=== PATIENT | female | born 1970 | race Caucasian/White ===

== ENCOUNTER 2018-11-29 16:49 | Inpatient (IN) | payer MEDICAID, OTHER ==
--- NOTE | 2018-11-29 17:42 | ED Physician Documentation ---
History of Present Illness - Stated complaint Stated Complaint: ASCITIES - Chief complaint Chief Complaint: Abd Pain - History obtained from History obtained from: Patient, Family - History of Present Illness Timing: Chronic Pain level max: 10 Pain level now: 10 Improved by: nothing Worsened by: movement, palpation - Additonal information Additional information: 48-year-old female with a long history of alcoholic cirrhosis. She recently moved here from [place]. Does not have any care established here yet. She states that she is having increasing abdominal swelling. She is requesting a paracentesis. Her last paracentesis was a few weeks ago. No fevers. She states that she is having abdominal pain as well and has not taken anything for pain at home. She has had 56 emergency department visits in the last year. Her [facility] care plan states not to use narcotics for her. Review of Systems Constitutional: denies: Fever, Chills Throat: denies: Sore throat Cardiac: denies: Chest pain / pressure Respiratory: denies: Cough GI: denies: Nausea, Vomiting, Diarrhea Skin: denies: Rash Musculoskeletal: denies: Neck pain, Back pain Neurologic: denies: Headache PD PAST MEDICAL HISTORY - Past Medical History Past Medical History: No - Past Surgical History Past Surgical History: No - Allergies Allergies/Adverse Reactions: Allergies Allergy/AdvReac Type Severity Reaction Status Date / Time acetaminophen [From Tylenol] Allergy Unknown Verified 11/29/18 17:01 NSAIDS (Non-Steroidal Allergy Unknown Verified 11/29/18 17:01 Anti-Inflamma oxycodone AdvReac Unknown Verified 11/29/18 17:01 - Living Situation Living Situation: reports: With family Living Arrangement: reports: At home PD ED PE NORMAL - Vitals Vital signs reviewed: Yes - General General: Alert and oriented X 3, No acute distress - HEENT HEENT: Moist mucous membranes - Neck Neck: Supple, no meningeal sign - Cardiac Cardiac: RRR, Strong equal pulses - Respiratory Respiratory: No respiratory distress, Clear bilaterally - Abdomen Abdomen: Soft, Non distended, Other (non-tender. significant ascites, but not tense. umbilical hernia is reducible.) - Derm Derm: Warm and dry - Neuro Neuro: Alert and oriented X 3 Results - Vitals Vitals: Vital Signs - 24 hr 11/29/18 11/29/18 11/29/18 16:57 17:22 18:38 Temperature 36.5 C Heart Rate 99 78 98 Respiratory 22 20 Rate Blood Pressure 145/87 H 141/95 H 148/90 H O2 Saturation 99 100 98 11/29/18 11/29/18 11/29/18 19:00 19:30 20:00 Temperature Heart Rate 104 H 97 97 Respiratory 22 26 H Rate Blood Pressure 135/107 H 135/81 H 133/82 H O2 Saturation 95 99 92 Oxygen O2 Source Room air - Labs Labs: Laboratory Tests 11/29/18 11/29/18 11/29/18 17:56 17:56 17:56 WBC 6.2 RBC 3.56 L Hgb 7.1 L Hct 25.3 L MCV 71.1 L MCH 19.9 L MCHC 28.1 L RDW 19.9 H Plt Count 286 MPV 8.8 Neut # (Auto) 4.9 Lymph # (Auto) 0.5 L Mayes # (Auto) 0.6 Eos # (Auto) 0.2 Baso # (Auto) 0.0 Absolute Nucleated RBC 0.00 Nucleated RBC % 0.0 Manual Slide Review Indicated Platelet Estimate NORMAL (130-450,000) Platelet Morphology NORMAL APPEARANCE RBC Morph Micro Appear 1+ POLYCHROMASIA PT 13.2 H INR 1.2 APTT 31.3 Sodium 134 L Potassium 4.1 Chloride 104 Carbon Dioxide 19 L Anion Gap 11.0 BUN 32 H Creatinine 1.3 H Estimated GFR (MDRD) 44 L Glucose 107 H Calcium 9.2 Phosphorus Magnesium Iron TIBC % Saturation Transferrin Total Bilirubin 0.6 AST 21 ALT 14 Alkaline Phosphatase 73 Total Protein 7.4 Albumin 3.3 Globulin 4.1 Albumin/Globulin Ratio 0.8 L Lipase 57 H Urine Color Urine Clarity Urine pH Ur Specific [place] Urine Protein Urine Glucose (UA) Urine Ketones Urine Occult Blood Urine Nitrite Urine Bilirubin Urine Urobilinogen Ur Leukocyte Esterase Urine RBC Urine WBC Urine WBC Clumps Ur Squamous Epith Cells Urine Bacteria Ur Microscopic Review Urine Culture Comments Urine Opiates Screen Ur Oxycodone Screen Urine Methadone Screen Ur Propoxyphene Screen Ur Barbiturates Screen Ur Tricyclics Screen Ur Phencyclidine Scrn Ur Amphetamine Screen U Methamphetamines Scrn U Benzodiazepines Scrn Urine Cocaine Screen U Cannabinoids Screen Blood Type Blood Type Recheck Antibody Screen 11/29/18 11/29/18 11/29/18 17:56 17:56 18:15 WBC RBC Hgb Hct MCV MCH MCHC RDW Plt Count MPV Neut # (Auto) Lymph # (Auto) Mayes # (Auto) Eos # (Auto) Baso # (Auto) Absolute Nucleated RBC Nucleated RBC % Manual Slide Review Platelet Estimate Platelet Morphology RBC Morph Micro Appear PT INR APTT Sodium Potassium Chloride Carbon Dioxide Anion Gap BUN Creatinine Estimated GFR (MDRD) Glucose Calcium Phosphorus 2.8 Magnesium 2.2 Iron 7 L TIBC 407 % Saturation 2 L Transferrin 291 Total Bilirubin AST ALT Alkaline Phosphatase Total Protein Albumin Globulin Albumin/Globulin Ratio Lipase Urine Color Urine Clarity Urine pH Ur Specific [place] Urine Protein Urine Glucose (UA) Urine Ketones Urine Occult Blood Urine Nitrite Urine Bilirubin Urine Urobilinogen Ur Leukocyte Esterase Urine RBC Urine WBC Urine WBC Clumps Ur Squamous Epith Cells Urine Bacteria Ur Microscopic Review Urine Culture Comments Urine Opiates Screen Ur Oxycodone Screen Urine Methadone Screen Ur Propoxyphene Screen Ur Barbiturates Screen Ur Tricyclics Screen Ur Phencyclidine Scrn Ur Amphetamine Screen U Methamphetamines Scrn U Benzodiazepines Scrn Urine Cocaine Screen U Cannabinoids Screen Blood Type Blood Type Recheck B POSITIVE Antibody Screen 11/29/18 11/29/18 19:29 20:31 WBC RBC Hgb Hct MCV MCH MCHC RDW Plt Count MPV Neut # (Auto) Lymph # (Auto) Mayes # (Auto) Eos # (Auto) Baso # (Auto) Absolute Nucleated RBC Nucleated RBC % Manual Slide Review Platelet Estimate Platelet Morphology RBC Morph Micro Appear PT INR APTT Sodium Potassium Chloride Carbon Dioxide Anion Gap BUN Creatinine Estimated GFR (MDRD) Glucose Calcium Phosphorus Magnesium Iron TIBC % Saturation Transferrin Total Bilirubin AST ALT Alkaline Phosphatase Total Protein Albumin Globulin Albumin/Globulin Ratio Lipase Urine Color YELLOW Urine Clarity CLEAR Urine pH 6.5 Ur Specific [place] 1.010 Urine Protein NEGATIVE Urine Glucose (UA) NEGATIVE Urine Ketones NEGATIVE Urine Occult Blood NEGATIVE Urine Nitrite NEGATIVE Urine Bilirubin NEGATIVE Urine Urobilinogen 0.2 (NORMAL) Ur Leukocyte Esterase SMALL H Urine RBC None Seen Urine WBC 11-25 H Urine WBC Clumps PRESENT Ur Squamous Epith Cells RARE Squamous Urine Bacteria Few Ur Microscopic Review INDICATED Urine Culture Comments INDICATED Urine Opiates Screen POSITIVE H Ur Oxycodone Screen NEGATIVE Urine Methadone Screen NEGATIVE Ur Propoxyphene Screen NEGATIVE Ur Barbiturates Screen NEGATIVE Ur Tricyclics Screen NEGATIVE Ur Phencyclidine Scrn NEGATIVE Ur Amphetamine Screen POSITIVE H U Methamphetamines Scrn POSITIVE H U Benzodiazepines Scrn NEGATIVE Urine Cocaine Screen NEGATIVE U Cannabinoids Screen NEGATIVE Blood Type B POSITIVE Blood Type Recheck Antibody Screen POSITIVE PD MEDICAL DECISION MAKING - ED course Complexity details: reviewed results, re-evaluated patient, considered differential, d/w patient, d/w family, d/w [employer] consultant ED course: Old records unavailable except for her [facility] report from [place]. Family states that her normal hemoglobin is around 9 she normally gets transfused if she gets down to around 7. Family states that she is also been unable to get up and walk by herself more than a step or 2 without getting out of breath today.Last paracentesis was approximately a month ago. 10 L of fluid drained at that time. She recently moved here and does not have any outpatient physicians set up. She states that she is on Lasix and spironolactone at home. Will place in observation for blood transfusion and paracentesis with radiology in the morning. 1929, discussed the case with Dr. Heller, hospitalist, who requested that I call hematology oncology for their opinion on if she needs a blood transfusion or not and will follow their recommendations. 1944 D/w Heme onc and recommends transfuse, observation and paracentesis. Iron levels not c/w hemachromotosis. 1999 D/w Dr. Barnett and will perform paracentesis in AM. Departure - Departure Disposition: ED Place in Observation Clinical Impression: Ascites Qualifiers: Ascites type: due to alcoholic cirrhosis Qualified Code(s): K70.31 - Alcoholic cirrhosis of liver with ascites Anemia Qualifiers: Anemia type: unspecified type Qualified Code(s): D64.9 - Anemia, unspecified Iron deficiency anemia Qualifiers: Iron deficiency anemia type: unspecified iron deficiency Qualified Code(s): D50.9 - Iron deficiency anemia, unspecified Condition: Stable Discharge Date/Time: 11/29/18 21:19
[2018-11-29 18:03] LABS: BASOPHILS % (AUTO) 0.5 %; EOSINOPHILS # (AUTO) 0.2 10^3/uL (0.0-0.7); EOSINOPHILS % (AUTO) 3.1 %; HGB - HEMOGLOBIN 7.1 g/dL (12.0-16.0); LYMPHOCYTES # (AUTO) 0.5 10^3/uL (1.5-3.5); LYMPHOCYTES % (AUTO) 7.7 %; MEAN CORPUSCULAR HEMOGLOBIN 19.9 pg (27.0-31.0); MEAN CORPUSCULAR HGB CONC 28.1 g/dL (32.0-36.0); MEAN CORPUSCULAR VOLUME 71.1 fL (81.0-99.0); MEAN PLATELET VOLUME 8.8 fL (7.9-10.8); MONOCYTES # (AUTO) 0.6 10^3/uL (0.0-1.0); MONOCYTES % (AUTO) 9.5 %; NEUTROPHILS # (AUTO) 4.9 10^3/uL (1.5-6.6); NEUTROPHILS % (AUTO) 78.7 %; PLT - PLATELET COUNT 286 10^3/uL (130-450); RED BLOOD COUNT 3.56 10^6/uL (4.20-5.40); RED CELL DISTRIBUTION WIDTH 19.9 % (12.0-15.0); WHITE BLOOD COUNT 6.2 x10^3/uL (4.8-10.8)
[2018-11-29 18:08] LABS: INR 1.2 (0.8-1.2); PT - PROTHROMBIN TIME 13.2 secs (9.9-12.6)
[2018-11-29 18:15] LABS: PARTIAL THROMBOPLASTIN TIME 31.3 secs (24.9-33.3)
[2018-11-29 18:33] LABS: ALBUMIN 3.3 g/dL (3.2-5.5); ALBUMIN/GLOBULIN RATIO 0.8 (1.0-2.2); BILIRUBIN,TOTAL 0.6 mg/dL (0.2-1.0); CALCIUM 9.2 mg/dL (8.5-10.3); CREATININE 1.3 mg/dL (0.4-1.0); TOTAL PROTEIN 7.4 g/dL (6.7-8.2)
[2018-11-29 18:43] LABS: MAGNESIUM 2.2 mg/dL (1.7-2.8); PHOSPHORUS 2.8 mg/dL (2.5-4.6)
[2018-11-29 19:05] LABS: PLATELET ESTIMATE, MANUAL NORMAL (130-450,000) (NORMAL); PLATELET MORPHOLOGY NORMAL APPEARANCE (NORMAL)
[2018-11-29] MEDS ORDERED: MORPHINE 2 MG/ML CARPUJECT IVP STA (19:18)
[2018-11-29] MEDS ORDERED: FUROSEMIDE 40 MG/4 ML VIAL IVP STA (19:19)
[2018-11-29 20:13] LABS: % IRON SATURATION 2 % (20-50); IRON 7 ug/dL (28-170); TOTAL IRON BINDING CAPACITY 407 ug/dL (250-450); TRANSFERRIN 291 mg/dL (192-382)
[2018-11-29 20:41] LABS: MUDS CUTOFF CONCENTRATIONS CUTOFF CONC BELOW:
[2018-11-29 20:46] LABS: BILIRUBIN,URINE NEGATIVE (NEGATIVE); GLUCOSE, URINE (UA) NEGATIVE (NEGATIVE); KETONES,URINE (UA) NEGATIVE (NEGATIVE); LEUKOCYTE ESTERASE, URINE SMALL (NEGATIVE); NITRITE,URINE NEGATIVE (NEGATIVE); OCCULT BLOOD,URINE NEGATIVE (NEGATIVE); PH,URINE 6.5 PH (5.0-7.5); PROTEIN,URINE NEGATIVE (NEGATIVE); UROBILINOGEN,URINE 0.2 (NORMAL) E.U./dL (NORMAL)
[2018-11-29 20:57] LABS: CLARITY,URINE CLEAR (CLEAR)
[2018-11-29 20:58] LABS: BACTERIA,URINE Few /HPF (None Seen); RBC,URINE None Seen /HPF (0-5); SQUAMOUS EPITHELIAL CELL,UR RARE Squamous (<= Few); WBC CLUMPS,URINE PRESENT
--- NOTE | 2018-11-29 21:15 | HISTORY & PHYSICAL EXAMINATION ---
Chief Complaint - Chief Complaint Chief Complaint: abdominal pain, dyspnea History of Present Illness - Admitted From Admitted From:: [facility] ED - History Obtained From Records Reviewed: yes History obtained from: patient - History of Present Illness HPI Comment/Other: Patient seen on 11/29/18 at 20:00pm Patient is a 48 y/o female who appears much older than stated age. She presented to the [facility] ED today with complain of abdominal pain for the past 1 week. She has history of alcoholic liver cirrhosis with ascites. She currently has a very protuberant abdomen with a significant protruding umbilical hernia. She is very cachexic appearing otherwise. She just moved to [facility] about 2 weeks ago from [place], [place], to live with her daughter. She reportedly undergoes frequent paracentesis. The last paracentesis was 3 weeks ago. At that time about 10L of fluid was extracted. She had another 1 month before that. As a result of her ascites and abdominal distention, she is having some dyspnea. However work up also revealed a hemoglobin of 7.1 She denies nausea or vomiting, fever or chills. She reports history of frequent blood transfusions. She has multiple antibodies. She also reports history of hepatic encephalopathy in the past. The rest of her history is unremarkable. As a result of her presentation, she is is being admitted for further treatment. History - Past Medical History Cardiovascular: reports: Hypertension, Other (2nd Degree Heart Block) Endocrine/Autoimmune: reports: HyPOthyroidism GI: reports: Esophageal varices (s/p multiple banding), Cirrhosis [employer]: reports: Miscarriage(s), Other (Uterine rupture) : reports: Other (Chronic Kidney Disease Stage 3) Psych: reports: Anxiety, Other (Mood Disorder) Other Past Medical History: Hx of alcohol abuse, Hepatic Encephalopathy. Portal Hypertension, Severe Protein Calorie Malnutrition, Vit B12 Def, Vit D def, Iron Deficiency Anemia, Hx of Hepatitis B and Hepatitis C, Gastric Antral Vascular Ectasia, Methamphetamine use - Past Surgical History Ortho: reports: Other (Left ankle surgery with titanium rods and plates) - Family & Social History Family History Comment/Other: Father: esophageal cancer. Mother: CVA at 62. Extensive family history of colon cancer on maternal side Living arrangement: At home Living Situation: With family Social History Notes: She moved to [facility] from [place], [place] to live with her daughter and family. She denies alcohol, tobacco or illicit drug use. She has a significant past history of alcoohol abuse. She also tested positived for methamphetamine and opiates. - Substance History Use: Uses substance without health or social issues: Alcohol Abuse: Recurrent use of substance despite neg consequences: Amphetamine, Opioid - POLST Patient has POLST: No POLST Status: Full Code Meds/Allgy - Allergies Allergies/Adverse Reactions: Allergies Allergy/AdvReac Type Severity Reaction Status Date / Time acetaminophen [From Tylenol] Allergy Unknown Verified 11/29/18 17:01 NSAIDS (Non-Steroidal Allergy Unknown Verified 11/29/18 17:01 Anti-Inflamma oxycodone AdvReac Unknown Verified 11/29/18 17:01 Review of Systems - Constitutional Constitutional: reports: Fatigue, Chills, Weakness. denies: Fever - Eyes Eyes: denies: Blurred vision, Vision loss, Dipolpia - Ears, Nose & Throat Ears, Nose & Throat: denies: Vertigo, Nasal pain, Sore throat, Hoarseness - Cardiovascular Cariovascular: denies: Irregular heart rate, Chest pain, Edema, Exertional dyspnea - Respiratory Respiratory: reports: SOB at rest. denies: Wheezing, Snoring, Apnea, Stridor - Gastrointestinal Gastrointestinal: reports: Abdominal pain, Abdominal distention, Reflux/heartburn. denies: Constipation, Diarrhea, Black stools, Nausea, Vomiting, Coffee grounds emesis - Genitourinary Genitourinary: denies: Dysuria, Frequency, Urgency, Hematuria, Flank pain, Nocturia, Urethral discharge - Musculoskeletal Musculoskeletal: denies: Muscle pain, Back pain, Muscle aches, Stiffness, Limited range of motion, Muscle weakness, Joint pain - Integumentary Integumentary: denies: Rash, Pruritis, Lesions, Dryness - Neurological Neurological: denies: General weakness, Focal weakness, Headache, Dizziness - Psychiatric Psychiatric: denies: Depression, Anxiety, Delusions, Hallucinations - Endocrine Endocrine: denies: Polyuria, Polydypsia - Hematologic/Lymphatic Hematologic/Lymphatic: reports: Anemia. denies: Bruising, Petechiae, Blood clots, Lymphadenopathy Prior Level of Functionality: Patient is independent of activities of daily living Exam - Vital Signs Vital Signs: Vital Signs x48h Temp Pulse Resp BP Pulse Ox 11/29/18 20:00 97 26 H 133/82 H 92 07/17/19 19:30 97 135/81 H 99 11/29/18 19:00 104 H 22 135/107 H 95 11/29/18 18:38 98 148/90 H 98 11/29/18 17:22 78 20 141/95 H 100 11/29/18 16:57 36.5 C 99 22 145/87 H 99 - Physical Exam General Appearance: positive: Alert, Moderate distress, Other (cachexic) Eyes Bilateral: positive: Normal inspection, PERRL, EOMI ENT: positive: No signs of dehydration Neck: positive: Nml inspection, No JVD, Trachea midline Respiratory: positive: Chest non-tender, No respiratory distress, Breath sounds nml. negative: Wheezes, Rales, Rhonchi Cardiovascular: positive: Regular rate & rhythm, No murmur Abdomen: positive: Tenderness, Splenomegaly, Other (Protuberant abdomen with significant ascites and umbilical hernia. [place] noted around umbilicus) Back: positive: Nml inspection Skin: positive: Color nml, No rash, Warm. negative: Cyanosis Extremities: positive: Non-tender, Nml appearance, No pedal edema Neurologic/Psychiatric: positive: Oriented x3, Motor nml Conclusion/Plan - Problem List (1) Ascites Conclusion/Plan: NPO after midnight for paracentesis Check PT/INR. Abd US ordered Fluid and salt restrict Will consult IR for paracentesis. Will administer albumin after paracentesis Qualifiers: Ascites type: due to alcoholic cirrhosis Qualified Code(s): K70.31 - A lcoholic cirrhosis of liver with ascites (2) Anemia Conclusion/Plan: Patient stopped oral iron supplement due to constipation Will order IV iron. She will likely need iron infusion out patient Type and screen and cross match ordered Patient has multiple antibodies. Blood work up will need to be a send out Qualifiers: Anemia type: unspecified type Qualified Code(s): D64.9 - Anemia, unspecified (3) Hypothyroidism Conclusion/Plan: Will resume synthroid dose once verified (4) Hepatic encephalopathy Conclusion/Plan: Patient reports taking lactulose. Will resume when medication verified (5) IV drug abuse Conclusion/Plan: Patient denied using any illicit drugs but tested positive for methamphetamines Will keep narcotic administration to a minimum - Lab Results Fish Bones: 11/30/18 05:36 11/30/18 05:36 Core Measures - Anticipated LOS I expect patient to be DC'd or transferred within 96 hours.: Yes - DVT/VTE - Prophylaxis VTE/DVT Device ordered at admit?: Yes
[2018-11-29 21:16] LABS: AMPHETAMINE SCREEN,URINE POSITIVE (NEGATIVE); BENZODIAZEPINES SCREEN, URINE NEGATIVE (NEGATIVE); COCAINE SCREEN URINE NEGATIVE (NEGATIVE); METHADONE SCREEN, URINE NEGATIVE (NEGATIVE); METHAMPHETAMINES SCREEN, URINE POSITIVE (NEGATIVE); OPIATE SCREEN, URINE POSITIVE (NEGATIVE); OXYCODONE SCREEN, URINE NEGATIVE (NEGATIVE); PROPOXYPHENE SCREEN, URINE NEGATIVE (NEGATIVE); TRICYCLIC ANTIDEPRESSANT,URINE NEGATIVE (NEGATIVE)
[2018-11-29] MEDS: SODIUM CHLORIDE FLUSH 0.9% 10 ML SYRINGE IVP PRN (23:07)
[2018-11-29] MEDS: MORPHINE 2 MG/ML CARPUJECT IVP PRN (23:07)
[2018-11-29] MEDS: SODIUM CHLORIDE FLUSH 0.9% 10 ML SYRINGE IVP SCH (23:34)
--- NOTE | 2018-11-30 01:43 | Ultrasound Report ---
Reason: assess ascites for paracentesis Procedure Date: 11/30/2018 Accession Number: [id number] / [id number] Procedure: US - Abdomen Limited CPT Code: FULL RESULT: EXAM: ABDOMEN ULTRASOUND LIMITED EXAM DATE: 11/30/2018 12:23 AM. CLINICAL HISTORY: Assess ascites for paracentesis. COMPARISON: None. TECHNIQUE: Real-time scanning was performed with static images obtained. FINDINGS: There is a significant amount of ascites in all 4 quadrants. IMPRESSION: 1. Ascites in all 4 quadrants. RADIA
[2018-11-30] MEDS: MORPHINE 2 MG/ML CARPUJECT IVP PRN ×3 (05:37→22:13)
[2018-11-30] MEDS: SODIUM CHLORIDE FLUSH 0.9% 10 ML SYRINGE IVP PRN ×5 (05:37→22:21)
[2018-11-30 05:47] LABS: BASOPHILS % (AUTO) 0.5 %; EOSINOPHILS # (AUTO) 0.2 10^3/uL (0.0-0.7); EOSINOPHILS % (AUTO) 3.5 %; LYMPHOCYTES # (AUTO) 0.5 10^3/uL (1.5-3.5); LYMPHOCYTES % (AUTO) 8.1 %; MEAN CORPUSCULAR HEMOGLOBIN 20.6 pg (27.0-31.0); MEAN CORPUSCULAR HGB CONC 29.3 g/dL (32.0-36.0); MEAN CORPUSCULAR VOLUME 70.1 fL (81.0-99.0); MEAN PLATELET VOLUME 8.6 fL (7.9-10.8); MONOCYTES # (AUTO) 0.7 10^3/uL (0.0-1.0); MONOCYTES % (AUTO) 11.3 %; NEUTROPHILS # (AUTO) 4.6 10^3/uL (1.5-6.6); NEUTROPHILS % (AUTO) 75.9 %; PLT - PLATELET COUNT 238 10^3/uL (130-450); RED BLOOD COUNT 3.21 10^6/uL (4.20-5.40); RED CELL DISTRIBUTION WIDTH 19.6 % (12.0-15.0)
[2018-11-30 05:54] LABS: CALCIUM 8.6 mg/dL (8.5-10.3); CREATININE 1.4 mg/dL (0.4-1.0); HGB - HEMOGLOBIN 6.6 g/dL (12.0-16.0)
[2018-11-30 05:55] LABS: INR 1.2 (0.8-1.2)
[2018-11-30] MEDS: LEVOTHYROXINE 25 MCG TABLET PO SCH (06:53)
[2018-11-30] MEDS: LACTULOSE 10 GM /15 ML UDC PO SCH ×3 (06:53→22:07)
[2018-11-30] MEDS ORDERED: PANTOPRAZOLE 40 MG VIAL IVP SCH (07:00)
[2018-11-30] MEDS ORDERED: FERRIC GLUCONATE 125 MG in SODIUM CHLORIDE 0.9% 100ML 100 ML IV ONE (08:00)
[2018-11-30] MEDS: CHOLECALCIFEROL 1,000 UNIT TABLET PO SCH (09:03)
[2018-11-30] MEDS: PANTOPRAZOLE 40 MG VIAL IVP SCH ×2 (09:04→22:07)
[2018-11-30] MEDS: CYANOCOBALAMIN 500 MCG TABLET PO SCH (09:04)
[2018-11-30] MEDS: FUROSEMIDE 40 MG TABLET PO SCH (09:04)
[2018-11-30] MEDS: POLYETHYLENE GLYCOL 3350 17 GM PACKET PO SCH (09:05)
[2018-11-30] MEDS: SODIUM CHLORIDE FLUSH 0.9% 10 ML SYRINGE IVP SCH ×2 (09:05→16:42)
[2018-11-30] MEDS: SPIRONOLACTONE 25 MG TABLET PO SCH (09:07)
[2018-11-30] MEDS: CARBOXYMETHYLCELLULOSE OPHTH DROPS EACHEYE PRN (09:15)
[2018-11-30] MEDS ORDERED: BUFFERED LIDOCAINE 10 ML SYRINGE ONE (12:01)
--- NOTE | 2018-11-30 15:25 | PROVIDER PROGRESS NOTE ---
Assessment/Plan - Problem List (1) Ascites Qualifiers: Assessment/Plan: The plan is for ultrasound-guided paracentesis to be done by interventional radiology today.Dr. Barnett requested that the fluid be sent for cultures. Continue with her daily high-dose spironolactone and loop diuretic doses. Follow daily weight while here (2) Iron deficiency anemia Qualifiers: Iron deficiency anemia type: unspecified iron deficiency Qualified Code(s): D50.9 - Iron deficiency anemia, unspecified Assessment/Plan: Her low hemoglobin is due to chronic iron deficiency anemia from GI blood loss and low iron stores. Her oral iron replacement is continued. Transfusion was ordered overnight but because she has many antibodies, the crossmatch will take a long time and will not be perfect. Lasix will be given between units. Follow CBC (3) H/O blood transfusion reaction Assessment/Plan: She will be premedicated with Benadryl and acetaminophen. Even though acetaminophen is listed as an allergy, it is there in order to have minimum hepatotoxic medications used for her, it is not a true allergy (4) Dyspnea Assessment/Plan: She noticed this worsening when the abdomen became more distended, undoubtedly pushing up her diaphragm into the chest. Follow clinically, improvement is expected after paracentesis today peer (5) Hypothyroidism Assessment/Plan: She is on her home thyroid replacement therapy while here (6) CKD (chronic kidney disease) stage 3, GFR 30-59 ml/min Assessment/Plan: Follow BUN/creatinine while here. Fluid status will be carefully monitored: oral intake, diuresis with spironolactone and loop diuretic, intravascular loss after ascites then third spacing is expected, intravascular repletion with IV blood transfusions, Lasix to be given in between units of blood. (7) Protein calorie malnutrition Qualifiers: Protein-calorie malnutrition severity: unspecified severity Qualified Code(s): E46 - Unspecified protein-calorie malnutrition Assessment/Plan: Dietary evaluation will be ordered. She requests a regular diet and states that she will handle mastication even without teeth. We will offer Ensure supplements. (8) Poor dentition Assessment/Plan: This led to her poor nutrition and was caused by it. Dietary evaluation will be ordered (9) Umbilical hernia Assessment/Plan: Very large, reducible, nonobstructing and non-tender. (10) History of esophageal varices with bleeding Assessment/Plan: Follow platelet, INR and bowel movements for any signs of blood loss (11) GAVE (gastric antral vascular ectasia) Assessment/Plan: Same management as for esophageal varices (12) Hepatitis C Qualifiers: Viral hepatitis chronicity: chronic Assessment/Plan: This was stated to be the reason for her hepatic cirrhosis. (13) Hepatitis B Qualifiers: Viral hepatitis chronicity: chronic Assessment/Plan: This was stated to be the reason for her chronic liver cirrhosis (14) History of alcohol abuse Assessment/Plan: This was stated to have added to her liver cirrhosis (15) History of methamphetamine abuse Assessment/Plan: She denies current IV drug use or any drug use. - Current Meds Current Meds: Current Medications Generic Name Dose Route Start Last Admin Trade Name Freq PRN Reason Stop Dose Admin Carboxymethylcellulose 1 drops 11/30/18 02:00 11/30/18 09:15 Refresh 1% Ophth Drops EACHEYE 1 drops Q4HR PRN Administration Dry Eye Cholecalciferol 2,000 unit 11/30/18 09:00 11/30/18 09:03 Vitamin D3 PO 2,000 unit DAILY SUMEET Administration Cyanocobalamin 1,000 mcg 11/30/18 09:00 11/30/18 09:04 Vitamin B-12 PO 1,000 mcg DAILY SUMEET Administration Furosemide 40 mg 11/30/18 09:00 11/30/18 09:04 Lasix PO 40 mg DAILY SUMEET Administration Lactulose 10 gm 11/30/18 07:00 11/30/18 14:08 Enulose PO 10 gm TID SUMEET Administration Levothyroxine Sodium 50 mcg 11/30/18 07:00 11/30/18 06:53 Synthroid PO 50 mcg QDAC SUMEET Administration Morphine Sulfate 3 mg 11/29/18 20:37 11/30/18 14:08 Morphine (Carpuject) IVP 3 mg Q4HR PRN Administration Pain 8 to 10 Pantoprazole Sodium 40 mg 11/30/18 09:00 11/30/18 09:04 Protonix IVP 40 mg BID SUMEET Administration Polyethylene Glycol 17 gm 11/30/18 09:00 11/30/18 09:05 Miralax PO 17 gm DAILY SUMEET Administration Sodium Chloride 10 ml 11/29/18 20:37 11/30/18 14:08 Normal Saline Flush 0.9% IVP 10 ml PRN PRN Administration NEEDED PER PROVIDER ORDERS Sodium Chloride 10 ml 11/30/18 01:00 11/30/18 09:05 Normal Saline Flush 0.9% IVP 10 ml 0100,0900,1700 SUMEET Administration Spironolactone 100 mg 11/30/18 09:00 11/30/18 09:07 Aldactone PO 100 mg DAILY SUMEET Administration - Lab Result Fish Bone Diagrams: 11/30/18 05:36 11/30/18 05:36 - Additional Planning My Orders: My Active Orders 11/30/18 09:27 NPO [DIET] Abdominal Paracentesis [US] Routine 11/30/18 13:49 Miscellaenous Nursing Order [RC] ONCE 11/30/18 15:22 CUL,BODY FLUID(AEROBIC) [RM] Urgent 11/30/18 15:24 CELL COUNT, BF [BF] Urgent 11/30/18 15:30 diphenhydrAMINE INJ [Benadryl Inj] 25 mg IVP ONCE ONE 11/30/18 16:30 Acetaminophen [Tylenol] 650 mg PO ONCE ONE 11/30/18 17:30 FUROSEMIDE INJ 20mg VIAL [LASIX INJ 20mg VIAL] 20 mg IVP ONCE PRN 11/30/18 Dinner DIET [Low Sodium Diet] [DIET] Subjective - Subjective Patient Reports: Feeling Better, Resting Comfortably Objective Vital Signs: Vital Signs - 24 hr 11/29/18 11/29/18 11/29/18 16:57 17:22 18:38 Temperature 36.5 C Heart Rate 99 78 98 Heart Rate [ Brachial] Respiratory 22 20 Rate Blood Pressure 145/87 H 141/95 H 148/90 H Blood Pressure [Right Brachial artery] O2 Saturation 99 100 98 11/29/18 11/29/18 11/29/18 19:00 19:30 20:00 Temperature Heart Rate 104 H 97 97 Heart Rate [ Brachial] Respiratory 22 26 H Rate Blood Pressure 135/107 H 135/81 H 133/82 H Blood Pressure [Right Brachial artery] O2 Saturation 95 99 92 11/30/18 11/30/18 11/30/18 00:56 05:41 07:20 Temperature 36.9 C 36.6 C 36.5 C Heart Rate Heart Rate [ 95 79 74 Brachial] Respiratory 16 20 20 Rate Blood Pressure Blood Pressure 129/80 123/92 H 134/96 H [Right Brachial artery] O2 Saturation 94 98 100 11/30/18 11:24 Temperature 36.6 C Heart Rate Heart Rate [ 83 Brachial] Respiratory 18 Rate Blood Pressure Blood Pressure 149/81 H [Right Brachial artery] O2 Saturation 100 Oxygen O2 Source Room air I&O (Last 24 Hrs): Intake and Output Totals x24h 11/28/18 11/29/18 11/30/18 23:59 23:59 23:59 Intake Total 110 Balance 110 General: Alert, Oriented x3 HEENT: Mucous membr. moist/pink, Other (Temporal wasting. Upper teeth broken or missing. lower jaw edentulous.) Neuro: Non Focal Cardiovascular: Regular rate, No murmurs Respiratory: No respiratory distress Abdomen: Other (Distended with fluid wave, not tense, very large and "multi- lobed' umbilical hernia which is non-tender) Extremities: No edema, Other (Upper extremity muscles wasted.) - Results Results: Laboratory Results WBC 6.0 x10^3/uL (4.8-10.8) 11/30/18 05:36 RBC 3.21 10^6/uL (4.20-5.40) L 11/30/18 05:36 Hgb 6.6 g/dL (12.0-16.0) L* 11/30/18 05:36 Hct 22.5 % (37.0-47.0) L 11/30/18 05:36 MCV 70.1 fL (81.0-99.0) L 11/30/18 05:36 MCH 20.6 pg (27.0-31.0) L 11/30/18 05:36 MCHC 29.3 g/dL (32.0-36.0) L 11/30/18 05:36 RDW 19.6 % (12.0-15.0) H 11/30/18 05:36 Plt Count 238 10^3/uL (130-450) 11/30/18 05:36 MPV 8.6 fL (7.9-10.8) 11/30/18 05:36 Neut # (Auto) 4.6 10^3/uL (1.5-6.6) 11/30/18 05:36 Lymph # (Auto) 0.5 10^3/uL (1.5-3.5) L 11/30/18 05:36 Walsh # (Auto) 0.7 10^3/uL (0.0-1.0) 11/30/18 05:36 Eos # (Auto) 0.2 10^3/uL (0.0-0.7) 11/30/18 05:36 Baso # (Auto) 0.0 10^3/uL (0.0-0.1) 11/30/18 05:36 Absolute Nucleated RBC 0.00 x10^3/uL 11/30/18 05:36 Nucleated RBC % 0.0 /100WBC 11/30/18 05:36 Manual Slide Review Indicated 11/29/18 17:56 Platelet Estimate NORMAL (130-450,000) (NORMAL) 11/29/18 17:56 Platelet Morphology NORMAL APPEARANCE (NORMAL) 11/29/18 17:56 RBC Morph Micro Appear 3+ HYPOCHROMASIA (NORMAL) 1+ POLYCHROMASIA (NORMAL) 11/29/18 17:56 RBC Morph Micro Appear 3+ HYPOCHROMASIA (NORMAL) 1+ POLYCHROMASIA (NORMAL) 11/29/18 17:56 PT 14.0 secs (9.9-12.6) H 11/30/18 05:36 INR 1.2 (0.8-1.2) 11/30/18 05:36 APTT 31.3 secs (24.9-33.3) 11/29/18 17:56 Sodium 134 mmol/L (135-145) L 11/30/18 05:36 Potassium 3.9 mmol/L (3.5-5.0) 11/30/18 05:36 Chloride 102 mmol/L (101-111) 11/30/18 05:36 Carbon Dioxide 20 mmol/L (21-32) L 11/30/18 05:36 Anion Gap 12.0 (6-13) 11/30/18 05:36 BUN 34 mg/dL (6-20) H 11/30/18 05:36 Creatinine 1.4 mg/dL (0.4-1.0) H 11/30/18 05:36 Estimated GFR (MDRD) 40 (>89) L 11/30/18 05:36 Glucose 99 mg/dL (70-100) 11/30/18 05:36 POC Whole Bld Glucose 98 mg/dL (70 - 100) 11/30/18 11:16 Calcium 8.6 mg/dL (8.5-10.3) 11/30/18 05:36 Phosphorus 2.8 mg/dL (2.5-4.6) 11/29/18 18:15 Magnesium 2.2 mg/dL (1.7-2.8) 11/29/18 18:15 Iron 7 ug/dL (28-170) L 11/29/18 17:56 TIBC 407 ug/dL (250-450) 11/29/18 17:56 % Saturation 2 % (20-50) L 11/29/18 17:56 Transferrin 291 mg/dL (192-382) 11/29/18 17:56 Total Bilirubin 0.6 mg/dL (0.2-1.0) 11/29/18 17:56 AST 21 IU/L (10-42) 11/29/18 17:56 ALT 14 IU/L (10-60) 11/29/18 17:56 Alkaline Phosphatase 73 IU/L (42-121) 11/29/18 17:56 Ammonia 34.4 umol/L (7-35) 11/30/18 05:36 Total Protein 7.4 g/dL (6.7-8.2) 11/29/18 17:56 Albumin 3.3 g/dL (3.2-5.5) 11/29/18 17:56 Globulin 4.1 g/dL (2.1-4.2) 11/29/18 17:56 Albumin/Globulin Ratio 0.8 (1.0-2.2) L 11/29/18 17:56 Lipase 57 U/L (22-51) H 11/29/18 17:56 Urine Color YELLOW 11/29/18 20:31 Urine Clarity CLEAR (CLEAR) 11/29/18 20:31 Urine pH 6.5 PH (5.0-7.5) 11/29/18 20:31 Ur Specific [place] 1.010 (1.002-1.030) 11/29/18 20:31 Urine Protein NEGATIVE mg/dL (NEGATIVE) 11/29/18 20:31 Urine Glucose (UA) NEGATIVE mg/dL (NEGATIVE) 11/29/18 20:31 Urine Ketones NEGATIVE mg/dL (NEGATIVE) 11/29/18 20:31 Urine Occult Blood NEGATIVE (NEGATIVE) 11/29/18 20:31 Urine Nitrite NEGATIVE (NEGATIVE) 11/29/18 20:31 Urine Bilirubin NEGATIVE (NEGATIVE) 11/29/18 20:31 Urine Urobilinogen 0.2 (NORMAL) E.U./dL (NORMAL) 11/29/18 20:31 Ur Leukocyte Esterase SMALL (NEGATIVE) H 11/29/18 20:31 Urine RBC None Seen /HPF (0-5) 11/29/18 20:31 Urine WBC 11-25 /HPF (0-5) H 11/29/18 20:31 Urine WBC Clumps PRESENT 11/29/18 20:31 Ur Squamous Epith Cells RARE Squamous (<= Few) 11/29/18 20:31 Urine Bacteria Few /HPF (None Seen) 11/29/18 20:31 Ur Microscopic Review INDICATED 11/29/18 20:31 Urine Culture Comments INDICATED 11/29/18 20:31 Urine Opiates Screen POSITIVE (NEGATIVE) H 11/29/18 20:31 Ur Oxycodone Screen NEGATIVE (NEGATIVE) 11/29/18 20:31 Urine Methadone Screen NEGATIVE (NEGATIVE) 11/29/18 20:31 Ur Propoxyphene Screen NEGATIVE (NEGATIVE) 11/29/18 20:31 Ur Barbiturates Screen NEGATIVE (NEGATIVE) 11/29/18 20:31 Ur Tricyclics Screen NEGATIVE (NEGATIVE) 11/29/18 20:31 Ur Phencyclidine Scrn NEGATIVE (NEGATIVE) 11/29/18 20:31 Ur Amphetamine Screen POSITIVE (NEGATIVE) H 11/29/18 20:31 U Methamphetamines Scrn POSITIVE (NEGATIVE) H 11/29/18 20:31 U Benzodiazepines Scrn NEGATIVE (NEGATIVE) 11/29/18 20:31 Urine Cocaine Screen NEGATIVE (NEGATIVE) 11/29/18 20:31 U Cannabinoids Screen NEGATIVE (NEGATIVE) 11/29/18 20:31 Blood Type B POSITIVE 11/29/18 19:29 Blood Type Recheck B POSITIVE 11/29/18 17:56 Antibody Screen POSITIVE 11/29/18 19:29 Antibody Identification Anti-E Anti-Jkb ID SENT TO REFERENCE LAB Warm Auto Antibody 11/29/18 19:29 Antibody Identification Anti-E Anti-Jkb ID SENT TO REFERENCE LAB Warm Auto Antibody 11/29/18 19:29 Antibody Identification Anti-E Anti-Jkb ID SENT TO REFERENCE LAB Warm Auto Antibody 11/29/18 19:29 Antibody Identification Anti-E Anti-Jkb ID SENT TO REFERENCE LAB Warm Auto Antibody 11/29/18 19:29 Crossmatch See Detail 11/29/18 19:29 Crossmatch IS Only See Detail 11/29/18 19:29
[2018-11-30] MEDS ORDERED: diphenhydrAMINE INJ 50 MG/ML VIAL IVP ONE (15:30)
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
--- NOTE | 2018-11-30 15:55 | Ultrasound Report ---
Reason: Recurrent ascites Procedure Date: 11/30/2018 Accession Number: [id number] / [id number] Procedure: US - Abdominal Paracentesis CPT Code: FULL RESULT: EXAM: ULTRASOUND-GUIDED PARACENTESIS EXAM DATE: 11/30/2018 03:45 PM. CLINICAL HISTORY: Recurrent ascites, history of cirrhosis. COMPARISON: None. TECHNIQUE: Risks, benefits, and alternatives to the procedure were discussed with the patient. All questions answered. Written and verbal consent obtained. Patient was placed in the supine position and the skin overlying the ascites marked with sonographic guidance. The skin was sterilely prepped and draped, and 1% buffered lidocaine was used for local anesthesia. An 18-gauge catheter-needle combination was advanced into the peritoneal ascites and fluid aspirated. Upon completion, the catheter was removed. FINDINGS: A total of 7500 mL of fluid was removed without immediate complication. Patient tolerated procedure well. IMPRESSION: Ultrasound-guided paracentesis without immediate complications. [facility]
[2018-11-30] MEDS ORDERED: ACETAMINOPHEN 325 MG TABLET PO ONE (16:30)
[2018-11-30] MEDS ORDERED: SODIUM CHLORIDE 0.9% 500 ML ONE (16:40)
[2018-11-30] MEDS ORDERED: BUFFERED LIDOCAINE 10 ML SYRINGE IU ONE (17:04)
[2018-11-30] MEDS ORDERED: FUROSEMIDE 20 MG/2 ML VIAL IVP PRN (17:30)
[2018-11-30] MEDS: MIRTAZAPINE 15 MG TABLET PO SCH (22:08)
[2018-12-01] MEDS: SODIUM CHLORIDE FLUSH 0.9% 10 ML SYRINGE IVP SCH ×3 (00:24→16:11)
[2018-12-01 06:07] LABS: BASOPHILS # (AUTO) 0.1 10^3/uL (0.0-0.1); BASOPHILS % (AUTO) 0.6 %; EOSINOPHILS # (AUTO) 0.2 10^3/uL (0.0-0.7); EOSINOPHILS % (AUTO) 2.1 %; HGB - HEMOGLOBIN 9.8 g/dL (12.0-16.0); LYMPHOCYTES # (AUTO) 0.4 10^3/uL (1.5-3.5); LYMPHOCYTES % (AUTO) 3.1 %; MEAN CORPUSCULAR HEMOGLOBIN 21.6 pg (27.0-31.0); MEAN CORPUSCULAR HGB CONC 30.7 g/dL (32.0-36.0); MEAN CORPUSCULAR VOLUME 70.4 fL (81.0-99.0); MEAN PLATELET VOLUME 8.4 fL (7.9-10.8); MONOCYTES % (AUTO) 8.8 %; NEUTROPHILS # (AUTO) 9.5 10^3/uL (1.5-6.6); NEUTROPHILS % (AUTO) 84.9 %; PLT - PLATELET COUNT 235 10^3/uL (130-450); RED BLOOD COUNT 4.53 10^6/uL (4.20-5.40); RED CELL DISTRIBUTION WIDTH 19.7 % (12.0-15.0); WHITE BLOOD COUNT 11.2 x10^3/uL (4.8-10.8)
[2018-12-01] MEDS: LACTULOSE 10 GM /15 ML UDC PO SCH ×3 (06:07→21:31)
[2018-12-01] MEDS: LEVOTHYROXINE 25 MCG TABLET PO SCH (06:07)
[2018-12-01 06:36] LABS: CALCIUM 8.7 mg/dL (8.5-10.3); CREATININE 1.6 mg/dL (0.4-1.0)
[2018-12-01] MEDS: PANTOPRAZOLE 40 MG VIAL IVP SCH ×2 (08:37→21:04)
[2018-12-01] MEDS: CARBOXYMETHYLCELLULOSE OPHTH DROPS EACHEYE PRN (08:38)
[2018-12-01] MEDS: SPIRONOLACTONE 25 MG TABLET PO SCH (08:38)
[2018-12-01] MEDS: CYANOCOBALAMIN 500 MCG TABLET PO SCH (08:38)
[2018-12-01] MEDS: FUROSEMIDE 40 MG TABLET PO SCH (08:38)
[2018-12-01] MEDS: CHOLECALCIFEROL 1,000 UNIT TABLET PO SCH (08:38)
[2018-12-01] MEDS: POLYETHYLENE GLYCOL 3350 17 GM PACKET PO SCH (08:38)
[2018-12-01] MEDS: MORPHINE 2 MG/ML CARPUJECT IVP PRN ×3 (08:49→21:33)
[2018-12-01] MEDS ORDERED: BISACODYL 10 MG SUPP PR ONE (14:10)
[2018-12-01] MEDS: PRENATAL VITAMIN TABLET PO SCH (16:11)
[2018-12-01] MEDS: SODIUM CHLORIDE FLUSH 0.9% 10 ML SYRINGE IVP PRN ×3 (17:34→21:36)
--- NOTE | 2018-12-01 18:31 | PROVIDER PROGRESS NOTE ---
Assessment/Plan - Problem List (1) Acute worsening of stage 3 chronic kidney disease Assessment/Plan: Creatinine increased since admission, which was already abnormal. I suspect this is from hypotension related to fluid extravasation from intravascular vessels to her ascites by third spacing. Will not replace with IV saline because of her rapid ascites accumulation, but will give iv Albumen today. Will monitor and not discharge today, to assure she does not go into ATN (acute tubular necrosis). Follow BMP daily. (2) Ascites Qualifiers: Ascites type: due to alcoholic cirrhosis Assessment/Plan: 7.5 L of cloudy yellow fluid was removed yesterday. She did not have immediate hypotension but blood pressure is lower today. We will continue to monitor her because of possible hepatorenal syndrome (see below), and not discharge today (3) History of methamphetamine abuse Assessment/Plan: She had (+) tox screen for Meth She is somnolent today and the nurse reprts there is the odor of methamphetamine in the room. This is consistent with methamphetamine withdrawal today. Monitor, possible DCh tomorrow. (4) Iron deficiency anemia Qualifiers: Iron deficiency anemia type: unspecified iron deficiency Qualified Code(s): D50.9 - Iron deficiency anemia, unspecified Assessment/Plan: Her oral iron is restarted. 2 units of PRBCs were transfused and hemoglobin increased from 6.6-9.0. Monitor CBC tomorrow for any fall, suggesting active bleeding. If stable she will likely be discharged. (5) H/O blood transfusion reaction Assessment/Plan: She had no allergic reactions to the 2 units of PRBCs transfused yesterday (6) Hypothyroidism Assessment/Plan: She is on her thyroid replacement dose as at home (7) Protein calorie malnutrition Qualifiers: Protein-calorie malnutrition severity: unspecified severity Qualified Code(s): E46 - Unspecified protein-calorie malnutrition Assessment/Plan: A nutrition consult is pending to assess this. I have also asked the dietitian to meet personally with the daughter who will be the caregiver and cook (8) Poor dentition Assessment/Plan: Chronic (9) Umbilical hernia Assessment/Plan: Stable (10) History of esophageal varices with bleeding Assessment/Plan: No gross hematemesis or melena. Follow CBC while here daily (11) GAVE (gastric antral vascular ectasia) Assessment/Plan: No gross hematemesis or melena. Follow CBC while here daily (12) Hepatitis C Qualifiers: Viral hepatitis chronicity: chronic Assessment/Plan: Stable (13) Hepatitis B Qualifiers: Viral hepatitis chronicity: chronic Assessment/Plan: Stable (14) Dyspnea Assessment/Plan: Resolved, however she has been minimally active today. (15) History of alcohol abuse Assessment/Plan: Apparently this is not an active problem now. - Current Meds Current Meds: Current Medications Generic Name Dose Route Start Last Admin Trade Name Freq PRN Reason Stop Dose Admin Carboxymethylcellulose 1 drops 11/30/18 02:00 12/01/18 08:38 Refresh 1% Ophth Drops EACHEYE 1 drops Q4HR PRN Administration Dry Eye Cholecalciferol 2,000 unit 11/30/18 09:00 12/01/18 08:38 Vitamin D3 PO 2,000 unit DAILY SUMEET Administration Cyanocobalamin 1,000 mcg 11/30/18 09:00 12/01/18 08:38 Vitamin B-12 PO 1,000 mcg DAILY SUMEET Administration Furosemide 40 mg 11/30/18 09:00 12/01/18 08:38 Lasix PO 40 mg DAILY SUMEET Administration Lactulose 10 gm 11/30/18 07:00 12/01/18 14:05 Enulose PO 10 gm TID SUMEET Administration Levothyroxine Sodium 50 mcg 11/30/18 07:00 12/01/18 06:07 Synthroid PO 50 mcg QDAC SUMEET Administration Mirtazapine 7.5 mg 11/30/18 21:00 11/30/18 22:08 Remeron PO Not Given QPM SUMEET Morphine Sulfate 3 mg 11/29/18 20:37 12/01/18 17:33 Morphine (Carpuject) IVP 3 mg Q4HR PRN Administration Pain 8 to 10 Pantoprazole Sodium 40 mg 11/30/18 09:00 12/01/18 08:37 Protonix IVP 40 mg BID SUMEET Administration Polyethylene Glycol 17 gm 11/30/18 09:00 12/01/18 08:38 Miralax PO 17 gm DAILY SUMEET Administration Multivit/Folic Acid/Iron 1 tab 12/01/18 16:00 12/01/18 16:11 Trinatal Rx 1 PO 1 tab DAILYWM SUMEET Administration Sodium Chloride 10 ml 11/29/18 20:37 12/01/18 17:34 Normal Saline Flush 0.9% IVP 10 ml PRN PRN Administration NEEDED PER PROVIDER ORDERS Sodium Chloride 10 ml 11/30/18 01:00 12/01/18 16:11 Normal Saline Flush 0.9% IVP 10 ml 0100,[id number],1700 SUMEET Administration Spironolactone 100 mg 11/30/18 09:00 12/01/18 08:38 Aldactone PO 100 mg DAILY SUMEET Administration - Lab Result Fish Bone Diagrams: 12/02/18 05:59 12/02/18 05:59 - Additional Planning My Orders: My Active Orders 12/01/18 10:41 Nutrition Consult [CONS] Routine 12/01/18 16:00 Vitamin [Trinatal Rx 1] 1 tab PO DAILYWM Subjective - Subjective Patient Reports: Fatigue, Other (No further respiratory distress) Objective Vital Signs: Vital Signs - 24 hr 11/30/18 11/30/18 11/30/18 20:39 20:44 22:42 Temperature 37.1 C 37.1 C 37.1 C Heart Rate 83 82 Heart Rate [ 83 Brachial] Respiratory 16 16 16 Rate Blood Pressure 130/77 126/78 Blood Pressure 130/77 [Left Brachial artery] Blood Pressure [Right Brachial artery] O2 Saturation 98 11/30/18 12/01/18 12/01/18 22:57 00:18 01:13 Temperature 37.2 C 36.7 C 37.3 C Heart Rate 81 79 Heart Rate [ 79 Brachial] Respiratory 16 16 16 Rate Blood Pressure 129/86 H 112/76 Blood Pressure 120/72 [Left Brachial artery] Blood Pressure [Right Brachial artery] O2 Saturation 100 12/01/18 12/01/18 12/01/18 04:58 08:28 12:00 Temperature 37.0 C 37.6 C H 37.2 C Heart Rate Heart Rate [ 88 96 92 Brachial] Respiratory 16 18 18 Rate Blood Pressure Blood Pressure 116/69 [Left Brachial artery] Blood Pressure 143/76 H 116/65 [Right Brachial artery] O2 Saturation 98 98 98 12/01/18 15:31 Temperature 36.8 C Heart Rate Heart Rate [ 84 Brachial] Respiratory 16 Rate Blood Pressure Blood Pressure [Left Brachial artery] Blood Pressure 131/88 H [Right Brachial artery] O2 Saturation 95 Oxygen O2 Source Room air I&O (Last 24 Hrs): Intake and Output Totals x24h 11/29/18 11/30/18 12/01/18 23:59 23:59 23:59 Intake Total 1082 685 Output Total 450 Balance 1082 235 General: Other (Sleeping) HEENT: Other (Poor dentition, moist oral mucosa) Neck: Supple Neuro: Other (Lethargic, awakens with eyes half open then falls asleep) Cardiovascular: Regular rate, No murmurs Respiratory: No respiratory distress, Breath sounds nml Abdomen: Soft, Other (No tenderniss, large irregular shaped umbilical hernia, reducable) Extremities: No edema - Results Results: Laboratory Results WBC 11.2 x10^3/uL (4.8-10.8) H 12/01/18 05:58 RBC 4.53 10^6/uL (4.20-5.40) 12/01/18 05:58 Hgb 9.8 g/dL (12.0-16.0) L 12/01/18 05:58 Hct 31.9 % (37.0-47.0) L 12/01/18 05:58 MCV 70.4 fL (81.0-99.0) L 12/01/18 05:58 MCH 21.6 pg (27.0-31.0) L 12/01/18 05:58 MCHC 30.7 g/dL (32.0-36.0) L 12/01/18 05:58 RDW 19.7 % (12.0-15.0) H 12/01/18 05:58 Plt Count 235 10^3/uL (130-450) 12/01/18 05:58 MPV 8.4 fL (7.9-10.8) 12/01/18 05:58 Neut # (Auto) 9.5 10^3/uL (1.5-6.6) H 12/01/18 05:58 Lymph # (Auto) 0.4 10^3/uL (1.5-3.5) L 12/01/18 05:58 [place] # (Auto) 1.0 10^3/uL (0.0-1.0) 12/01/18 05:58 Eos # (Auto) 0.2 10^3/uL (0.0-0.7) 12/01/18 05:58 Baso # (Auto) 0.1 10^3/uL (0.0-0.1) 12/01/18 05:58 Absolute Nucleated RBC 0.00 x10^3/uL 12/01/18 05:58 Nucleated RBC % 0.0 /100WBC 12/01/18 05:58 Manual Slide Review Indicated 11/29/18 17:56 Platelet Estimate NORMAL (130-450,000) (NORMAL) 11/29/18 17:56 Platelet Morphology NORMAL APPEARANCE (NORMAL) 11/29/18 17:56 RBC Morph Micro Appear 3+ HYPOCHROMASIA (NORMAL) 1+ POLYCHROMASIA (NORMAL) 11/29/18 17:56 RBC Morph Micro Appear 3+ HYPOCHROMASIA (NORMAL) 1+ POLYCHROMASIA (NORMAL) 11/29/18 17:56 PT 14.0 secs (9.9-12.6) H 11/30/18 05:36 INR 1.2 (0.8-1.2) 11/30/18 05:36 APTT 31.3 secs (24.9-33.3) 11/29/18 17:56 Sodium 133 mmol/L (135-145) L 12/01/18 05:58 Potassium 4.4 mmol/L (3.5-5.0) 12/01/18 05:58 Chloride 102 mmol/L (101-111) 12/01/18 05:58 Carbon Dioxide 21 mmol/L (21-32) 12/01/18 05:58 Anion Gap 10.0 (6-13) 12/01/18 05:58 BUN 35 mg/dL (6-20) H 12/01/18 05:58 Creatinine 1.6 mg/dL (0.4-1.0) H 12/01/18 05:58 Estimated GFR (MDRD) 34 (>89) L 12/01/18 05:58 Glucose 101 mg/dL (70-100) H 12/01/18 05:58 POC Whole Bld Glucose 98 mg/dL (70 - 100) 11/30/18 11:16 Calcium 8.7 mg/dL (8.5-10.3) 12/01/18 05:58 Phosphorus 2.8 mg/dL (2.5-4.6) 11/29/18 18:15 Magnesium 2.2 mg/dL (1.7-2.8) 11/29/18 18:15 Iron 7 ug/dL (28-170) L 11/29/18 17:56 TIBC 407 ug/dL (250-450) 11/29/18 17:56 % Saturation 2 % (20-50) L 11/29/18 17:56 Transferrin 291 mg/dL (192-382) 11/29/18 17:56 Total Bilirubin 0.6 mg/dL (0.2-1.0) 11/29/18 17:56 AST 21 IU/L (10-42) 11/29/18 17:56 ALT 14 IU/L (10-60) 11/29/18 17:56 Alkaline Phosphatase 73 IU/L (42-121) 11/29/18 17:56 Ammonia 34.4 umol/L (7-35) 11/30/18 05:36 Total Protein 7.4 g/dL (6.7-8.2) 11/29/18 17:56 Albumin 3.3 g/dL (3.2-5.5) 11/29/18 17:56 Globulin 4.1 g/dL (2.1-4.2) 11/29/18 17:56 Albumin/Globulin Ratio 0.8 (1.0-2.2) L 11/29/18 17:56 Lipase 57 U/L (22-51) H 11/29/18 17:56 Urine Color YELLOW 11/29/18 20:31 Urine Clarity CLEAR (CLEAR) 11/29/18 20:31 Urine pH 6.5 PH (5.0-7.5) 11/29/18 20:31 Ur Specific [place] 1.010 (1.002-1.030) 11/29/18 20:31 Urine Protein NEGATIVE mg/dL (NEGATIVE) 11/29/18 20:31 Urine Glucose (UA) NEGATIVE mg/dL (NEGATIVE) 11/29/18 20:31 Urine Ketones NEGATIVE mg/dL (NEGATIVE) 11/29/18 20:31 Urine Occult Blood NEGATIVE (NEGATIVE) 11/29/18 20:31 Urine Nitrite NEGATIVE (NEGATIVE) 11/29/18 20:31 Urine Bilirubin NEGATIVE (NEGATIVE) 11/29/18 20:31 Urine Urobilinogen 0.2 (NORMAL) E.U./dL (NORMAL) 11/29/18 20:31 Ur Leukocyte Esterase SMALL (NEGATIVE) H 11/29/18 20:31 Urine RBC None Seen /HPF (0-5) 11/29/18 20:31 Urine WBC 11-25 /HPF (0-5) H 11/29/18 20:31 Urine WBC Clumps PRESENT 11/29/18 20:31 Ur Squamous Epith Cells RARE Squamous (<= Few) 11/29/18 20:31 Urine Bacteria Few /HPF (None Seen) 11/29/18 20:31 Ur Microscopic Review INDICATED 11/29/18 20:31 Urine Culture Comments INDICATED 11/29/18 20:31 Urine Opiates Screen POSITIVE (NEGATIVE) H 11/29/18 20:31 Ur Oxycodone Screen NEGATIVE (NEGATIVE) 11/29/18 20:31 Urine Methadone Screen NEGATIVE (NEGATIVE) 11/29/18 20:31 Ur Propoxyphene Screen NEGATIVE (NEGATIVE) 11/29/18 20:31 Ur Barbiturates Screen NEGATIVE (NEGATIVE) 11/29/18 20:31 Ur Tricyclics Screen NEGATIVE (NEGATIVE) 11/29/18 20:31 Ur Phencyclidine Scrn NEGATIVE (NEGATIVE) 11/29/18 20:31 Ur Amphetamine Screen POSITIVE (NEGATIVE) H 11/29/18 20:31 U Methamphetamines Scrn POSITIVE (NEGATIVE) H 11/29/18 20:31 U Benzodiazepines Scrn NEGATIVE (NEGATIVE) 11/29/18 20:31 Urine Cocaine Screen NEGATIVE (NEGATIVE) 11/29/18 20:31 U Cannabinoids Screen NEGATIVE (NEGATIVE) 11/29/18 20:31 Blood Type B POSITIVE 11/29/18 19:29 Blood Type Recheck B POSITIVE 11/29/18 17:56 Antibody Screen POSITIVE 11/29/18 19:29 Antibody Identification Anti-E Anti-Jkb ID SENT TO REFERENCE LAB Warm Auto Antibody 11/29/18 19:29 Antibody Identification Anti-E Anti-Jkb ID SENT TO REFERENCE LAB Warm Auto Antibody 11/29/18 19:29 Antibody Identification Anti-E Anti-Jkb ID SENT TO REFERENCE LAB Warm Auto Antibody 11/29/18 19:29 Antibody Identification Anti-E Anti-Jkb ID SENT TO REFERENCE LAB Warm Auto Antibody 11/29/18 19:29 Crossmatch See Detail 11/29/18 19:29 Crossmatch IS Only See Detail 11/29/18 19:29
[2018-12-01] MEDS ORDERED: ALBUMIN 25% 12.5 GM/50 ML VIAL IV ONE (18:45)
[2018-12-01] MEDS: MIRTAZAPINE 15 MG TABLET PO SCH (21:01)
[2018-12-02] MEDS: SODIUM CHLORIDE FLUSH 0.9% 10 ML SYRINGE IVP SCH ×2 (01:02→08:49)
[2018-12-02 06:23] LABS: BASOPHILS # (AUTO) 0.1 10^3/uL (0.0-0.1); BASOPHILS % (AUTO) 0.6 %; EOSINOPHILS # (AUTO) 0.3 10^3/uL (0.0-0.7); EOSINOPHILS % (AUTO) 3.1 %; LYMPHOCYTES # (AUTO) 0.5 10^3/uL (1.5-3.5); LYMPHOCYTES % (AUTO) 6.4 %; MEAN CORPUSCULAR HEMOGLOBIN 21.4 pg (27.0-31.0); MEAN CORPUSCULAR HGB CONC 30.4 g/dL (32.0-36.0); MEAN CORPUSCULAR VOLUME 70.5 fL (81.0-99.0); MEAN PLATELET VOLUME 8.4 fL (7.9-10.8); MONOCYTES % (AUTO) 12.4 %; NEUTROPHILS # (AUTO) 6.2 10^3/uL (1.5-6.6); PLT - PLATELET COUNT 229 10^3/uL (130-450); RED CELL DISTRIBUTION WIDTH 20.2 % (12.0-15.0)
[2018-12-02 06:35] LABS: CALCIUM 8.5 mg/dL (8.5-10.3); CREATININE 1.5 mg/dL (0.4-1.0)
[2018-12-02] MEDS: LACTULOSE 10 GM /15 ML UDC PO SCH (06:42)
[2018-12-02] MEDS: LEVOTHYROXINE 25 MCG TABLET PO SCH (06:43)
[2018-12-02 06:50] LABS: PLATELET ESTIMATE, MANUAL NORMAL (130-450,000) (NORMAL)
[2018-12-02] MEDS: POLYETHYLENE GLYCOL 3350 17 GM PACKET PO SCH (08:49)
[2018-12-02] MEDS: PANTOPRAZOLE 40 MG VIAL IVP SCH (08:49)
[2018-12-02] MEDS: CARBOXYMETHYLCELLULOSE OPHTH DROPS EACHEYE PRN (08:50)
[2018-12-02] MEDS: PRENATAL VITAMIN TABLET PO SCH (08:50)
[2018-12-02] MEDS: CHOLECALCIFEROL 1,000 UNIT TABLET PO SCH (08:50)
[2018-12-02] MEDS: FUROSEMIDE 40 MG TABLET PO SCH (08:50)
[2018-12-02] MEDS: SPIRONOLACTONE 25 MG TABLET PO SCH (08:51)
[2018-12-02] MEDS: CYANOCOBALAMIN 500 MCG TABLET PO SCH (08:51)
[2018-12-02 08:56] VITALS: BP 123/77
[2018-12-02] MEDS ORDERED: DOCUSATE SODIUM 250 MG CAPSULE PO SCH (09:00)
[2018-12-02] MEDS ORDERED: SENNA 8.6 MG TABLET PO SCH (09:00)
[2018-12-02] MEDS ORDERED: BISACODYL 10 MG SUPP PR SCH (10:27)
--- NOTE | 2018-12-02 11:04 | Discharge Plan ---
Discharge Plan Problem Reviewed?: Yes Disposition: Home, Self Care Condition: Stable Prescriptions: Ascorbic Acid [Vitamin C] 500 mg PO DAILY #30 tablet Cholecalciferol (Vitamin D3) [Vitamin D3] 2,000 units PO DAILY #60 capsule Cyanocobalamin (Vitamin B-12) [Vitamin B-12 (1000 mcg sublingual)] 1,000 mcg PO DAILY #30 tab.subl Ferrous Sulfate 325 mg PO DAILY #30 tablet Furosemide 40 mg PO DAILY #30 tablet Lactulose [Generlac] 20 gm PO TID 30 Days solution Levothyroxine [Synthroid] 50 mcg PO QDAC #60 tablet Multivitamin W/Minerals [Theragran M] 1 tab PO DAILY #30 tablet Pantoprazole Sodium 40 mg PO BID #60 tablet. Spironolactone 100 mg PO DAILY #120 tablet Diet: Low Sodium Activity Restrictions: Activity as Tolerated Shower Restrictions: No Health Concerns: Ascites re-accumulation causing shortness of breath. Severe anemia, from low iron and previous GI bleeding. Liver cirrhosis history, with prior abdominal fluid drainage needed. Plan of Treatment: The abdominal fluid was drained. This added to low blood pressure and kidney stress temporarily. Two units of blood were transfused and the blood level remained stable after that. The medications from pre-hospitalization were continued. Care Goals: Resume your medications. Avoid salt and increase your calorie intake. Get established with a Primary Care Provider as soon as possible. Assessment: The patient and daughter are agreeable with the plan. No Smoking: If you smoke, Please STOP! Call for help.
--- NOTE | 2018-12-07 16:27 | DISCHARGE SUMMARY ---
Discharge Summary Admit Date: 11/29/18 Discharge Date: 12/02/18 Discharging Provider: Dr Ramona Dominguez Primary Care Provider: None Code Status: Attempt Resuscitation Condition at Discharge: Stable Discharge Disposition: 01 Home, Self Care - DIAGNOSES Admission Diagnoses: 1) Dyspnea 2) Tense ascites 3) Cirrhosis of the liver 4) Severe anemia 5) CKD, stage 3 6) Hx of drug and alcohol abuse 7) Hx of Homelessness 8) Hx of HTN Discharge Diagnoses with Status of Each Condition: See below - HPI History of Present Illness: This is a 48 y/o white female, who moved in to live with her daughter on [facility] just 2 weeks ago, previously was homeless and [place] out of state. She has a history of cirrhosis of the liver, drug abuse, alcohol abuse, Hepatitis B and C, bleeding esophageal varices with prior banding, mild portal hypertensive gastropathy (GAVE), iron deficiency anemia required many blood transfusions in the past and now with multiple antibodies, ascites needing paracentesis in the past, CKD stage 3, HTN, hypothyroidism, protein/calorie malnutrition, and a large reducible umbilical hernia. She had paracentesis of 4L and 10L of ascites with the past 2 recent paracenteses, done about a month apart. She now developed ascites reaccumulation and presented due to orthopnea and dyspnea. Admission labs showed a Hgb of 6.6. She was admitted for paracentesis, blood transfusion and management. - CONSULTS | PROCEDURES Procedures: Paracentesis of ascitic fluid Blood transfusion of 2 U PRBCs - HOSPITAL COURSE Hospital Course: (1) Ascites Her ascites is related to liver cirrhosis. During this admission, she underwent paracentesis of 7.5 L of cloudy yellow fluid. It was sent for culture and had negative growth. The ascites fluid removal resolved her dyspnea immediately. She did not have immediate hypotension but blood pressure was hypotensive the following day. IV Albumen was then infused. Her diuretics were all continued as pre-hospitalization. She was discharged with recommendation to establish with a PCP as soon as possible. Since she has no PCP currently, all her medications were refilled as directed by her [place] plan. (2) Acute worsening of stage 3 chronic kidney disease This was likely from hypotension caused by third spacing after ascites removal. Albumen iv was given. BMP was followed daily and her creat returned to baseline on the day of discharge. (3) History of methamphetamine abuse She had a (+) tox screen for Meth. The day after admission she was somnolent, consistent with Meth withdrawal. (4) Iron deficiency anemia Her oral iron was continued. She had crossmatch and underwent transfusion of 2 units of PRBCs with Lasix given in between units. Her hemoglobin increased from 6.6 to 9.0, remained stable the following day and she was discharged. (5) Hx of blood transfusion reaction Because of many previous blood transfusions, she is sensitized against red cell antigen "Ch". Some of her serum antibodies are not clinically significant but interfere with blood cross-matching. She was pre-medicated with Tylenol and benadryl before starting transfusions and had no complications. (6) Hypothyroidism She was kept on her thyroid replacement dose as at home (7) Protein calorie malnutrition A nutrition consult was requested to assess this and to meet personally with the daughter, who will be the patient's caregiver and cook. Unfortunately, the shorts sifter and daughter did not meet, and the patient was somnolent on that day. (8) Poor dentition Chronic and likely related to poor lifestyle and Meth use. (9) Umbilical hernia Stable, but very large and unsightly. (10) History of esophageal varices with bleeding No gross hematemesis or melena were seen while here. (11) GAVE (gastric antral vascular ectasia) No gross hematemesis or melena were seen (12) Hepatitis C Stable (13) Hepatitis B Stable (14) Dyspnea Resolved, however she was minimally active while here. (15) History of alcohol abuse Apparently this is not an active problem now. - ALLERGIES Allergies/Adverse Reactions: Allergies Allergy/AdvReac Type Severity Reaction Status Date / Time acetaminophen [From Tylenol] Allergy Unknown Verified 11/29/18 17:01 NSAIDS (Non-Steroidal Allergy Unknown Verified 11/29/18 17:01 Anti-Inflamma oxycodone AdvReac Unknown Verified 11/29/18 17:01 - MEDICATIONS Home Medications: Ambulatory Orders Medication Instructions Recorded Confirmed RX: Cholecalciferol (Vitamin D3) 2,000 units PO DAILY #60 capsule 12/02/18 12/05/18 [Vitamin D3] RX: Cyanocobalamin (Vitamin B-12) 1,000 mcg PO DAILY #30 tab.subl 12/02/18 12/05/18 [Vitamin B-12 (1000 mcg sublingual)] RX: Ferrous Sulfate 325 mg PO DAILY #30 tablet 12/02/18 12/05/18 RX: Furosemide 40 mg PO DAILY #30 tablet 12/02/18 12/05/18 RX: Lactulose [Generlac] 20 gm PO TID 30 Days solution 12/02/18 12/05/18 RX: Levothyroxine [Synthroid] 50 mcg PO QDAC #60 tablet 12/02/18 12/05/18 RX: Multivitamin W/Minerals 1 tab PO DAILY #30 tablet 12/02/18 12/05/18 [Theragran M] RX: Pantoprazole Sodium 40 mg PO BID #60 tablet. 12/02/18 12/05/18 RX: Spironolactone 100 mg PO DAILY #120 tablet 12/02/18 12/05/18 RX: Ascorbic Acid [Vitamin C] 500 mg PO BID 12/05/18 12/05/18 RX: Carboxymethylcellulose Sodium 3 drops EACHEYE DAILY 12/05/18 12/05/18 [Restore Plus] - PHYSICAL EXAM AT DISCHARGE General Appearance: positive: No acute distress, Lethargic, Other (Temporal wasting) Eyes Bilateral: positive: Other (Possible exophthalmous) ENT: positive: Other (Poor upper dentition, lower jaw is edentulous) Neck: positive: Other ((+) JVD) Respiratory: positive: No respiratory distress Cardiovascular: positive: Regular rate & rhythm, No murmur Abdomen: positive: Other (Hepatomegaly, no fluid wave, large multi-lobulated shaped umbilical hernia, which is reducable and nontender) Extremities: positive: No pedal edema, Other (Marked muscle wasting of arms and legs) Neurologic/Psychiatric: positive: Other (Lethargic, but awakens and is oriented x3) - LABS Result Diagrams: 12/02/18 05:59 12/02/18 05:59 - DIAGNOSTIC IMAGING Diagnostic Imaging Results: Final report reviewed - FOLLOW UP Follow Up: She was advised to establish with a PCP and contacts were given to her by Social Work. - TIME SPENT Time Spent in Discharge (Minutes): 30
== END 2018-12-02 12:56 | disposition home or self-care (01) | DRG 433 ==
LOC: ED 16:49 → MS2 20:37 → OBSVTOIN 12-01 08:02
PROVIDERS: ADMIT Internal Medicine; ATTEND Internal Medicine
PROC: 30233N1 Transfusion of Nonautologous Red Blood Cells into Peripheral Vein, Percutaneous Approach (ICD-10-PCS; principal; 2018-11-30)
PROC: 0W9G3ZZ Drainage of Peritoneal Cavity, Percutaneous Approach (ICD-10-PCS; 2018-11-30)
DX: K70.31 Alcoholic cirrhosis of liver with ascites (principal); E46 Unspecified protein-calorie malnutrition; Z68.1 Body mass index [BMI] 19.9 or less, adult; B18.1 Chronic viral hepatitis B without delta-agent; B18.2 Chronic viral hepatitis C; F10.11 Alcohol abuse, in remission; I12.9 Hypertensive chronic kidney disease with stage 1 through stage 4 chronic kidney disease, or unspecified chronic kidney disease; N18.3 Chronic kidney disease, stage 3 (moderate); F15.10 Other stimulant abuse, uncomplicated; D50.0 Iron deficiency anemia secondary to blood loss (chronic); I95.9 Hypotension, unspecified; E03.9 Hypothyroidism, unspecified; K08.89 Other specified disorders of teeth and supporting structures; K42.9 Umbilical hernia without obstruction or gangrene; K31.819 Angiodysplasia of stomach and duodenum without bleeding; I44.1 Atrioventricular block, second degree; E53.8 Deficiency of other specified B group vitamins; E55.9 Vitamin D deficiency, unspecified; Z87.19 Personal history of other diseases of the digestive system
CPT/HCPCS: 36415; 36430; 49083; 76705; 80048; 80053; 80306; 81001; 82140; 83540; 83690; 83735; 84100; 84466; 85025; 85610; 85730; 86850; 86870; 86900; 86901; 86922; 87086; 96365; 96366; 96375; 96376; 99284; 99285; A9270; G0378; J1200; J2916; P9016; P9047; 81003; 86920; 87070; 87205; 89051

== ENCOUNTER 2018-12-04 18:09 | Observation (INO) | payer OTHER ==
--- NOTE | 2018-12-04 18:52 | ED Physician Documentation ---
History of Present Illness - Stated complaint Stated Complaint: VOMITING/ALOC - Chief complaint Chief Complaint: Abd Pain - History obtained from History obtained from: Patient, Family - Additonal information Additional information: Patient is a 48-year-old female with history of alcohol and IV drug use, hepatitis B/C, liver cirrhosis, portal hypertension, esophageal varices and multiple other medical problems often requiring paracentesis and blood transfusions discharged 2 days ago from this hospital presenting to the ED with generalized chest pain, abdominal pain, nausea, vomiting, decreased bowel movements. Patient reports that her vomitus is bloody. She has known esophageal varices and reportedly had these banded several years ago. Patient denies other productive cough or fever. Patient also denies any urinary complaints or new ascites. Patient reports that she has been compliant with all medications since discharge including lactulose. No other improving or worsening factors noted. Review of Systems Constitutional: denies: Fever Cardiac: reports: Chest pain / pressure. denies: Palpitations Respiratory: reports: Dyspnea. denies: Cough GI: reports: Abdominal Pain, Nausea, Vomiting, Constipation, Hematemesis. 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(s), Other (Uterine rupture) : Other (Chronic Kidney Disease Stage 3) Psych: Anxiety, Other (Mood Disorder) Musculoskeletal: Chronic back pain Derm: None - Past Surgical History Past Surgical History: Yes Ortho: Other (Left ankle surgery with titanium rods and plates) /BIOINFORMATICS PROGRAMMER: Hysterectomy HEENT: Other - Present Medications Home Medications: Ambulatory Orders Medication Instructions Recorded Confirmed RX: Ascorbic Acid [Vitamin C] 500 mg PO DAILY #30 tablet 12/02/18 RX: Cholecalciferol (Vitamin D3) 2,000 units PO DAILY #60 capsule 12/02/18 [Vitamin D3] RX: Cyanocobalamin (Vitamin B-12) 1,000 mcg PO DAILY #30 tab.subl 12/02/18 [Vitamin B-12 (1000 mcg sublingual)] RX: Ferrous Sulfate 325 mg PO DAILY #30 tablet 12/02/18 RX: Furosemide 40 mg PO DAILY #30 tablet 12/02/18 RX: Lactulose [Generlac] 20 gm PO TID 30 Days solution 12/02/18 RX: Levothyroxine [Synthroid] 50 mcg PO QDAC #60 tablet 12/02/18 RX: Multivitamin W/Minerals 1 tab PO DAILY #30 tablet 12/02/18 [Theragran M] RX: Pantoprazole Sodium 40 mg PO BID #60 tablet. 12/02/18 RX: Spironolactone 100 mg PO DAILY #120 tablet 12/02/18 - Allergies Allergies/Adverse Reactions: Allergies Allergy/AdvReac Type Severity Reaction Status Date / Time acetaminophen [From Tylenol] Allergy Unknown Verified 11/29/18 17:01 NSAIDS (Non-Steroidal Allergy Unknown Verified 11/29/18 17:01 Anti-Inflamma oxycodone AdvReac Unknown Verified 11/29/18 17:01 - Social History Smoking Status: Never smoker - POLST Patient has POLST: No POLST Status: Full Code PD ED PE NORMAL - Vitals Vital signs reviewed: Yes - General General: Alert and oriented X 3, No acute distress. No: Well developed/nourished (Chronically ill-appearing, frail, lying in bed) - HEENT HEENT: Atraumatic, Other (No scleral icterus). No: Moist mucous membranes (Dry) - Neck Neck: Supple, no meningeal sign - Cardiac Cardiac: RRR, No murmur - Respiratory Respiratory: No respiratory distress, Clear bilaterally - Abdomen Abdomen: Normal bowel sounds, Soft, Non distended. No: Non tender (Mild generalized tenderness without guarding, rebound, fluid wave) - Derm Derm: Normal color, Warm and dry, No rash, Other (Neither extremely pale or jaundiced) - Extremities Extremities: No deformity, No tenderness to palpate, No edema - Neuro Neuro: Alert and oriented X 3, No motor deficit, No sensory deficit, Normal speech, Other (No asterixis or tremors) - Psych Psych: Normal mood, Normal affect Results - Vitals Vitals: Vital Signs - 24 hr 12/04/18 18:25 Temperature 36.3 C L Heart Rate 81 Respiratory 20 Rate Blood Pressure 176/100 H O2 Saturation 98 Oxygen O2 Source Room air - EKG (time done) 1957 Rate: Rate (enter#) (68) Rhythm: NSR Intervals: Prolonged QT (Borderline) QRS: Low voltage - Labs Labs: Laboratory Tests 12/04/18 12/04/18 12/04/18 19:14 19:14 19:14 WBC RBC Hgb Hct MCV MCH MCHC RDW Plt Count MPV Neut # (Auto) Lymph # (Auto) [place] # (Auto) Eos # (Auto) Baso # (Auto) Absolute Nucleated RBC Nucleated RBC % Manual Slide Review WBC Morphology Platelet Estimate Platelet Morphology RBC Morph Micro Appear PT 13.9 H INR 1.2 APTT 32.5 Sodium 132 L Potassium 4.6 Chloride 96 L Carbon Dioxide 21 Anion Gap 15.0 H BUN 40 H Creatinine 1.7 H Estimated GFR (MDRD) 32 L Glucose 115 H Lactic Acid Calcium 9.4 Total Bilirubin 1.5 H AST 30 ALT 21 Alkaline Phosphatase 76 Ammonia Troponin I Cancelled Troponin I High Sens 15.6 H* Total Protein 7.6 Albumin 3.6 Globulin 4.0 Albumin/Globulin Ratio 0.9 L Lipase 35 12/04/18 12/04/18 12/04/18 19:14 19:14 19:17 WBC 6.4 RBC 5.01 Hgb 11.1 L Hct 36.6 L MCV 73.1 L MCH 22.2 L MCHC 30.3 L RDW 23.4 H Plt Count 245 MPV 8.3 Neut # (Auto) 5.8 Lymph # (Auto) 0.3 L [place] # (Auto) 0.3 Eos # (Auto) 0.0 Baso # (Auto) 0.0 Absolute Nucleated RBC 0.00 Nucleated RBC % 0.0 Manual Slide Review Indicated WBC Morphology NORMAL APPEARANCE Platelet Estimate NORMAL (130-450,000) Platelet Morphology NORMAL APPEARANCE RBC Morph Micro Appear 1+ POLYCHROMASIA PT INR APTT Sodium Potassium Chloride Carbon Dioxide Anion Gap BUN Creatinine Estimated GFR (MDRD) Glucose Lactic Acid 1.9 Calcium Total Bilirubin AST ALT Alkaline Phosphatase Ammonia 15.9 Troponin I Troponin I High Sens Total Protein Albumin Globulin Albumin/Globulin Ratio Lipase PD MEDICAL DECISION MAKING - ED course Complexity details: reviewed results, re-evaluated patient, considered differential, d/w patient, d/w family, 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 Patient complains of chest and abdominal pain with hematemesis and decreased bowel movements despite lactulose.Physical exam is rather benign and do not find evidence of jaundice, asterixis, ascites, or other acute pathology. Abdominal exam is benign. Certainly, no acute or surgical abdomen present. Do not find obvious signs of obstruction or SBP present. Although have low suspicion for true ACS, CA, unstable angina, aneurysm, dissection, obtained cardiac work-up including EKG and troponin. EKG did not reflect ischemic changes, but elevation of troponin was found. Of note, this is the high-sensitivity troponin test. Given her high risk of bleeding and esophageal varices, do not feel lewis to give patient aspirin or other antic oagulant at this time. Patient had complained of hematemesis previous, but had no episodes of vomiting in the ED. Patient does have known esophageal varices, but do not feel she is emergently suffering from hemorrhage or other consultation related to such. Chest x-ray obtained which returned relatively unremarkable. Did not obtain abdominal imaging. Remainder screening lab work was mostly reflective of underlying disease processes and similar to previous measurements. Do not feel patient requires blood or other transfusion at this time. Urinalysis is still pending. Patient received IV fluids, as well as fentanyl. [place] most appropriate to speak with hospitalist, particularly given the elevation in troponin. Hospitalist agreed to admit and patient amenable to this plan. Departure - Departure Disposition: ED Place in Observation Clinical Impression: Elevated troponin Discharge Date/Time: 12/04/18 21:37
[2018-12-04] MEDS ORDERED: SODIUM CHLORIDE 0.9% 1,000 ML IV ONE (19:00)
[2018-12-04 19:25] LABS: BASOPHILS % (AUTO) 0.3 %; HGB - HEMOGLOBIN 11.1 g/dL (12.0-16.0); LYMPHOCYTES # (AUTO) 0.3 10^3/uL (1.5-3.5); LYMPHOCYTES % (AUTO) 4.1 %; MEAN CORPUSCULAR HEMOGLOBIN 22.2 pg (27.0-31.0); MEAN CORPUSCULAR HGB CONC 30.3 g/dL (32.0-36.0); MEAN CORPUSCULAR VOLUME 73.1 fL (81.0-99.0); MEAN PLATELET VOLUME 8.3 fL (7.9-10.8); MONOCYTES # (AUTO) 0.3 10^3/uL (0.0-1.0); MONOCYTES % (AUTO) 4.5 %; NEUTROPHILS # (AUTO) 5.8 10^3/uL (1.5-6.6); NEUTROPHILS % (AUTO) 90.3 %; PLT - PLATELET COUNT 245 10^3/uL (130-450); RED BLOOD COUNT 5.01 10^6/uL (4.20-5.40); RED CELL DISTRIBUTION WIDTH 23.4 % (12.0-15.0); WHITE BLOOD COUNT 6.4 x10^3/uL (4.8-10.8)
[2018-12-04] MEDS ORDERED: fentaNYL 100 MCG/2 ML VIAL IVP STA (19:26)
[2018-12-04 19:31] LABS: INR 1.2 (0.8-1.2); PT - PROTHROMBIN TIME 13.9 secs (9.9-12.6)
--- NOTE | 2018-12-04 19:34 | XRAY Report ---
Reason: chest pain Procedure Date: 12/04/2018 Accession Number: [id number] / [id number] Procedure: XR - Chest 1 View X-Ray CPT Code: 11875 FULL RESULT: EXAM: CHEST RADIOGRAPHY. EXAM DATE: 12/04/2018 07:11 PM. CLINICAL HISTORY: Chest pain. COMPARISON: None. TECHNIQUE: 1 view. FINDINGS: Lungs/Pleura: No focal opacities evident. No pleural effusion. No pneumothorax. Mediastinum: Within exam limitations, the cardiomediastinal contour is normal. Other: None. IMPRESSION: Normal single view chest. RADIA
[2018-12-04 19:39] LABS: PLATELET ESTIMATE, MANUAL NORMAL (130-450,000) (NORMAL); PLATELET MORPHOLOGY NORMAL APPEARANCE (NORMAL)
[2018-12-04 19:39] LABS: PARTIAL THROMBOPLASTIN TIME 32.5 secs (24.9-33.3)
[2018-12-04 19:45] LABS: ALBUMIN 3.6 g/dL (3.2-5.5); ALBUMIN/GLOBULIN RATIO 0.9 (1.0-2.2); BILIRUBIN,TOTAL 1.5 mg/dL (0.2-1.0); CALCIUM 9.4 mg/dL (8.5-10.3); CREATININE 1.7 mg/dL (0.4-1.0); TOTAL PROTEIN 7.6 g/dL (6.7-8.2)
--- NOTE | 2018-12-04 21:32 | HISTORY & PHYSICAL EXAMINATION ---
Chief Complaint - Chief Complaint Chief Complaint: Abdominal pain History of Present Illness - Admitted From Admitted From:: Home - History Obtained From Records Reviewed: Yes History obtained from: Patient, EMR - History of Present Illness HPI Comment/Other: This is a 48 year old female with a past medical history significant for hypertension, liver disease, hepatitis B/C, and substance abuse who presents from home today complaining of abdominal associated with nausea and vomiting. She was just discharged two days ago from the hospital after being admitted for anemia that required transfusion. She also underwent paracentesis at that time with 7.5L drained. She was discharged home on December 02 where she was OK up until yesterday when she developed nausea and vomiting. She has been unable to keep food or liquids down. She did take her medications including lactulose yesterday but not today. She reports blood tinged hematesis. She was constipated but today she had two small bowel movements without obvious bleeding although they were both small in volume. She has not noticed a significant increase in her abdominal girth. She also has chest pain and dyspnea. The chest pain is non- radiating and is not associated with her episodes of emesis. She denies a history of heart disease or diabetes. She reports on and off fevers over the last couple of days. Denies dysuria, urgency, frequency, hematuria. She denies recent drug use including meth and states that her last use was over a year ago despite her urine drug screen from last admission being positive. She states that she is around people who use meth but she has not used recently. In the emergency department, her vital signs were stable overall although she was hypertensive with a systolic blood pressure in the 160's. Her labs were significant for a sodium of 132, creatinine of 1.7, T bili of 1.5, and Troponin HS of 15.6. Her EKG showed normal sinus rhythm without ST segment changes. Due to her inability to tolerate PO intake and her elevated troponin, she will be admitted for further management. History - Past Medical History Cardiovascular: reports: Hypertension, Other (2nd Degree Heart Block) Respiratory: reports: Pneumonia Neuro: reports: None Endocrine/Autoimmune: reports: HyPOthyroidism GI: reports: Esophageal varices (s/p multiple banding), Cirrhosis PER DIEM CLERK: reports: Miscarriage(s), Other (Uterine rupture) : reports: Renal insuffiency HEENT: reports: None Psych: reports: Anxiety, Other (Mood Disorder) Musculoskeletal: reports: Chronic back pain Derm: reports: None - Past Surgical History General: reports: EGD Ortho: reports: Other (Left ankle surgery with titanium rods and plates) /PER DIEM CLERK: reports: Hysterectomy - Family & Social History Family History: Mother: , Father: , Hypertension Family History Comment/Other: Father had esophageal cancer. Mother had CVA at 6 2. Extensive family history of colon cancer on maternal side. Living arrangement: At home Social History Notes: She moved to [facility] from [place] to live with her daughter just a few weeks ago. She denies current alcohol, tobacco or illicit d rug use. She has a significant past history of alcohol abuse. Denie recent drug use but last urine toxicology was positive for amphetamines. 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 - Substance History Use: Uses substance without health or social issues: Alcohol Abuse: Recurrent use of substance despite neg consequences: Amphetamine - POLST Patient has POLST: No POLST Status: Full Code Meds/Allgy - Home Medications Home Medications: Ambulatory Orders Medication Instructions Recorded Confirmed Ascorbic Acid [Vitamin C] 500 mg PO DAILY #30 tablet 12/02/18 Cholecalciferol (Vitamin D3) 2,000 units PO DAILY #60 capsule 12/02/18 [Vitamin D3] Cyanocobalamin (Vitamin B-12) 1,000 mcg PO DAILY #30 tab.subl 12/02/18 [Vitamin B-12 (1000 mcg sublingual)] Ferrous Sulfate 325 mg PO DAILY #30 tablet 12/02/18 Furosemide 40 mg PO DAILY #30 tablet 12/02/18 Lactulose [Generlac] 20 gm PO TID 30 Days solution 12/02/18 Levothyroxine [Synthroid] 50 mcg PO QDAC #60 tablet 12/02/18 Multivitamin W/Minerals [Theragran 1 tab PO DAILY #30 tablet 12/02/18 M] Pantoprazole Sodium 40 mg PO BID #60 tablet. 12/02/18 Spironolactone 100 mg PO DAILY #120 tablet 12/02/18 - Allergies Allergies/Adverse Reactions: Allergies Allergy/AdvReac Type Severity Reaction Status Date / Time acetaminophen [From Tylenol] Allergy Unknown Verified 11/29/18 17:01 NSAIDS (Non-Steroidal Allergy Unknown Verified 11/29/18 17:01 Anti-Inflamma oxycodone AdvReac Unknown Verified 11/29/18 17:01 Prior Level of Functionality: Was previously independent with ADL's but required her daughter's assistance with ADL's after her last discharge. Exam - Vital Signs Reviewed Vital Signs: Yes Vital Signs: Vital Signs x48h Temp Pulse Resp BP Pulse Ox 12/04/18 21:04 74 15 175/92 H 100 12/04/18 18:25 36.3 C L 81 20 176/100 H 98 - Physical Exam General Appearance: positive: Mild distress Eyes Bilateral: positive: Normal inspection ENT: positive: Other (Poor dentition. No signs of bleeding or old blood in the oropharynx.) Respiratory: positive: No respiratory distress, Breath sounds nml. negative: Wheezes, Rales, Rhonchi Cardiovascular: positive: Regular rate & rhythm, No murmur. negative: Tachycardia, Bradycardia, Systolic murmur Abdomen: positive: Tenderness (Diffusely tender to palpation.), Other (Umbilical hernia noted. There is mild abdominal distention. No significant ascites appreciated on exam.). negative: No distention, Guarding, Rebound Back: positive: Nml inspection Skin: positive: Color nml, No rash, Warm Extremities: positive: Non-tender, No pedal edema. negative: Pedal edema Neurologic/Psychiatric: positive: Oriented x3. negative: Disoriented to person, Disoriented to place, Disoriented to time Conclusion/Plan - Problem List (1) Abdominal pain Conclusion/Plan: She has had diffuse abdominal pain with nausea and emesis for two days now with blood tinged sputum. She does have history of varices in the past that required banding. Also has chronic umbilical hernia that does not appear to be obstructed. Low suspicion for SBP given she is afebrile with no leukocytosis Lactic acid is normal and troponin is slightly elevated. - Zofran and Dilaudid PRN - Resume home Protonix but will administer intravenously - Will obtain abdominal film for further evaluation - Will consider CT of Abd/Pelvis w/o contrast if pain persists - Check urine drug screen - NPO for now (2) Elevated troponin Conclusion/Plan: Suspect that this is demand ischemia and not ACS. Her troponin is mildly elevated and her EKG is without ischemic changes. I question if she has continued substance abuse which may be playing a part. - Trend troponin - Recheck EKG - Urine drug screen to rule out active substance abuse (3) CKD (chronic kidney disease) stage 3, GFR 30-59 ml/min Conclusion/Plan: Her creatinine is slightly elevated compared to her baseline of what appears to be 1.4-1.5. This does not appear to be acute kidney injury at this time. She may be slightly dehydrated from her inability to tolerate oral intake and that is also on diuretics. She did received 1L NS in the ED. - Hold home home diuretics - Monitor renal function for now - If renal function declines, will obtain urine lytes (4) Anemia Conclusion/Plan: Her anemia is secondary to iron deficiency based off of her studies from prior admission. Her hemoglobin has continued to improve. Although she reports blood tinged hematemesis, there appears to be no obvious signs of bleeding. - Continue Ferrous sulfate - Heparin SC for DVT prophylaxis given there is low suspicion for bleeding at this time as her anemia is improving and significant bleeding is unlikely at this time - Monitor for signs of bleeding (5) IV drug abuse Conclusion/Plan: She has a history of substance abuse with drug screen last admission being positive for meth. She continues to deny active use. - Urine drug screen - Social work consult (6) Cirrhosis of liver Conclusion/Plan: She has cirrhosis from alcohol with a history of hepatitis B/C. Has had hepatic encephalopathy in the past and requires serial paracentesis with most recent one being a few days ago. Also history of espohageal varices that required banding. On Lactulose, Lasix, Aldactone at home. Ammonia is normal. - Hold home diuretics - Hold Lactulose in setting of nausea/vomiting - Monitor LFT's (7) Hyponatremia Conclusion/Plan: Likely secondary to liver disease. Stable at 132. - Free water restriction - Monitor BMP (8) Hypothyroidism Conclusion/Plan: Stable. On Synthroid. - Continue Synthroid (9) Umbilical hernia Conclusion/Plan: This does not appear to be obstruction and I do not believe is causing her abdominal pain. - Monitor at this time, likely not a candidate for intervention due to her liver disease (10) History of alcohol abuse Conclusion/Plan: This previously contributed to her liver disease but she is no longer consuming alcohol. - Lab Results Lab results reviewed: Yes Fish Bones: 12/04/18 19:17 12/04/18 19:14 - Diagnostic Imaging Results Diagnostic Imaging Results: positive: Final report reviewed - EKG Results EKG Interpreted Independently: Yes EKG Comparison: No prior EKG EKG Findings: EKG revealed normal sinus rhythm without ST segment changes. Core Measures - Anticipated LOS I expect patient to be DC'd or transferred within 96 hours.: Yes - Issues Hospital Issues and Management Plan: Elevated Troponin, rule out ACS. Nausea/Vomiting with poor PO intake. - DVT/VTE - Prophylaxis VTE/DVT Device ordered at admit?: Yes VTE/DVT Prophylaxis med ordered at admit?: Yes
--- NOTE | 2018-12-04 22:17 | XRAY Report ---
Reason: Abdominal pain with N/V. History of cirrhosis. Procedure Date: 12/04/2018 Accession Number: [id number] / [id number] Procedure: XR - Abdomen 1 View X-Ray CPT Code: 20659 FULL RESULT: EXAM: ABDOMEN RADIOGRAPHY EXAM DATE: 12/04/2018 09:41 PM. CLINICAL HISTORY: Abdominal pain with N/V. History of cirrhosis. COMPARISON: None. TECHNIQUE: 1 view. FINDINGS: Bowel Gas Pattern: Central deposition of bowel loops is suspicious for ascites. No dilated bowel is seen. Other: There is a calcification projecting over the right upper quadrant. This could represent a nonobstructing kidney stone. There is a 5 cm opacity projecting over the low abdomen which could represent fluid within an umbilical hernia. IMPRESSION: 1. No evidence of bowel obstruction. 2. There is ascites. 3. Possible nephrolithiasis. RADIA
[2018-12-04] MEDS: LACTULOSE 10 GM /15 ML UDC PO SCH (22:28)
[2018-12-04] MEDS: HEPARIN 5,000 UNIT/ML VIAL SUBQ SCH (22:28)
[2018-12-04] MEDS: PANTOPRAZOLE 40 MG VIAL IVP SCH (22:28)
[2018-12-04] MEDS: SODIUM CHLORIDE FLUSH 0.9% 10 ML SYRINGE IVP PRN (22:29)
[2018-12-04] MEDS ORDERED: LABETALOL 5 MG/1 ML 20 ML MDV IVP ONE (22:50)
[2018-12-04] MEDS: HYDROmorphone 1 MG/ML CARPUJECT IVP PRN (23:21)
[2018-12-04] MEDS: ONDANSETRON 4 MG/2 ML VIAL IVP PRN (23:22)
[2018-12-05] MEDS: SODIUM CHLORIDE FLUSH 0.9% 10 ML SYRINGE IVP SCH ×2 (00:11→05:56)
[2018-12-05 02:04] LABS: MUDS CUTOFF CONCENTRATIONS CUTOFF CONC BELOW:
[2018-12-05 02:05] LABS: BILIRUBIN,URINE NEGATIVE (NEGATIVE); GLUCOSE, URINE (UA) NEGATIVE (NEGATIVE); KETONES,URINE (UA) TRACE mg/dL (NEGATIVE); LEUKOCYTE ESTERASE, URINE SMALL (NEGATIVE); NITRITE,URINE NEGATIVE (NEGATIVE); OCCULT BLOOD,URINE NEGATIVE (NEGATIVE); PH,URINE 5.5 PH (5.0-7.5); PROTEIN,URINE TRACE mg/dL (NEGATIVE); UROBILINOGEN,URINE 0.2 (NORMAL) E.U./dL (NORMAL)
[2018-12-05 02:15] LABS: CLARITY,URINE SL. CLOUDY (CLEAR)
[2018-12-05 02:16] LABS: AMPHETAMINE SCREEN,URINE POSITIVE (NEGATIVE); BENZODIAZEPINES SCREEN, URINE NEGATIVE (NEGATIVE); COCAINE SCREEN URINE NEGATIVE (NEGATIVE); METHADONE SCREEN, URINE NEGATIVE (NEGATIVE); METHAMPHETAMINES SCREEN, URINE POSITIVE (NEGATIVE); OPIATE SCREEN, URINE POSITIVE (NEGATIVE); OXYCODONE SCREEN, URINE NEGATIVE (NEGATIVE); PROPOXYPHENE SCREEN, URINE NEGATIVE (NEGATIVE); TRICYCLIC ANTIDEPRESSANT,URINE NEGATIVE (NEGATIVE)
[2018-12-05 02:17] LABS: BACTERIA,URINE Rare /HPF (None Seen); CASTS, URINE 3-5 Hyaline Casts /LPF; RBC,URINE None Seen /HPF (0-5); SQUAMOUS EPITHELIAL CELL,UR NONE SEEN (<= Few)
[2018-12-05] MEDS: LACTULOSE 10 GM /15 ML UDC PO SCH ×2 (05:54→15:16)
[2018-12-05] MEDS: ONDANSETRON 4 MG/2 ML VIAL IVP PRN (05:55)
[2018-12-05] MEDS: HYDROmorphone 1 MG/ML CARPUJECT IVP PRN ×3 (05:56→14:27)
[2018-12-05] MEDS: SODIUM CHLORIDE FLUSH 0.9% 10 ML SYRINGE IVP PRN ×2 (05:56→14:28)
[2018-12-05 05:59] LABS: BASOPHILS % (AUTO) 0.4 %; EOSINOPHILS # (AUTO) 0.1 10^3/uL (0.0-0.7); EOSINOPHILS % (AUTO) 1.1 %; HGB - HEMOGLOBIN 8.9 g/dL (12.0-16.0); LYMPHOCYTES # (AUTO) 0.6 10^3/uL (1.5-3.5); MEAN CORPUSCULAR HEMOGLOBIN 21.4 pg (27.0-31.0); MEAN CORPUSCULAR HGB CONC 29.5 g/dL (32.0-36.0); MEAN CORPUSCULAR VOLUME 72.8 fL (81.0-99.0); MEAN PLATELET VOLUME 8.4 fL (7.9-10.8); MONOCYTES # (AUTO) 0.8 10^3/uL (0.0-1.0); NEUTROPHILS # (AUTO) 5.8 10^3/uL (1.5-6.6); NEUTROPHILS % (AUTO) 78.7 %; PLT - PLATELET COUNT 218 10^3/uL (130-450); RED BLOOD COUNT 4.15 10^6/uL (4.20-5.40); RED CELL DISTRIBUTION WIDTH 23.9 % (12.0-15.0); WHITE BLOOD COUNT 7.4 x10^3/uL (4.8-10.8)
[2018-12-05] MEDS ORDERED: CARBOXYMETHYLCELLULOSE OPHTH DROPS EACHEYE PRN (06:10)
[2018-12-05 06:18] LABS: CREATININE 1.7 mg/dL (0.4-1.0)
[2018-12-05 06:19] LABS: BILIRUBIN,DIRECT 0.3 mg/dL (0.1-0.5); BILIRUBIN,TOTAL 1.3 mg/dL (0.2-1.0); CALCIUM 8.7 mg/dL (8.5-10.3); MAGNESIUM 2.4 mg/dL (1.7-2.8); PHOSPHORUS 5.4 mg/dL (2.5-4.6); PLATELET ESTIMATE, MANUAL NORMAL (130-450,000) (NORMAL); PLATELET MORPHOLOGY NORMAL APPEARANCE (NORMAL); TOTAL PROTEIN 6.3 g/dL (6.7-8.2)
[2018-12-05 06:20] LABS: ALBUMIN 2.9 g/dL (3.2-5.5)
[2018-12-05] MEDS ORDERED: LEVOTHYROXINE 25 MCG TABLET PO SCH (07:00)
[2018-12-05] MEDS ORDERED: FERROUS SULFATE 325 MG TABLET PO SCH (08:00)
[2018-12-05] MEDS: HEPARIN 5,000 UNIT/ML VIAL SUBQ SCH (09:06)
[2018-12-05] MEDS: PANTOPRAZOLE 40 MG VIAL IVP SCH (09:07)
--- NOTE | 2018-12-05 10:55 | Discharge Plan ---
Discharge Plan Problem Reviewed?: Yes Disposition: Home Health Service Condition: Stable Diet: Low Sodium Activity Restrictions: Activity as Tolerated Shower Restrictions: No Driving Restrictions: No Health Concerns: You were placed in observation because you were having chest pain just above your stomach. You are afraid you are either having a heart attack or recurrence of your pancreatitis. Plan of Treatment: 1. Your blood test for heart attack were negative. We would recommend that you have a stress test. Please establish yourself with a primary care provider so that they can refer you to for a cardiac stress test. 2. Unfortunately your toxicology screen was positive for amphetamines and methamphetamines again. You are very sure that you are not abusing the substance. You are not around anybody who is abusing these substances. We reviewed your medication list and there are no medications that you are taking that would cross-react. We do not know why you are positive for amphetamines and methamphetamines. 3. Make sure you keep on taking your medications for your liver failure on a regular basis. Care Goals: 1. You stated you will be following up with your specialist on December 15 in [facility]. 2. cab worker already gave you a list of primary care providers for you to call the last time you were here. We would strongly encourage you to make an appointment with a multispecialty clinic such as the [facility] or [facility]. 3. Please make sure your primary care provider, your new one, makes a referral for you to follow-up with gastroenterology because of your liver disease. Assessment: Patient expresses understanding of why she was admitted in her work-up. She is upset that her amphetamine screen is positive even though she is adamant she is not currently using. We have no explanation at this time for why they are positive on review of her medication list. No Smoking: If you smoke, Please STOP! Call for help.
[2018-12-05] MEDS ORDERED: LACTULOSE 10 GM /15 ML UDC PO STA (14:36)
[2018-12-05] MEDS ORDERED: BISACODYL 10 MG SUPP PR ONE (16:23)
[2018-12-05 17:07] VITALS: BP 143/96
--- NOTE | 2018-12-06 19:14 | DISCHARGE SUMMARY ---
Physician: Agnes Maynard MD DATE OF ADMISSION: 12/04/2018 DATE OF DISCHARGE: 12/05/2018 DISCHARGE DIAGNOSES 1. Abdominal pain. 2. Constipation. 3. Elevated troponin. 4. Positive urine drug screen for methamphetamines. 5. Chronic kidney disease, stage 3. 6. Chronic anemia. 7. Cirrhosis of liver. 8. History of alcohol abuse. 9. Hyponatremia. 10. Hypothyroidism. 11. Umbilical hernia. DISCHARGE MEDICATIONS 1. Vitamin C 500 mg b.i.d. 2. Restore eye drops each eye once a day. 3. Vitamin D 2000 units daily. 4. Vitamin B12 1000 mcg daily. 5. Ferrous sulfate 325 mg daily. 6. Lasix 40 mg daily. 7. Lactulose 20 mg p.o. t.i.d. 8. Synthroid 50 mcg daily. 9. Multivitamins with minerals. 10. Pantoprazole 40 mg b.i.d. 11. Spironolactone 100 mg daily. PRINCIPAL PROCEDURES 1. Chest x-ray, normal single view chest. 2. Abdominal x-ray, no evidence of bowel obstruction, there is ascites, possible nephrolithiasis lalo t is asymptomatic. 3. Urine culture, no growth at 24 hours. HOSPITAL COURSE: Patient is a 48-year-old, cachectic female who just moved to the area from near [place], [place]. She has a history of cirrhotic liver from old alcohol abuse as well as methamphetamin e abuse and hepatitis B and C. She is followed by the [facility]. She does not h ave any local care since moving to the [place]. She is in the process of trying to establish care wit h a primary care provider, most likely in a multispecialty clinic because of her chronic medical prob lems. She was just in the hospital here 2 days ago after being admitted for anemia that required tra nsfusion. She also underwent paracentesis at that time with 7.5 liters drained. She was discharged home on 12/02. Yesterday, she started developing nausea and vomiting and has been unable to keep rosalba d or liquid down. She was able to keep her medications down including lactulose yesterday, but has b een unable to keep her medicines down today. She reports blood tinged hematemesis. She does have a history of esophageal varices and multiple bandings. She complains of severe constipation, but she h ad 2 small bowel movements today without any bleeding. She has not noticed any increase in her abdom inal girth. She does have chest pain where the mid abdominal pain seems to radiate up into her lower sternum and scares her. It causes her to be short of breath. She thinks she has had fevers off and on for the last couple of days. The lactulose that she uses does not cause her to have a bowel move ment. When she was here last, urine tox screen was positive for methamphetamines. She is adamant th at her last use was over a year ago. On examination, vital signs were stable except for being mildly hypertensive, systolic blood pressure was in the 160s. Sodium was 132, creatinine 1.7, total bilirubin 1.5, troponin 15.6. Due to her in ability to tolerate p.o. intake and elevated troponin, she was placed in observation. She had no further recurrence of her chest pain. Initial troponin I high sensitivity was 15.6, then went to 18.5 and then 14.7. EKG did not have any acute ST-T wave changes. Creatinine remained stabl e at 1.7 during her 24 hours. Lactic acid was 1.9. Ammonia level was 15.9. She continued to compla in of constipation. As such, she received 60 mg of lactulose before she left. We would recommend that she get an outpatient stress test evaluation for her chest pain. We also rec ommended, that if she is taking methamphetamines, that she needs to refrain from that. She is very i rate and "offended" because she feels that, that is behind her, she would not do that now. She does not understand why the urine tox screen was positive last admission and this admission. In speaking to her, none of her medications would trigger a false positive. However, her daughter was giving her [id number] cold medicine last week, which included dextromethorphan and Sudafed. She has not yet called to make an appointment with a new primary care provider. She was thinking lalo t she would wait to keep her appointment 12/15/[address] [facility] and then juliet alston an appointment here. I recommended she make the appointment now. Do her appointment 12/15 in [facility] and upon her return, change her insurance to then be able to keep an appointment. She is discharged in stable condition. PHYSICAL EXAMINATION VITAL SIGNS: Temperature is 36.4, pulse is 75, blood pressure 143/96, respirations 15, 99% on room a ir. She is 5 feet 3 inches, weight 44 kg. GENERAL: She is a cachectic female with severely, diffuse decrease in lean body mass. Gaunt-like an d skeletal in her appearance. NECK: Supple. LUNGS: Clear to auscultation and percussion. HEART: PMI is normally placed with a regular rate and rhythm. ABDOMEN: Hepatosplenomegaly. I do not feel a fluid wave, even though there is one on plain film. A bdomen is nontender. She has an easily reducible umbilical hernia. Sodium is now normal at 135, cre atinine stable at 1.7. I have recommended she get physical therapy in the outpatient setting to help with her endurance. TD: 12/06/2018 15:22
== END 2018-12-05 17:43 | disposition home health service (06) ==
LOC: ED 18:09 → MS3 20:55
PROVIDERS: ADMIT Internal Medicine; ATTEND Specialist
DX: R10.84 Generalized abdominal pain (principal); R11.2 Nausea with vomiting, unspecified; K59.00 Constipation, unspecified; R07.89 Other chest pain; R79.89 Other specified abnormal findings of blood chemistry; R82.5 Elevated urine levels of drugs, medicaments and biological substances; I85.00 Esophageal varices without bleeding; K70.31 Alcoholic cirrhosis of liver with ascites; K72.90 Hepatic failure, unspecified without coma; I44.1 Atrioventricular block, second degree; I12.9 Hypertensive chronic kidney disease with stage 1 through stage 4 chronic kidney disease, or unspecified chronic kidney disease; N18.3 Chronic kidney disease, stage 3 (moderate); D50.9 Iron deficiency anemia, unspecified; E87.1 Hypo-osmolality and hyponatremia; K42.9 Umbilical hernia without obstruction or gangrene; E03.9 Hypothyroidism, unspecified; Z87.01 Personal history of pneumonia (recurrent); Z86.19 Personal history of other infectious and parasitic diseases; Z87.898 Personal history of other specified conditions; Z87.19 Personal history of other diseases of the digestive system
CPT/HCPCS: 36415; 71045; 74018; 80048; 80053; 80076; 81001; 82140; 83605; 83690; 83735; 84100; 85025; 85610; 85730; 87086; 93005; 96361; 96372; 96374; 96375; 96376; 97166; 99284; 99285; A9270; G0378; J1170; 80306; 81003; 84484

== ENCOUNTER 2018-12-17 00:43 | Emergency (ER) | payer OTHER ==
[2018-12-17 01:27] LABS: BASOPHILS # (AUTO) 0.1 10^3/uL (0.0-0.1); BASOPHILS % (AUTO) 0.5 %; EOSINOPHILS # (AUTO) 0.2 10^3/uL (0.0-0.7); EOSINOPHILS % (AUTO) 2.3 %; HGB - HEMOGLOBIN 9.7 g/dL (12.0-16.0); LYMPHOCYTES # (AUTO) 0.4 10^3/uL (1.5-3.5); MEAN CORPUSCULAR HEMOGLOBIN 23.4 pg (27.0-31.0); MEAN CORPUSCULAR HGB CONC 29.8 g/dL (32.0-36.0); MEAN CORPUSCULAR VOLUME 78.3 fL (81.0-99.0); MEAN PLATELET VOLUME 8.2 fL (7.9-10.8); MONOCYTES # (AUTO) 0.9 10^3/uL (0.0-1.0); NEUTROPHILS # (AUTO) 8.1 10^3/uL (1.5-6.6); NEUTROPHILS % (AUTO) 83.9 %; PLT - PLATELET COUNT 322 10^3/uL (130-450); RED BLOOD COUNT 4.15 10^6/uL (4.20-5.40); RED CELL DISTRIBUTION WIDTH 26.7 % (12.0-15.0); WHITE BLOOD COUNT 9.7 x10^3/uL (4.8-10.8)
[2018-12-17 01:28] LABS: BILIRUBIN,URINE NEGATIVE (NEGATIVE); GLUCOSE, URINE (UA) NEGATIVE (NEGATIVE); KETONES,URINE (UA) NEGATIVE (NEGATIVE); LEUKOCYTE ESTERASE, URINE NEGATIVE (NEGATIVE); NITRITE,URINE NEGATIVE (NEGATIVE); OCCULT BLOOD,URINE NEGATIVE (NEGATIVE); PH,URINE 5.5 PH (5.0-7.5); PROTEIN,URINE TRACE mg/dL (NEGATIVE); UROBILINOGEN,URINE 0.2 (NORMAL) E.U./dL (NORMAL)
[2018-12-17 01:29] LABS: CLARITY,URINE CLEAR (CLEAR)
--- NOTE | 2018-12-17 01:29 | ED Physician Documentation ---
PD HPI ABD PAIN - Stated complaint Stated Complaint: STOMACH PX - Chief complaint Chief Complaint: Abd Pain - History obtained from History obtained from: Patient, Family (daughter (in ED at bedside)) - History of Present Illness Timing - onset: How many days ago (2) Timing - details: Gradual onset Pain level now: 9 Quality: Pain Location: All over / everywhere Radiation: Lower back Improved by: Other (nothing) Worsened by: Moving, Position, Palpation Associated symptoms: Nausea, Vomiting, Hematemesis, Loss of appetite. No: Fever, Diarrhea, Constipation Similar symptoms before: Diagnosis (alcoholic cirrhosis, esophageal varices w/ banding, ascites) Recently seen: Emergency Dept, Admitted - Additional information Additional information: Patient moved to [place] from [place] few weeks ago. Despite having significant medical history of cirrhosis, esophageal varices, and ascites, she has yet to establish herself with a local or regional primary care physician. She has two previous [facility] ED visits since moving here last month, both visits resulted in admission to the hospital. Per discharge summary from her most recent visit (admitted 12/04, discharged 12/06), patient was intent on keeping appointment with her doctor back in [place] that was scheduled for 12/15/18; patient and daughter state she missed that appointment due to "transportation issues", and that they have not yet switched insurance or decided on where she plans to establish with a PCP ([place] yet [place] She also says she is out of some of her medications, as they were mailed to the wrong address. Patient c/o abdominal distention and pain, "it's my ascites again" (per osbaldo ibrahim). patient also c/o hematemesis x 2 days, increasing in frequency and amount and this evening had clots in hematemesis. c/o nausea, vomiting. Review of Systems Constitutional: denies: Fever, Chills, Sweats Eyes: reports: Reviewed and negative Ears: reports: Reviewed and negative Nose: reports: Reviewed and negative Throat: reports: Reviewed and negative Cardiac: reports: Pedal edema. denies: Chest pain / pressure, Palpitations Respiratory: reports: Dyspnea. denies: Cough, Hemoptysis GI: reports: Abdominal Pain, Abdominal Swelling, Nausea, Vomiting, Hematemesis. denies: Constipation, Diarrhea, Bloody / black stool : denies: Dysuria, Frequency Skin: reports: Reviewed and negative Musculoskeletal: reports: Reviewed and negative Neurologic: reports: Generalized weakness. 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), Other : Other HEENT: None Psych: Other Musculoskeletal: Chronic back pain Derm: None - Past Surgical History Past Surgical History: Yes General: Hiatal hernia repair Ortho: Other /MARKETING SERVICES VICE PRESIDENT: Tubal ligation HEENT: Other - Present Medications Home Medications: Ambulatory Orders Medication Instructions Recorded Confirmed Cholecalciferol (Vitamin D3) 2,000 units PO DAILY #60 capsule 12/02/18 12/05/18 [Vitamin D3] Cyanocobalamin (Vitamin B-12) 1,000 mcg PO DAILY #30 tab.subl 12/02/18 12/05/18 [Vitamin B-12 (1000 mcg sublingual)] Ferrous Sulfate 325 mg PO DAILY #30 tablet 12/02/18 12/05/18 Furosemide 40 mg PO DAILY #30 tablet 12/02/18 12/05/18 Lactulose [Generlac] 20 gm PO TID 30 Days solution 12/02/18 12/05/18 Levothyroxine [Synthroid] 50 mcg PO QDAC #60 tablet 12/02/18 12/05/18 Multivitamin W/Minerals [Theragran 1 tab PO DAILY #30 tablet 12/02/18 12/05/18 M] Pantoprazole Sodium 40 mg PO BID #60 tablet. 12/02/18 12/05/18 Spironolactone 100 mg PO DAILY #120 tablet 12/02/18 12/05/18 Ascorbic Acid [Vitamin C] 500 mg PO BID 12/05/18 12/05/18 Carboxymethylcellulose Sodium 3 drops EACHEYE DAILY 12/05/18 12/05/18 [Restore Plus] - Allergies Allergies/Adverse Reactions: Allergies Allergy/AdvReac Type Severity Reaction Status Date / Time acetaminophen [From Tylenol] Allergy Unknown Verified 11/29/18 17:01 NSAIDS (Non-Steroidal Allergy Unknown Verified 11/29/18 17:01 Anti-Inflamma oxycodone AdvReac Unknown Verified 11/29/18 17:01 - Social History Does the pt smoke?: No Smoking Status: Never smoker Does the pt drink ETOH?: No Does the pt have substance abuse?: No - Immunizations Immunizations are current?: Yes - POLST Patient has POLST: No POLST Status: Full Code PD ED PE NORMAL - Vitals Vital signs reviewed: Yes - General General: Alert and oriented X 3, No acute distress, Other (muscle wasting of extremities noted with dependent edema BLE) - HEENT HEENT: Other (tacky/pasty mucous membranes) - Neck Neck: Supple, no meningeal sign - Cardiac Cardiac: RRR, No murmur - Respiratory Respiratory: No respiratory distress, Clear bilaterally - Abdomen Abdomen: Non tender - Derm Derm: Normal color, Warm and dry - Neuro Neuro: Alert and oriented X 3 Eye Opening: Spontaneous Motor: Obeys Commands Verbal: Oriented GCS Score: 15 PD ED PE EXPANDED - Abdomen Abdomen: Distended, Mass (large umbilical hernia that is soft, nontender) - Extremities Extremities: Pedal edema bilateral Results - Vitals Vitals: Vital Signs - 24 hr 12/17/18 12/17/18 12/17/18 00:50 01:45 03:00 Temperature 36.9 C Heart Rate 95 89 84 Respiratory 20 16 20 Rate Blood Pressure 180/122 H 131/103 H 134/97 H O2 Saturation 86 L 100 100 12/17/18 04:17 Temperature Heart Rate 86 Respiratory Rate Blood Pressure 133/96 H O2 Saturation 100 Oxygen O2 Source Nasal cannula Oxygen Flow Rate 2 - Labs Labs: Laboratory Tests 12/17/18 12/17/18 12/17/18 00:52 01:09 01:09 WBC 9.7 RBC 4.15 L Hgb 9.7 L Hct 32.5 L MCV 78.3 L MCH 23.4 L MCHC 29.8 L RDW 26.7 H Plt Count 322 MPV 8.2 Neut # (Auto) 8.1 H Lymph # (Auto) 0.4 L [place] # (Auto) 0.9 Eos # (Auto) 0.2 Baso # (Auto) 0.1 Absolute Nucleated RBC 0.00 Nucleated RBC % 0.0 Manual Slide Review Indicated Platelet Estimate NORMAL (130-450,000) RBC Morph Micro Appear 1+ OVALOCYTES PT INR APTT Sodium 132 L Potassium 3.9 Chloride 99 L Carbon Dioxide 21 Anion Gap 12.0 BUN 32 H Creatinine 1.6 H Estimated GFR (MDRD) 34 L Glucose 100 Calcium 8.3 L Total Bilirubin 1.0 AST 25 ALT 22 Alkaline Phosphatase 84 Ammonia Total Protein 6.8 Albumin 3.2 Globulin 3.6 Albumin/Globulin Ratio 0.9 L Lipase 40 Urine Color DARK YELLOW Urine Clarity CLEAR Urine pH 5.5 Ur Specific [place] 1.020 Urine Protein TRACE Urine Glucose (UA) NEGATIVE Urine Ketones NEGATIVE Urine Occult Blood NEGATIVE Urine Nitrite NEGATIVE Urine Bilirubin NEGATIVE Urine Urobilinogen 0.2 (NORMAL) Ur Leukocyte Esterase NEGATIVE Ur Microscopic Review NOT INDICATED Urine Culture Comments NOT INDICATED 12/17/18 12/17/18 01:09 02:10 WBC RBC Hgb Hct MCV MCH MCHC RDW Plt Count MPV Neut # (Auto) Lymph # (Auto) [place] # (Auto) Eos # (Auto) Baso # (Auto) Absolute Nucleated RBC Nucleated RBC % Manual Slide Review Platelet Estimate RBC Morph Micro Appear PT 14.3 H INR 1.3 H APTT 24.4 L Sodium Potassium Chloride Carbon Dioxide Anion Gap BUN Creatinine Estimated GFR (MDRD) Glucose Calcium Total Bilirubin AST ALT Alkaline Phosphatase Ammonia 88.6 H* Total Protein Albumin Globulin Albumin/Globulin Ratio Lipase Urine Color Urine Clarity Urine pH Ur Specific [place] Urine Protein Urine Glucose (UA) Urine Ketones Urine Occult Blood Urine Nitrite Urine Bilirubin Urine Urobilinogen Ur Leukocyte Esterase Ur Microscopic Review Urine Culture Comments PD MEDICAL DECISION MAKING - ED course Complexity details: reviewed old records, reviewed results, re-evaluated patient, considered differential, d/w patient, d/w family ED course: Stable during ED stay but h/o esophageal varices and report from patient that she has been throwing up blood with clots indicates transfer to higher level of care. Contacted [facility]; they cannot find patient in their system (likely due to her insurance being based in another state). Contacted [facility]; they are full and cannot accept this patient. Contacted [facility] and Dr. Mayfield graciously accept patient for transfer. Departure - Departure Disposition: 02 Transfer Acute Care Hosp Clinical Impression: Ascites Qualifiers: Ascites type: due to alcoholic cirrhosis Qualified Code(s): K70.31 - Alcoholic cirrhosis of liver with ascites Umbilical hernia Qualifiers: Obstruction and gangrene presence: without obstruction or gangrene Qualified Code(s): K42.9 - Umbilical hernia without obstruction or gangrene Hematemesis Qualifiers: Nausea presence: with nausea Qualified Code(s): K92.0 - Hematemesis Condition: Stable Discharge Date/Time: 12/17/18 04:40
[2018-12-17 01:33] LABS: ALBUMIN 3.2 g/dL (3.2-5.5); ALBUMIN/GLOBULIN RATIO 0.9 (1.0-2.2); CALCIUM 8.3 mg/dL (8.5-10.3); CREATININE 1.6 mg/dL (0.4-1.0); TOTAL PROTEIN 6.8 g/dL (6.7-8.2)
[2018-12-17] MEDS ORDERED: ONDANSETRON 4 MG/2 ML VIAL IVP STA (01:48)
[2018-12-17 01:51] LABS: PLATELET ESTIMATE, MANUAL NORMAL (130-450,000) (NORMAL)
[2018-12-17 02:15] LABS: INR 1.3 (0.8-1.2); PT - PROTHROMBIN TIME 14.3 secs (9.9-12.6)
[2018-12-17 02:22] LABS: PARTIAL THROMBOPLASTIN TIME 24.4 secs (24.9-33.3)
[2018-12-17] MEDS ORDERED: OCTREOTIDE 500 MCG in SODIUM CHLORIDE 0.9% 100ML 95 ML IV STA (02:40)
[2018-12-17] MEDS ORDERED: PANTOPRAZOLE 40 MG VIAL IVP STA (02:40)
[2018-12-17 04:17] VITALS: BP 133/96
== END 2018-12-17 04:40 | disposition short-term general hospital (02) ==
LOC: ED 00:43
DX: K70.31 Alcoholic cirrhosis of liver with ascites (principal); K42.9 Umbilical hernia without obstruction or gangrene; K92.0 Hematemesis; Z87.19 Personal history of other diseases of the digestive system
CPT/HCPCS: 36415; 80053; 81003; 82140; 83690; 85025; 85610; 85730; 96365; 96366; 96375; 99284; 99285; J2354; 81001; 87086

== ENCOUNTER 2019-01-01 19:22 | Emergency (ER) | payer OTHER ==
--- NOTE | 2019-01-01 19:52 | ED Physician Documentation ---
History of Present Illness - Stated complaint Stated Complaint: GI BLEED - Chief complaint Chief Complaint: Abd Pain - Additonal information Additional information: This is a 48-year-old female with a history of cirrhosis, who presents with GI bleeding. Patient was recently hospitalized 8 days ago at [facility] in [place], she was hospitalized for 8 days due to GI bleeding. This was initially thought to be variceal because she has a known history of esophageal varices which have been banded. Then performed endoscopy and they found ulcerations in her stomach, she was started on sucralfate and eventually discharged. They did not see signs of variceal bleeding at that time. Starting yesterday she began having some blood in her stool which is a mixture of bright red blood as well as some dark black melena with ground-like matter in it. She also had some coffee grounds in her vomit. She states that her hemoglobin was close to 7 when she was discharged from [facility], she denies any weakness over her baseline. She has had increased ascites and abdominal distension which is becoming uncomfortable. 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), Other : Other HEENT: None Psych: Other Musculoskeletal: Chronic back pain Derm: None - Past Surgical History Past Surgical History: Yes General: Hiatal hernia repair Ortho: Other /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: Tubal ligation HEENT: Other - Present Medications Home Medications: Ambulatory Orders Medication Instructions Recorded Confirmed RX: Cholecalciferol (Vitamin D3) 2,000 units PO DAILY #60 capsule 12/02/18 12/05/18 [Vitamin D3] RX: Cyanocobalamin (Vitamin B-12) 1,000 mcg PO DAILY #30 tab.subl 12/02/18 12/05/18 [Vitamin B-12 (1000 mcg sublingual)] RX: Ferrous Sulfate 325 mg PO DAILY #30 tablet 12/02/18 12/05/18 RX: Furosemide 40 mg PO DAILY #30 tablet 12/02/18 12/05/18 RX: Lactulose [Generlac] 20 gm PO TID 30 Days solution 12/02/18 12/05/18 RX: Levothyroxine [Synthroid] 50 mcg PO QDAC #60 tablet 12/02/18 12/05/18 RX: Multivitamin W/Minerals 1 tab PO DAILY #30 tablet 12/02/18 12/05/18 [Theragran M] RX: Pantoprazole Sodium 40 mg PO BID #60 tablet. 12/02/18 12/05/18 RX: Spironolactone 100 mg PO DAILY #120 tablet 12/02/18 12/05/18 RX: Ascorbic Acid [Vitamin C] 500 mg PO BID 12/05/18 12/05/18 RX: Carboxymethylcellulose Sodium 3 drops EACHEYE DAILY 12/05/18 12/05/18 [Restore Plus] - Allergies Allergies/Adverse Reactions: Allergies Allergy/AdvReac Type Severity Reaction Status Date / Time acetaminophen [From Tylenol] Allergy Unknown Verified 11/29/18 17:01 NSAIDS (Non-Steroidal Allergy Unknown Verified 11/29/18 17:01 Anti-Inflamma - Social History Does the pt smoke?: No Smoking Status: Never smoker Does the pt drink ETOH?: No Does the pt have substance abuse?: No - Immunizations Immunizations are current?: Yes - POLST Patient has POLST: No POLST Status: Full Code PD ED PE NORMAL - Vitals Vital signs reviewed: Yes - General General: Alert and oriented X 3 - Neck Neck: Supple, no meningeal sign - Cardiac Cardiac: RRR - Respiratory Respiratory: No respiratory distress, Other (NC in palce) - Abdomen Abdomen: Other (Distended but not tense. No focal tenderness, mild difuse discomfort.) - Derm Derm: Warm and dry - Extremities Extremities: No deformity - Neuro Neuro: Alert and oriented X 3, No motor deficit, No sensory deficit, Normal speech - Psych Psych: Normal mood, Normal affect Results - Vitals Vitals: Oxygen O2 Source Room air - Labs Labs: Laboratory Tests 01/01/19 01/01/19 01/01/19 20:15 20:15 20:15 WBC 5.7 RBC 3.54 L Hgb 8.6 L Hct 28.2 L MCV 79.7 L MCH 24.3 L MCHC 30.5 L RDW 28.9 H Plt Count 225 MPV 8.9 Neut # (Auto) 4.3 Lymph # (Auto) 0.4 L [place] # (Auto) 0.6 Eos # (Auto) 0.2 Baso # (Auto) 0.0 Absolute Nucleated RBC 0.00 Nucleated RBC % 0.0 Manual Slide Review Indicated Platelet Estimate NORMAL (130-450,000) Platelet Morphology NORMAL APPEARANCE RBC Morph Micro Appear 1+ OVALOCYTES PT 15.3 H INR 1.4 H APTT 37.5 H VBG pH VBG pCO2 VBG pO2 VBG HCO3 VBG Total CO2 VBG O2 Saturation VBG Base Excess Sodium Potassium Chloride Carbon Dioxide Anion Gap BUN Creatinine Estimated GFR (MDRD) Glucose Lactic Acid Calcium Total Bilirubin AST ALT Alkaline Phosphatase Total Protein Albumin Globulin Albumin/Globulin Ratio Lipase Urine Color Urine Clarity Urine pH Ur Specific [place] Urine Protein Urine Glucose (UA) Urine Ketones Urine Occult Blood Urine Nitrite Urine Bilirubin Urine Urobilinogen Ur Leukocyte Esterase Ur Microscopic Review Urine Culture Comments Blood Type B POSITIVE Antibody Screen POSITIVE Antibody Identification Cancelled 01/01/19 01/01/19 01/01/19 20:15 20:15 20:15 WBC RBC Hgb Hct MCV MCH MCHC RDW Plt Count MPV Neut # (Auto) Lymph # (Auto) [place] # (Auto) Eos # (Auto) Baso # (Auto) Absolute Nucleated RBC Nucleated RBC % Manual Slide Review Platelet Estimate Platelet Morphology RBC Morph Micro Appear PT INR APTT VBG pH 7.437 H VBG pCO2 32.2 L VBG pO2 36.2 VBG HCO3 21.2 L VBG Total CO2 22.2 L VBG O2 Saturation 67.7 VBG Base Excess -2.4 L Sodium 133 L Potassium 3.4 L Chloride 100 L Carbon Dioxide 21 Anion Gap 12.0 BUN 26 H Creatinine 1.4 H Estimated GFR (MDRD) 40 L Glucose 102 H Lactic Acid 1.1 Calcium 8.6 Total Bilirubin 0.9 AST 28 ALT 21 Alkaline Phosphatase 81 Total Protein 7.1 Albumin 3.7 Globulin 3.4 Albumin/Globulin Ratio 1.1 Lipase 49 Urine Color Urine Clarity Urine pH Ur Specific [place] Urine Protein Urine Glucose (UA) Urine Ketones Urine Occult Blood Urine Nitrite Urine Bilirubin Urine Urobilinogen Ur Leukocyte Esterase Ur Microscopic Review Urine Culture Comments Blood Type Antibody Screen Antibody Identification 01/01/19 22:00 WBC RBC Hgb Hct MCV MCH MCHC RDW Plt Count MPV Neut # (Auto) Lymph # (Auto) [place] # (Auto) Eos # (Auto) Baso # (Auto) Absolute Nucleated RBC Nucleated RBC % Manual Slide Review Platelet Estimate Platelet Morphology RBC Morph Micro Appear PT INR APTT VBG pH VBG pCO2 VBG pO2 VBG HCO3 VBG Total CO2 VBG O2 Saturation VBG Base Excess Sodium Potassium Chloride Carbon Dioxide Anion Gap BUN Creatinine Estimated GFR (MDRD) Glucose Lactic Acid Calcium Total Bilirubin AST ALT Alkaline Phosphatase Total Protein Albumin Globulin Albumin/Globulin Ratio Lipase Urine Color YELLOW Urine Clarity CLEAR Urine pH 5.0 Ur Specific [place] 1.020 Urine Protein NEGATIVE Urine Glucose (UA) NEGATIVE Urine Ketones NEGATIVE Urine Occult Blood NEGATIVE Urine Nitrite NEGATIVE Urine Bilirubin NEGATIVE Urine Urobilinogen 0.2 (NORMAL) Ur Leukocyte Esterase NEGATIVE Ur Microscopic Review NOT INDICATED Urine Culture Comments NOT INDICATED Blood Type Antibody Screen Antibody Identification PD MEDICAL DECISION MAKING - ED course Complexity details: considered differential (Upper GI bleed, lower GI bleed, variceal bleed, anemia, PUD, ascites, volume overload, coagulopathy) ED course: Pt was mildly hypoxic in triage, with 2 L NC O2 level normalized. She has a distended abdomen but it is not tense or requiring emergeny paracentesis. Labs are notable for an anemia that is actually slightly improved from the time of her discharge. She also has stigmata of chronic liver disease. She was given pantoprazole 80mg, as well as ceftriaxone. She has known gastric ulcers and no signs of variceal bleeding on her recent EGD, so octreotide was deferred. Her blood pressure and pulse are stable, and she is not having active vomiting. I spoke to [facility], who agreed that she should be transferred for recurrence of her upper GI bleed and for further treatment of her cirrhosis and ascites. Pt was transferred via ambulance, and was hemodynamically stable at the time of transfer. Departure - Departure Disposition: 02 Transfer Acute Care Hosp Clinical Impression: GI bleed, Cirrhosis Discharge Date/Time: 01/02/19 01:50
[2019-01-01 20:29] LABS: BASOPHILS % (AUTO) 0.7 %; EOSINOPHILS # (AUTO) 0.2 10^3/uL (0.0-0.7); EOSINOPHILS % (AUTO) 4.1 %; HGB - HEMOGLOBIN 8.6 g/dL (12.0-16.0); LYMPHOCYTES # (AUTO) 0.4 10^3/uL (1.5-3.5); LYMPHOCYTES % (AUTO) 7.1 %; MEAN CORPUSCULAR HEMOGLOBIN 24.3 pg (27.0-31.0); MEAN CORPUSCULAR HGB CONC 30.5 g/dL (32.0-36.0); MEAN CORPUSCULAR VOLUME 79.7 fL (81.0-99.0); MEAN PLATELET VOLUME 8.9 fL (7.9-10.8); MONOCYTES # (AUTO) 0.6 10^3/uL (0.0-1.0); MONOCYTES % (AUTO) 11.3 %; NEUTROPHILS # (AUTO) 4.3 10^3/uL (1.5-6.6); NEUTROPHILS % (AUTO) 76.3 %; PLT - PLATELET COUNT 225 10^3/uL (130-450); RED BLOOD COUNT 3.54 10^6/uL (4.20-5.40); RED CELL DISTRIBUTION WIDTH 28.9 % (12.0-15.0); WHITE BLOOD COUNT 5.7 x10^3/uL (4.8-10.8)
[2019-01-01 20:33] LABS: INR 1.4 (0.8-1.2); PT - PROTHROMBIN TIME 15.3 secs (9.9-12.6)
[2019-01-01 20:36] LABS: VBG PCO2 32.2 mmHg (41-51); VBG PH 7.437 (7.31-7.41); VBG PO2 36.2 mmHg (25-47); VBG TOTAL CO2 22.2 mmol/L (24-29)
[2019-01-01 20:37] LABS: VBG BASE EXCESS -2.4 mmol/L (-2 - +2)
[2019-01-01 20:41] LABS: PARTIAL THROMBOPLASTIN TIME 37.5 secs (24.9-33.3)
[2019-01-01 20:45] LABS: ALBUMIN 3.7 g/dL (3.2-5.5); ALBUMIN/GLOBULIN RATIO 1.1 (1.0-2.2); BILIRUBIN,TOTAL 0.9 mg/dL (0.2-1.0); CALCIUM 8.6 mg/dL (8.5-10.3); CREATININE 1.4 mg/dL (0.4-1.0); TOTAL PROTEIN 7.1 g/dL (6.7-8.2)
[2019-01-01] MEDS ORDERED: cefTRIAXone 1 GM in SODIUM CHLORIDE 0.9% MINIBAG 100 ML IV STA (20:59)
[2019-01-01] MEDS ORDERED: PANTOPRAZOLE 40 MG VIAL IVP STA (20:59)
[2019-01-01] MEDS ORDERED: MORPHINE 2 MG/ML CARPUJECT IVP STA (21:12)
[2019-01-01 21:13] LABS: PLATELET ESTIMATE, MANUAL NORMAL (130-450,000) (NORMAL); PLATELET MORPHOLOGY NORMAL APPEARANCE (NORMAL)
[2019-01-01 22:07] LABS: BILIRUBIN,URINE NEGATIVE (NEGATIVE); GLUCOSE, URINE (UA) NEGATIVE (NEGATIVE); KETONES,URINE (UA) NEGATIVE (NEGATIVE); LEUKOCYTE ESTERASE, URINE NEGATIVE (NEGATIVE); NITRITE,URINE NEGATIVE (NEGATIVE); OCCULT BLOOD,URINE NEGATIVE (NEGATIVE); PROTEIN,URINE NEGATIVE (NEGATIVE); UROBILINOGEN,URINE 0.2 (NORMAL) E.U./dL (NORMAL)
[2019-01-01 22:08] LABS: CLARITY,URINE CLEAR (CLEAR)
[2019-01-01] MEDS ORDERED: fentaNYL 100 MCG/2 ML VIAL IVP STA (23:51)
--- NOTE | 2019-01-02 00:37 | XRAY Report ---
Reason: hypoxia Procedure Date: 01/01/2019 Accession Number: [id number] / [id number] Procedure: XR - Chest 1 View X-Ray CPT Code: 56926 FULL RESULT: EXAM: CHEST RADIOGRAPHY EXAM DATE: 01/01/2019 11:29 PM. CLINICAL HISTORY: Hypoxia. COMPARISON: CHEST 1 VIEW 12/04/2018 6:57 PM. TECHNIQUE: 1 view. FINDINGS: Lungs/Pleura: Low volumes. No definite pneumonia or edema. No gross pneumothorax or large effusion. Mediastinum: Stable normal heart size with mitral annular calcifications noted. No mediastinal shift. Other: None. IMPRESSION: Hypoventilatory single view chest without definite acute process. [facility]
[2019-01-02 01:52] VITALS: BP 124/82
== END 2019-01-02 01:50 | disposition short-term general hospital (02) ==
LOC: ED 19:22
DX: K92.1 Melena (principal); K92.0 Hematemesis; K25.9 Gastric ulcer, unspecified as acute or chronic, without hemorrhage or perforation; K74.60 Unspecified cirrhosis of liver; D64.9 Anemia, unspecified; R09.02 Hypoxemia; Z87.19 Personal history of other diseases of the digestive system
CPT/HCPCS: 36415; 71045; 80053; 81001; 81003; 82803; 83605; 83690; 85025; 85610; 85730; 86850; 86870; 86900; 86901; 87086; 96365; 96375; 99284

== ENCOUNTER 2019-01-08 19:42 | Outpatient (CLI) | payer OTHER | END 2019-01-08 19:43 | disposition critical access hospital (66) | LOC: EMS 19:42 | PROVIDERS: ATTEND Surgery | DX: R07.9 Chest pain, unspecified (principal); R10.9 Unspecified abdominal pain; R11.2 Nausea with vomiting, unspecified | CPT/HCPCS: A0425; A0427 ==

== ENCOUNTER 2019-01-08 19:48 | Emergency (ER) | payer OTHER ==
--- NOTE | 2019-01-08 20:39 | ED Physician Documentation ---
PD HPI CHEST PAIN - Stated complaint Stated Complaint: CP/ SOA - Chief complaint Chief Complaint: Cardiac - History obtained from History obtained from: Patient, EMS - History of Present Illness Timing - onset: How many days ago (2) Timing - onset during: Rest Timing - duration: Days (2) Timing - details: Gradual onset, Still present, Waxing and waning Quality: Tightness Location: Substernal Radiation: Neck Improved by: Nothing Worsened by: Inspiration Associated symptoms: Nausea, Vomiting, General Weakness. No: Shortness of air Similar symptoms before: Has not had sx before Recently seen: Emergency Dept, Admitted - Additional information Additional information: 48-year-old female with a history of hepatitis B hepatitis C with cirrhosis banded varices and recent GI bleeding has been discharged from [facility] about 5 days ago and at that time she had been admitted for persistent GI bleeding endoscopy showed oozing of blood in the intestine and the patient had 3 L of ascites removed. She is complaining of pain through her back across her abdomen into her chest and she has been very uncomfortable. She has moved up here from [place] she has not started treatment for hepatitis C she has had cirrhosis and liver failure for about 12 years and since she has been here in the past 6 weeks she has been to the emergency department four times admitted here twice for transfusion and paracentesis and transferred to [facility] twice. She is on a reduced dose of furosemide and spironolactone and she no longer has any ankle edema.She has been able to eat today and she has had vomiting without blood and she has had dark stool as well. She has ascites but this is not tense today. Review of Systems Constitutional: reports: Myalgias, Fatigue. denies: Fever Eyes: denies: Decreased vision Ears: denies: Ear pain Nose: denies: Rhinorrhea / runny nose, Congestion Throat: denies: Sore throat Cardiac: reports: Chest pain / pressure. denies: Palpitations, Pedal edema, Calf pain Respiratory: reports: Dyspnea. denies: Cough GI: reports: Abdominal Pain, Abdominal Swelling, Nausea, Vomiting, Bloody / black stool. denies: Constipation : denies: Dysuria, Frequency Skin: denies: Rash Musculoskeletal: reports: Neck pain, Back pain. denies: Extremity pain Neurologic: reports: Generalized weakness. 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), Other : Other HEENT: None Psych: Other Musculoskeletal: Chronic back pain Derm: None - Past Surgical History Past Surgical History: Yes General: Hiatal hernia repair Ortho: Other /INTERACTIVE MULTIMEDIA DESIGNER: Tubal ligation HEENT: Other - Present Medications Home Medications: Ambulatory Orders Medication Instructions Recorded Confirmed Cholecalciferol (Vitamin D3) 2,000 units PO DAILY #60 capsule 12/02/18 01/08/19 [Vitamin D3] Ferrous Sulfate 325 mg PO DAILY #30 tablet 12/02/18 01/08/19 Furosemide 40 mg PO DAILY #30 tablet 12/02/18 01/08/19 Levothyroxine [Synthroid] 50 mcg PO QDAC #60 tablet 12/02/18 01/08/19 Multivitamin W/Minerals [Theragran 1 tab PO DAILY #30 tablet 12/02/18 01/08/19 M] Pantoprazole Sodium 40 mg PO BID #60 tablet. 12/02/18 01/08/19 Spironolactone 100 mg PO DAILY #120 tablet 12/02/18 01/08/19 Ascorbic Acid [Vitamin C] 500 mg PO BID 12/05/18 01/08/19 Ciprofloxacin HCl [Cipro] 500 mg PO DAILY 01/08/19 01/08/19 Mirtazapine 15 mg PO DAILY 01/08/19 01/08/19 Multivitamin [Daily Multiple 1 each PO 01/08/19 Vitamin] Ondansetron Odt [Zofran] 4 mg TL Q6H PRN 01/08/19 01/08/19 Morphine Sulfate 15 mg PO Q6HR PRN #10 tablet 01/09/19 - Allergies Allergies/Adverse Reactions: Allergies Allergy/AdvReac Type Severity Reaction Status Date / Time acetaminophen [From Tylenol] Allergy Unknown Verified 01/08/19 20:04 NSAIDS (Non-Steroidal Allergy Unknown Verified 01/08/19 20:04 Anti-Inflamma - Social History Does the pt smoke?: No Smoking Status: Never smoker Does the pt drink ETOH?: No Does the pt have substance abuse?: No - Immunizations Immunizations are current?: Yes - POLST Patient has POLST: No POLST Status: Full Code PD ED PE NORMAL - Vitals Vital signs reviewed: Yes (hypertensive ) - General General: Alert and oriented X 3, Well developed/nourished, Other (48 y/o female in the position face down on the bed crying in pain. ) - HEENT HEENT: Atraumatic, PERRL, EOMI - Neck Neck: Supple, no meningeal sign, No bony TTP - Cardiac Cardiac: RRR, No murmur - Respiratory Respiratory: No respiratory distress, Clear bilaterally - Abdomen Abdomen: Other (distended abdomen with ascities that is not tense. There is a ventral hernia that is non-tender and reducible that has an odd appearance. The abdomen is not tender and there is no garding. There is a caput present ) - Derm Derm: Normal color, Warm and dry - Extremities Extremities: No deformity, No edema - Neuro Neuro: Alert and oriented X 3, bird keeper 2-12 intact, No motor deficit, No sensory deficit, Normal speech Eye Opening: Spontaneous Motor: Obeys Commands Verbal: Oriented GCS Score: 15 - Psych Psych: Normal mood, Normal affect - Free text exam Free text exam: Despite patient being in the position face down on the gurney when I arrived to the room to examine the patient once we are engaged in conversation she appears to be able to maintain conversation well and is able to talk freely without difficulty. She will periodically wince in pain which appears to be coming from her back. She is able to sit up and breathe and has clear lungs. Results - Vitals Vitals: Vital Signs - 24 hr 01/08/19 01/08/19 01/08/19 19:56 20:04 21:26 Temperature 36.9 C Heart Rate 80 76 84 Respiratory 15 12 13 Rate Blood Pressure 179/118 H 164/117 H 155/107 H O2 Saturation 100 99 97 01/08/19 01/08/19 01/09/19 21:51 23:00 00:26 Temperature 36.7 C Heart Rate 87 86 75 Respiratory 12 12 14 Rate Blood Pressure 140/99 H 134/95 H 146/96 H O2 Saturation 97 98 97 01/09/19 00:50 Temperature Heart Rate 80 Respiratory 16 Rate Blood Pressure 125/83 H O2 Saturation 97 Oxygen O2 Source Room air - EKG (time done) 1955 Rate: Rate (enter#) (78) Rhythm: NSR Ischemia: Q waves Compare to prior EKG: Unchanged from prior EKG (SPT 12-04-18 no sig changes) Computer interpretation: Agree with computer - Labs Labs: Laboratory Tests 01/08/19 01/08/19 01/08/19 21:00 21:00 21:00 WBC 5.8 RBC 3.74 L Hgb 9.3 L Hct 29.8 L MCV 79.7 L MCH 24.9 L MCHC 31.2 L RDW 29.2 H Plt Count 220 MPV 8.1 Neut # (Auto) 4.3 Lymph # (Auto) 0.4 L [place] # (Auto) 0.8 Eos # (Auto) 0.2 Baso # (Auto) 0.0 Absolute Nucleated RBC 0.00 Nucleated RBC % 0.0 Manual Slide Review Indicated Platelet Estimate NORMAL (130-450,000) Platelet Morphology RARE GIANT PLATELETS RBC Morph Micro Appear 2+ HYPOCHROMASIA PT 15.0 H INR 1.3 H Sodium 134 L Potassium 3.6 Chloride 105 Carbon Dioxide 19 L Anion Gap 10.0 BUN 32 H Creatinine 1.5 H Estimated GFR (MDRD) 37 L Glucose 89 Calcium 8.9 Total Bilirubin 0.8 AST 29 ALT 22 Alkaline Phosphatase 79 Troponin I High Sens Total Protein 6.8 Albumin 3.8 Globulin 3.0 Albumin/Globulin Ratio 1.3 Lipase 58 H Urine Color Urine Clarity Urine pH Ur Specific [place] Urine Protein Urine Glucose (UA) Urine Ketones Urine Occult Blood Urine Nitrite Urine Bilirubin Urine Urobilinogen Ur Leukocyte Esterase Ur Microscopic Review Urine Culture Comments Urine Opiates Screen Ur Oxycodone Screen Urine Methadone Screen Ur Propoxyphene Screen Ur Barbiturates Screen Ur Tricyclics Screen Ur Phencyclidine Scrn Ur Amphetamine Screen U Methamphetamines Scrn U Benzodiazepines Scrn Urine Cocaine Screen U Cannabinoids Screen Ethyl Alcohol < 5.0 01/08/19 01/08/19 21:00 22:57 WBC RBC Hgb Hct MCV MCH MCHC RDW Plt Count MPV Neut # (Auto) Lymph # (Auto) [place] # (Auto) Eos # (Auto) Baso # (Auto) Absolute Nucleated RBC Nucleated RBC % Manual Slide Review Platelet Estimate Platelet Morphology RBC Morph Micro Appear PT INR Sodium Potassium Chloride Carbon Dioxide Anion Gap BUN Creatinine Estimated GFR (MDRD) Glucose Calcium Total Bilirubin AST ALT Alkaline Phosphatase Troponin I High Sens 13.6 Total Protein Albumin Globulin Albumin/Globulin Ratio Lipase Urine Color YELLOW Urine Clarity CLEAR Urine pH 5.5 Ur Specific [place] 1.020 Urine Protein TRACE Urine Glucose (UA) NEGATIVE Urine Ketones NEGATIVE Urine Occult Blood NEGATIVE Urine Nitrite NEGATIVE Urine Bilirubin NEGATIVE Urine Urobilinogen 0.2 (NORMAL) Ur Leukocyte Esterase NEGATIVE Ur Microscopic Review NOT INDICATED Urine Culture Comments NOT INDICATED Urine Opiates Screen POSITIVE H Ur Oxycodone Screen NEGATIVE Urine Methadone Screen NEGATIVE Ur Propoxyphene Screen NEGATIVE Ur Barbiturates Screen NEGATIVE Ur Tricyclics Screen NEGATIVE Ur Phencyclidine Scrn NEGATIVE Ur Amphetamine Screen NEGATIVE U Methamphetamines Scrn NEGATIVE U Benzodiazepines Scrn NEGATIVE Urine Cocaine Screen NEGATIVE U Cannabinoids Screen NEGATIVE Ethyl Alcohol - Rads (name of study) chest Radiology: Prelim report reviewed (Impression: Lower lung volumes. Mild mild left midlung linear opacities, suspect atelectasis. New mild left base airspace disease, could represent atelectasis or), EMP read indepedently, See rad report Procedures - IVC sono (time) 2049 Bedside IVC sono: IVC measures (cm) (0.66), IVC collapsed c insp (cm) (complete), Profound dehydration (est 3 liter deficit) PD MEDICAL DECISION MAKING - ED course Complexity details: reviewed old records, reviewed results, re-evaluated patient, considered differential, d/w patient ED course: 48-year-old female with cirrhosis and failure has recently been admitted for GI bleeding she has had esophageal banding done she is not having variceal bleeding. Today she is complaining of overall pain and pain on inspiration. She is found to be profoundly dehydrated on interrogation the inferior vena cava and IV fluids are begun as well as 4 mg of morphine intravenously. She has been given Zofran in the field. She presents here today appearing in severe pain and she improves with IV fluids. Her hemoglobin is 9.3 and her ascites is present but not tense. Today her troponin was not elevated she did have the appearance of possible infiltrate on her chest x-ray however this was not borne out on examination and I suspect this may be more atelectasis with the pain the patient was experiencing. Her improvement was dramatic and likely related to improving her intravascular volume.The patient is living here in [place] and I have asked her to follow-up with Dr. Conley as she has still not connected with a primary care physician. She will have continued ongoing needs for frequent medical care with complicated end-stage liver disease. She will need repeat paracentesis and monitoring of her hemoglobin and her vascular volume. At some point it seems treatment of the hep C might benefit the patient. Today her drug screen was negative for amphetamine and blood was negative for alcohol. Departure - Departure Disposition: 01 Home, Self Care Clinical Impression: Dehydration Condition: Stable Instructions: ED Dehydration Follow-Up: Ritesh Mayen MD [Provider Admit Priv/Credential] - Prescriptions: Morphine Sulfate 15 mg PO Q6HR PRN #10 tablet PRN Reason: Pain Discharge Date/Time: 01/09/19 01:21
[2019-01-08] MEDS ORDERED: SODIUM CHLORIDE 0.9% 1,000 ML IV ONE ×2 (21:00→23:45)
[2019-01-08] MEDS ORDERED: MORPHINE 2 MG/ML CARPUJECT IVP STA (21:00)
[2019-01-08 21:10] LABS: BASOPHILS % (AUTO) 0.7 %; EOSINOPHILS # (AUTO) 0.2 10^3/uL (0.0-0.7); EOSINOPHILS % (AUTO) 3.5 %; HGB - HEMOGLOBIN 9.3 g/dL (12.0-16.0); LYMPHOCYTES # (AUTO) 0.4 10^3/uL (1.5-3.5); LYMPHOCYTES % (AUTO) 7.3 %; MEAN CORPUSCULAR HEMOGLOBIN 24.9 pg (27.0-31.0); MEAN CORPUSCULAR HGB CONC 31.2 g/dL (32.0-36.0); MEAN CORPUSCULAR VOLUME 79.7 fL (81.0-99.0); MEAN PLATELET VOLUME 8.1 fL (7.9-10.8); MONOCYTES # (AUTO) 0.8 10^3/uL (0.0-1.0); MONOCYTES % (AUTO) 13.5 %; NEUTROPHILS # (AUTO) 4.3 10^3/uL (1.5-6.6); NEUTROPHILS % (AUTO) 74.3 %; PLT - PLATELET COUNT 220 10^3/uL (130-450); RED BLOOD COUNT 3.74 10^6/uL (4.20-5.40); RED CELL DISTRIBUTION WIDTH 29.2 % (12.0-15.0); WHITE BLOOD COUNT 5.8 x10^3/uL (4.8-10.8)
[2019-01-08 21:21] LABS: INR 1.3 (0.8-1.2)
[2019-01-08 21:25] LABS: ALBUMIN 3.8 g/dL (3.2-5.5); ALBUMIN/GLOBULIN RATIO 1.3 (1.0-2.2); ALKALINE PHOSPHATASE 79 IU/L (42-121); ALT ALANINE AMINOTRANSFERASE 22 IU/L (10-60); AST ASPARTATE AMINOTRANSFERASE 29 IU/L (10-42); BILIRUBIN,TOTAL 0.8 mg/dL (0.2-1.0); BUN - BLOOD UREA NITROGEN 32 mg/dL (6-20); CALCIUM 8.9 mg/dL (8.5-10.3); CARBON DIOXIDE - CO2 19 mmol/L (21-32); CHLORIDE 105 mmol/L (101-111); CREATININE 1.5 mg/dL (0.4-1.0); GFR - MDRD 37 (>89); GLUCOSE 89 mg/dL (70-100); LIPASE 58 U/L (22-51); SODIUM 134 mmol/L (135-145); TOTAL PROTEIN 6.8 g/dL (6.7-8.2)
[2019-01-08] MEDS ORDERED: ONDANSETRON 4 MG/2 ML VIAL IVP STA (21:28)
[2019-01-08 21:34] LABS: PLATELET ESTIMATE, MANUAL NORMAL (130-450,000) (NORMAL); PLATELET MORPHOLOGY RARE GIANT PLATELETS (NORMAL)
--- NOTE | 2019-01-08 21:41 | XRAY Report ---
Reason: chest pain Procedure Date: 01/08/2019 Accession Number: [id number] / [id number] Procedure: XR - Chest 1 View X-Ray CPT Code: 27315 FULL RESULT: EXAM: CHEST RADIOGRAPHY EXAM DATE: 01/08/2019 09:13 PM. CLINICAL HISTORY: Chest pain. COMPARISON: CHEST 1 VIEW 01/01/2019 11:15 PM. TECHNIQUE: 1 view. FINDINGS: Lungs/Pleura: Lower lung volumes. Mild left midlung linear opacities, suspect atelectasis. New mild left base airspace disease, could represent atelectasis or pneumonia. No pleural effusion or pneumothorax. Mediastinum: Within exam limitations, the cardiomediastinal contour is normal. IMPRESSION: Lower lung volumes. Mild left midlung linear opacities, suspect atelectasis. New mild left base airspace disease, could represent atelectasis or pneumonia. RADIA
[2019-01-08] MEDS ORDERED: cefTRIAXone 1 GM in SODIUM CHLORIDE 0.9% MINIBAG 100 ML IV STA (22:06)
[2019-01-08 23:02] LABS: MUDS CUTOFF CONCENTRATIONS CUTOFF CONC BELOW:
[2019-01-08 23:10] LABS: BILIRUBIN,URINE NEGATIVE (NEGATIVE); GLUCOSE, URINE (UA) NEGATIVE (NEGATIVE); KETONES,URINE (UA) NEGATIVE (NEGATIVE); LEUKOCYTE ESTERASE, URINE NEGATIVE (NEGATIVE); NITRITE,URINE NEGATIVE (NEGATIVE); OCCULT BLOOD,URINE NEGATIVE (NEGATIVE); PH,URINE 5.5 PH (5.0-7.5); PROTEIN,URINE TRACE mg/dL (NEGATIVE); UROBILINOGEN,URINE 0.2 (NORMAL) E.U./dL (NORMAL)
[2019-01-08 23:11] LABS: CLARITY,URINE CLEAR (CLEAR)
[2019-01-08 23:22] LABS: COCAINE SCREEN URINE NEGATIVE (NEGATIVE); METHAMPHETAMINES SCREEN, URINE NEGATIVE (NEGATIVE); OPIATE SCREEN, URINE POSITIVE (NEGATIVE)
[2019-01-08 23:23] LABS: AMPHETAMINE SCREEN,URINE NEGATIVE (NEGATIVE); BENZODIAZEPINES SCREEN, URINE NEGATIVE (NEGATIVE); METHADONE SCREEN, URINE NEGATIVE (NEGATIVE); OXYCODONE SCREEN, URINE NEGATIVE (NEGATIVE); PROPOXYPHENE SCREEN, URINE NEGATIVE (NEGATIVE); TRICYCLIC ANTIDEPRESSANT,URINE NEGATIVE (NEGATIVE)
[2019-01-09 00:51] VITALS: BP 125/83
== END 2019-01-09 01:21 | disposition home or self-care (01) ==
LOC: EDUNIT# → ED 19:48
DX: E86.0 Dehydration (principal); B19.10 Unspecified viral hepatitis B without hepatic coma; B19.20 Unspecified viral hepatitis C without hepatic coma; K74.60 Unspecified cirrhosis of liver; R18.8 Other ascites; K43.9 Ventral hernia without obstruction or gangrene
CPT/HCPCS: 36415; 71045; 80053; 80306; 80320; 81001; 81003; 83690; 84484; 85025; 85610; 87086; 93005; 96361; 96365; 96375; 99284

== ENCOUNTER 2019-01-21 10:48 | Emergency (ER) | payer MEDICAID, OTHER ==
[2019-01-21] MEDS ORDERED: MORPHINE 2 MG/ML CARPUJECT IVP STA (11:08)
[2019-01-21] MEDS ORDERED: LIDOCAINE 2%-EPI 1:100000 20 ML MDV SUBQ STA (11:10)
[2019-01-21] MEDS ORDERED: MORPHINE 2 MG/ML CARPUJECT IM STA (11:23)
[2019-01-21 11:29] LABS: BASOPHILS % (AUTO) 0.9 %; EOSINOPHILS # (AUTO) 0.3 10^3/uL (0.0-0.7); EOSINOPHILS % (AUTO) 6.2 %; HGB - HEMOGLOBIN 9.3 g/dL (12.0-16.0); LYMPHOCYTES # (AUTO) 0.4 10^3/uL (1.5-3.5); LYMPHOCYTES % (AUTO) 7.5 %; MEAN CORPUSCULAR HGB CONC 30.8 g/dL (32.0-36.0); MEAN CORPUSCULAR VOLUME 84.4 fL (81.0-99.0); MONOCYTES # (AUTO) 0.6 10^3/uL (0.0-1.0); MONOCYTES % (AUTO) 13.3 %; NEUTROPHILS # (AUTO) 3.3 10^3/uL (1.5-6.6); NEUTROPHILS % (AUTO) 71.7 %; PLT - PLATELET COUNT 200 10^3/uL (130-450); RED BLOOD COUNT 3.58 10^6/uL (4.20-5.40); RED CELL DISTRIBUTION WIDTH 26.5 % (12.0-15.0); WHITE BLOOD COUNT 4.7 x10^3/uL (4.8-10.8)
[2019-01-21 11:37] LABS: INR 1.3 (0.8-1.2); PT - PROTHROMBIN TIME 14.1 secs (9.9-12.6)
[2019-01-21 11:45] LABS: ALBUMIN 3.4 g/dL (3.2-5.5); ALBUMIN/GLOBULIN RATIO 1.1 (1.0-2.2); BILIRUBIN,TOTAL 0.7 mg/dL (0.2-1.0); CALCIUM 8.8 mg/dL (8.5-10.3); CREATININE 1.4 mg/dL (0.4-1.0); PARTIAL THROMBOPLASTIN TIME 34.6 secs (24.9-33.3); TOTAL PROTEIN 6.6 g/dL (6.7-8.2)
[2019-01-21 12:30] LABS: BF SOURCE PLEURAL; CC,BF RBC 2000 /mm^3
[2019-01-21 12:31] LABS: BF COLOR STRAW
--- NOTE | 2019-01-21 12:44 | ED Physician Documentation ---
History of Present Illness - Stated complaint Stated Complaint: PAIN ALL OVER - Chief complaint Chief Complaint: Abd Pain - History obtained from History obtained from: Patient - History of Present Illness Timing: How many weeks ago (several) Pain level max: 10 Pain level now: 10 Improved by: morphine Worsened by: movement - Additonal information Additional information: 48-year-old female presents to the emergency department with abdominal and back pain. This is been ongoing for the past several weeks. This is a chronic issue for her. She has hepatitis B and C. Has liver cirrhosis. Moved here 2 months ago and does not have a doctor here yet. She is requesting a paracentesis. She has been taking her diuretics at home. She is out of her pain medication as well. No fevers. 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), Other : Other HEENT: None Psych: Other Musculoskeletal: Chronic back pain Derm: None - Past Surgical History Past Surgical History: Yes General: Hiatal hernia repair Ortho: Other /NURSING HOME ASSISTANT: Tubal ligation HEENT: Other - Present Medications Home Medications: Ambulatory Orders Medication Instructions Recorded Confirmed Cholecalciferol (Vitamin D3) 2,000 units PO DAILY #60 capsule 12/02/18 01/08/19 [Vitamin D3] Ferrous Sulfate 325 mg PO DAILY #30 tablet 12/02/18 01/08/19 Furosemide 40 mg PO DAILY #30 tablet 12/02/18 01/08/19 Levothyroxine [Synthroid] 50 mcg PO QDAC #60 tablet 12/02/18 01/08/19 Multivitamin W/Minerals [Theragran 1 tab PO DAILY #30 tablet 12/02/18 01/08/19 M] Pantoprazole Sodium 40 mg PO BID #60 tablet. 12/02/18 01/08/19 Spironolactone 100 mg PO DAILY #120 tablet 12/02/18 01/08/19 Ascorbic Acid [Vitamin C] 500 mg PO BID 12/05/18 01/08/19 Ciprofloxacin HCl [Cipro] 500 mg PO DAILY 01/08/19 01/08/19 Mirtazapine 15 mg PO DAILY 01/08/19 01/08/19 Multivitamin [Daily Multiple 1 each PO 01/08/19 Vitamin] Ondansetron Odt [Zofran] 4 mg TL Q6H PRN 01/08/19 01/08/19 Morphine Sulfate 15 mg PO Q6HR PRN #10 tablet 01/21/19 - Allergies Allergies/Adverse Reactions: Allergies Allergy/AdvReac Type Severity Reaction Status Date / Time acetaminophen [From Tylenol] Allergy Unknown Verified 01/08/19 20:04 NSAIDS (Non-Steroidal Allergy Unknown Verified 01/08/19 20:04 Anti-Inflamma - Social History Does the pt smoke?: No Smoking Status: Never smoker Does the pt drink ETOH?: No Does the pt have substance abuse?: No - Immunizations Immunizations are current?: Yes - POLST Patient has POLST: No POLST Status: Full Code PD ED PE NORMAL - Vitals Vital signs reviewed: Yes - General General: Alert and oriented X 3, No acute distress, Well developed/nourished - HEENT HEENT: PERRL, Moist mucous membranes - Neck Neck: Supple, no meningeal sign - Cardiac Cardiac: RRR - Respiratory Respiratory: No respiratory distress, Clear bilaterally - Abdomen Abdomen: Other (Distended tense abdomen with ascites.) - Derm Derm: Warm and dry - Extremities Extremities: Other (1+ B LE edema) - Neuro Neuro: Alert and oriented X 3 - Psych Psych: Normal mood, Normal affect Results - Vitals Vitals: Vital Signs - 24 hr 01/21/19 01/21/19 10:53 13:00 Temperature 37.3 C Heart Rate 71 72 Respiratory 16 14 Rate Blood Pressure 189/116 H 149/90 H O2 Saturation 100 98 Oxygen O2 Source Room air - Labs Labs: Microbiology 01/21/19 12:00 Body Fluid Culture - Preliminary Other - Abdominal Laboratory Tests 01/21/19 01/21/19 01/21/19 11:20 11:20 11:20 WBC 4.7 L RBC 3.58 L Hgb 9.3 L Hct 30.2 L MCV 84.4 MCH 26.0 L MCHC 30.8 L RDW 26.5 H Plt Count 200 MPV 8.0 Neut # (Auto) 3.3 Lymph # (Auto) 0.4 L [place] # (Auto) 0.6 Eos # (Auto) 0.3 Baso # (Auto) 0.0 Absolute Nucleated RBC 0.00 Nucleated RBC % 0.0 Manual Slide Review Indicated WBC Morphology NORMAL APPEARANCE Platelet Estimate NORMAL (130-450,000) Platelet Morphology NORMAL APPEARANCE RBC Morph Micro Appear 1+ POLYCHROMASIA PT 14.1 H INR 1.3 H APTT 34.6 H Sodium 138 Potassium 3.5 Chloride 105 Carbon Dioxide 23 Anion Gap 10.0 BUN 36 H Creatinine 1.4 H Estimated GFR (MDRD) 40 L Glucose 118 H Calcium 8.8 Total Bilirubin 0.7 AST 30 ALT 19 Alkaline Phosphatase 96 Total Protein 6.6 L Albumin 3.4 Globulin 3.2 Albumin/Globulin Ratio 1.1 Lipase 34 Fluid Source Fluid Color Fluid Clarity Fluid WBC Fluid RBC Fluid Neutrophils % Fluid Lymphocytes % Fluid Monocytes % Fluid Eosinophils % Fld Mesothelial Cell % 01/21/19 12:00 WBC RBC Hgb Hct MCV MCH MCHC RDW Plt Count MPV Neut # (Auto) Lymph # (Auto) [place] # (Auto) Eos # (Auto) Baso # (Auto) Absolute Nucleated RBC Nucleated RBC % Manual Slide Review WBC Morphology Platelet Estimate Platelet Morphology RBC Morph Micro Appear PT INR APTT Sodium Potassium Chloride Carbon Dioxide Anion Gap BUN Creatinine Estimated GFR (MDRD) Glucose Calcium Total Bilirubin AST ALT Alkaline Phosphatase Total Protein Albumin Globulin Albumin/Globulin Ratio Lipase Fluid Source PLEURAL Fluid Color STRAW Fluid Clarity HAZY Fluid WBC 79 Fluid RBC 2000 Fluid Neutrophils % 9.0 Fluid Lymphocytes % 53.0 Fluid Monocytes % 2.0 Fluid Eosinophils % 1.0 Fld Mesothelial Cell % 35.0 Procedures - Paracentesis Preparation: Consent obtained, Ultrasound guidance, Sterile prep and drape, Local anesthesia Location: LLQ Technique: Z-tract, Catheter over needle Fluid: Cloudy, Sent for cell count, Sent for gram stain, Sent for culture Aftercare: No complications, Patient tolerated well, Dressing applied PD MEDICAL DECISION MAKING - ED course Complexity details: reviewed results, re-evaluated patient, considered differential, d/w patient ED course: 48-year-old cirrhotic female presents with chronic back pain as well as increasing ascites. Approximately 5 L of fluid were taken off via paracentesis. She feels much better. There is no persistent fluid leak. Cell count is not consistent with SBP. Will refill a small amount of pain medication for her and follow-up with her doctor for further care. Patient counseled regarding signs and symptoms for which I believe and urgent re-evaluation would be necessary. Patient with good understanding of and agreement to plan and is comfortable going home at this time This document was made in part using voice recognition software. While efforts are made to proofread this document, sound alike and grammatical errors may occur. Departure - Departure Disposition: Home, Self Care Clinical Impression: Ascites Qualifiers: Ascites type: other type Qualified Code(s): R18.8 - Other ascites Condition: Good Instructions: ED Ascites Follow-Up: your,doctor in 1 week [Other] Prescriptions: Morphine Sulfate 15 mg PO Q6HR PRN #10 tablet PRN Reason: Pain Comments: Continue your current medications at home. Return if you worsen. Follow-up with your doctor for further care. Do not drink alcohol or drive while on narcotic pain medicine. Note that many narcotic pain relievers also contain tylenol/acetaminophen. Please ensure that your total dose of acetaminophen from all sources does not exceed 3 grams (3000mg) per day. You may constipated on this medication, take a stool softener such as "Colace" twice a day while you are on it. Also recommend a [id number] laxative such as senna or MiraLAX any day that you do not have a bowel movement. If you received narcotic pain medication in the emergency department, do not drive or operate machinery for the next 24 hours.
[2019-01-21 12:53] LABS: PLATELET ESTIMATE, MANUAL NORMAL (130-450,000) (NORMAL); PLATELET MORPHOLOGY NORMAL APPEARANCE (NORMAL)
[2019-01-21 13:01] VITALS: BP 149/90
== END 2019-01-21 14:34 | disposition home or self-care (01) ==
LOC: ED 10:48
DX: R18.8 Other ascites (principal); K74.60 Unspecified cirrhosis of liver; B19.10 Unspecified viral hepatitis B without hepatic coma; B19.20 Unspecified viral hepatitis C without hepatic coma
CPT/HCPCS: 36415; 49082; 80053; 83690; 85025; 85610; 85730; 87070; 87205; 89051; 96372

== ENCOUNTER 2019-01-23 17:42 | Emergency (ER) | payer MEDICAID ==
--- NOTE | 2019-01-23 20:08 | ED Physician Documentation ---
PD HPI ABD PAIN - Stated complaint Stated Complaint: ABNORMAL SWELLING - Chief complaint Chief Complaint: Abd Pain - History obtained from History obtained from: Patient - History of Present Illness Timing - onset: How many days ago (2) Timing - duration: Days (2) Timing - details: Gradual onset, Still present Quality: Aching, Pain Location: Suprapubic (She was seen in the emergency room 2 days ago for abdominal pain related to ascites and tense abdomen. She had a paracentesis done which took off about 5 L of fluid and she states she is feeling better. Later on the day and then yesterday she noticed increasing swelling in the lower anterior abdomen in the pubic area and then today into the labia on both sides. There is not been any redness or skin sores.) Associated symptoms: Loss of appetite. No: Fever, Nausea, Vomiting, Diarrhea, Constipation, Dysuria Similar symptoms before: Has not had sx before Recently seen: Emergency Dept (2 days ago - see above) Review of Systems Constitutional: reports: Fatigue. denies: Fever, Chills, Myalgias Nose: denies: Rhinorrhea / runny nose, Congestion Throat: denies: Sore throat Respiratory: denies: Cough GI: reports: Abdominal Pain, Abdominal Swelling, Nausea. denies: Constipation, Diarrhea, Bloody / black stool : denies: Dysuria Skin: reports: Lesions (both lower legs and ankles with redness and burning type pain symmetrically.). denies: Rash Musculoskeletal: denies: Neck pain, Back pain Neurologic: reports: Generalized weakness. 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 12/02/18 01/08/19 Spironolactone 100 mg PO DAILY #120 tablet 12/02/18 01/08/19 Ascorbic Acid [Vitamin C] 500 mg PO BID 12/05/18 01/08/19 Ciprofloxacin HCl [Cipro] 500 mg PO DAILY 01/08/19 01/08/19 Mirtazapine 15 mg PO DAILY 01/08/19 01/08/19 Multivitamin [Daily Multiple 1 each PO 01/08/19 Vitamin] Ondansetron Odt [Zofran] 4 mg TL Q6H PRN 01/08/19 01/08/19 Morphine Sulfate 15 mg PO Q6HR PRN #10 tablet 01/21/19 Cephalexin [Keflex] 500 mg PO Q6H #28 capsule 01/23/19 - Allergies Allergies/Adverse Reactions: Allergies Allergy/AdvReac Type Severity Reaction Status Date / Time acetaminophen [From Tylenol] Allergy Unknown Verified 01/08/19 20:04 NSAIDS (Non-Steroidal Allergy Unknown Verified 01/08/19 20:04 Anti-Inflamma - Social History Does the pt smoke?: No Smoking Status: Never smoker Does the pt drink ETOH?: No Does the pt have substance abuse?: No - Immunizations Immunizations are current?: Yes - POLST Patient has POLST: No POLST Status: Full Code PD ED PE NORMAL - Vitals Vital signs reviewed: Yes - General General: Alert and oriented X 3, Well developed/nourished, Other (Anxious and uncomfortable and in pain because of the lower abdomen and also her legs are hurting) - HEENT HEENT: Pharynx benign - Neck Neck: Supple, no meningeal sign, No adenopathy - Cardiac Cardiac: No murmur - Respiratory Respiratory: Clear bilaterally - Abdomen Abdomen: Soft, No organomegaly, Other (Her abdomen is moderately distended but not tight. She is mildly tender diffusely with much less in the upper abdomen. Bowel sounds are present but hypoactive. There is dullness to percussion. There is edema in the soft tissue of the anterior lower abdominal wall and the pubic area as well. The edema extends to the outer labia on both sides.) - Female Female : Seam Closer present (her daughter), Other (Edema of both outer labia causing some crowding of the urethral space.) Results - Vitals Vitals: Vital Signs - 24 hr 01/23/19 01/23/19 01/23/19 18:00 18:03 20:54 Temperature 36.6 C 36.6 C 37.1 C Heart Rate 104 H 104 H 85 Respiratory 18 18 20 Rate Blood Pressure 115/99 H 115/99 H 128/81 H O2 Saturation 94 94 92 01/23/19 22:49 Temperature Heart Rate 88 Respiratory 18 Rate Blood Pressure 126/80 O2 Saturation 93 Oxygen O2 Source Room air - Labs Labs: Laboratory Tests 01/23/19 01/23/19 01/23/19 21:00 21:00 21:00 WBC 5.2 RBC 3.86 L Hgb 10.2 L Hct 32.7 L MCV 84.7 MCH 26.4 L MCHC 31.2 L RDW 25.6 H Plt Count 199 MPV 8.3 Neut # (Auto) 3.8 Lymph # (Auto) 0.5 L [place] # (Auto) 0.5 Eos # (Auto) 0.4 Baso # (Auto) 0.1 Absolute Nucleated RBC 0.00 Nucleated RBC % 0.0 Manual Slide Review Indicated Platelet Estimate NORMAL (130-450,000) Platelet Morphology NORMAL APPEARANCE RBC Morph Micro Appear OVALOCYTES Sodium 139 Potassium 3.6 Chloride 104 Carbon Dioxide 23 Anion Gap 12.0 BUN 38 H Creatinine 1.5 H Estimated GFR (MDRD) 37 L Glucose 97 Lactic Acid 2.4 H Calcium 8.7 Magnesium 2.0 Total Bilirubin 0.8 AST 31 ALT 21 Alkaline Phosphatase 106 Total Protein 6.7 Albumin 3.5 Globulin 3.2 Albumin/Globulin Ratio 1.1 Lipase 37 PD MEDICAL DECISION MAKING - ED course Complexity details: reviewed results, re-evaluated patient, considered differential (She has some symmetric redness of both lower extremities around the ankles and the lower part of the lower legs. There is no skin sores. There is a small abrasion on the right anterior legs which she states was just from today. The symmetry of it looks more inflammatory and less infectious. However consider the possibility of some cellulitis. She also has the edema in the lower abdominal wall into the anterior pelvis and the upper labia. At first I was assuming potential hernia to the area or tracking through inguinal canal from the ascites. However post CT scan it does look like the fluid and edema was tracking through the abdominal wall tissue and so I presume it was leaking subcutaneously from the site of the recent paracentesis and gravity feeding down into the above-noted areas. This is better and that I would anticipate it having stopped or stopping leaking in the subcutaneous area and not be an ongoing issue and at this point mainly need to work on reabsorption and pressure of the swelling to reduce it.), d/w patient Departure - Departure Disposition: 01 Home, Self Care Clinical Impression: Pelvic swelling, Redness and swelling of lower leg Ascites Qualifiers: Ascites type: due to alcoholic cirrhosis Qualified Code(s): K70.31 - Alcoholic cirrhosis of liver with ascites Condition: Stable Record reviewed to determine appropriate education?: Yes Prescriptions: Cephalexin [Keflex] 500 mg PO Q6H #28 capsule Comments: The CT scan showed just edema (fluid in the tissue) in the tissue of the labia and lower abdominal wall. I did actually look like it was may be tracking from the puncture site from the recent paracentesis so may have leaked under the skin and tract down rather than being through a hernia or such. This is better and that it should absorb and not be an ongoing issue but improve over the next several days to week. The skin redness I do not think is an infection given the symmetry of it. However we can cover with an antibiotic in case cephalexin as directed for a week. Continue your other usual medicines. Recheck if not improved well over the next several days. Discharge Date/Time: 01/23/19 22:49
[2019-01-23] MEDS ORDERED: HYDROmorphone 1 MG/ML CARPUJECT IM STA (20:35)
[2019-01-23 21:05] LABS: BASOPHILS # (AUTO) 0.1 10^3/uL (0.0-0.1); BASOPHILS % (AUTO) 1.1 %; EOSINOPHILS # (AUTO) 0.4 10^3/uL (0.0-0.7); EOSINOPHILS % (AUTO) 6.9 %; HGB - HEMOGLOBIN 10.2 g/dL (12.0-16.0); LYMPHOCYTES # (AUTO) 0.5 10^3/uL (1.5-3.5); LYMPHOCYTES % (AUTO) 8.8 %; MEAN CORPUSCULAR HEMOGLOBIN 26.4 pg (27.0-31.0); MEAN CORPUSCULAR HGB CONC 31.2 g/dL (32.0-36.0); MEAN CORPUSCULAR VOLUME 84.7 fL (81.0-99.0); MEAN PLATELET VOLUME 8.3 fL (7.9-10.8); MONOCYTES # (AUTO) 0.5 10^3/uL (0.0-1.0); MONOCYTES % (AUTO) 10.2 %; NEUTROPHILS # (AUTO) 3.8 10^3/uL (1.5-6.6); NEUTROPHILS % (AUTO) 72.4 %; PLT - PLATELET COUNT 199 10^3/uL (130-450); RED BLOOD COUNT 3.86 10^6/uL (4.20-5.40); RED CELL DISTRIBUTION WIDTH 25.6 % (12.0-15.0); WHITE BLOOD COUNT 5.2 x10^3/uL (4.8-10.8)
[2019-01-23 21:19] LABS: ALBUMIN 3.5 g/dL (3.2-5.5); ALBUMIN/GLOBULIN RATIO 1.1 (1.0-2.2); BILIRUBIN,TOTAL 0.8 mg/dL (0.2-1.0); CALCIUM 8.7 mg/dL (8.5-10.3); CREATININE 1.5 mg/dL (0.4-1.0); TOTAL PROTEIN 6.7 g/dL (6.7-8.2)
[2019-01-23 21:39] LABS: PLATELET ESTIMATE, MANUAL NORMAL (130-450,000) (NORMAL); PLATELET MORPHOLOGY NORMAL APPEARANCE (NORMAL)
--- NOTE | 2019-01-23 22:09 | CT Report ---
Reason: edema/swelling in inguinal and labial area, new Procedure Date: 01/23/2019 Accession Number: [id number] / [id number] Procedure: CT - Abdomen/Pelvis WO CPT Code: FULL RESULT: EXAM: CT ABDOMEN AND PELVIS (CT KUB) EXAM DATE: 01/23/2019 09:24 PM. CLINICAL HISTORY: Edema/swelling in inguinal and labial area, new. COMPARISONS: None. TECHNIQUE: Routine helical CT imaging was performed through the abdomen and pelvis without intravenous contrast. Lack of intravenous contrast can at times limit scan sensitivity, particularly for the detection of intraparenchymal and vascular pathology. Reconstructions: Coronal and sagittal. In accordance with CT protocol optimization, one or more of the following dose reduction techniques were utilized for this exam: automated exposure control, adjustment of mA and/or KV based on patient size, or use of iterative reconstructive technique. FINDINGS: ABDOMEN: Lung Bases: Incompletely included lower lungs are grossly clear. Heart size is within normal limits. Mitral annular calcifications. No basilar effusions. Liver: Liver has a cirrhotic morphology. Gallbladder/Bile Ducts: Gallbladder is poorly visualized, grossly unremarkable. Visualized biliary tree is normal caliber. Spleen: Splenomegaly to 15.1 cm craniocaudad. Pancreas: Unremarkable. Adrenal Glands: Unremarkable. Kidneys: No calculi or hydronephrosis. Peritoneum/Mesentery/Bowel: Large amount of ascites. No intestinal obstruction or inflammation. Lymph nodes: No mesenteric, periportal, or retroperitoneal lymphadenopathy. PELVIS: The bladder is unremarkable for the degree of distention. Uterus is present. No pelvic lymphadenopathy. Retroperitoneum: Abdominal aorta is nonaneurysmal. Bones: No suspicious osseous lesions. 10.7 x 3.9 cm umbilical hernia containing fluid. Severe body wall edema. IMPRESSION: Cirrhosis and portal hypertension including splenomegaly and a large amount of ascites. RADIA
[2019-01-23] MEDS ORDERED: cephALEXin 250 MG CAPSULE PO STA (22:40)
[2019-01-23 22:50] VITALS: BP 126/80
== END 2019-01-23 22:49 | disposition home or self-care (01) ==
LOC: ED 17:42
DX: K70.31 Alcoholic cirrhosis of liver with ascites (principal); R19.09 Other intra-abdominal and pelvic swelling, mass and lump; N90.89 Other specified noninflammatory disorders of vulva and perineum; R60.0 Localized edema; S80.811A Abrasion, right lower leg, initial encounter; X58.XXXA Exposure to other specified factors, initial encounter
CPT/HCPCS: 36415; 74176; 80053; 83605; 83690; 83735; 85025; 96372; 99284; A9270; J1170

== ENCOUNTER 2019-01-31 13:06 | Outpatient (CLI) | payer MEDICAID | END 2019-01-31 13:07 | disposition critical access hospital (66) | LOC: EMS 13:06 | PROVIDERS: ATTEND Surgery | DX: R06.00 Dyspnea, unspecified (principal); R14.0 Abdominal distension (gaseous) | CPT/HCPCS: A0425; A0429; A0999 ==

== ENCOUNTER 2019-01-31 13:13 | Emergency (ER) | payer MEDICAID ==
[2019-01-31] MEDS ORDERED: HYDROmorphone 1 MG/ML CARPUJECT IVP STA (13:24)
--- NOTE | 2019-01-31 13:27 | ED Physician Documentation ---
PD HPI ABD PAIN - Stated complaint Stated Complaint: DIFFICULTY BREATHING - Chief complaint Chief Complaint: Abd Pain - History obtained from History obtained from: Patient, EMS - History of Present Illness Timing - onset: Today (48-year-old woman with alcoholic cirrhosis and frequent paracenteses. Recently moved to the area and does not have primary care follow- up. Because of that she is been unable to schedule outpatient paracentesis or get appropriate referrals. Her abdominal distention was not too bad yesterday but became severe overnight pressing up on her ribs with abdominal tension. She also notes urine that feels hot. Last drink was many years ago. She blames Tylenol on her liver failure. She is taking her diuretics.) Review of Systems Ten Systems: 10 systems reviewed and negative Constitutional: reports: Fatigue. denies: Fever, Chills, Myalgias Cardiac: denies: Chest pain / pressure, Palpitations Respiratory: reports: Dyspnea. denies: Cough GI: reports: Abdominal Pain, Abdominal Swelling. 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 12/02/18 01/08/19 RX: Spironolactone 100 mg PO DAILY #120 tablet 12/02/18 01/08/19 RX: Ascorbic Acid [Vitamin C] 500 mg PO BID 12/05/18 01/08/19 Ciprofloxacin HCl [Cipro] 500 mg PO DAILY 01/08/19 01/08/19 Multivitamin [Daily Multiple 1 each PO 01/08/19 Vitamin] Ondansetron Odt [Zofran] 4 mg TL Q6H PRN 01/08/19 01/08/19 RX: Mirtazapine 15 mg PO DAILY 01/08/19 01/08/19 RX: Morphine Sulfate 15 mg PO Q6HR PRN #10 tablet 01/21/19 Cephalexin [Keflex] 500 mg PO Q6H #28 capsule 01/23/19 RX: oxyCODONE [Roxicodone] 5 mg PO Q4-6H PRN #10 tablet 01/31/19 - Allergies Allergies/Adverse Reactions: Allergies Allergy/AdvReac Type Severity Reaction Status Date / Time acetaminophen [From Tylenol] Allergy Unknown Verified 01/31/19 13:19 NSAIDS (Non-Steroidal Allergy Unknown Verified 01/31/19 13:19 Anti-Inflamma - Social History Does the pt smoke?: No Smoking Status: Never smoker Does the pt drink ETOH?: No Does the pt have substance abuse?: No - Immunizations Immunizations are current?: Yes - POLST Patient has POLST: No POLST Status: Full Code PD ED PE NORMAL - Vitals Vital signs reviewed: Yes - General General: Alert and oriented X 3, Other (She appears uncomfortable and slightly jaundiced) - Neck Neck: Supple, no meningeal sign, No bony TTP - Cardiac Cardiac: RRR, No murmur - Respiratory Respiratory: No respiratory distress, Clear bilaterally - Abdomen Abdomen: Other (Massive tense ascites) - Back Back: No CVA TTP, No spinal TTP - Derm Derm: Normal color, Warm and dry - Extremities Extremities: Other (Moderate to severe bilateral lower extremity edema) - Neuro Neuro: Alert and oriented X 3, Normal speech Results - Vitals Vitals: Vital Signs - 24 hr 01/31/19 01/31/19 01/31/19 13:16 13:19 15:19 Temperature 36.4 C L Heart Rate 87 87 88 Respiratory 25 H 24 16 Rate Blood Pressure 149/114 H 149/114 H 137/99 H O2 Saturation 95 95 94 01/31/19 01/31/19 15:43 16:21 Temperature 37 C Heart Rate 84 86 Respiratory 16 18 Rate Blood Pressure 150/102 H 123/82 H O2 Saturation 100 98 Oxygen O2 Source Room air - Labs Labs: Microbiology 01/31/19 14:37 Body Fluid Culture - Preliminary Ascities Fluid Laboratory Tests 01/31/19 01/31/19 01/31/19 13:51 13:51 13:51 WBC 5.4 RBC 3.56 L Hgb 9.6 L Hct 29.9 L MCV 84.0 MCH 27.0 MCHC 32.1 RDW 22.3 H Plt Count 210 MPV 8.6 Neut # (Auto) 3.9 Lymph # (Auto) 0.4 L [place] # (Auto) 0.7 Eos # (Auto) 0.3 Baso # (Auto) 0.0 Absolute Nucleated RBC 0.00 Nucleated RBC % 0.0 Manual Slide Review Indicated WBC Morphology NORMAL APPEARANCE Platelet Estimate NORMAL (130-450,000) Platelet Morphology NORMAL APPEARANCE RBC Morph Micro Appear 2+ ANISOCYTOSIS PT 14.7 H INR 1.3 H Sodium 132 L Potassium 4.0 Chloride 95 L Carbon Dioxide 24 Anion Gap 13.0 BUN 33 H Creatinine 1.9 H Estimated GFR (MDRD) 28 L Glucose 123 H Calcium 8.7 Total Bilirubin 1.2 H AST 33 ALT 18 Alkaline Phosphatase 101 Total Protein 7.0 Albumin 3.4 Globulin 3.6 Albumin/Globulin Ratio 0.9 L Lipase 31 Urine Color Urine Clarity Urine pH Ur Specific [place] Urine Protein Urine Glucose (UA) Urine Ketones Urine Occult Blood Urine Nitrite Urine Bilirubin Urine Urobilinogen Ur Leukocyte Esterase Ur Microscopic Review Urine Culture Comments Fluid Source Fluid Color Fluid Clarity Fluid WBC Fluid RBC Fluid Neutrophils % Fluid Lymphocytes % Fluid Macrophages % Fld Mesothelial Cell % Urine Opiates Screen Ur Oxycodone Screen Urine Methadone Screen Ur Propoxyphene Screen Ur Barbiturates Screen Ur Tricyclics Screen Ur Phencyclidine Scrn Ur Amphetamine Screen U Methamphetamines Scrn U Benzodiazepines Scrn Urine Cocaine Screen U Cannabinoids Screen Ethyl Alcohol < 5.0 01/31/19 01/31/19 14:37 15:45 WBC RBC Hgb Hct MCV MCH MCHC RDW Plt Count MPV Neut # (Auto) Lymph # (Auto) [place] # (Auto) Eos # (Auto) Baso # (Auto) Absolute Nucleated RBC Nucleated RBC % Manual Slide Review WBC Morphology Platelet Estimate Platelet Morphology RBC Morph Micro Appear PT INR Sodium Potassium Chloride Carbon Dioxide Anion Gap BUN Creatinine Estimated GFR (MDRD) Glucose Calcium Total Bilirubin AST ALT Alkaline Phosphatase Total Protein Albumin Globulin Albumin/Globulin Ratio Lipase Urine Color DARK YELLOW Urine Clarity CLEAR Urine pH 5.5 Ur Specific [place] 1.020 Urine Protein TRACE Urine Glucose (UA) NEGATIVE Urine Ketones TRACE Urine Occult Blood NEGATIVE Urine Nitrite NEGATIVE Urine Bilirubin NEGATIVE Urine Urobilinogen 1 (NORMAL) Ur Leukocyte Esterase NEGATIVE Ur Microscopic Review NOT INDICATED Urine Culture Comments NOT INDICATED Fluid Source PERITONEAL Fluid Color STRAW Fluid Clarity HAZY Fluid WBC 58 Fluid RBC < 3000 Fluid Neutrophils % 4.0 Fluid Lymphocytes % 3.0 Fluid Macrophages % 72.0 Fld Mesothelial Cell % 21.0 Urine Opiates Screen POSITIVE H Ur Oxycodone Screen NEGATIVE Urine Methadone Screen NEGATIVE Ur Propoxyphene Screen NEGATIVE Ur Barbiturates Screen NEGATIVE Ur Tricyclics Screen NEGATIVE Ur Phencyclidine Scrn NEGATIVE Ur Amphetamine Screen NEGATIVE U Methamphetamines Scrn NEGATIVE U Benzodiazepines Scrn NEGATIVE Urine Cocaine Screen NEGATIVE U Cannabinoids Screen NEGATIVE Ethyl Alcohol Procedures - Paracentesis Preparation: Consent obtained (written), Ultrasound guidance Location: LLQ Technique: Z-tract, Catheter over needle Fluid: Clear, Sent for cell count, Volume - enter cc (7500ml) Aftercare: No complications, Patient tolerated well, Dressing applied PD MEDICAL DECISION MAKING - ED course ED course: 48-year-old woman with alcoholic cirrhosis presents with symptomatic ascites. A paracentesis was done per her request with 7500 mL out. Cell count is inconsistent with spontaneous bacterial peritonitis. She felt better after the procedure. There was no hypotension after the procedure. Departure - Departure Disposition: 01 Home, Self Care Clinical Impression: Ascites, Abdominal pain Condition: Good Record reviewed to determine appropriate education?: Yes Instructions: ED Cirrhosis Liver Prescriptions: RX: oxyCODONE [Roxicodone] 5 mg PO Q4-6H PRN #10 tablet PRN Reason: Pain Comments: Follow-up with your primary care physician and specialty sales consultant, next available appointments. Return for new or worsening symptoms.
[2019-01-31] MEDS ORDERED: LIDOCAINE 1%-EPI 1:100000 20 ML MDV SUBQ STA (13:31)
[2019-01-31 14:01] LABS: BASOPHILS % (AUTO) 0.7 %; EOSINOPHILS # (AUTO) 0.3 10^3/uL (0.0-0.7); EOSINOPHILS % (AUTO) 5.4 %; HGB - HEMOGLOBIN 9.6 g/dL (12.0-16.0); LYMPHOCYTES # (AUTO) 0.4 10^3/uL (1.5-3.5); LYMPHOCYTES % (AUTO) 7.2 %; MEAN CORPUSCULAR HGB CONC 32.1 g/dL (32.0-36.0); MEAN PLATELET VOLUME 8.6 fL (7.9-10.8); MONOCYTES # (AUTO) 0.7 10^3/uL (0.0-1.0); MONOCYTES % (AUTO) 13.3 %; NEUTROPHILS # (AUTO) 3.9 10^3/uL (1.5-6.6); NEUTROPHILS % (AUTO) 72.8 %; PLT - PLATELET COUNT 210 10^3/uL (130-450); RED BLOOD COUNT 3.56 10^6/uL (4.20-5.40); RED CELL DISTRIBUTION WIDTH 22.3 % (12.0-15.0); WHITE BLOOD COUNT 5.4 x10^3/uL (4.8-10.8)
[2019-01-31] MEDS ORDERED: MORPHINE 10 MG/ML VIAL IVP STA (14:04)
[2019-01-31 14:06] LABS: INR 1.3 (0.8-1.2); PT - PROTHROMBIN TIME 14.7 secs (9.9-12.6)
[2019-01-31 14:18] LABS: ALBUMIN 3.4 g/dL (3.2-5.5); ALBUMIN/GLOBULIN RATIO 0.9 (1.0-2.2); ALKALINE PHOSPHATASE 101 IU/L (42-121); ALT ALANINE AMINOTRANSFERASE 18 IU/L (10-60); AST ASPARTATE AMINOTRANSFERASE 33 IU/L (10-42); BILIRUBIN,TOTAL 1.2 mg/dL (0.2-1.0); BUN - BLOOD UREA NITROGEN 33 mg/dL (6-20); CALCIUM 8.7 mg/dL (8.5-10.3); CARBON DIOXIDE - CO2 24 mmol/L (21-32); CHLORIDE 95 mmol/L (101-111); CREATININE 1.9 mg/dL (0.4-1.0); GFR - MDRD 28 (>89); GLUCOSE 123 mg/dL (70-100); LIPASE 31 U/L (22-51); SODIUM 132 mmol/L (135-145)
[2019-01-31 14:30] LABS: PLATELET ESTIMATE, MANUAL NORMAL (130-450,000) (NORMAL); PLATELET MORPHOLOGY NORMAL APPEARANCE (NORMAL)
[2019-01-31 14:57] LABS: BF COLOR STRAW
[2019-01-31 14:58] LABS: BF SOURCE PERITONEAL
[2019-01-31 15:00] LABS: CC,BF RBC < 3000 /mm^3
[2019-01-31 15:55] LABS: MUDS CUTOFF CONCENTRATIONS CUTOFF CONC BELOW:
[2019-01-31 15:56] LABS: BILIRUBIN,URINE NEGATIVE (NEGATIVE); GLUCOSE, URINE (UA) NEGATIVE (NEGATIVE); KETONES,URINE (UA) TRACE mg/dL (NEGATIVE); LEUKOCYTE ESTERASE, URINE NEGATIVE (NEGATIVE); NITRITE,URINE NEGATIVE (NEGATIVE); OCCULT BLOOD,URINE NEGATIVE (NEGATIVE); PH,URINE 5.5 PH (5.0-7.5); PROTEIN,URINE TRACE mg/dL (NEGATIVE); UROBILINOGEN,URINE 1 (NORMAL) E.U./dL (NORMAL)
[2019-01-31 15:58] LABS: CLARITY,URINE CLEAR (CLEAR)
[2019-01-31 16:12] LABS: COCAINE SCREEN URINE NEGATIVE (NEGATIVE); METHAMPHETAMINES SCREEN, URINE NEGATIVE (NEGATIVE); OPIATE SCREEN, URINE POSITIVE (NEGATIVE)
[2019-01-31 16:13] LABS: AMPHETAMINE SCREEN,URINE NEGATIVE (NEGATIVE); BENZODIAZEPINES SCREEN, URINE NEGATIVE (NEGATIVE); METHADONE SCREEN, URINE NEGATIVE (NEGATIVE); OXYCODONE SCREEN, URINE NEGATIVE (NEGATIVE); PROPOXYPHENE SCREEN, URINE NEGATIVE (NEGATIVE); TRICYCLIC ANTIDEPRESSANT,URINE NEGATIVE (NEGATIVE)
[2019-01-31 16:21] VITALS: BP 123/82
== END 2019-01-31 16:40 | disposition home or self-care (01) ==
LOC: EDUNIT# → ED 13:13
DX: K70.31 Alcoholic cirrhosis of liver with ascites (principal)
CPT/HCPCS: 36415; 49083; 80053; 80306; 80320; 81003; 83690; 85025; 85610; 87070; 87205; 89051; 96374; 96375; 99284; J1170; 81001; 87086

== ENCOUNTER 2019-02-02 23:52 | Emergency (ER) | payer MEDICAID ==
[2019-02-03] MEDS ORDERED: SODIUM CHLORIDE 0.9% 1,000 ML IV ONE (00:08)
[2019-02-03] MEDS ORDERED: PANTOPRAZOLE 40 MG VIAL IVP STA (00:08)
[2019-02-03] MEDS ORDERED: cefTRIAXone 1 GM VIAL IVP STA (00:08)
--- NOTE | 2019-02-03 00:10 | ED Physician Documentation ---
PD HPI GI BLEED - Stated complaint Stated Complaint: VOMITING BLOOD - Chief complaint Chief Complaint: Abd Pain - History obtained from History obtained from: Patient, Family - History of Present Illness Timing - onset: How many hours ago (2) Timing - duration: Hours (2) Timing - details: Abrupt onset Pain level max: 5 Pain level now: 5 Associated symptoms: Vomiting, Hematemesis (bright red), Black/tarry stool (black today). No: Fever, Dizzy, Near syncope / syncope, Loss of appetite, Weight loss Contributing factors: Other (alcoholic cirrhosis) Improved by: Other (nothing) Worsened by: Other (nothing) Similar symptoms before: Diagnosis (esophageal varices) Recently seen: Emergency Dept (for paracentesis) - Additional information Additional information: Patient recently moved here from [place]. She was at [facility] in December for banding of esophageal varices. She states that tonight started vomiting again and has had 2 episodes of bright red blood in the emesis. Review of Systems Ten Systems: 10 systems reviewed and negative Constitutional: denies: Fever, Chills Cardiac: denies: Chest pain / pressure Respiratory: denies: Cough GI: reports: Vomiting, Hematemesis, Bloody / black stool. denies: Diarrhea Skin: denies: Rash Musculoskeletal: denies: Neck pain, Back pain Neurologic: denies: Headache PD PAST MEDICAL HISTORY - Past Medical History Cardiovascular: Congestive heart failure Respiratory: Pneumonia, Shortness of breath Neuro: None Endocrine/Autoimmune: HyPOthyroidism GI: Esophageal varices, Hepatitis, Cirrhosis OPERATIONS LABEL CLERK: Miscarriage(s), Other : Other HEENT: None Psych: Other Musculoskeletal: Chronic back pain Derm: None - Past Surgical History Past Surgical History: Yes General: Hiatal hernia repair Ortho: Other /OPERATIONS LABEL CLERK: Tubal ligation HEENT: Other - Present Medications Home Medications: Ambulatory Orders Medication Instructions Recorded Confirmed Cholecalciferol (Vitamin D3) 2,000 units PO DAILY #60 capsule 12/02/18 01/08/19 [Vitamin D3] Ferrous Sulfate 325 mg PO DAILY #30 tablet 12/02/18 01/08/19 Furosemide 40 mg PO DAILY #30 tablet 12/02/18 01/08/19 Levothyroxine [Synthroid] 50 mcg PO QDAC #60 tablet 12/02/18 01/08/19 Multivitamin W/Minerals [Theragran 1 tab PO DAILY #30 tablet 12/02/18 01/08/19 M] Pantoprazole Sodium 40 mg PO BID #60 tablet. 12/02/18 01/08/19 Spironolactone 100 mg PO DAILY #120 tablet 12/02/18 01/08/19 Ascorbic Acid [Vitamin C] 500 mg PO BID 12/05/18 01/08/19 Ciprofloxacin HCl [Cipro] 500 mg PO DAILY 01/08/19 01/08/19 Mirtazapine 15 mg PO DAILY 01/08/19 01/08/19 Multivitamin [Daily Multiple 1 each PO 01/08/19 Vitamin] Ondansetron Odt [Zofran] 4 mg TL Q6H PRN 01/08/19 01/08/19 Morphine Sulfate 15 mg PO Q6HR PRN #10 tablet 01/21/19 Cephalexin [Keflex] 500 mg PO Q6H #28 capsule 01/23/19 oxyCODONE [Roxicodone] 5 mg PO Q4-6H PRN #10 tablet 01/31/19 - Allergies Allergies/Adverse Reactions: Allergies Allergy/AdvReac Type Severity Reaction Status Date / Time acetaminophen [From Tylenol] Allergy Unknown Verified 02/02/19 23:56 NSAIDS (Non-Steroidal Allergy Unknown Verified 02/02/19 23:56 Anti-Inflamma - Social History Does the pt smoke?: No Smoking Status: Never smoker Does the pt drink ETOH?: No Does the pt have substance abuse?: No - Immunizations Immunizations are current?: Yes - POLST Patient has POLST: No POLST Status: Full Code PD ED PE NORMAL - Vitals Vital signs reviewed: Yes - General General: Alert and oriented X 3, No acute distress - HEENT HEENT: Moist mucous membranes - Neck Neck: Supple, no meningeal sign - Cardiac Cardiac: RRR - Respiratory Respiratory: No respiratory distress, Clear bilaterally - Abdomen Abdomen: Soft, Non tender, Other (moderate distention, but soft) - Derm Derm: Warm and dry - Extremities Extremities: No edema, No calf tenderness / cord - Neuro Neuro: Alert and oriented X 3 - Psych Psych: Normal mood, Normal affect Results - Vitals Vitals: Vital Signs - 24 hr 02/02/19 02/03/19 02/03/19 23:56 00:48 01:15 Temperature 36.9 C Heart Rate 90 89 90 Respiratory 16 14 12 Rate Blood Pressure 142/88 H 123/83 H 110/63 O2 Saturation 94 98 100 02/03/19 02/03/19 02/03/19 01:58 02:21 03:20 Temperature Heart Rate 89 91 86 Respiratory 22 16 12 Rate Blood Pressure 111/74 120/102 H 141/95 H O2 Saturation 100 96 96 02/03/19 03:35 Temperature 36.5 C Heart Rate 86 Respiratory 12 Rate Blood Pressure 138/98 H O2 Saturation 99 Oxygen O2 Source Room air - Labs Labs: Laboratory Tests 02/03/19 02/03/19 02/03/19 00:15 00:15 00:15 WBC 8.1 RBC 3.83 L Hgb 10.4 L Hct 32.3 L MCV 84.3 MCH 27.2 MCHC 32.2 RDW 21.5 H Plt Count 250 MPV 8.5 Neut # (Auto) 5.8 Lymph # (Auto) 0.5 L [place] # (Auto) 1.0 Eos # (Auto) 0.6 Baso # (Auto) 0.1 Absolute Nucleated RBC 0.00 Nucleated RBC % 0.0 PT 22.3 H INR 2.0 H APTT 65.3 H Sodium 131 L Potassium 3.6 Chloride 100 L Carbon Dioxide 21 Anion Gap 10.0 BUN 35 H Creatinine 1.9 H Estimated GFR (MDRD) 28 L Glucose 106 H Calcium 8.6 Total Bilirubin 1.1 H AST 27 ALT 17 Alkaline Phosphatase 99 Total Protein 6.9 Albumin 3.4 Globulin 3.5 Albumin/Globulin Ratio 1.0 Lipase 39 Ethyl Alcohol 22.3 Blood Type Antibody Screen Antibody Identification 02/03/19 00:44 WBC RBC Hgb Hct MCV MCH MCHC RDW Plt Count MPV Neut # (Auto) Lymph # (Auto) [place] # (Auto) Eos # (Auto) Baso # (Auto) Absolute Nucleated RBC Nucleated RBC % PT INR APTT Sodium Potassium Chloride Carbon Dioxide Anion Gap BUN Creatinine Estimated GFR (MDRD) Glucose Calcium Total Bilirubin AST ALT Alkaline Phosphatase Total Protein Albumin Globulin Albumin/Globulin Ratio Lipase Ethyl Alcohol Blood Type B POSITIVE Antibody Screen POSITIVE Antibody Identification TNP PD MEDICAL DECISION MAKING - ED course Complexity details: reviewed old records, reviewed results, re-evaluated patient, considered differential, d/w patient, d/w family, d/w mergers and acquisitions consultant ED course: 48-year-old female with a history of IV drug abuse, alcoholic cirrhosis and esophageal varices. She presents with vomiting tonight. She was given 80 mg of Protonix IV in the emergency department along with IV fluid and 1 g of Rocephin. No evidence of SBP. Normal white count. No fever. Vitals are stable. No recurrent vomiting with hematemesis here. No beds at [facility]. No beds at [facility]. Has been to [facility] twice for this. Contacted [facility] and Dr. Cabrera graciously accepts in transfer at . COBRA forms completed. This document was made in part using voice recognition software. While efforts are made to proofread this document, sound alike and grammatical errors may occur. Departure - Departure Disposition: 02 Transfer Acute Care Hosp Clinical Impression: Upper GI bleed Cirrhosis of liver Qualifiers: Hepatic cirrhosis type: alcoholic cirrhosis Ascites presence: with ascites Qualified Code(s): K70.31 - Alcoholic cirrhosis of liver with ascites Esophageal varices Qualifiers: Esophageal varices type: secondary Esophageal varices bleeding: with bleeding Qualified Code(s): I85.11 - Secondary esophageal varices with bleeding Condition: Stable Discharge Date/Time: 02/03/19 03:42
[2019-02-03 00:30] LABS: BASOPHILS # (AUTO) 0.1 10^3/uL (0.0-0.1); BASOPHILS % (AUTO) 1.2 %; EOSINOPHILS # (AUTO) 0.6 10^3/uL (0.0-0.7); EOSINOPHILS % (AUTO) 7.4 %; HGB - HEMOGLOBIN 10.4 g/dL (12.0-16.0); LYMPHOCYTES # (AUTO) 0.5 10^3/uL (1.5-3.5); LYMPHOCYTES % (AUTO) 6.4 %; MEAN CORPUSCULAR HEMOGLOBIN 27.2 pg (27.0-31.0); MEAN CORPUSCULAR HGB CONC 32.2 g/dL (32.0-36.0); MEAN CORPUSCULAR VOLUME 84.3 fL (81.0-99.0); MEAN PLATELET VOLUME 8.5 fL (7.9-10.8); MONOCYTES % (AUTO) 12.9 %; NEUTROPHILS # (AUTO) 5.8 10^3/uL (1.5-6.6); NEUTROPHILS % (AUTO) 71.4 %; PLT - PLATELET COUNT 250 10^3/uL (130-450); RED BLOOD COUNT 3.83 10^6/uL (4.20-5.40); RED CELL DISTRIBUTION WIDTH 21.5 % (12.0-15.0); WHITE BLOOD COUNT 8.1 x10^3/uL (4.8-10.8)
[2019-02-03 00:40] LABS: ALBUMIN 3.4 g/dL (3.2-5.5); BILIRUBIN,TOTAL 1.1 mg/dL (0.2-1.0); CALCIUM 8.6 mg/dL (8.5-10.3); CREATININE 1.9 mg/dL (0.4-1.0); TOTAL PROTEIN 6.9 g/dL (6.7-8.2)
[2019-02-03 00:58] LABS: PT - PROTHROMBIN TIME 22.3 secs (9.9-12.6)
[2019-02-03 01:05] LABS: PARTIAL THROMBOPLASTIN TIME 65.3 secs (24.9-33.3)
[2019-02-03] MEDS ORDERED: MORPHINE 2 MG/ML CARPUJECT IVP STA ×2 (01:12→03:20)
[2019-02-03] MEDS ORDERED: ONDANSETRON 4 MG/2 ML VIAL IVP STA (01:17)
[2019-02-03 03:55] VITALS: BP 138/98
== END 2019-02-03 03:42 | disposition short-term general hospital (02) ==
LOC: ED 23:52
DX: K70.31 Alcoholic cirrhosis of liver with ascites (principal); I85.11 Secondary esophageal varices with bleeding
CPT/HCPCS: 36415; 80053; 80320; 83690; 85025; 85610; 85730; 86850; 86870; 86900; 86901; 96361; 96374; 96375; 96376; 99284

== ENCOUNTER 2019-02-15 13:52 | Outpatient (CLI) | payer MEDICAID ==
[2019-02-15 18:54] LABS: BASOPHILS # (AUTO) 0.1 10^3/uL (0.0-0.1); EOSINOPHILS # (AUTO) 0.3 10^3/uL (0.0-0.7); EOSINOPHILS % (AUTO) 5.7 %; HGB - HEMOGLOBIN 8.3 g/dL (12.0-16.0); LYMPHOCYTES # (AUTO) 0.3 10^3/uL (1.5-3.5); MEAN CORPUSCULAR HGB CONC 31.3 g/dL (32.0-36.0); MEAN CORPUSCULAR VOLUME 86.3 fL (81.0-99.0); MEAN PLATELET VOLUME 9.1 fL (7.9-10.8); MONOCYTES # (AUTO) 0.7 10^3/uL (0.0-1.0); MONOCYTES % (AUTO) 12.1 %; NEUTROPHILS # (AUTO) 4.4 10^3/uL (1.5-6.6); NEUTROPHILS % (AUTO) 75.7 %; PLT - PLATELET COUNT 200 10^3/uL (130-450); RED BLOOD COUNT 3.07 10^6/uL (4.20-5.40); RED CELL DISTRIBUTION WIDTH 18.7 % (12.0-15.0); WHITE BLOOD COUNT 5.8 x10^3/uL (4.8-10.8)
[2019-02-15 19:11] LABS: ALBUMIN 4.2 g/dL (3.2-5.5); ALBUMIN/GLOBULIN RATIO 1.8 (1.0-2.2); BILIRUBIN,TOTAL 0.8 mg/dL (0.2-1.0); CREATININE 1.5 mg/dL (0.4-1.0); TOTAL PROTEIN 6.6 g/dL (6.7-8.2)
== END 2019-02-15 23:59 | disposition home or self-care (01) ==
LOC: LAB.N 13:52
PROVIDERS: ATTEND Family Medicine
DX: K70.31 Alcoholic cirrhosis of liver with ascites (principal)
CPT/HCPCS: 36415; 80053; 85025

== ENCOUNTER 2019-02-19 21:28 | Emergency (ER) | payer MEDICAID ==
[2019-02-19 21:44] VITALS: BP 145/87
== END 2019-02-19 21:48 | disposition left against medical advice (07) ==
LOC: ED 21:28
DX: Z53.21 Procedure and treatment not carried out due to patient leaving prior to being seen by health care provider (principal)
CPT/HCPCS: 80053; 83690; 85025

== ENCOUNTER 2019-02-19 22:28 | Outpatient (CLI) | payer MEDICAID | END 2019-02-19 22:29 | disposition critical access hospital (66) | LOC: EMS 22:28 | PROVIDERS: ATTEND Surgery | DX: R14.0 Abdominal distension (gaseous) (principal); R06.00 Dyspnea, unspecified; R07.9 Chest pain, unspecified | CPT/HCPCS: A0425; A0429; A0999 ==

== ENCOUNTER 2019-02-19 22:34 | Emergency (ER) | payer MEDICAID ==
[2019-02-20] MEDS ORDERED: SODIUM CHLORIDE 0.9% 1,000 ML IV ONE (00:51)
--- NOTE | 2019-02-20 00:55 | ED Physician Documentation ---
PD HPI ABD PAIN - Stated complaint Stated Complaint: ABD DISTENTION - Chief complaint Chief Complaint: Trauma Abd - History obtained from History obtained from: Patient, Family - History of Present Illness Timing - onset: Today Timing - duration: Hours Timing - details: Gradual onset, Still present Quality: Cramping, Pain Location: All over / everywhere Radiation: Chest Improved by: Laying still Worsened by: Breathing Similar symptoms before: Diagnosis (symptomatic ascities) Recently seen: Clinic (Had 6.5 liters drained 4 days ago at with infusion of albumin.) - Additional information Additional information: 48 y/o female with a history of hep C, B and cirrhosis with acites has been down to a regular appointment with her doctors at and she had a large volume paracentesis done on 02-16-2019 about 6.5 liters and she had albumin infused. She has re-accumulated fluid quickly. She felt like this happened overnight and she has severe pain. She does not feel like she will last until next Tuesday when she has her follow up appointment at . Review of Systems Constitutional: reports: Myalgias, Fatigue, Sweats. denies: Fever, Chills Eyes: denies: Decreased vision Ears: denies: Ear pain Nose: denies: Rhinorrhea / runny nose, Congestion Throat: denies: Sore throat Cardiac: reports: Chest pain / pressure. denies: Palpitations, Pedal edema, Calf pain Respiratory: reports: Dyspnea. denies: Cough, Wheezing GI: reports: Abdominal Pain, Abdominal Swelling, Nausea. denies: Vomiting : denies: Dysuria, Frequency Skin: denies: Rash Musculoskeletal: denies: Neck pain, Back pain Neurologic: reports: Generalized weakness. denies: Focal weakness, Numbness PD PAST MEDICAL HISTORY - Past Medical History Cardiovascular: Congestive heart failure Respiratory: Pneumonia, Shortness of breath Neuro: None Endocrine/Autoimmune: HyPOthyroidism GI: Esophageal varices, Hepatitis, Cirrhosis INCIDENT MANAGER: Miscarriage(s), Other : Other HEENT: None Psych: Other Musculoskeletal: Chronic back pain Derm: None - Past Surgical History Past Surgical History: Yes General: Hiatal hernia repair Ortho: Other /INCIDENT MANAGER: Tubal ligation HEENT: Other - Present Medications Home Medications: Ambulatory Orders Medication Instructions Recorded Confirmed Cholecalciferol (Vitamin D3) 2,000 units PO DAILY #60 capsule 12/02/18 01/08/19 [Vitamin D3] Ferrous Sulfate 325 mg PO DAILY #30 tablet 12/02/18 01/08/19 Furosemide 40 mg PO DAILY #30 tablet 12/02/18 01/08/19 Levothyroxine [Synthroid] 50 mcg PO QDAC #60 tablet 12/02/18 01/08/19 Multivitamin W/Minerals [Theragran 1 tab PO DAILY #30 tablet 12/02/18 01/08/19 M] Pantoprazole Sodium 40 mg PO BID #60 tablet. 12/02/18 01/08/19 Spironolactone 100 mg PO DAILY #120 tablet 12/02/18 01/08/19 Ascorbic Acid [Vitamin C] 500 mg PO BID 12/05/18 01/08/19 Ciprofloxacin HCl [Cipro] 500 mg PO DAILY 01/08/19 01/08/19 Mirtazapine 15 mg PO DAILY 01/08/19 01/08/19 Multivitamin [Daily Multiple 1 each PO 01/08/19 Vitamin] Ondansetron Odt [Zofran] 4 mg TL Q6H PRN 01/08/19 01/08/19 Morphine Sulfate 15 mg PO Q6HR PRN #10 tablet 01/21/19 Cephalexin [Keflex] 500 mg PO Q6H #28 capsule 01/23/19 oxyCODONE [Roxicodone] 5 mg PO Q4-6H PRN #10 tablet 01/31/19 Sucralfate [Carafate] 1 gm PO ACHS #60 tablet 02/20/19 oxyCODONE [Roxicodone] 5 mg PO Q4-6H #10 tablet 02/20/19 - Allergies Allergies/Adverse Reactions: Allergies Allergy/AdvReac Type Severity Reaction Status Date / Time acetaminophen [From Tylenol] Allergy Unknown Verified 02/19/19 21:44 NSAIDS (Non-Steroidal Allergy Unknown Verified 02/19/19 21:44 Anti-Inflamma - Social History Does the pt smoke?: No Smoking Status: Never smoker Does the pt drink ETOH?: No Does the pt have substance abuse?: No - Immunizations Immunizations are current?: Yes - POLST Patient has POLST: No POLST Status: Full Code PD ED PE NORMAL - Vitals Vital signs reviewed: Yes (hypertensive mild) - General General: Alert and oriented X 3, Well developed/nourished, Other (appears in pain and is in the knee chest position ) - HEENT HEENT: Atraumatic, PERRL, EOMI - Neck Neck: Supple, no meningeal sign - Cardiac Cardiac: RRR, No murmur - Respiratory Respiratory: No respiratory distress, Clear bilaterally - Abdomen Abdomen: Soft, Other (The abdomen is distended and tender in general without gaurding or rebound tenderness. There is again the odd shapped umbilical hernia non-tender and not inflamed. The prior site of paracentesis is without inflammation. Today the ascites is not tense. The abdomen is distended and the patient is uncomfortable. ) - Back Back: No CVA TTP, No spinal TTP - Derm Derm: Normal color, Warm and dry, No rash - Extremities Extremities: No deformity, No edema - Neuro Neuro: Alert and oriented X 3, projector booth operator 2-12 intact, No motor deficit, No sensory deficit, Normal speech Eye Opening: Spontaneous Motor: Obeys Commands Verbal: Oriented GCS Score: 15 - Psych Psych: Normal mood, Normal affect Results - Vitals Vitals: Vital Signs - 24 hr 02/19/19 02/20/19 02/20/19 22:38 01:25 02:46 Temperature 36.6 C 36.8 C 36.7 C Heart Rate 75 81 82 Respiratory 17 16 15 Rate Blood Pressure 133/80 H 136/86 H 141/96 H O2 Saturation 100 98 94 02/20/19 02/20/19 02/20/19 04:00 06:00 07:15 Temperature 36.7 C Heart Rate 80 71 69 Respiratory 16 14 16 Rate Blood Pressure 134/88 H 130/91 H 113/65 O2 Saturation 94 100 94 02/20/19 07:44 Temperature Heart Rate 76 Respiratory 16 Rate Blood Pressure 104/63 O2 Saturation 97 Oxygen O2 Source Room air - Labs Labs: Microbiology 02/20/19 05:50 Body Fluid Culture - Preliminary Other - Peritoneal Laboratory Tests 02/20/19 02/20/19 02/20/19 01:01 01:01 01:01 WBC 6.8 RBC 2.79 L Hgb 7.5 L Hct 23.6 L MCV 84.6 MCH 26.9 L MCHC 31.8 L RDW 18.1 H Plt Count 166 MPV 8.4 Neut # (Auto) 4.8 Lymph # (Auto) 0.4 L [place] # (Auto) 1.0 Eos # (Auto) 0.6 Baso # (Auto) 0.0 Absolute Nucleated RBC 0.00 Nucleated RBC % 0.0 Sodium 133 L Potassium 4.3 Chloride 103 Carbon Dioxide 19 L Anion Gap 11.0 BUN 45 H Creatinine 1.5 H Estimated GFR (MDRD) 37 L Glucose 111 H Calcium 9.1 Total Bilirubin 1.0 AST 27 ALT 17 Alkaline Phosphatase 83 Troponin I High Sens 11.2 Total Protein 6.3 L Albumin 3.8 Globulin 2.5 Albumin/Globulin Ratio 1.5 Lipase 60 H Urine Color Urine Clarity Urine pH Ur Specific [place] Urine Protein Urine Glucose (UA) Urine Ketones Urine Occult Blood Urine Nitrite Urine Bilirubin Urine Urobilinogen Ur Leukocyte Esterase Ur Microscopic Review Urine Culture Comments Fluid Source Fluid Color Fluid Clarity Fluid WBC Fluid RBC Fluid Neutrophils % Fluid Lymphocytes % Fluid Monocytes % Fld Mesothelial Cell % 02/20/19 02/20/19 02:30 05:50 WBC RBC Hgb Hct MCV MCH MCHC RDW Plt Count MPV Neut # (Auto) Lymph # (Auto) [place] # (Auto) Eos # (Auto) Baso # (Auto) Absolute Nucleated RBC Nucleated RBC % Sodium Potassium Chloride Carbon Dioxide Anion Gap BUN Creatinine Estimated GFR (MDRD) Glucose Calcium Total Bilirubin AST ALT Alkaline Phosphatase Troponin I High Sens Total Protein Albumin Globulin Albumin/Globulin Ratio Lipase Urine Color YELLOW Urine Clarity CLEAR Urine pH 5.5 Ur Specific [place] 1.010 Urine Protein TRACE Urine Glucose (UA) NEGATIVE Urine Ketones TRACE Urine Occult Blood NEGATIVE Urine Nitrite NEGATIVE Urine Bilirubin NEGATIVE Urine Urobilinogen 0.2 (NORMAL) Ur Leukocyte Esterase NEGATIVE Ur Microscopic Review NOT INDICATED Urine Culture Comments NOT INDICATED Fluid Source PERITONEAL Fluid Color YELLOW Fluid Clarity CLOUDY Fluid WBC 53 Fluid RBC < 3000 Fluid Neutrophils % 11 Fluid Lymphocytes % 60 Fluid Monocytes % 29 Fld Mesothelial Cell % Not Reportable Procedures - Paracentesis Preparation: Consent obtained, Ultrasound guidance, Sterile prep and drape, Local anesthesia Location: LLQ Technique: Z-tract, Catheter over needle Fluid: Cloudy, Sent for cell count, Sent for gram stain, Sent for culture, Volume - enter cc (6000) Aftercare: No complications, Patient tolerated well, Dressing applied, Bleeding - comment (nil), Fluid leak - comment (not apparent) - IVC sono (time) 0048 Bedside IVC sono: IVC measures (cm) (collapsing and small to start) PD MEDICAL DECISION MAKING - ED course Complexity details: reviewed old records, reviewed results, re-evaluated patient, considered differential, d/w patient, d/w family ED course: 48 y/o female with cirrhosis and ascites has had rapid re-accumulation of the ascites and pain. She is uncomfortable and wants the acites drained again today. She is dehydrated on interrogation of the IVC and she is administered IV saline and pain medications. She is some improved with this but insists she needs to be drained again. We were able to drain an additional 6 liters of acites and she is administered IV albumin 2 12.5gm infusions. Her acites fluid was cloudy but only had 53 cells. Departure - Departure Disposition: 01 Home, Self Care Clinical Impression: Ascites Qualifiers: Ascites type: other type Qualified Code(s): R18.8 - Other ascites Abdominal pain Qualifiers: Abdominal location: generalized Qualified Code(s): R10.84 - Generalized abdominal pain Instructions: Paracentesis Dc, ED Ascites Follow-Up: Barbara Roebrts MD [Primary Care Provider] - Prescriptions: oxyCODONE [Roxicodone] 5 mg PO Q4-6H #10 tablet Sucralfate [Carafate] 1 gm PO ACHS #60 tablet
[2019-02-20] MEDS ORDERED: HYDROmorphone 1 MG/ML CARPUJECT IVP STA ×3 (01:03→07:25)
[2019-02-20] MEDS ORDERED: ONDANSETRON 4 MG/2 ML VIAL IVP STA ×3 (01:03→07:25)
[2019-02-20 01:06] LABS: BASOPHILS % (AUTO) 0.6 %; EOSINOPHILS # (AUTO) 0.6 10^3/uL (0.0-0.7); EOSINOPHILS % (AUTO) 8.2 %; HGB - HEMOGLOBIN 7.5 g/dL (12.0-16.0); LYMPHOCYTES # (AUTO) 0.4 10^3/uL (1.5-3.5); LYMPHOCYTES % (AUTO) 5.6 %; MEAN CORPUSCULAR HEMOGLOBIN 26.9 pg (27.0-31.0); MEAN CORPUSCULAR HGB CONC 31.8 g/dL (32.0-36.0); MEAN CORPUSCULAR VOLUME 84.6 fL (81.0-99.0); MEAN PLATELET VOLUME 8.4 fL (7.9-10.8); MONOCYTES % (AUTO) 14.2 %; NEUTROPHILS # (AUTO) 4.8 10^3/uL (1.5-6.6); NEUTROPHILS % (AUTO) 70.8 %; PLT - PLATELET COUNT 166 10^3/uL (130-450); RED BLOOD COUNT 2.79 10^6/uL (4.20-5.40); RED CELL DISTRIBUTION WIDTH 18.1 % (12.0-15.0); WHITE BLOOD COUNT 6.8 x10^3/uL (4.8-10.8)
[2019-02-20 01:20] LABS: ALBUMIN 3.8 g/dL (3.2-5.5); ALBUMIN/GLOBULIN RATIO 1.5 (1.0-2.2); CALCIUM 9.1 mg/dL (8.5-10.3); CREATININE 1.5 mg/dL (0.4-1.0); TOTAL PROTEIN 6.3 g/dL (6.7-8.2)
[2019-02-20 04:26] LABS: BILIRUBIN,URINE NEGATIVE (NEGATIVE); GLUCOSE, URINE (UA) NEGATIVE (NEGATIVE); KETONES,URINE (UA) TRACE mg/dL (NEGATIVE); LEUKOCYTE ESTERASE, URINE NEGATIVE (NEGATIVE); NITRITE,URINE NEGATIVE (NEGATIVE); OCCULT BLOOD,URINE NEGATIVE (NEGATIVE); PH,URINE 5.5 PH (5.0-7.5); PROTEIN,URINE TRACE mg/dL (NEGATIVE); UROBILINOGEN,URINE 0.2 (NORMAL) E.U./dL (NORMAL)
[2019-02-20 04:28] LABS: CLARITY,URINE CLEAR (CLEAR)
[2019-02-20] MEDS ORDERED: ALBUMIN 25% 12.5 GM/50 ML VIAL IV STA ×2 (06:45→06:47)
[2019-02-20 06:51] LABS: BF SOURCE PERITONEAL; CC,BF RBC < 3000 /mm^3
[2019-02-20 06:52] LABS: BF COLOR YELLOW
[2019-02-20 07:42] LABS: LYMPHOCYTES %,BODY FLUID 60; MONOCYTES %,BODY FLUID 29 %
[2019-02-20] MEDS ORDERED: cefTRIAXone 1 GM in SODIUM CHLORIDE 0.9% MINIBAG 100 ML IV STA (07:48)
[2019-02-20] MEDS ORDERED: SUCRALFATE 1 GM/10 ML UDC PO STA (07:57)
[2019-02-20 08:59] VITALS: BP 121/92
== END 2019-02-20 09:14 | disposition home or self-care (01) ==
LOC: EDUNIT# → ED 22:34
DX: K74.60 Unspecified cirrhosis of liver (principal); R18.8 Other ascites; B19.10 Unspecified viral hepatitis B without hepatic coma; B19.20 Unspecified viral hepatitis C without hepatic coma; E86.0 Dehydration; K42.9 Umbilical hernia without obstruction or gangrene
CPT/HCPCS: 36415; 49083; 80053; 81003; 83690; 84484; 85025; 87070; 87205; 89051; 93005; 96365; 96366; 96368; 96375; 96376; 99284; A9270; J1170; P9047; 81001; 87086

== ENCOUNTER 2019-02-22 04:04 | Outpatient (CLI) | payer MEDICAID | END 2019-02-22 04:05 | disposition critical access hospital (66) | LOC: EMS 04:04 | PROVIDERS: ATTEND Surgery | DX: R07.9 Chest pain, unspecified (principal); R11.0 Nausea | CPT/HCPCS: A0425; A0429; A0999 ==

== ENCOUNTER 2019-02-22 04:14 | Emergency (ER) | payer MEDICAID ==
[2019-02-22 04:55] LABS: BASOPHILS # (AUTO) 0.1 10^3/uL (0.0-0.1); BASOPHILS % (AUTO) 1.1 %; EOSINOPHILS # (AUTO) 0.4 10^3/uL (0.0-0.7); EOSINOPHILS % (AUTO) 6.7 %; HGB - HEMOGLOBIN 8.6 g/dL (12.0-16.0); LYMPHOCYTES # (AUTO) 0.5 10^3/uL (1.5-3.5); LYMPHOCYTES % (AUTO) 8.5 %; MEAN CORPUSCULAR HEMOGLOBIN 25.6 pg (27.0-31.0); MEAN CORPUSCULAR HGB CONC 30.7 g/dL (32.0-36.0); MEAN CORPUSCULAR VOLUME 83.3 fL (81.0-99.0); MEAN PLATELET VOLUME 8.8 fL (7.9-10.8); MONOCYTES # (AUTO) 0.5 10^3/uL (0.0-1.0); MONOCYTES % (AUTO) 8.6 %; NEUTROPHILS # (AUTO) 4.2 10^3/uL (1.5-6.6); NEUTROPHILS % (AUTO) 74.6 %; PLT - PLATELET COUNT 244 10^3/uL (130-450); RED BLOOD COUNT 3.36 10^6/uL (4.20-5.40); RED CELL DISTRIBUTION WIDTH 17.9 % (12.0-15.0); WHITE BLOOD COUNT 5.6 x10^3/uL (4.8-10.8)
[2019-02-22 05:07] LABS: ALBUMIN 4.2 g/dL (3.2-5.5); ALBUMIN/GLOBULIN RATIO 1.4 (1.0-2.2); BILIRUBIN,TOTAL 0.7 mg/dL (0.2-1.0); CALCIUM 8.5 mg/dL (8.5-10.3); CREATININE 1.8 mg/dL (0.4-1.0); TOTAL PROTEIN 7.2 g/dL (6.7-8.2)
[2019-02-22 05:17] LABS: INR 1.2 (0.8-1.2); PT - PROTHROMBIN TIME 13.5 secs (9.9-12.6)
[2019-02-22] MEDS ORDERED: SODIUM CHLORIDE 0.9% 1,000 ML IV ONE (05:41)
[2019-02-22] MEDS ORDERED: HYDROmorphone 1 MG/ML CARPUJECT IVP STA (05:41)
[2019-02-22] MEDS ORDERED: ONDANSETRON 4 MG/2 ML VIAL IVP STA (05:41)
--- NOTE | 2019-02-22 05:49 | ED Physician Documentation ---
PD HPI ABD PAIN - Stated complaint Stated Complaint: CP - Chief complaint Chief Complaint: Cardiac - History obtained from History obtained from: Patient - History of Present Illness Timing - onset: Today Timing - duration: Hours (3) Quality: Pain Location: Epigastric Radiation: Chest Associated symptoms: No: Fever, Nausea, Vomiting, Dysuria, Dizzy, Near syncope / syncope Similar symptoms before: Diagnosis (Liver failure with esophageal varices and p ancreatitis.) Recently seen: Emergency Dept - Additional information Additional information: This is a 48-year-old woman who presents with complaints that her pain is back again. About 3 hours ago it feels like her pancreatitis. She does not have any medications at home to take so she did not take anything. She does have a history of liver failure and esophageal varices due to hepatitis B and C as well as alcoholism. She denies that she has been drinking since she only had black tarry crystal light. She lives with her daughter. She has not been vomiting but said there was bright red blood in her bowel movement earlier today. She denies dizziness or loss of consciousness. She denies dysuria. The patient is in pain and has difficulty attending to my questions to answer adequately. Patient was seen here in the emergency department 2 days ago and had a paracentesis with removal of 6 L of fluid. She was given albumin at that time. Review of Systems Unable to obtain: Other (Acute pain) Constitutional: denies: Fever Cardiac: reports: Chest pain / pressure. denies: Palpitations Respiratory: reports: Other (Hurts to take a deep breath). denies: Dyspnea GI: reports: Abdominal Pain, Bloody / black stool. denies: Nausea, Vomiting : denies: Dysuria Skin: denies: Rash PD PAST MEDICAL HISTORY - Past Medical History Cardiovascular: Congestive heart failure Respiratory: Pneumonia, Shortness of breath Neuro: None Endocrine/Autoimmune: HyPOthyroidism GI: Esophageal varices, Hepatitis, Cirrhosis CONTACT LENS EDGE BUFFER: Miscarriage(s), Other : Other HEENT: None Psych: Other Musculoskeletal: Chronic back pain Derm: None - Past Surgical History Past Surgical History: Yes General: Hiatal hernia repair Ortho: Other /CONTACT LENS EDGE BUFFER: Tubal ligation HEENT: Other - Present Medications Home Medications: Ambulatory Orders Medication Instructions Recorded Confirmed Cholecalciferol (Vitamin D3) 2,000 units PO DAILY #60 capsule 12/02/18 01/08/19 [Vitamin D3] Ferrous Sulfate 325 mg PO DAILY #30 tablet 12/02/18 01/08/19 Furosemide 40 mg PO DAILY #30 tablet 12/02/18 01/08/19 Levothyroxine [Synthroid] 50 mcg PO QDAC #60 tablet 12/02/18 01/08/19 Multivitamin W/Minerals [Theragran 1 tab PO DAILY #30 tablet 12/02/18 01/08/19 M] Pantoprazole Sodium 40 mg PO BID #60 tablet. 12/02/18 01/08/19 Spironolactone 100 mg PO DAILY #120 tablet 12/02/18 01/08/19 Ascorbic Acid [Vitamin C] 500 mg PO BID 12/05/18 01/08/19 Ciprofloxacin HCl [Cipro] 500 mg PO DAILY 01/08/19 01/08/19 Mirtazapine 15 mg PO DAILY 01/08/19 01/08/19 Multivitamin [Daily Multiple 1 each PO 01/08/19 Vitamin] Ondansetron Odt [Zofran] 4 mg TL Q6H PRN 01/08/19 01/08/19 Morphine Sulfate 15 mg PO Q6HR PRN #10 tablet 01/21/19 Cephalexin [Keflex] 500 mg PO Q6H #28 capsule 01/23/19 oxyCODONE [Roxicodone] 5 mg PO Q4-6H PRN #10 tablet 01/31/19 Sucralfate [Carafate] 1 gm PO ACHS #60 tablet 02/20/19 oxyCODONE [Roxicodone] 5 mg PO Q4-6H #10 tablet 02/20/19 - Allergies Allergies/Adverse Reactions: Allergies Allergy/AdvReac Type Severity Reaction Status Date / Time acetaminophen [From Tylenol] Allergy Unknown Verified 02/22/19 04:22 NSAIDS (Non-Steroidal Allergy Unknown Verified 02/22/19 04:22 Anti-Inflamma - Social History Does the pt smoke?: No Smoking Status: Never smoker Does the pt drink ETOH?: No Does the pt have substance abuse?: No - Immunizations Immunizations are current?: Yes - POLST Patient has POLST: No POLST Status: Full Code PD ED PE NORMAL - Vitals Vital signs reviewed: Yes - General General: Alert and oriented X 3, Other (Thin 48-year-old woman who is in pain she is moaning. Smells strongly of alcohol.) - HEENT HEENT: Atraumatic, PERRL, Other (No scleral icterus) - Neck Neck: No adenopathy, Thyroid normal - Cardiac Cardiac: RRR, Other (She has a 3 over systolic murmur heard at the apex) - Respiratory Respiratory: No respiratory distress, Clear bilaterally - Abdomen Abdomen: Normal bowel sounds, Other (The abdomen is exquisitely tender. There is obvious ascites and in fact she has an umbilical hernia that is protruded and filled with ascitic fluid. There is a Band-Aid noted in the left lower quadrant with an underlying puncture site from paracentesis done 2 days ago.) - Derm Derm: Other (Pale) - Extremities Extremities: No edema - Neuro Neuro: Alert and oriented X 3, Normal speech Results - Vitals Vitals: Vital Signs - 24 hr 02/22/19 02/22/19 02/22/19 04:19 04:22 05:15 Temperature 36.8 C Heart Rate 84 53 L 89 Respiratory 16 17 17 Rate Blood Pressure 130/78 117/72 139/89 H O2 Saturation 98 98 100 02/22/19 02/22/19 02/22/19 05:32 06:16 06:30 Temperature Heart Rate 89 88 89 Respiratory 17 17 17 Rate Blood Pressure 127/85 H 149/98 H 120/80 O2 Saturation 98 97 99 02/22/19 02/22/19 02/22/19 07:11 08:34 09:49 Temperature 37.1 C 36.6 C Heart Rate 87 88 77 Respiratory 17 14 17 Rate Blood Pressure 135/95 H 133/77 H 119/77 O2 Saturation 96 98 97 Oxygen O2 Source Room air - EKG (time done) 0431 Rate: Rate (enter#) (82) Rhythm: NSR Intervals: Normal IA, Wide QRS Ischemia: Non specific changes - Labs Labs: Laboratory Tests 02/22/19 02/22/19 02/22/19 04:42 04:42 04:42 WBC 5.6 RBC 3.36 L Hgb 8.6 L Hct 28.0 L MCV 83.3 MCH 25.6 L MCHC 30.7 L RDW 17.9 H Plt Count 244 MPV 8.8 Neut # (Auto) 4.2 Lymph # (Auto) 0.5 L [place] # (Auto) 0.5 Eos # (Auto) 0.4 Baso # (Auto) 0.1 Absolute Nucleated RBC 0.00 Nucleated RBC % 0.0 PT 13.5 H INR 1.2 Sodium 134 L Potassium 4.4 Chloride 105 Carbon Dioxide 16 L Anion Gap 13.0 BUN 50 H Creatinine 1.8 H Estimated GFR (MDRD) 30 L Glucose 100 Calcium 8.5 Total Bilirubin 0.7 AST 32 ALT 20 Alkaline Phosphatase 93 Ammonia Troponin I High Sens Total Protein 7.2 Albumin 4.2 Globulin 3.0 Albumin/Globulin Ratio 1.4 Lipase 59 H Ethyl Alcohol 165.8 02/22/19 02/22/19 04:42 04:42 WBC RBC Hgb Hct MCV MCH MCHC RDW Plt Count MPV Neut # (Auto) Lymph # (Auto) [place] # (Auto) Eos # (Auto) Baso # (Auto) Absolute Nucleated RBC Nucleated RBC % PT INR Sodium Potassium Chloride Carbon Dioxide Anion Gap BUN Creatinine Estimated GFR (MDRD) Glucose Calcium Total Bilirubin AST ALT Alkaline Phosphatase Ammonia 25.2 Troponin I High Sens 12.7 Total Protein Albumin Globulin Albumin/Globulin Ratio Lipase Ethyl Alcohol PD MEDICAL DECISION MAKING - ED course Complexity details: reviewed old records, reviewed results, re-evaluated patient, d/w patient, d/w family ED course: Patient had an IV established was given a liter of fluids. She was given a milligram of Dilaudid IV still complaining bitterly of pain and was given an additional milligram of Dilaudid. She was still complaining of pain so have ordered Haldol and Benadryl. Her alcohol level came back over 160. Lipase was only minimally elevated. Her hemoglobin is 8.6 and she does have a smear of red in the rectal vault that is heme positive. I discussed admission with our hospitalist here however they feel with her history of esophageal varices that she is not a candidate to be admitted here because she could not be scoped. 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 Patient was accepted by Dr Durant at . She requested antibiotics with Gram negative coverage. Zosyn ordered. Patient aware of plan. Departure - Departure Disposition: 02 Transfer Acute Care Hosp Clinical Impression: Lower GI bleed, Intoxication Anemia Qualifiers: Anemia type: unspecified type Qualified Code(s): D64.9 - Anemia, unspecified Discharge Date/Time: 02/22/19:27
[2019-02-22] MEDS ORDERED: HALOPERIDOL 5 MG/ML VIAL IVP ONE (07:58)
[2019-02-22] MEDS ORDERED: diphenhydrAMINE INJ 50 MG/ML VIAL IVP STA (07:59)
[2019-02-22] MEDS ORDERED: PIPERACILLIN/TAZOBACTAM 3.375 GM in SODIUM CHLORIDE 0.9% MINIBAG 100 ML IV STA (08:19)
[2019-02-22 09:50] VITALS: BP 119/77
== END 2019-02-22 10:27 | disposition short-term general hospital (02) ==
LOC: EDUNIT# → ED 04:14
DX: K92.1 Melena (principal); F10.229 Alcohol dependence with intoxication, unspecified; K70.31 Alcoholic cirrhosis of liver with ascites; I85.10 Secondary esophageal varices without bleeding; Y90.6 Blood alcohol level of 120-199 mg/100 ml; D64.9 Anemia, unspecified; K42.9 Umbilical hernia without obstruction or gangrene; B19.10 Unspecified viral hepatitis B without hepatic coma; B19.20 Unspecified viral hepatitis C without hepatic coma; R01.1 Cardiac murmur, unspecified
CPT/HCPCS: 36415; 80053; 80320; 82140; 83690; 84484; 85025; 85610; 93005; 96361; 96365; 96375; 99284; 99285; J1170; J1200

== ENCOUNTER 2019-03-08 02:07 | Emergency (ER) | payer MEDICAID, OTHER ==
[2019-03-08 02:48] LABS: BASOPHILS % (AUTO) 0.9 %; EOSINOPHILS # (AUTO) 0.4 10^3/uL (0.0-0.7); EOSINOPHILS % (AUTO) 8.7 %; LYMPHOCYTES # (AUTO) 0.4 10^3/uL (1.5-3.5); LYMPHOCYTES % (AUTO) 7.7 %; MEAN CORPUSCULAR HEMOGLOBIN 23.8 pg (27.0-31.0); MEAN CORPUSCULAR HGB CONC 29.4 g/dL (32.0-36.0); MEAN PLATELET VOLUME 9.3 fL (7.9-10.8); MONOCYTES # (AUTO) 0.5 10^3/uL (0.0-1.0); MONOCYTES % (AUTO) 9.6 %; NEUTROPHILS # (AUTO) 3.4 10^3/uL (1.5-6.6); NEUTROPHILS % (AUTO) 72.9 %; PLT - PLATELET COUNT 203 10^3/uL (130-450); RED BLOOD COUNT 3.36 10^6/uL (4.20-5.40); RED CELL DISTRIBUTION WIDTH 16.2 % (12.0-15.0); WHITE BLOOD COUNT 4.7 x10^3/uL (4.8-10.8)
[2019-03-08 02:54] LABS: INR 1.2 (0.8-1.2); PT - PROTHROMBIN TIME 13.9 secs (9.9-12.6)
[2019-03-08 02:57] LABS: ALBUMIN 3.9 g/dL (3.2-5.5); ALBUMIN/GLOBULIN RATIO 1.3 (1.0-2.2); ALKALINE PHOSPHATASE 87 IU/L (42-121); ALT ALANINE AMINOTRANSFERASE 23 IU/L (10-60); AST ASPARTATE AMINOTRANSFERASE 40 IU/L (10-42); BILIRUBIN,TOTAL 1.2 mg/dL (0.2-1.0); BUN - BLOOD UREA NITROGEN 42 mg/dL (6-20); CALCIUM 8.9 mg/dL (8.5-10.3); CARBON DIOXIDE - CO2 22 mmol/L (21-32); CHLORIDE 101 mmol/L (101-111); CREATININE 1.8 mg/dL (0.4-1.0); GFR - MDRD 30 (>89); GLUCOSE 111 mg/dL (70-100); LIPASE 43 U/L (22-51); SODIUM 134 mmol/L (135-145)
[2019-03-08 03:06] LABS: MUDS CUTOFF CONCENTRATIONS CUTOFF CONC BELOW:
[2019-03-08 03:09] LABS: BILIRUBIN,URINE NEGATIVE (NEGATIVE); GLUCOSE, URINE (UA) NEGATIVE (NEGATIVE); KETONES,URINE (UA) NEGATIVE (NEGATIVE); LEUKOCYTE ESTERASE, URINE NEGATIVE (NEGATIVE); NITRITE,URINE NEGATIVE (NEGATIVE); OCCULT BLOOD,URINE NEGATIVE (NEGATIVE); PH,URINE 5.5 PH (5.0-7.5); PROTEIN,URINE TRACE mg/dL (NEGATIVE); UROBILINOGEN,URINE 0.2 (NORMAL) E.U./dL (NORMAL)
[2019-03-08 03:10] LABS: CLARITY,URINE CLEAR (CLEAR)
[2019-03-08] MEDS ORDERED: HYDROmorphone 1 MG/ML CARPUJECT IVP STA ×2 (03:10→06:53)
[2019-03-08] MEDS ORDERED: ONDANSETRON 4 MG/2 ML VIAL IVP STA (03:10)
[2019-03-08 03:22] LABS: AMPHETAMINE SCREEN,URINE NEGATIVE (NEGATIVE); BENZODIAZEPINES SCREEN, URINE NEGATIVE (NEGATIVE); COCAINE SCREEN URINE NEGATIVE (NEGATIVE); METHADONE SCREEN, URINE NEGATIVE (NEGATIVE); METHAMPHETAMINES SCREEN, URINE NEGATIVE (NEGATIVE); OPIATE SCREEN, URINE NEGATIVE (NEGATIVE); OXYCODONE SCREEN, URINE POSITIVE (NEGATIVE); PROPOXYPHENE SCREEN, URINE NEGATIVE (NEGATIVE); TRICYCLIC ANTIDEPRESSANT,URINE NEGATIVE (NEGATIVE)
--- NOTE | 2019-03-08 04:04 | ED Physician Documentation ---
PD HPI GI BLEED - Stated complaint Stated Complaint: BLOODY VOMITING/BLOODY STOOL - Chief complaint Chief Complaint: Abd Pain - History obtained from History obtained from: Patient, Family - History of Present Illness Timing - onset: How many days ago (4) Timing - duration: Days (4) Timing - details: Gradual onset, Still present, Waxing and waning Associated symptoms: Vomiting, BRBPR Contributing factors: Alcohol use Similar symptoms before: Diagnosis (bleeding ulcer and bleeding varacies) Recently seen: Emergency Dept, Admitted - Additional information Additional information: 48-year-old female with a history of hepatitis B, C and alcoholic cirrhosis as well as polysubstance drug abuse has cirrhosis with ascites, varices that have been banded, bleeding gastric ulcer and recent admission with alcohol i ntoxication. She has been cared for for the past 12 years at a variety of hospitals and she is a frequent visitor to the emergency department and frequently requires admission to the hospital. She has most recently seen by her machine operator helper 4 days ago at which time she noted she was having some bleeding and this was expected to resolve. The patient indicates that she has vomited 4 times today with blood at first it was dark and then red. She has had bleeding varacies and the bleeding today is not similar to that, it was much less and far between. She last vomited at about midnight. She is complaining of back pain as well. Review of Systems Constitutional: denies: Fever Eyes: denies: Decreased vision Ears: denies: Ear pain Nose: denies: Congestion Throat: denies: Sore throat Cardiac: reports: Pedal edema (trace only). 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(s), Other : Other HEENT: None Psych: Other Musculoskeletal: Chronic back pain Derm: None - Past Surgical History Past Surgical History: Yes General: Hiatal hernia repair Ortho: Other /FAGOT HEATER HELPER: Tubal ligation HEENT: Other - Present Medications Home Medications: Ambulatory Orders Medication Instructions Recorded Confirmed Cholecalciferol (Vitamin D3) 2,000 units PO DAILY #60 capsule 12/02/18 03/08/19 [Vitamin D3] Ferrous Sulfate 325 mg PO DAILY #30 tablet 12/02/18 03/08/19 Furosemide 40 mg PO DAILY #30 tablet 12/02/18 03/08/19 Levothyroxine [Synthroid] 50 mcg PO QDAC #60 tablet 12/02/18 03/08/19 Multivitamin W/Minerals [Theragran 1 tab PO DAILY #30 tablet 12/02/18 03/08/19 M] Pantoprazole Sodium 40 mg PO BID #60 tablet. 12/02/18 03/08/19 Spironolactone 100 mg PO DAILY #120 tablet 12/02/18 03/08/19 Ascorbic Acid [Vitamin C] 500 mg PO BID 12/05/18 03/08/19 Mirtazapine 15 mg PO DAILY 01/08/19 03/08/19 Multivitamin [Daily Multiple 1 each PO DAILY 01/08/19 03/08/19 Vitamin] Ondansetron Odt [Zofran] 4 mg TL Q6H PRN 01/08/19 03/08/19 Morphine Sulfate 15 mg PO Q6HR PRN #10 tablet 01/21/19 03/08/19 oxyCODONE [Roxicodone] 5 mg PO Q4-6H PRN #10 tablet 01/31/19 03/08/19 Sucralfate [Carafate] 1 gm PO ACHS #60 tablet 02/20/19 03/08/19 oxyCODONE [Roxicodone] 5 mg PO Q4-6H #10 tablet 02/20/19 03/08/19 - Allergies Allergies/Adverse Reactions: Allergies Allergy/AdvReac Type Severity Reaction Status Date / Time acetaminophen [From Tylenol] Allergy Unknown Verified 03/08/19 02:19 NSAIDS (Non-Steroidal Allergy Unknown Verified 03/08/19 02:19 Anti-Inflamma - Social History Does the pt smoke?: No Smoking Status: Never smoker Does the pt drink ETOH?: No Does the pt have substance abuse?: No - Immunizations Immunizations are current?: Yes - POLST Patient has POLST: No POLST Status: Full Code PD ED PE NORMAL - Vitals Vital signs reviewed: Yes (hypertensive mild ) - General General: No acute distress, Well developed/nourished - HEENT HEENT: Atraumatic, PERRL, EOMI - Neck Neck: Supple, no meningeal sign, No bony TTP - Cardiac Cardiac: RRR, No murmur - Respiratory Respiratory: No respiratory distress, Clear bilaterally - Abdomen Abdomen: Soft, Other (There is acites present less than the last exam prior to paracentesis. There is again the odd shapped thin wall hernia containing bowel and this is non-tender. ) - Back Back: No CVA TTP, No spinal TTP - Derm Derm: Normal color, Warm and dry, No rash - Extremities Extremities: No deformity, No calf tenderness / cord, Other (trace edema bilaterally ) - Neuro Neuro: Alert and oriented X 3, software writer 2-12 intact, No motor deficit, No sensory deficit, Normal speech Eye Opening: Spontaneous Motor: Obeys Commands Verbal: Oriented GCS Score: 15 - Psych Psych: Normal affect, Other (mood is conerned ) Results - Vitals Vitals: Vital Signs - 24 hr 03/08/19 03/08/19 03/08/19 02:17 02:19 04:04 Temperature 36.8 C Heart Rate 82 84 89 Respiratory 17 17 17 Rate Blood Pressure 135/87 H 132/87 H 124/83 H O2 Saturation 92 96 94 03/08/19 03/08/19 03/08/19 04:34 04:35 05:30 Temperature Heart Rate 99 93 83 Respiratory 17 17 Rate Blood Pressure 132/94 H 132/97 H 115/75 O2 Saturation 97 98 03/08/19 06:28 Temperature Heart Rate 82 Respiratory 17 Rate Blood Pressure 135/91 H O2 Saturation 98 Oxygen O2 Source Room air - Labs Labs: Laboratory Tests 03/08/19 03/08/19 03/08/19 02:30 02:30 02:30 WBC 4.7 L RBC 3.36 L Hgb 8.0 L Hct 27.2 L MCV 81.0 MCH 23.8 L MCHC 29.4 L RDW 16.2 H Plt Count 203 MPV 9.3 Neut # (Auto) 3.4 Lymph # (Auto) 0.4 L [place] # (Auto) 0.5 Eos # (Auto) 0.4 Baso # (Auto) 0.0 Absolute Nucleated RBC 0.00 Nucleated RBC % 0.0 PT 13.9 H INR 1.2 Sodium 134 L Potassium 3.7 Chloride 101 Carbon Dioxide 22 Anion Gap 11.0 BUN 42 H Creatinine 1.8 H Estimated GFR (MDRD) 30 L Glucose 111 H Calcium 8.9 Total Bilirubin 1.2 H AST 40 ALT 23 Alkaline Phosphatase 87 Total Protein 7.0 Albumin 3.9 Globulin 3.1 Albumin/Globulin Ratio 1.3 Lipase 43 Urine Color Urine Clarity Urine pH Ur Specific Bliss Urine Protein Urine Glucose (UA) Urine Ketones Urine Occult Blood Urine Nitrite Urine Bilirubin Urine Urobilinogen Ur Leukocyte Esterase Ur Microscopic Review Urine Culture Comments Urine Opiates Screen Ur Oxycodone Screen Urine Methadone Screen Ur Propoxyphene Screen Ur Barbiturates Screen Ur Tricyclics Screen Ur Phencyclidine Scrn Ur Amphetamine Screen U Methamphetamines Scrn U Benzodiazepines Scrn Urine Cocaine Screen U Cannabinoids Screen Ethyl Alcohol < 5.0 03/08/19 03/08/19 03:00 06:20 WBC RBC Hgb 7.5 L Hct 25.1 L MCV MCH MCHC RDW Plt Count MPV Neut # (Auto) Lymph # (Auto) [place] # (Auto) Eos # (Auto) Baso # (Auto) Absolute Nucleated RBC Nucleated RBC % PT INR Sodium Potassium Chloride Carbon Dioxide Anion Gap BUN Creatinine Estimated GFR (MDRD) Glucose Calcium Total Bilirubin AST ALT Alkaline Phosphatase Total Protein Albumin Globulin Albumin/Globulin Ratio Lipase Urine Color YELLOW Urine Clarity CLEAR Urine pH 5.5 Ur Specific Bliss 1.020 Urine Protein TRACE Urine Glucose (UA) NEGATIVE Urine Ketones NEGATIVE Urine Occult Blood NEGATIVE Urine Nitrite NEGATIVE Urine Bilirubin NEGATIVE Urine Urobilinogen 0.2 (NORMAL) Ur Leukocyte Esterase NEGATIVE Ur Microscopic Review NOT INDICATED Urine Culture Comments NOT INDICATED Urine Opiates Screen NEGATIVE Ur Oxycodone Screen POSITIVE H Urine Methadone Screen NEGATIVE Ur Propoxyphene Screen NEGATIVE Ur Barbiturates Screen NEGATIVE Ur Tricyclics Screen NEGATIVE Ur Phencyclidine Scrn NEGATIVE Ur Amphetamine Screen NEGATIVE U Methamphetamines Scrn NEGATIVE U Benzodiazepines Scrn NEGATIVE Urine Cocaine Screen NEGATIVE U Cannabinoids Screen NEGATIVE Ethyl Alcohol PD MEDICAL DECISION MAKING - ED course Complexity details: reviewed old records, reviewed results, re-evaluated patient, considered differential, d/w patient, d/w family ED course: 48-year-old female with a history of bleeding gastric ulcer and varices that have been banded has developed some GI bleeding tonight. She has had some vomiting of red blood of a scant amount and today her blood counts are nearly equivalent to her prior counts from her last visit here. She does have antibodies in her blood making transfusion through our institution nearly impossible. This will require blood to be brought from the blood bank specifically for this patient. She does not require a transfusion now and her bleeding is scant and she does not require admission to the hospital. I do not believe she has bleeding from her varices. She is kept in the emergency department for observation with the plan of transfer if the patient vomits any significant quantity of blood. We will recheck her blood counts as well as provide traditional medications for ulcer. The patient has no vomiting while she is here in the emergency department for 5 hours. Her repeat blood counts are stable. She has a lot of stress related to the of her older brother this past week. She has an appointment at tomorrow for paracentesis. Departure - Departure Disposition: 01 Home, Self Care Clinical Impression: GI bleed Qualifiers: GI bleed type/associated pathology: unspecified gastrointestinal hemorrhage type Qualified Code(s): K92.2 - Gastrointestinal hemorrhage, unspecified Condition: Stable Instructions: ED Bleed UGI Stable Follow-Up: SHREYAS POZO MD [Primary Care Provider] -
[2019-03-08] MEDS ORDERED: PANTOPRAZOLE 40 MG VIAL IVP STA (04:10)
[2019-03-08] MEDS ORDERED: SUCRALFATE 1 GM/10 ML UDC PO STA (04:10)
[2019-03-08 06:31] LABS: HGB - HEMOGLOBIN 7.5 g/dL (12.0-16.0)
[2019-03-08 09:40] VITALS: BP 135/100
== END 2019-03-08 10:07 | disposition home or self-care (01) ==
LOC: ED 02:07
DX: K92.0 Hematemesis (principal); K46.9 Unspecified abdominal hernia without obstruction or gangrene; K70.31 Alcoholic cirrhosis of liver with ascites; I85.10 Secondary esophageal varices without bleeding; B19.10 Unspecified viral hepatitis B without hepatic coma; B19.20 Unspecified viral hepatitis C without hepatic coma
CPT/HCPCS: 36415; 80053; 80306; 80320; 81003; 83690; 85014; 85018; 85025; 85610; 86850; 86900; 86901; 96374; 96375; 96376; 99283; A9270; J1170; 81001; 86870; 87086

== ENCOUNTER 2019-03-18 21:20 | Outpatient (CLI) | payer MEDICAID | END 2019-03-18 21:21 | disposition critical access hospital (66) | LOC: EMS 21:20 | PROVIDERS: ATTEND Surgery | DX: K92.0 Hematemesis (principal); R10.9 Unspecified abdominal pain ==

== ENCOUNTER 2019-03-18 21:33 | Emergency (ER) | payer MEDICAID ==
[2019-03-18] MEDS ORDERED: SODIUM CHLORIDE 0.9% 1,000 ML IV ONE (21:52)
[2019-03-18] MEDS ORDERED: cefTRIAXone 1 GM VIAL IVP STA (21:57)
[2019-03-18] MEDS ORDERED: PANTOPRAZOLE 40 MG VIAL IVP STA (21:57)
[2019-03-18] MEDS ORDERED: OCTREOTIDE 500 MCG in SODIUM CHLORIDE 0.9% 100ML 95 ML IV STA (21:57)
[2019-03-18 21:59] LABS: BASOPHILS # (AUTO) 0.1 10^3/uL (0.0-0.1); BASOPHILS % (AUTO) 0.9 %; EOSINOPHILS # (AUTO) 0.3 10^3/uL (0.0-0.7); EOSINOPHILS % (AUTO) 5.5 %; HGB - HEMOGLOBIN 7.2 g/dL (12.0-16.0); LYMPHOCYTES # (AUTO) 0.4 10^3/uL (1.5-3.5); LYMPHOCYTES % (AUTO) 6.4 %; MEAN CORPUSCULAR HEMOGLOBIN 22.9 pg (27.0-31.0); MEAN CORPUSCULAR HGB CONC 30.1 g/dL (32.0-36.0); MEAN CORPUSCULAR VOLUME 76.1 fL (81.0-99.0); MONOCYTES # (AUTO) 1.2 10^3/uL (0.0-1.0); NEUTROPHILS # (AUTO) 3.8 10^3/uL (1.5-6.6); NEUTROPHILS % (AUTO) 65.7 %; PLT - PLATELET COUNT 158 10^3/uL (130-450); RED BLOOD COUNT 3.14 10^6/uL (4.20-5.40); RED CELL DISTRIBUTION WIDTH 16.4 % (12.0-15.0); WHITE BLOOD COUNT 5.8 x10^3/uL (4.8-10.8)
[2019-03-18 22:05] LABS: INR 1.3 (0.8-1.2); PT - PROTHROMBIN TIME 14.9 secs (9.9-12.6)
--- NOTE | 2019-03-18 22:06 | ED Physician Documentation ---
History of Present Illness - Stated complaint Stated Complaint: ABD PX/V BLOOD - Chief complaint Chief Complaint: General - History obtained from History obtained from: Patient - History of Present Illness Timing: Today Pain level max: 6 Pain level now: 5 Improved by: Fentanyl and Zofran with EMS Worsened by: nothing - Additonal information Additional information: 48-year-old female with a history of alcoholic cirrhosis, hep C and hep B. Has a history of esophageal and gastric varices. These have been banded multiple times. States worsening abdominal pain today followed by bright red blood in her emesis x2. States it was "a large amount". Also has epigastric abdominal pain that is chronic for her. She is followed at [facility] by Dr. Huerta, hepatology. She states she is scheduled for a TIPS procedure in a few weeks and is scheduled for paracentesis tomorrow. She is not having fevers. 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: Miscarriage(s), Other : Other HEENT: None Psych: Other Musculoskeletal: Chronic back pain Derm: None - Past Surgical History Past Surgical History: Yes General: Hiatal hernia repair Ortho: Other /FAMILY WORKER: Tubal ligation HEENT: Other - Present Medications Home Medications: Ambulatory Orders Medication Instructions Recorded Confirmed Cholecalciferol (Vitamin D3) 2,000 units PO DAILY #60 capsule 12/02/18 03/08/19 [Vitamin D3] Ferrous Sulfate 325 mg PO DAILY #30 tablet 12/02/18 03/08/19 Furosemide 40 mg PO DAILY #30 tablet 12/02/18 03/08/19 Levothyroxine [Synthroid] 50 mcg PO QDAC #60 tablet 12/02/18 03/08/19 Multivitamin W/Minerals [Theragran 1 tab PO DAILY #30 tablet 12/02/18 03/08/19 M] Pantoprazole Sodium 40 mg PO BID #60 tablet. 12/02/18 03/08/19 Spironolactone 100 mg PO DAILY #120 tablet 12/02/18 03/08/19 Ascorbic Acid [Vitamin C] 500 mg PO BID 12/05/18 03/08/19 Mirtazapine 15 mg PO DAILY 01/08/19 03/08/19 Multivitamin [Daily Multiple 1 each PO DAILY 01/08/19 03/08/19 Vitamin] Ondansetron Odt [Zofran] 4 mg TL Q6H PRN 01/08/19 03/08/19 Morphine Sulfate 15 mg PO Q6HR PRN #10 tablet 01/21/19 03/08/19 oxyCODONE [Roxicodone] 5 mg PO Q4-6H PRN #10 tablet 01/31/19 03/08/19 Sucralfate [Carafate] 1 gm PO ACHS #60 tablet 02/20/19 03/08/19 oxyCODONE [Roxicodone] 5 mg PO Q4-6H #10 tablet 02/20/19 03/08/19 - Allergies Allergies/Adverse Reactions: Allergies Allergy/AdvReac Type Severity Reaction Status Date / Time acetaminophen [From Tylenol] Allergy Unknown Verified 03/08/19 02:19 NSAIDS (Non-Steroidal Allergy Unknown Verified 03/08/19 02:19 Anti-Inflamma - Social History Does the pt smoke?: No Smoking Status: Never smoker Does the pt drink ETOH?: No Does the pt have substance abuse?: No - Immunizations Immunizations are current?: Yes - POLST Patient has POLST: No POLST Status: Full Code PD ED PE NORMAL - Vitals Vital signs reviewed: Yes - General General: Alert and oriented X 3, No acute distress - HEENT HEENT: Moist mucous membranes - Neck Neck: Supple, no meningeal sign - Cardiac Cardiac: RRR, Strong equal pulses - Respiratory Respiratory: No respiratory distress, Clear bilaterally - Abdomen Abdomen: Soft, Other (distended soft abdomen. ) - Derm Derm: Warm and dry, No rash - Extremities Extremities: No edema - Neuro Neuro: Alert and oriented X 3 - Psych Psych: Normal mood, Normal affect Results - Vitals Vitals: Vital Signs - 24 hr 03/18/19 03/18/19 21:37 22:35 Temperature 36.7 C Heart Rate 81 78 Respiratory 16 14 Rate Blood Pressure 132/86 H 121/76 O2 Saturation 98 98 Oxygen O2 Source Room air - Labs Labs: Laboratory Tests 03/18/19 03/18/19 03/18/19 21:52 21:52 21:52 WBC 5.8 RBC 3.14 L Hgb 7.2 L Hct 23.9 L MCV 76.1 L MCH 22.9 L MCHC 30.1 L RDW 16.4 H Plt Count 158 MPV 9.0 Neut # (Auto) 3.8 Lymph # (Auto) 0.4 L [place] # (Auto) 1.2 H Eos # (Auto) 0.3 Baso # (Auto) 0.1 Absolute Nucleated RBC 0.00 Nucleated RBC % 0.0 PT 14.9 H INR 1.3 H APTT 37.7 H Sodium 131 L Potassium 4.9 Chloride 98 L Carbon Dioxide 24 Anion Gap 9.0 BUN 36 H Creatinine 1.8 H Estimated GFR (MDRD) 30 L Glucose 111 H Calcium 8.8 Total Bilirubin 0.8 AST 40 ALT 24 Alkaline Phosphatase 75 Total Protein 6.5 L Albumin 3.4 Globulin 3.1 Albumin/Globulin Ratio 1.1 Lipase 45 Ethyl Alcohol < 5.0 PD MEDICAL DECISION MAKING - ED course Complexity details: reviewed old records, reviewed results, re-evaluated patient, considered differential, d/w patient, d/w business development consultant ED course: 48-year-old female with upper GI bleeding tonight, concerning for possible variceal bleed. She states it was a large amount of blood at home. Similar to past variceal bleeds. Given Protonix, Rocephin, octreotide. Given IV fluids. She is typed and crossed however she has multiple antibodies and it will take approximately 8 hours to get crossmatched blood here. As she is hemodynamically stable currently, we will hold off on transfusing O- blood. I contacted [facility] for transfer at [phone]. Discussed with Dr. Dacosta, executive producer and Dr. Herrera, GI who except in transfer. This was at approximately 2315. COBRA forms completed. Patient is hemodynamically stable. This document was made in part using voice recognition software. While efforts are made to proofread this document, sound alike and grammatical errors may occur. Departure - Departure Disposition: 02 Transfer Acute Care Hosp Clinical Impression: Upper GI bleed Esophageal varices Qualifiers: Esophageal varices type: unspecified type Esophageal varices bleeding: with bleeding Qualified Code(s): I85.01 - Esophageal varices with bleeding Hematemesis Qualifiers: Nausea presence: with nausea Qualified Code(s): K92.0 - Hematemesis Condition: Stable
[2019-03-18 22:13] LABS: PARTIAL THROMBOPLASTIN TIME 37.7 secs (24.9-33.3)
[2019-03-18 22:15] LABS: ALBUMIN 3.4 g/dL (3.2-5.5); ALBUMIN/GLOBULIN RATIO 1.1 (1.0-2.2); ALKALINE PHOSPHATASE 75 IU/L (42-121); ALT ALANINE AMINOTRANSFERASE 24 IU/L (10-60); AST ASPARTATE AMINOTRANSFERASE 40 IU/L (10-42); BILIRUBIN,TOTAL 0.8 mg/dL (0.2-1.0); BUN - BLOOD UREA NITROGEN 36 mg/dL (6-20); CALCIUM 8.8 mg/dL (8.5-10.3); CARBON DIOXIDE - CO2 24 mmol/L (21-32); CHLORIDE 98 mmol/L (101-111); CREATININE 1.8 mg/dL (0.4-1.0); GFR - MDRD 30 (>89); GLUCOSE 111 mg/dL (70-100); LIPASE 45 U/L (22-51); SODIUM 131 mmol/L (135-145); TOTAL PROTEIN 6.5 g/dL (6.7-8.2)
[2019-03-18] MEDS ORDERED: MORPHINE 2 MG/ML CARPUJECT IVP STA (22:19)
[2019-03-18 23:56] VITALS: BP 117/85
== END 2019-03-19 00:54 | disposition short-term general hospital (02) ==
LOC: EDUNIT# → ED 21:33
DX: K92.2 Gastrointestinal hemorrhage, unspecified (principal); I85.01 Esophageal varices with bleeding; K75.9 Inflammatory liver disease, unspecified; E03.9 Hypothyroidism, unspecified; K74.60 Unspecified cirrhosis of liver
CPT/HCPCS: 36415; 36430; 80053; 80320; 83690; 85025; 85610; 85730; 86850; 86870; 86900; 86901; 96374; 96375; 99285; J2354; 86920

== ENCOUNTER 2019-03-19 00:52 | Outpatient (CLI) | payer MEDICAID | END 2019-03-19 00:53 | disposition short-term general hospital (02) | LOC: EMS 00:52 | PROVIDERS: ATTEND Surgery | DX: I85.01 Esophageal varices with bleeding (principal) ==

== ENCOUNTER 2019-03-27 13:36 | Outpatient (CLI) | payer MEDICAID ==
[2019-03-27 18:23] LABS: BASOPHILS % (AUTO) 0.6 %; EOSINOPHILS # (AUTO) 0.4 10^3/uL (0.0-0.7); EOSINOPHILS % (AUTO) 8.1 %; HGB - HEMOGLOBIN 8.6 g/dL (12.0-16.0); LYMPHOCYTES # (AUTO) 0.3 10^3/uL (1.5-3.5); LYMPHOCYTES % (AUTO) 5.3 %; MEAN CORPUSCULAR HEMOGLOBIN 24.4 pg (27.0-31.0); MEAN CORPUSCULAR HGB CONC 30.2 g/dL (32.0-36.0); MEAN CORPUSCULAR VOLUME 80.7 fL (81.0-99.0); MONOCYTES # (AUTO) 0.6 10^3/uL (0.0-1.0); MONOCYTES % (AUTO) 12.6 %; NEUTROPHILS # (AUTO) 3.7 10^3/uL (1.5-6.6); PLT - PLATELET COUNT 142 10^3/uL (130-450); RED BLOOD COUNT 3.53 10^6/uL (4.20-5.40); WHITE BLOOD COUNT 5.1 x10^3/uL (4.8-10.8)
[2019-03-27 18:45] LABS: ALBUMIN 4.7 g/dL (3.2-5.5); BILIRUBIN,TOTAL 1.2 mg/dL (0.2-1.0); CREATININE 1.4 mg/dL (0.4-1.0); TOTAL PROTEIN 7.1 g/dL (6.7-8.2)
== END 2019-03-27 23:59 | disposition home or self-care (01) ==
LOC: LAB.N 13:36
PROVIDERS: ATTEND Family Medicine
DX: N28.9 Disorder of kidney and ureter, unspecified (principal); I85.01 Esophageal varices with bleeding
CPT/HCPCS: 36415; 80053; 85025

== ENCOUNTER 2019-03-31 03:33 | Outpatient (CLI) | payer MEDICAID | END 2019-03-31 03:34 | disposition critical access hospital (66) | LOC: EMS 03:33 | PROVIDERS: ATTEND Surgery | DX: R10.9 Unspecified abdominal pain (principal) | CPT/HCPCS: A0425; A0429 ==

== ENCOUNTER 2019-03-31 03:39 | Emergency (ER) | payer MEDICAID ==
--- NOTE | 2019-03-31 03:56 | ED Physician Documentation ---
PD HPI ABD PAIN - Stated complaint Stated Complaint: ABD PAIN - Chief complaint Chief Complaint: Abd Pain - History obtained from History obtained from: Patient - History of Present Illness Timing - onset: How many days ago (3) Timing - details: Gradual onset, Constant, Waxing and waning, Still present in ED Pain level max: >10 Pain level now: >10 Quality: Pain Location: All over / everywhere Radiation: Lower back Improved by: Other (nothing) Worsened by: Other (no exacerbating factors) Associated symptoms: No: Fever, Nausea, Vomiting, Diarrhea, Constipation Similar symptoms before: Diagnosis (ascites, cirrhosis) Recently seen: Emergency Dept - Additional information Additional information: [facility] ED visit since November 2018 (four months ago). Notes from her first visit in November reflect that she had moved from [place] within 2 weeks of this first [facility] visit with h/o ascites and cirrhosis without having established with local physicians. She was admitted to this hospital on her first two [facility] ED visits and has had 2-4 [facility] ED visits per month since November. These visits have been for fluid retention/ascites, abdominal pain, GI bleeding. PEYTON morrow for abdominal pain and abdominal distention. She says she was scheduled for paracentesis yesterday (Tuesday) at [facility] but that the company providing transportation contacted her on Tuesday and told her they needed to cancel the transfer arrangements. She presents due to abdominal distention and pain. She says she has no pain medication at home. JOLYNN reflects rx was filled for 30 tablets of 5mg oxycodone 6 days ago, she says she has none of these left; she says she has taken them all, but that 6 of the tablets fell down the sink. Review of Systems Constitutional: denies: Fever, Chills, Sweats Cardiac: reports: Reviewed and negative Respiratory: reports: Dyspnea. denies: Cough GI: reports: Abdominal Pain. denies: Nausea, Vomiting, Constipation, Diarrhea : denies: Dysuria, Frequency Skin: denies: Rash Musculoskeletal: reports: Back pain Neurologic: denies: Generalized weakness, Focal weakness, Numbness, Headache PD PAST MEDICAL HISTORY - Past Medical History Cardiovascular: Congestive heart failure Respiratory: Pneumonia, Shortness of breath Neuro: None Endocrine/Autoimmune: HyPOthyroidism GI: Esophageal varices, Hepatitis, Cirrhosis [employer]: Miscarriage(s), Other : Other HEENT: None Psych: Other Musculoskeletal: Chronic back pain Derm: None - Past Surgical History Past Surgical History: Yes General: Hiatal hernia repair 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 12/02/18 03/08/19 Spironolactone 100 mg PO DAILY #120 tablet 12/02/18 03/08/19 Ascorbic Acid [Vitamin C] 500 mg PO BID 12/05/18 03/08/19 Mirtazapine 15 mg PO DAILY 01/08/19 03/08/19 Multivitamin [Daily Multiple 1 each PO DAILY 01/08/19 03/08/19 Vitamin] Ondansetron Odt [Zofran] 4 mg TL Q6H PRN 01/08/19 03/08/19 Morphine Sulfate 15 mg PO Q6HR PRN #10 tablet 01/21/19 03/08/19 oxyCODONE [Roxicodone] 5 mg PO Q4-6H PRN #10 tablet 01/31/19 03/08/19 Sucralfate [Carafate] 1 gm PO ACHS #60 tablet 02/20/19 03/08/19 oxyCODONE [Roxicodone] 5 mg PO Q4-6H #10 tablet 02/20/19 03/08/19 oxyCODONE [Roxicodone] 5 mg PO Q4-6H PRN #14 tablet 03/31/19 - Allergies Allergies/Adverse Reactions: Allergies Allergy/AdvReac Type Severity Reaction Status Date / Time acetaminophen [From Tylenol] Allergy Unknown Verified 03/08/19 02:19 NSAIDS (Non-Steroidal Allergy Unknown Verified 03/08/19 02:19 Anti-Inflamma - Social History Does the pt smoke?: No Smoking Status: Never smoker Does the pt drink ETOH?: No Does the pt have substance abuse?: No - Immunizations Immunizations are current?: Yes - POLST Patient has POLST: No POLST Status: Full Code PD ED PE NORMAL - Vitals Vital signs reviewed: Yes - General General: Alert and oriented X 3, Well developed/nourished, Other (waxing and w aning discomfort during H+P) - Neck Neck: Supple, no meningeal sign - Cardiac Cardiac: RRR, No murmur - Respiratory Respiratory: No respiratory distress, Clear bilaterally - Abdomen Abdomen: Soft, Other (large umbilical hernia that is soft, NT) - Back Back: No CVA TTP - Derm Derm: Normal color, Warm and dry - Extremities Extremities: Other (mild (1+) BLE edema) - Neuro Neuro: Alert and oriented X 3 PD ED PE EXPANDED - Abdomen Abdomen: Distended, Other (at times TTP, but at times she turns face-down on stretcher without apparent discomfort. Additionally, she is nontender in all four abdominal quadrants when distracted (such as when asked surgical history)) Results - Vitals Vitals: Oxygen O2 Source Room air - Labs Labs: Laboratory Tests 03/31/19 03/31/19 03/31/19 03:40 03:40 04:20 WBC 5.0 RBC 3.16 L Hgb 7.8 L Hct 25.8 L MCV 81.6 MCH 24.7 L MCHC 30.2 L RDW 21.2 H Plt Count 175 MPV 9.2 Neut # (Auto) 3.6 Lymph # (Auto) 0.3 L Waller # (Auto) 0.6 Eos # (Auto) 0.4 Baso # (Auto) 0.0 Absolute Nucleated RBC 0.00 Nucleated RBC % 0.0 PT INR APTT Sodium 135 Potassium 4.6 Chloride 106 Carbon Dioxide 19 L Anion Gap 10.0 BUN 51 H Creatinine 1.8 H Estimated GFR (MDRD) 30 L Glucose 108 H Calcium 8.7 Magnesium 2.1 Total Bilirubin 1.1 H AST 40 ALT 24 Alkaline Phosphatase 87 Ammonia 16.3 Total Protein 6.5 L Albumin 3.8 Globulin 2.7 Albumin/Globulin Ratio 1.4 Lipase 66 H 03/31/19 04:20 WBC RBC Hgb Hct MCV MCH MCHC RDW Plt Count MPV Neut # (Auto) Lymph # (Auto) Waller # (Auto) Eos # (Auto) Baso # (Auto) Absolute Nucleated RBC Nucleated RBC % PT 14.3 H INR 1.3 H APTT 39.9 H Sodium Potassium Chloride Carbon Dioxide Anion Gap BUN Creatinine Estimated GFR (MDRD) Glucose Calcium Magnesium Total Bilirubin AST ALT Alkaline Phosphatase Ammonia Total Protein Albumin Globulin Albumin/Globulin Ratio Lipase Procedures - Paracentesis Preparation: Consent obtained, Ultrasound guidance, Sterile prep and drape, Local anesthesia Location: LLQ Technique: Z-tract, Catheter over needle Fluid: Cloudy, Volume - enter cc (5200) Aftercare: No complications, Patient tolerated well, Dressing applied PD MEDICAL DECISION MAKING - ED course Complexity details: reviewed old records, reviewed results, re-evaluated patient, considered differential, d/w patient ED course: given oxycodone without improvement. She had excellent pain relief with single dose of 1mg IV dilaudid. odalys's anemia is comparable to some of her recent ED visits, and notes ref lect that it is exceptionally difficult to obtain cross-matched blood for this patient due to numerous antibodies. She does not have signs nor symptoms clearly attributable to anemia (her dyspnea is subjective; she speaks full sentences during ED stay and reported resolution of dyspnea once the paracentesis was completed). Departure - Departure Disposition: 01 Home, Self Care Clinical Impression: Ascites Qualifiers: Ascites type: due to alcoholic cirrhosis Qualified Code(s): K70.31 - Alcoholic cirrhosis of liver with ascites Anemia Qualifiers: Anemia type: unspecified type Qualified Code(s): D64.9 - Anemia, unspecified Condition: Stable Instructions: ED Ascites, ED Cirrhosis Liver Follow-Up: SHREYAS POZO MD [Primary Care Provider] - Prescriptions: oxyCODONE [Roxicodone] 5 mg PO Q4-6H PRN #14 tablet PRN Reason: Pain Discharge Date/Time: 03/31/19 10:30
[2019-03-31] MEDS ORDERED: oxyCODONE 5 MG TABLET PO STA ×2 (04:10→09:44)
[2019-03-31 04:17] LABS: BASOPHILS % (AUTO) 0.8 %; EOSINOPHILS # (AUTO) 0.4 10^3/uL (0.0-0.7); EOSINOPHILS % (AUTO) 8.2 %; HGB - HEMOGLOBIN 7.8 g/dL (12.0-16.0); LYMPHOCYTES # (AUTO) 0.3 10^3/uL (1.5-3.5); LYMPHOCYTES % (AUTO) 6.2 %; MEAN CORPUSCULAR HEMOGLOBIN 24.7 pg (27.0-31.0); MEAN CORPUSCULAR HGB CONC 30.2 g/dL (32.0-36.0); MEAN CORPUSCULAR VOLUME 81.6 fL (81.0-99.0); MEAN PLATELET VOLUME 9.2 fL (7.9-10.8); MONOCYTES # (AUTO) 0.6 10^3/uL (0.0-1.0); MONOCYTES % (AUTO) 12.7 %; NEUTROPHILS # (AUTO) 3.6 10^3/uL (1.5-6.6); NEUTROPHILS % (AUTO) 71.5 %; PLT - PLATELET COUNT 175 10^3/uL (130-450); RED BLOOD COUNT 3.16 10^6/uL (4.20-5.40); RED CELL DISTRIBUTION WIDTH 21.2 % (12.0-15.0)
[2019-03-31 04:26] LABS: ALBUMIN 3.8 g/dL (3.2-5.5); ALBUMIN/GLOBULIN RATIO 1.4 (1.0-2.2); BILIRUBIN,TOTAL 1.1 mg/dL (0.2-1.0); CALCIUM 8.7 mg/dL (8.5-10.3); CREATININE 1.8 mg/dL (0.4-1.0); MAGNESIUM 2.1 mg/dL (1.7-2.8); TOTAL PROTEIN 6.5 g/dL (6.7-8.2)
[2019-03-31 04:31] LABS: INR 1.3 (0.8-1.2); PT - PROTHROMBIN TIME 14.3 secs (9.9-12.6)
[2019-03-31 04:38] LABS: PARTIAL THROMBOPLASTIN TIME 39.9 secs (24.9-33.3)
[2019-03-31] MEDS ORDERED: MORPHINE 2 MG/ML CARPUJECT IVP STA (05:00)
[2019-03-31] MEDS ORDERED: HYDROmorphone 1 MG/ML CARPUJECT ONE (05:16)
[2019-03-31] MEDS ORDERED: HYDROmorphone 1 MG/ML CARPUJECT IVP STA (05:16)
[2019-03-31] MEDS ORDERED: SODIUM CHLORIDE 0.9% 500 ML IV STA (05:53)
[2019-03-31] MEDS ORDERED: ALBUMIN 25% 12.5 GM/50 ML VIAL IV STA (09:01)
[2019-03-31 10:05] VITALS: BP 116/75
== END 2019-03-31 10:30 | disposition home or self-care (01) ==
LOC: EDUNIT# → ED 03:39
DX: K70.31 Alcoholic cirrhosis of liver with ascites (principal); D64.9 Anemia, unspecified
CPT/HCPCS: 36415; 49083; 80053; 82140; 83690; 83735; 85025; 85610; 85730; 96361; 96374; 96375; 99284; A9270; J1170; P9047

== ENCOUNTER 2019-04-29 20:18 | Outpatient (CLI) | payer OTHER, MEDICAID | END 2019-04-29 20:19 | disposition critical access hospital (66) | LOC: EMS 20:18 | PROVIDERS: ATTEND Surgery | DX: R41.0 Disorientation, unspecified (principal) | CPT/HCPCS: A0425; A0429; A0999 ==

== ENCOUNTER 2019-04-29 20:24 | Inpatient (IN) | payer OTHER, MEDICAID ==
--- NOTE | 2019-04-29 20:42 | ED Physician Documentation ---
PD HPI ALTERED MENTAL STATUS - Stated complaint Stated Complaint: AMS - Chief complaint Chief Complaint: Neuro - History obtained from History obtained from: EMS - History of Present Illness Timing - onset: Yesterday (Last seen normal yesterday, today she is quite altered. She was released from [facility] days ago after TIPS procedure. The hospitalization was prolonged due to some sort of complication. Patient is unable to give any significant history due to all. Review of the chart, personal recollection, and review of the ED i.e. notification show that she has cirrhosis due to hepatitis C and alcohol, history of ascites and varices. 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 12/02/18 03/08/19 Spironolactone 100 mg PO DAILY #120 tablet 12/02/18 03/08/19 Ascorbic Acid [Vitamin C] 500 mg PO BID 12/05/18 03/08/19 Mirtazapine 15 mg PO DAILY 01/08/19 03/08/19 Multivitamin [Daily Multiple 1 each PO DAILY 01/08/19 03/08/19 Vitamin] Ondansetron Odt [Zofran] 4 mg TL Q6H PRN 01/08/19 03/08/19 Morphine Sulfate 15 mg PO Q6HR PRN #10 tablet 01/21/19 03/08/19 oxyCODONE [Roxicodone] 5 mg PO Q4-6H PRN #10 tablet 01/31/19 03/08/19 Sucralfate [Carafate] 1 gm PO ACHS #60 tablet 02/20/19 03/08/19 oxyCODONE [Roxicodone] 5 mg PO Q4-6H #10 tablet 02/20/19 03/08/19 oxyCODONE [Roxicodone] 5 mg PO Q4-6H PRN #14 tablet 03/31/19 - Allergies Allergies/Adverse Reactions: Allergies Allergy/AdvReac Type Severity Reaction Status Date / Time acetaminophen [From Tylenol] Allergy Unknown Verified 03/08/19 02:19 NSAIDS (Non-Steroidal Allergy Unknown Verified 03/08/19 02:19 Anti-Inflamma - Social History Does the pt smoke?: No Smoking Status: Never smoker Does the pt drink ETOH?: No Does the pt have substance abuse?: No - Immunizations Immunizations are current?: Yes - POLST Patient has POLST: No POLST Status: Full Code PD ED PE NORMAL - Vitals Vital signs reviewed: Yes - General General: Other (She is alert and oriented to person only. She cannot name the year. I asked her if anything is wrong and she just keeps saying I do not feel well, she cannot elaborate.) - HEENT HEENT: PERRL (Mildly icteric), Other (Dry mucous membranes) - Neck Neck: Supple, no meningeal sign, No bony TTP - Cardiac Cardiac: RRR, No murmur - Respiratory Respiratory: No respiratory distress, Clear bilaterally - Abdomen Abdomen: Other (Large umbilical hernia, chronic, no abdominal tenderness, only mild to moderate ascites, not tense.) - Back Back: No CVA TTP, No spinal TTP - Derm Derm: Normal color, Warm and dry - Extremities Extremities: No calf tenderness / cord, Other (Moderate pitting pedal edema symmetric) - Neuro Neuro: Other (She follows simple commands but attention is short. She is alert and oriented x1 only) Eye Opening: Spontaneous Motor: Obeys Commands Verbal: Confused GCS Score: 14 Results - Vitals Vitals: Vital Signs - 24 hr 04/29/19 04/29/19 20:28 21:17 Temperature 36.9 C Heart Rate 71 70 Respiratory 18 16 Rate Blood Pressure 162/97 H 152/102 H O2 Saturation 98 95 Oxygen O2 Source Room air - EKG (time done) 2035 Rate: Rate (enter#) (70) Rhythm: NSR [place]: Normal Intervals: Normal LA QRS: Low voltage Ischemia: Normal ST segments Computer interpretation: Agree with computer - Labs Labs: Laboratory Tests 04/29/19 04/29/19 04/29/19 21:10 21:10 21:10 PT 20.0 H INR 1.8 H Sodium 135 Potassium 4.6 Chloride 105 Carbon Dioxide 19 L Anion Gap 11.0 BUN 28 H Creatinine 1.3 H Estimated GFR (MDRD) 43 L Glucose 117 H Calcium 8.5 Total Bilirubin 2.5 H AST 49 H ALT 48 Alkaline Phosphatase 96 Ammonia 109.4 H* Total Protein 5.6 L Albumin 2.9 L Globulin 2.7 Albumin/Globulin Ratio 1.1 Lipase 122 H Salicylates < 6.0 Acetaminophen < 10 L Ethyl Alcohol < 5.0 PD MEDICAL DECISION MAKING - ED course ED course: 49-year-old woman presents with encephalopathy after TIPS, this is typical timeframe for post TIPS hepatic encephalopathy confirmed with ammonia level. Head CT negative except for chronic sinusitis. She was administered lactulose here and a call was made to Dr. Morrell for admission at 9:46 PM. Departure - Departure Disposition: 66 [facility] DC/Xfer Clinical Impression: Hepatic encephalopathy Condition: Serious
--- NOTE | 2019-04-29 21:07 | CT Report ---
Reason: altered Procedure Date: 04/29/2019 Accession Number: [id number] / [id number] Procedure: CT - HEAD WO CPT Code: Final Report FULL RESULT: EXAM: CT HEAD EXAM DATE: 04/29/2019 08:50 PM. CLINICAL HISTORY: Altered. COMPARISON: None. TECHNIQUE: Multiaxial CT images were obtained from the foramen magnum to the vertex. Reformats: Sagittal and coronal. IV contrast: None. In accordance with CT protocol optimization, one or more of the following dose reduction techniques were utilized for this exam: automated exposure control, adjustment of mA and/or KV based on patient size, or use of iterative reconstructive technique. FINDINGS: Parenchyma: No intraparenchymal hemorrhage. No evidence of mass, midline shift, or CT findings of infarction. Sauer-white differentiation is distinct. Extraaxial Spaces: Normal for age. There is a dense extra-axial rounded ossification/calcification anterior to the right temporal lobe. This likely represents a small dense meningioma injuring 10 mm. Ventricles: Normal in size and position. Sinuses and Orbits: There is complete opacification of the right maxillary antrum. There is also some mucosal thickening in the right ethmoid air cells and moderate callosal thickening inferiorly in the left maxillary antrum. Bones: No evidence of fracture or calvarial defect. Other: None. IMPRESSION: 1. No acute changes in the brain. 2. 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 3. Evidence for chronic sinusitis. RADIA
[2019-04-29 21:25] LABS: INR 1.8 (0.8-1.2)
[2019-04-29 21:28] LABS: ACETAMINOPHEN < 10 ug/mL (10-30); ALBUMIN 2.9 g/dL (3.2-5.5); ALBUMIN/GLOBULIN RATIO 1.1 (1.0-2.2); ALKALINE PHOSPHATASE 96 IU/L (42-121); ALT ALANINE AMINOTRANSFERASE 48 IU/L (10-60); AST ASPARTATE AMINOTRANSFERASE 49 IU/L (10-42); BILIRUBIN,TOTAL 2.5 mg/dL (0.2-1.0); BUN - BLOOD UREA NITROGEN 28 mg/dL (6-20); CALCIUM 8.5 mg/dL (8.5-10.3); CARBON DIOXIDE - CO2 19 mmol/L (21-32); CHLORIDE 105 mmol/L (101-111); CREATININE 1.3 mg/dL (0.4-1.0); GFR - MDRD 43 (>89); GLUCOSE 117 mg/dL (70-100); LIPASE 122 U/L (22-51); SALICYLATE < 6.0 mg/dL; SODIUM 135 mmol/L (135-145); TOTAL PROTEIN 5.6 g/dL (6.7-8.2)
[2019-04-29 21:36] LABS: BASOPHILS # (AUTO) 0.1 10^3/uL (0.0-0.1); BASOPHILS % (AUTO) 0.8 %; EOSINOPHILS # (AUTO) 0.2 10^3/uL (0.0-0.7); EOSINOPHILS % (AUTO) 2.8 %; LYMPHOCYTES # (AUTO) 0.5 10^3/uL (1.5-3.5); MEAN CORPUSCULAR HEMOGLOBIN 22.6 pg (27.0-31.0); MEAN CORPUSCULAR HGB CONC 29.1 g/dL (32.0-36.0); MEAN CORPUSCULAR VOLUME 77.7 fL (81.0-99.0); MEAN PLATELET VOLUME 8.7 fL (7.9-10.8); MONOCYTES # (AUTO) 0.8 10^3/uL (0.0-1.0); MONOCYTES % (AUTO) 10.3 %; NEUTROPHILS % (AUTO) 79.4 %; PLT - PLATELET COUNT 151 10^3/uL (130-450); RED BLOOD COUNT 3.54 10^6/uL (4.20-5.40); RED CELL DISTRIBUTION WIDTH 25.2 % (12.0-15.0); WHITE BLOOD COUNT 7.5 x10^3/uL (4.8-10.8)
[2019-04-29 21:41] LABS: MUDS CUTOFF CONCENTRATIONS CUTOFF CONC BELOW:
[2019-04-29 21:43] LABS: BILIRUBIN,URINE NEGATIVE (NEGATIVE); GLUCOSE, URINE (UA) NEGATIVE (NEGATIVE); KETONES,URINE (UA) NEGATIVE (NEGATIVE); LEUKOCYTE ESTERASE, URINE NEGATIVE (NEGATIVE); NITRITE,URINE NEGATIVE (NEGATIVE); OCCULT BLOOD,URINE SMALL (NEGATIVE); PROTEIN,URINE 30 mg/dL (NEGATIVE); UROBILINOGEN,URINE 1 (NORMAL) E.U./dL (NORMAL)
[2019-04-29] MEDS ORDERED: LACTULOSE 10 GM /15 ML UDC PO STA (21:43)
[2019-04-29 21:46] LABS: CLARITY,URINE CLEAR (CLEAR)
[2019-04-29 21:52] LABS: BACTERIA,URINE None Seen /HPF (None Seen); SQUAMOUS EPITHELIAL CELL,UR NONE SEEN (<= Few); WBC CLUMPS,URINE PRESENT
[2019-04-29 21:53] LABS: AMPHETAMINE SCREEN,URINE NEGATIVE (NEGATIVE); BENZODIAZEPINES SCREEN, URINE NEGATIVE (NEGATIVE); COCAINE SCREEN URINE NEGATIVE (NEGATIVE); METHADONE SCREEN, URINE NEGATIVE (NEGATIVE); METHAMPHETAMINES SCREEN, URINE NEGATIVE (NEGATIVE); OPIATE SCREEN, URINE NEGATIVE (NEGATIVE); OXYCODONE SCREEN, URINE POSITIVE (NEGATIVE); PROPOXYPHENE SCREEN, URINE NEGATIVE (NEGATIVE); TRICYCLIC ANTIDEPRESSANT,URINE NEGATIVE (NEGATIVE)
[2019-04-29] MEDS ORDERED: LACTULOSE 10 GM /15 ML UDC PO SCH (22:00)
[2019-04-29 22:04] LABS: PLATELET ESTIMATE, MANUAL NORMAL (130-450,000) (NORMAL); PLATELET MORPHOLOGY NORMAL APPEARANCE (NORMAL)
--- NOTE | 2019-04-29 22:05 | HISTORY & PHYSICAL EXAMINATION ---
Chief Complaint - Chief Complaint Chief Complaint: Altered mental status History of Present Illness - Admitted From Admitted From:: Home - History Obtained From Records Reviewed: Yes History obtained from: Family, ER Physician Exam Limitations: Patient is altered and unable to provide a history. - History of Present Illness HPI Comment/Other: This is a 49-year-old female with a past medical history significant for liver cirrhosis secondary to hepatitis C and alcohol use who underwent a tips procedure earlier this month at [facility] on April 17. She was discharged just three days ago. History is obtained from the daughter as the patient is altered and unable to provide a history. Her daughter states she was doing quite well yesterday and today she went to work and when she returned home she found her mother still asleep in bed. When she woke her up the patient kept saying "I am cold." When her daughter asked to any other questions the patient kept repeating the same answer. The daughter was concerned she may have been having a stroke and so she brought her to emergency department. She has been r eportedly taking her lactulose at least twice a day although she did not take it today as she was asleep all day. The daughter also believes the patient did not take her oxycodone today and that she last took 2 tablets last night for her chronic back pain. She is currently not taking her Aldactone and furosemide as that was held after her discharge from [facility] she had acute kidney injury and her creatinine was as high as 2.2. Daughter states her hospital course was complicated by anemia requiring transfusions and acute kidney injury. 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 Huerta at [facility]. She is currently receiving therapy with Ep[facility] for hepatitis C. Daughter states the patient has been doing quite well otherwise. She does not drink alcohol anymore and she is now aware of any potential drug use. The patient was not complaining of anything in particular yesterday. In the emergency department, she was afebrile, heart rate in the 70s, hypertensive systolic blood pressure in the 150s. She is not tachypneic and saturating well on room air. Labs are significant for hemoglobin of 8 which is around her baseline. Her INR is elevated at 1.8. Her creatinine is 1.3 which i s actually little bit lower than her baseline of 1.6-1.8. Her ammonia was found to be elevated at 109. Urine drug screen was positive for oxycodone but otherwise negative. A CT of the head was unremarkable. Medicine was consulted for admission given the concern for hepatic encephalopathy after undergoing a TIPS procedure. She did receive lactulose 20 g in the emergency department. Did discuss goals of care with the patient's daughter over the phone and she states the patient would like to be a full code. History - Past Medical History Cardiovascular: reports: Congestive heart failure Neuro: reports: None Endocrine/Autoimmune: reports: HyPOthyroidism GI: reports: Esophageal varices, GI bleed, Hepatitis, Cirrhosis CLAIMS CONSULTANT: reports: Miscarriage(s) : reports: Renal insuffiency HEENT: reports: None Musculoskeletal: reports: Chronic back pain Derm: reports: None MRSA Hx?: No - Past Surgical History General: reports: Hiatal hernia repair Ortho: reports: Other /CLAIMS CONSULTANT: reports: Tubal ligation HEENT: reports: Other - Family & Social History Family History: Mother: , Father: , Hypertension Family History Comment/Other: Father had esophageal cancer. Mother had CVA at 62. Extensive family history of colon cancer on maternal side. Living arrangement: At home Living Situation: With family Social History Notes: She moved to [facility] from [place] to live with her daughter back in November. She does not currently use alcohol, tobacco or illicit drugs. She has a significant past history of alcohol abuse. 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 - Substance History Use: Uses substance without health or social issues: Alcohol - POLST Patient has POLST: No POLST Status: Full Code Meds/Allgy - Home Medications Home Medications: Ambulatory Orders Medication Instructions Recorded Confirmed Cholecalciferol (Vitamin D3) 2,000 units PO DAILY #60 capsule 12/02/18 03/08/19 [Vitamin D3] Ferrous Sulfate 325 mg PO DAILY #30 tablet 12/02/18 03/08/19 Furosemide 40 mg PO DAILY #30 tablet 12/02/18 03/08/19 Levothyroxine [Synthroid] 50 mcg PO QDAC #60 tablet 12/02/18 03/08/19 Multivitamin W/Minerals [Theragran 1 tab PO DAILY #30 tablet 12/02/18 03/08/19 M] Pantoprazole Sodium 40 mg PO BID #60 tablet. 12/02/18 03/08/19 Spironolactone 100 mg PO DAILY #120 tablet 12/02/18 03/08/19 Ascorbic Acid [Vitamin C] 500 mg PO BID 12/05/18 03/08/19 Mirtazapine 15 mg PO DAILY 01/08/19 03/08/19 Multivitamin [Daily Multiple 1 each PO DAILY 01/08/19 03/08/19 Vitamin] Ondansetron Odt [Zofran] 4 mg TL Q6H PRN 01/08/19 03/08/19 Morphine Sulfate 15 mg PO Q6HR PRN #10 tablet 01/21/19 03/08/19 oxyCODONE [Roxicodone] 5 mg PO Q4-6H PRN #10 tablet 01/31/19 03/08/19 Sucralfate [Carafate] 1 gm PO ACHS #60 tablet 02/20/19 03/08/19 oxyCODONE [Roxicodone] 5 mg PO Q4-6H #10 tablet 02/20/19 03/08/19 oxyCODONE [Roxicodone] 5 mg PO Q4-6H PRN #14 tablet 03/31/19 - Allergies Allergies/Adverse Reactions: Allergies Allergy/AdvReac Type Severity Reaction Status Date / Time acetaminophen [From Tylenol] Allergy Unknown Verified 03/08/19 02:19 NSAIDS (Non-Steroidal Allergy Unknown Verified 03/08/19 02:19 Anti-Inflamma Review of Systems - All Other Systems All Other Systems: reports: Other (Unable to obtain review of systems due to her altered mental status.) Prior Level of Functionality: She is independent with her ADLs. Exam - Vital Signs Reviewed Vital Signs: Yes Vital Signs: Vital Signs x48h Temp Pulse Resp BP Pulse Ox 04/29/19 21:17 70 16 152/102 H 95 04/29/19 20:28 36.9 C 71 18 162/97 H 98 - Physical Exam General Appearance: positive: No acute distress, Alert Eyes Bilateral: positive: Normal inspection ENT: positive: ENT inspection nml Neck: positive: Nml inspection Respiratory: positive: No respiratory distress, Other (Difficult to assess her breath sounds as she keeps speaking while auscultating. No obvious abnormal breath sounds present.) Cardiovascular: positive: Regular rate & rhythm, No murmur. negative: Tachycardia, Bradycardia, Systolic murmur, Diastolic murmur Abdomen: positive: Non-tender, No distention. negative: Tenderness, Guarding, Rebound Skin: positive: No rash, Warm Extremities: positive: Full ROM, Pedal edema (She has +2 pitting edema in the bilateral lower extremities.) Neurologic/Psychiatric: positive: Disoriented to place, Disoriented to time, Slurred/abnml speech (Her speech is quite pressured she keeps repeating sen tences and yelling out in song.), Other (No focal motor deficits and is moving all 4 extremities) Conclusion/Plan - Problem List (1) Hepatic encephalopathy Conclusion/Plan: Suspect her encephalopathy is secondary to hepatic encephalopathy given her elevated ammonia although I would not suspect somebody to be so active and agitated with hepatic encephalopathy. This was likely exacerbated after her TIPS procedure. There is currently no evidence of infection or hypovolemia as a trigger of her hepatic encephalopathy. CT of the head was unremarkable. Her urine drug screen was unremarkable except for oxycodone which she takes at home. She has already received lactulose and we will continue this. Will titrate lac tulose to 2-3 bowel movements a day. Given she has reportedly been compliant with lactulose, will start her on Rifaximin as well. Will use Haldol IV as needed as she is a potential harm to herself. We will also have her on one-to-one observation. (2) Cirrhosis of liver Conclusion/Plan: Is history of liver cirrhosis secondary to hepatitis C and alcohol use. She recently underwent a TIPS. Unclear if it was for significance ascites or for esophageal bleeding. Her INR is elevated at 1.8 and her LFTs are relatively stable compared to prior although her total bili is slightly elevated. We will continue to trend her LFTs. She is on spironolactone, furosemide at home but this has been held since discharge from [facility] given she had acute kidney injury there. 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 Huerta at [facility]. Qualifiers: Hepatic cirrhosis type: alcoholic cirrhosis Ascites presence: with ascites Qualified Code(s): K70.31 - Alcoholic cirrhosis of liver with ascites (3) Anemia Conclusion/Plan: She has a history of iron deficiency and is currently seen on iron supplementation. There may also be a component of her chronic disease contributing to her anemia. She is currently at her baseline of approximately 8. Daughter reports that her hemoglobin was 8.2 on discharge from [facility]. She did require blood transfusions during that hospitalization. No evidence of bleeding at this time. Will use SCDs for DVT prophylaxis. Qualifiers: Anemia type: unspecified type Qualified Code(s): D64.9 - Anemia, unspecified (4) CKD (chronic kidney disease) stage 3, GFR 30-59 ml/min Conclusion/Plan: Her baseline creatinine is approximately 1.5. Her creatinine today is actually the lowest it has been in quite some time at 1.3. We will continue to monitor her renal function and urine output. (5) Hepatitis C Conclusion/Plan: He has history of hepatitis C likely from IV drug use. This is a contributing factor to her liver cirrhosis. She follows with GI (Dr. Huerta) at [facility] and is currently receiving therapy with Epclusa. Qualifiers: Viral hepatitis chronicity: chronic (6) History of alcohol abuse Conclusion/Plan: She also history of alcohol abuse which likely contributed to her liver cirrhosis. She is no longer actively drinking. (7) History of esophageal varices with bleeding Conclusion/Plan: She does have a history of esophageal varices with bleeding. She did recently undergo a TIPS procedure. Currently there is no evidence of bleeding and hemoglobin stable at 8.0. We will monitor for evidence of bleeding. (8) Hypothyroidism Conclusion/Plan: Stable. We will continue her home Synthroid. - Lab Results Lab results reviewed: Yes Napoleon Bones: 04/29/19 21:30 04/29/19 21:10 - Diagnostic Imaging Results Diagnostic Imaging Results: positive: Final report reviewed - EKG Results EKG Interpreted Independently: Yes EKG Comparison: Unchanged from prior EKG EKG Findings: Sinus rhythm without ST segment changes. Core Measures - Anticipated LOS I expect patient to be DC'd or transferred within 96 hours.: Yes - Issues Hospital Issues and Management Plan: She is admitted for encephalopathy likely hepatic in nature given elevated ammonia and her recent TIPS procedure. Will administer lactulose and monitor her neurologic status. - DVT/VTE - Prophylaxis VTE/DVT Device ordered at admit?: Yes VTE/DVT Prophylaxis med ordered at admit?: No Not Ordered - Medical Reason: Not indicated
[2019-04-29] MEDS ORDERED: HALOPERIDOL 5 MG/ML VIAL ONE (22:30)
[2019-04-29] MEDS ORDERED: HALOPERIDOL 5 MG/ML VIAL IVP ONE (22:31)
[2019-04-29] MEDS ORDERED: HALOPERIDOL 5 MG/ML VIAL IM ONE (22:58)
[2019-04-30] MEDS: rifAXIMin 550 MG TABLET PO SCH ×5 (00:01→20:34)
[2019-04-30] MEDS ORDERED: HALOPERIDOL 5 MG/ML VIAL IVP PRN (00:28)
[2019-04-30] MEDS ORDERED: HALOPERIDOL 5 MG/ML VIAL IM PRN (00:52)
[2019-04-30] MEDS: SODIUM CHLORIDE FLUSH 0.9% 10 ML SYRINGE IVP SCH ×3 (01:05→17:37)
[2019-04-30] MEDS: oxyCODONE 5 MG TABLET PO PRN ×3 (01:31→14:32)
[2019-04-30 05:42] LABS: BASOPHILS % (AUTO) 0.6 %; EOSINOPHILS # (AUTO) 0.3 10^3/uL (0.0-0.7); EOSINOPHILS % (AUTO) 4.4 %; HGB - HEMOGLOBIN 7.4 g/dL (12.0-16.0); LYMPHOCYTES # (AUTO) 0.5 10^3/uL (1.5-3.5); LYMPHOCYTES % (AUTO) 6.9 %; MEAN CORPUSCULAR HEMOGLOBIN 23.3 pg (27.0-31.0); MEAN CORPUSCULAR HGB CONC 30.6 g/dL (32.0-36.0); MEAN CORPUSCULAR VOLUME 76.3 fL (81.0-99.0); MEAN PLATELET VOLUME 8.1 fL (7.9-10.8); MONOCYTES # (AUTO) 0.7 10^3/uL (0.0-1.0); MONOCYTES % (AUTO) 9.9 %; NEUTROPHILS # (AUTO) 5.2 10^3/uL (1.5-6.6); NEUTROPHILS % (AUTO) 77.6 %; PLT - PLATELET COUNT 125 10^3/uL (130-450); RED BLOOD COUNT 3.17 10^6/uL (4.20-5.40); RED CELL DISTRIBUTION WIDTH 24.8 % (12.0-15.0); WHITE BLOOD COUNT 6.7 x10^3/uL (4.8-10.8)
[2019-04-30 05:51] LABS: INR 1.7 (0.8-1.2); PT - PROTHROMBIN TIME 18.3 secs (9.9-12.6)
[2019-04-30 06:02] LABS: ALBUMIN 2.6 g/dL (3.2-5.5); BILIRUBIN,DIRECT 0.9 mg/dL (0.1-0.5); BILIRUBIN,TOTAL 2.6 mg/dL (0.2-1.0); CALCIUM 8.4 mg/dL (8.5-10.3); CREATININE 1.2 mg/dL (0.4-1.0); PHOSPHORUS 3.9 mg/dL (2.5-4.6)
[2019-04-30 06:16] LABS: PLATELET ESTIMATE, MANUAL DECREASED (<130,000) (NORMAL); PLATELET MORPHOLOGY NORMAL APPEARANCE (NORMAL)
--- NOTE | 2019-04-30 08:20 | PROVIDER PROGRESS NOTE ---
Subjective - Prog Note Date Prog Note Date: 04/30/19 Prog Note Time: 15:19 - Subjective Subjective: This morning to asleep to take lactulose p.o. I ordered lactulose per rectum. Nursing was able to wake enough to take p.o. She is had one bowel movement. Sk[employer]pper recommends oral iron replacement Current Medications - Current Medications Current Medications: Active Medications Haloperidol (Haldol Inj) 1 mg IM Q6H PRN PRN Reason: Agitation Last Admin: 04/30/19 01:31 Dose: 1 mg Lactulose (Enulose) 20 gm PO TID [facility] Last Admin: 04/30/19 11:52 Dose: 20 gm Lactulose (Lactulose) 60 gm [place] BID [facility] Last Admin: 04/30/19 11:55 Dose: Not Given Levothyroxine Sodium (Synthroid) 50 mcg PO QDAC [facility] Last Admin: 04/30/19 10:18 Dose: Not Given Ondansetron HCl (Zofran Inj) 4 mg IVP Q6HR PRN PRN Reason: Nausea / Vomiting Oxycodone HCl (Roxicodone) 5 mg PO Q4HR PRN PRN Reason: PAIN Last Admin: 04/30/19 14:32 Dose: 5 mg Patient Own Meds ( Sofosbuvir 400mg - Velpatasvir 100mg) 1 each PO DAILY [facility] Last Admin: 04/30/19 10:19 Dose: Not Given Rifaximin (Xifaxan) 550 mg PO BID [facility] Last Admin: 04/30/19 10:19 Dose: Not Given Sodium Chloride (Normal Saline Flush 0.9%) 10 ml IVP PRN PRN PRN Reason: NEEDED PER PROVIDER ORDERS Sodium Chloride (Normal Saline Flush 0.9%) 10 ml IVP 0100,0900,1700 [facility] Last Admin: 04/30/19 08:30 Dose: Not Given Ascorbic Acid [Vitamin C] 500 mg PO BID 12/05/18 Mirtazapine 15 mg PO DAILY PRN 01/08/19 Ondansetron Odt [Zofran] 4 mg TL Q8H PRN 01/08/19 Ciprofloxacin [Cipro] 500 mg PO DAILY 04/30/19 Cyanocobalamin (Vitamin B-12) [Vitamin B-12] 1,000 mcg PO DAILY 04/30/19 Lactulose [Constulose] 30 ml PO TID 04/30/19 Levothyroxine [Synthroid] 50 mcg PO DAILY 04/30/19 Pantoprazole Sodium 40 mg PO DAILY 04/30/19 Sofosbuvir/Velpatasvir [Sofosbuvir-Velpatasvir 400-100] 1 tab PO DAILY 04/30/19 Sucralfate [Carafate] 1 gm PO QID 04/30/19 oxyCODONE [Roxicodone] 10 mg PO QID PRN 04/30/19 Objective - Vital Signs/Intake & Output Reviewed Vital Signs: Yes Vital Signs: Vital Signs x48h Temp Pulse Resp BP Pulse Ox 04/30/19 07:31 36.5 C 73 16 145/72 H 99 04/30/19 01:00 36.2 C L 82 20 137/84 H 100 - Objective General Appearance: positive: Lethargic Eyes Bilateral: positive: PERRL, EOMI, Other (icterus) ENT: positive: Pharynx nml Neck: positive: No JVD. negative: Stiff neck Respiratory: positive: Chest non-tender, Other (slwo unlbored respiration). negative: Wheezes, Rales, Rhonchi Cardiovascular: positive: Regular rate & rhythm, Systolic murmur. negative: Gallop/S4, Friction rub Abdomen: positive: Tenderness (mild and diffuse), Abnml bowel sounds (hypoactive), Other (mild fluid distension). negative: Guarding, Rebound Skin: positive: Warm, Dry, Other (anasarca and bruises) Extremities: positive: Full ROM, Pedal edema Neurologic/Psychiatric: positive: CN's nml (2-12), Disoriented to person, Disoriented to place, Disoriented to time, Slurred/abnml speech. negative: Motor nml (ataxia) - Lab Results Fish Bones: 04/30/19 05:26 04/30/19 05:26 Other Labs: Lab Results x24hrs 04/30/19 04/30/19 04/30/19 Range/Units 05:26 05:26 05:26 WBC (4.8-10.8) x10^3/uL RBC (4.20-5.40) 10^6/uL Hgb (12.0-16.0) g/dL Hct (37.0-47.0) % MCV (81.0-99.0) fL MCH (27.0-31.0) pg MCHC (32.0-36.0) g/dL RDW (12.0-15.0) % Plt Count (130-450) 10^3/uL MPV (7.9-10.8) fL Neut # (Auto) (1.5-6.6) 10^3/uL Lymph # (Auto) (1.5-3.5) 10^3/uL [place] # (Auto) (0.0-1.0) 10^3/uL Eos # (Auto) (0.0-0.7) 10^3/uL Baso # (Auto) (0.0-0.1) 10^3/uL Absolute Nucleated RBC x10^3/uL Nucleated RBC % /100WBC Manual Slide Review WBC Morphology (NORMAL) Platelet Estimate (NORMAL) Platelet Morphology (NORMAL) RBC Morph Micro Appear (NORMAL) PT 18.3 H (9.9-12.6) secs INR 1.7 H (0.8-1.2) Sodium 137 (135-145) mmol/L Potassium 4.3 (3.5-5.0) mmol/L Chloride 109 (101-111) mmol/L Carbon Dioxide 21 (21-32) mmol/L Anion Gap 7.0 (6-13) BUN 27 H (6-20) mg/dL Creatinine 1.2 H (0.4-1.0) mg/dL Estimated GFR (MDRD) 48 L (>89) Glucose 89 (70-100) mg/dL Calcium 8.4 L (8.5-10.3) mg/dL Phosphorus 3.9 (2.5-4.6) mg/dL Magnesium 2.0 (1.7-2.8) mg/dL Total Bilirubin 2.6 H (0.2-1.0) mg/dL Direct Bilirubin 0.9 H (0.1-0.5) mg/dL AST 41 (10-42) IU/L ALT 43 (10-60) IU/L Alkaline Phosphatase 94 (42-121) IU/L Ammonia 101.4 H* (7-35) umol/L Total Protein 5.0 L (6.7-8.2) g/dL Albumin 2.6 L (3.2-5.5) g/dL Globulin 2.4 (2.1-4.2) g/dL Albumin/Globulin Ratio (1.0-2.2) Lipase (22-51) U/L Urine Color Urine Clarity (CLEAR) Urine pH (5.0-7.5) PH Ur Specific [place] (1.002-1.030) Urine Protein (NEGATIVE) mg/dL Urine Glucose (UA) (NEGATIVE) mg/dL Urine Ketones (NEGATIVE) mg/dL Urine Occult Blood (NEGATIVE) Urine Nitrite (NEGATIVE) Urine Bilirubin (NEGATIVE) Urine Urobilinogen (NORMAL) E.U./dL Ur Leukocyte Esterase (NEGATIVE) Urine RBC (0-5) /HPF Urine WBC (0-5) /HPF Urine WBC Clumps Ur Squamous Epith Cells (<= Few) Urine Bacteria (None Seen) /HPF Ur Microscopic Review Urine Culture Comments Salicylates mg/dL Urine Opiates Screen (NEGATIVE) Ur Oxycodone Screen (NEGATIVE) Urine Methadone Screen (NEGATIVE) Ur Propoxyphene Screen (NEGATIVE) Acetaminophen (10-30) ug/mL Ur Barbiturates Screen (NEGATIVE) Ur Tricyclics Screen (NEGATIVE) Ur Phencyclidine Scrn (NEGATIVE) Ur Amphetamine Screen (NEGATIVE) U Methamphetamines Scrn (NEGATIVE) U Benzodiazepines Scrn (NEGATIVE) Urine Cocaine Screen (NEGATIVE) U Cannabinoids Screen (NEGATIVE) Ethyl Alcohol mg/dL 04/30/19 04/29/19 04/29/19 Range/Units 05:26 21:35 21:30 WBC 6.7 7.5 (4.8-10.8) x10^3/uL RBC 3.17 L 3.54 L (4.20-5.40) 10^6/uL Hgb 7.4 L 8.0 L (12.0-16.0) g/dL Hct 24.2 L 27.5 L (37.0-47.0) % MCV 76.3 L 77.7 L (81.0-99.0) fL MCH 23.3 L 22.6 L (27.0-31.0) pg MCHC 30.6 L 29.1 L (32.0-36.0) g/dL RDW 24.8 H 25.2 H (12.0-15.0) % Plt Count 125 L 151 (130-450) 10^3/uL MPV 8.1 8.7 (7.9-10.8) fL Neut # (Auto) 5.2 6.0 (1.5-6.6) 10^3/uL Lymph # (Auto) 0.5 L 0.5 L (1.5-3.5) 10^3/uL [place] # (Auto) 0.7 0.8 (0.0-1.0) 10^3/uL Eos # (Auto) 0.3 0.2 (0.0-0.7) 10^3/uL Baso # (Auto) 0.0 0.1 (0.0-0.1) 10^3/uL Absolute Nucleated RBC 0.00 0.00 x10^3/uL Nucleated RBC % 0.0 0.0 /100WBC Manual Slide Review Indicated Indicated WBC Morphology NORMAL APPEARANCE (NORMAL) Platelet Estimate DECREASED (<130,000) NORMAL (130-450,000) (NORMAL) Platelet Morphology NORMAL APPEARANCE NORMAL APPEARANCE (NORMAL) RBC Morph Micro Appear 2+ HYPOCHROMASIA 1+ HELMET CELLS (NORMAL) PT (9.9-12.6) secs INR (0.8-1.2) Sodium (135-145) mmol/L Potassium (3.5-5.0) mmol/L Chloride (101-111) mmol/L Carbon Dioxide (21-32) mmol/L Anion Gap (6-13) BUN (6-20) mg/dL Creatinine (0.4-1.0) mg/dL Estimated GFR (MDRD) (>89) Glucose (70-100) mg/dL Calcium (8.5-10.3) mg/dL Phosphorus (2.5-4.6) mg/dL Magnesium (1.7-2.8) mg/dL Total Bilirubin (0.2-1.0) mg/dL Direct Bilirubin (0.1-0.5) mg/dL AST (10-42) IU/L ALT (10-60) IU/L Alkaline Phosphatase (42-121) IU/L Ammonia (7-35) umol/L Total Protein (6.7-8.2) g/dL Albumin (3.2-5.5) g/dL Globulin (2.1-4.2) g/dL Albumin/Globulin Ratio (1.0-2.2) Lipase (22-51) U/L Urine Color YELLOW Urine Clarity CLEAR (CLEAR) Urine pH 7.0 (5.0-7.5) PH Ur Specific [place] 1.015 (1.002-1.030) Urine Protein 30 H (NEGATIVE) mg/dL Urine Glucose (UA) NEGATIVE (NEGATIVE) mg/dL Urine Ketones NEGATIVE (NEGATIVE) mg/dL Urine Occult Blood SMALL H (NEGATIVE) Urine Nitrite NEGATIVE (NEGATIVE) Urine Bilirubin NEGATIVE (NEGATIVE) Urine Urobilinogen 1 (NORMAL) (NORMAL) E.U./dL Ur Leukocyte Esterase NEGATIVE (NEGATIVE) Urine RBC 6-10 H (0-5) /HPF Urine WBC 11-25 H (0-5) /HPF Urine WBC Clumps PRESENT Ur Squamous Epith Cells NONE SEEN (<= Few) Urine Bacteria None Seen (None Seen) /HPF Ur Microscopic Review INDICATED Urine Culture Comments INDICATED Salicylates mg/dL Urine Opiates Screen NEGATIVE (NEGATIVE) Ur Oxycodone Screen POSITIVE H (NEGATIVE) Urine Methadone Screen NEGATIVE (NEGATIVE) Ur Propoxyphene Screen NEGATIVE (NEGATIVE) Acetaminophen (10-30) ug/mL Ur Barbiturates Screen NEGATIVE (NEGATIVE) Ur Tricyclics Screen NEGATIVE (NEGATIVE) Ur Phencyclidine Scrn NEGATIVE (NEGATIVE) Ur Amphetamine Screen NEGATIVE (NEGATIVE) U Methamphetamines Scrn NEGATIVE (NEGATIVE) U Benzodiazepines Scrn NEGATIVE (NEGATIVE) Urine Cocaine Screen NEGATIVE (NEGATIVE) U Cannabinoids Screen NEGATIVE (NEGATIVE) Ethyl Alcohol mg/dL 04/29/19 04/29/19 04/29/19 Range/Units 21:10 21:10 21:10 WBC (4.8-10.8) x10^3/uL RBC (4.20-5.40) 10^6/uL Hgb (12.0-16.0) g/dL Hct (37.0-47.0) % MCV (81.0-99.0) fL MCH (27.0-31.0) pg MCHC (32.0-36.0) g/dL RDW (12.0-15.0) % Plt Count (130-450) 10^3/uL MPV (7.9-10.8) fL Neut # (Auto) (1.5-6.6) 10^3/uL Lymph # (Auto) (1.5-3.5) 10^3/uL [place] # (Auto) (0.0-1.0) 10^3/uL Eos # (Auto) (0.0-0.7) 10^3/uL Baso # (Auto) (0.0-0.1) 10^3/uL Absolute Nucleated RBC x10^3/uL Nucleated RBC % /100WBC Manual Slide Review WBC Morphology (NORMAL) Platelet Estimate (NORMAL) Platelet Morphology (NORMAL) RBC Morph Micro Appear (NORMAL) PT 20.0 H (9.9-12.6) secs INR 1.8 H (0.8-1.2) Sodium 135 (135-145) mmol/L Potassium 4.6 (3.5-5.0) mmol/L Chloride 105 (101-111) mmol/L Carbon Dioxide 19 L (21-32) mmol/L Anion Gap 11.0 (6-13) BUN 28 H (6-20) mg/dL Creatinine 1.3 H (0.4-1.0) mg/dL Estimated GFR (MDRD) 43 L (>89) Glucose 117 H (70-100) mg/dL Calcium 8.5 (8.5-10.3) mg/dL Phosphorus (2.5-4.6) mg/dL Magnesium (1.7-2.8) mg/dL Total Bilirubin 2.5 H (0.2-1.0) mg/dL Direct Bilirubin (0.1-0.5) mg/dL AST 49 H (10-42) IU/L ALT 48 (10-60) IU/L Alkaline Phosphatase 96 (42-121) IU/L Ammonia 109.4 H* (7-35) umol/L Total Protein 5.6 L (6.7-8.2) g/dL Albumin 2.9 L (3.2-5.5) g/dL Globulin 2.7 (2.1-4.2) g/dL Albumin/Globulin Ratio 1.1 (1.0-2.2) Lipase 122 H (22-51) U/L Urine Color Urine Clarity (CLEAR) Urine pH (5.0-7.5) PH Ur Specific [place] (1.002-1.030) Urine Protein (NEGATIVE) mg/dL Urine Glucose (UA) (NEGATIVE) mg/dL Urine Ketones (NEGATIVE) mg/dL Urine Occult Blood (NEGATIVE) Urine Nitrite (NEGATIVE) Urine Bilirubin (NEGATIVE) Urine Urobilinogen (NORMAL) E.U./dL Ur Leukocyte Esterase (NEGATIVE) Urine RBC (0-5) /HPF Urine WBC (0-5) /HPF Urine WBC Clumps Ur Squamous Epith Cells (<= Few) Urine Bacteria (None Seen) /HPF Ur Microscopic Review Urine Culture Comments Salicylates < 6.0 mg/dL Urine Opiates Screen (NEGATIVE) Ur Oxycodone Screen (NEGATIVE) Urine Methadone Screen (NEGATIVE) Ur Propoxyphene Screen (NEGATIVE) Acetaminophen < 10 L (10-30) ug/mL Ur Barbiturates Screen (NEGATIVE) Ur Tricyclics Screen (NEGATIVE) Ur Phencyclidine Scrn (NEGATIVE) Ur Amphetamine Screen (NEGATIVE) U Methamphetamines Scrn (NEGATIVE) U Benzodiazepines Scrn (NEGATIVE) Urine Cocaine Screen (NEGATIVE) U Cannabinoids Screen (NEGATIVE) Ethyl Alcohol < 5.0 mg/dL ABX Reporting Has patient been on IV antibiotics over the past 48 hours?: No Assessment/Plan - Problem List (1) Hepatic encephalopathy Impression: Suspect her encephalopathy is secondary to hepatic cause given her elevated ammonia but she is not lethargic, rather active and agitated with hepatic encephalopathy. She was singing [place] songs last night and this am. Encephalopathy possibly exacerbated after her TIPS procedure. There is currently no evidence of infection or hypovolemia or GI bleed as a trigger of her hepatic encephalopathy. CT of the head was unremarkable. Her urine drug screen was unremarkable except for oxycodone which she takes at home. She has already received lactulose and we will continue this. Still no bowel movement this morning but we will titrate lactulose to 2-3 bowel movements a day. Given she has reportedly been compliant with lactulose, will start her on Rifaximin as well. Will use Haldol IV as needed as she is a potential harm to herself, and it did work early this morning to quiet her down and stop the singing. We will also have her on one-to-one observation. (2) Cirrhosis of liver Conclusion/Plan: Is history of liver cirrhosis secondary to hepatitis C and alcohol use. She recently underwent a TIPS. Unclear if it was for significance ascites or for esophageal bleeding. Her INR is elevated at 1.8 and her LFTs are relatively stable compared to prior although her total bili is slightly elevated. She is on spironolactone, furosemide at home but this has been held since discharge from [facility] given she had acute kidney injury there. Her form builder is Dr. Huerta at [facility].This morning her bilirubin slightly up at 2.6 from 2.5 yesterday. AST is 41 where it was 49. ALT is 43 where it was 48. Qualifiers: Hepatic cirrhosis type: alcoholic cirrhosis Ascites presence: with ascites Qualified Code(s): K70.31 - Alcoholic cirrhosis of liver with ascites (3) Anemia Conclusion/Plan: Hgb 8.0>7.4 She has a history of iron deficiency and is currently seen on iron supplementation. There may also be a component of her chronic disease contributing to her anemia. She presented at her baseline of approximately 8 last night. Daughter reports that her hemoglobin was 8.2 on discharge from [facility]. She did require blood transfusions during that hospitalization. No evidence of bleeding at this time. Will use SCDs for DVT prophylaxis. Qualifiers: Anemia type: unspecified type Qualified Code(s): D64.9 - Anemia, unspecified (4) CKD (chronic kidney disease) stage 3, GFR 30-59 ml/min Conclusion/Plan: Her baseline creatinine is approximately 1.5 and on admit 1.3>1.2 this am. Lowest it has been in quite some time. We will continue to monitor her renal function and urine output. (5) Hepatitis C Conclusion/Plan: She has history of hepatitis C likely from IV drug use. This is a contributing factor to her liver cirrhosis. She follows with GI (Dr. Huerta) at [facility] and is currently receiving therapy with Epclusa. Qualifiers: Viral hepatitis chronicity: chronic (6) History of alcohol abuse Conclusion/Plan: She also history of alcohol abuse which likely contributed to her liver cirrhosis. She is no longer actively drinking. (7) History of esophageal varices with bleeding Conclusion/Plan: She does have a history of esophageal varices with bleeding. She did recently undergo a TIPS procedure. Currently there is no evidence of bleeding and hemoglobin stable at 8.0>7.4. We will monitor for evidence of bleeding. (8) Hypothyroidism Conclusion/Plan: Stable. We will continue her home Synthroid.
[2019-04-30] MEDS: LACTULOSE 10 GM /15 ML UDC PO SCH ×4 (10:04→20:34)
[2019-04-30] MEDS: VELPATASVIR PO SCH ×2 (10:05→10:19)
[2019-04-30] MEDS: LEVOTHYROXINE 25 MCG TABLET PO SCH ×2 (10:05→10:18)
[2019-04-30] MEDS: SOFOSBUVIR PO SCH ×2 (10:05→10:19)
--- NOTE | 2019-04-30 10:15 | PHARMACY PROGRESS NOTE ---
- Best Possible Medication History Admit Date and Time: 04/29/19 2140 Processed by: Pharmacy Medication History completed: In progress (awaiting discussion with family member and pcp medication records) Patient Interview: Pt unable to participate Secondary Source(s): Other family member (awaiting for discussion with family member, unable to reach via phone), Physician records, Pharmacy records As the person ultimately responsible for medication therapy, providers are able to order a medication from an existing home medication list in [facility] via the "Reconcile Routine" prior to Confirmation of that medication by academic support specialist. Such practice is discouraged except when the physician, in their clinical judgment, deems that a medical need exists for a medication without regard to previous use.
[2019-04-30] MEDS: LACTULOSE 10 GM/15 ML BOTTLE PR SCH ×2 (11:55→20:43)
[2019-04-30] MEDS: FERROUS GLUCONATE 324 MG TABLET PO SCH (17:42)
[2019-05-01] MEDS: oxyCODONE 5 MG TABLET PO PRN ×5 (02:14→22:59)
[2019-05-01] MEDS: SODIUM CHLORIDE FLUSH 0.9% 10 ML SYRINGE IVP SCH ×4 (02:19→23:59)
[2019-05-01 06:03] LABS: INR 1.8 (0.8-1.2); PT - PROTHROMBIN TIME 19.5 secs (9.9-12.6)
[2019-05-01 06:17] LABS: ALBUMIN 2.6 g/dL (3.2-5.5); BILIRUBIN,TOTAL 2.7 mg/dL (0.2-1.0); CALCIUM 8.5 mg/dL (8.5-10.3); CREATININE 1.3 mg/dL (0.4-1.0); PHOSPHORUS 3.6 mg/dL (2.5-4.6); TOTAL PROTEIN 5.1 g/dL (6.7-8.2)
[2019-05-01 06:28] LABS: BASOPHILS % (AUTO) 0.5 %; EOSINOPHILS # (AUTO) 0.3 10^3/uL (0.0-0.7); EOSINOPHILS % (AUTO) 2.9 %; HGB - HEMOGLOBIN 7.7 g/dL (12.0-16.0); LYMPHOCYTES # (AUTO) 0.5 10^3/uL (1.5-3.5); LYMPHOCYTES % (AUTO) 5.5 %; MEAN CORPUSCULAR HEMOGLOBIN 23.1 pg (27.0-31.0); MEAN CORPUSCULAR HGB CONC 30.1 g/dL (32.0-36.0); MEAN CORPUSCULAR VOLUME 76.6 fL (81.0-99.0); MEAN PLATELET VOLUME 7.9 fL (7.9-10.8); MONOCYTES # (AUTO) 0.7 10^3/uL (0.0-1.0); MONOCYTES % (AUTO) 8.7 %; NEUTROPHILS % (AUTO) 81.8 %; PLT - PLATELET COUNT 139 10^3/uL (130-450); RED BLOOD COUNT 3.34 10^6/uL (4.20-5.40); RED CELL DISTRIBUTION WIDTH 25.1 % (12.0-15.0); WHITE BLOOD COUNT 8.5 x10^3/uL (4.8-10.8)
[2019-05-01 06:43] LABS: PLATELET ESTIMATE, MANUAL NORMAL (130-450,000) (NORMAL); PLATELET MORPHOLOGY NORMAL APPEARANCE (NORMAL)
[2019-05-01] MEDS: LEVOTHYROXINE 25 MCG TABLET PO SCH (06:48)
[2019-05-01] MEDS: SODIUM CHLORIDE FLUSH 0.9% 10 ML SYRINGE IVP PRN (06:53)
[2019-05-01] MEDS: LACTULOSE 10 GM /15 ML UDC PO SCH ×3 (06:53→22:01)
[2019-05-01] MEDS: LACTULOSE 10 GM/15 ML BOTTLE PR SCH ×2 (09:50→22:01)
[2019-05-01] MEDS: FERROUS GLUCONATE 324 MG TABLET PO SCH (10:51)
[2019-05-01] MEDS: VELPATASVIR PO SCH (10:51)
[2019-05-01] MEDS: rifAXIMin 550 MG TABLET PO SCH ×2 (10:51→22:02)
[2019-05-01] MEDS: SOFOSBUVIR PO SCH (10:51)
--- NOTE | 2019-05-01 13:17 | PROVIDER PROGRESS NOTE ---
Subjective - Prog Note Date Prog Note Date: 05/01/19 Prog Note Time: 13:20 - Subjective Subjective: she is quiet but lethargic now. the burst of singing has stopped. Current Medications - Current Medications Current Medications: Active Medications Ferrous Gluconate (Fergon) 324 mg PO DAILYWM [facility] Last Admin: 05/01/19 10:51 Dose: 324 mg Haloperidol (Haldol Inj) 1 mg IM Q6H PRN PRN Reason: Agitation Last Admin: 04/30/19 01:31 Dose: 1 mg Lactulose (Enulose) 20 gm PO TID [facility] Last Admin: 05/01/19 06:53 Dose: 20 gm Lactulose (Lactulose) 60 gm UT BID [facility] Last Admin: 05/01/19 09:50 Dose: Not Given Levothyroxine Sodium (Synthroid) 50 mcg PO QDAC [facility] Last Admin: 05/01/19 06:48 Dose: 50 mcg Ondansetron HCl (Zofran Inj) 4 mg IVP Q6HR PRN PRN Reason: Nausea / Vomiting Oxycodone HCl (Roxicodone) 5 mg PO Q4HR PRN PRN Reason: PAIN Last Admin: 05/01/19 10:53 Dose: 5 mg Patient Own Meds ( Sofosbuvir 400mg - Velpatasvir 100mg) 1 each PO DAILY [facility] Last Admin: 05/01/19 10:51 Dose: 1 each Rifaximin (Xifaxan) 550 mg PO BID [facility] Last Admin: 05/01/19 10:51 Dose: 550 mg Sodium Chloride (Normal Saline Flush 0.9%) 10 ml IVP PRN PRN PRN Reason: NEEDED PER PROVIDER ORDERS Last Admin: 05/01/19 06:53 Dose: 10 ml Sodium Chloride (Normal Saline Flush 0.9%) 10 ml IVP 0100,0900,1700 [facility] Last Admin: 05/01/19 10:54 Dose: 10 ml Ascorbic Acid [Vitamin C] 500 mg PO BID 12/05/18 Mirtazapine 15 mg PO QPM PRN 01/08/19 Ondansetron Odt [Zofran] 4 mg TL Q8H PRN 01/08/19 Ciprofloxacin [Cipro] 500 mg PO DAILY 04/30/19 Cyanocobalamin (Vitamin B-12) [Vitamin B-12] 1,000 mcg PO DAILY 04/30/19 Lactulose [Constulose] 30 ml PO TID 04/30/19 Levothyroxine [Synthroid] 50 mcg PO DAILY 04/30/19 Pantoprazole Sodium 40 mg PO DAILY 04/30/19 Sofosbuvir/Velpatasvir [Sofosbuvir-Velpatasvir 400-100] 1 tab PO DAILY 04/30/19 Sucralfate [Carafate] 1 gm PO QID 04/30/19 oxyCODONE [Roxicodone] 10 mg PO QID PRN 04/30/19 Objective - Vital Signs/Intake & Output Reviewed Vital Signs: Yes Vital Signs: Vital Signs x48h Temp Pulse Resp BP BP Pulse Ox 05/01/19 08:22 36.8 C 72 16 149/91 H 96 05/01/19 06:36 70 16 130/73 98 Intake & Output: Intake & Output 04/28/19 04/29/19 04/30/19 05/01/19 23:59 23:59 23:59 23:59 Intake Total 700 320 Output Total 350 Balance 350 320 - Objective General Appearance: positive: No acute distress, Lethargic Eyes Bilateral: positive: PERRL, EOMI Eyes: OU Scleral icterus ENT: positive: No signs of dehydration Neck: positive: No JVD Respiratory: positive: Chest non-tender. negative: Wheezes, Rales, Rhonchi Cardiovascular: positive: Regular rate & rhythm, Systolic murmur. negative: Gallop/S4, Friction rub Abdomen: positive: No organomegaly, Nml bowel sounds, No distention, Tenderness (mild and diffuse), Other (?fluid wave felt todai). negative: Guarding, Rebound Skin: positive: Warm, Dry Extremities: positive: Full ROM, Pedal edema Neurologic/Psychiatric: positive: CN's nml (2-12), Disoriented to person, Disoriented to place, Disoriented to time. negative: Motor nml (slow to move, slow to respond) - Lab Results Fish Bones: 05/01/19 06:15 05/01/19 05:50 Other Labs: Lab Results x24hrs 05/01/19 05/01/19 05/01/19 Range/Units 06:15 06:15 05:50 WBC 8.5 (4.8-10.8) x10^3/uL RBC 3.34 L (4.20-5.40) 10^6/uL Hgb 7.7 L (12.0-16.0) g/dL Hct 25.6 L (37.0-47.0) % MCV 76.6 L (81.0-99.0) fL MCH 23.1 L (27.0-31.0) pg MCHC 30.1 L (32.0-36.0) g/dL RDW 25.1 H (12.0-15.0) % Plt Count 139 (130-450) 10^3/uL MPV 7.9 (7.9-10.8) fL Neut # (Auto) 7.0 H (1.5-6.6) 10^3/uL Lymph # (Auto) 0.5 L (1.5-3.5) 10^3/uL [place] # (Auto) 0.7 (0.0-1.0) 10^3/uL Eos # (Auto) 0.3 (0.0-0.7) 10^3/uL Baso # (Auto) 0.0 (0.0-0.1) 10^3/uL Absolute Nucleated RBC 0.00 x10^3/uL Nucleated RBC % 0.0 /100WBC Manual Slide Review Indicated WBC Morphology NORMAL APPEARANCE (NORMAL) Platelet Estimate NORMAL (130-450,000) (NORMAL) Platelet Morphology NORMAL APPEARANCE (NORMAL) RBC Morph Micro Appear 2+ ANISOCYTOSIS (NORMAL) PT (9.9-12.6) secs INR (0.8-1.2) Sodium 140 (135-145) mmol/L Potassium 4.2 (3.5-5.0) mmol/L Chloride 112 H (101-111) mmol/L Carbon Dioxide 19 L (21-32) mmol/L Anion Gap 9.0 (6-13) BUN 30 H (6-20) mg/dL Creatinine 1.3 H (0.4-1.0) mg/dL Estimated GFR (MDRD) 43 L (>89) Glucose 96 (70-100) mg/dL Calcium 8.5 (8.5-10.3) mg/dL Phosphorus 3.6 (2.5-4.6) mg/dL Magnesium 2.0 (1.7-2.8) mg/dL Total Bilirubin 2.7 H (0.2-1.0) mg/dL Direct Bilirubin 1.0 H (0.1-0.5) mg/dL AST 48 H (10-42) IU/L ALT 40 (10-60) IU/L Alkaline Phosphatase 99 (42-121) IU/L Ammonia 58.7 H (7-35) umol/L Total Protein 5.1 L (6.7-8.2) g/dL Albumin 2.6 L (3.2-5.5) g/dL Globulin 2.5 (2.1-4.2) g/dL 05/01/19 Range/Units 05:50 WBC (4.8-10.8) x10^3/uL RBC (4.20-5.40) 10^6/uL Hgb (12.0-16.0) g/dL Hct (37.0-47.0) % MCV (81.0-99.0) fL MCH (27.0-31.0) pg MCHC (32.0-36.0) g/dL RDW (12.0-15.0) % Plt Count (130-450) 10^3/uL MPV (7.9-10.8) fL Neut # (Auto) (1.5-6.6) 10^3/uL Lymph # (Auto) (1.5-3.5) 10^3/uL [place] # (Auto) (0.0-1.0) 10^3/uL Eos # (Auto) (0.0-0.7) 10^3/uL Baso # (Auto) (0.0-0.1) 10^3/uL Absolute Nucleated RBC x10^3/uL Nucleated RBC % /100WBC Manual Slide Review WBC Morphology (NORMAL) Platelet Estimate (NORMAL) Platelet Morphology (NORMAL) RBC Morph Micro Appear (NORMAL) PT 19.5 H (9.9-12.6) secs INR 1.8 H (0.8-1.2) Sodium (135-145) mmol/L Potassium (3.5-5.0) mmol/L Chloride (101-111) mmol/L Carbon Dioxide (21-32) mmol/L Anion Gap (6-13) BUN (6-20) mg/dL Creatinine (0.4-1.0) mg/dL Estimated GFR (MDRD) (>89) Glucose (70-100) mg/dL Calcium (8.5-10.3) mg/dL Phosphorus (2.5-4.6) mg/dL Magnesium (1.7-2.8) mg/dL Total Bilirubin (0.2-1.0) mg/dL Direct Bilirubin (0.1-0.5) mg/dL AST (10-42) IU/L ALT (10-60) IU/L Alkaline Phosphatase (42-121) IU/L Ammonia (7-35) umol/L Total Protein (6.7-8.2) g/dL Albumin (3.2-5.5) g/dL Globulin (2.1-4.2) g/dL Assessment/Plan - Problem List (1) Hepatic encephalopathy Impression: Suspect her encephalopathy is secondary to hepatic cause given her elevated ammonia but she was not lethargic on admission, rather active and agitated with hepatic encephalopathy. She was singing [place] songs that first night and the next morning on 04/30. Today she is just sleepy. Hard to wake up. Will get up to eat breakfast and then back to sleep. Encephalopathy possibly exacerbated after her TIPS procedure. There is currently no evidence of infection or hypovolemia or GI bleed as a trigger of her hepatic encephalopathy. CT of the head was unremarkable. Her urine drug screen was unremarkable except for oxycodone which she takes at home. She has already received lactulose and we will continue this. She finally had 4 BM between yesterday and today and ammonia level down to 50s from 100s. She was compliant with lactulose except for when she was too sleepy at home to take and we started her on Rifaximin as well. Will use Haldol IV as needed as she is a potential harm to herself, and it did work early 04/30 morning to quiet her down and stop the singing. I spoke to her customer service agent, Shaheen Huerta MD @[phone] who is the hepato logy fellow at [facility]. She had her TIPS, complications of a little bit of anemia and acute kidney injury were treated for over 5 days. But he describes her as an incredibly chatty patient. A little bit opioid seeking but controllable. Baseline creatinine for him is about 1.7. Hemoglobin is about 7- 8 for him. When she was discharged, she was at her baseline. She is not a candidate for transplant. She has limited family support, and the patient was homeless. He feels that her encephalopathy is reversible. It should slowly respond to her treatment after describing her case and our management. He does recommend a up to 5 L paracentesis to be done by May 04. Plan: Hold lactulose today because she is exceeded her daily BM recommendations Continue to give her rifaximin Continue to monitor her labs and transfuse as necessary Transfer to inpatient status from observation Paracentesis by Tuesday (2) Cirrhosis of liver Conclusion/Plan: Is history of liver cirrhosis secondary to hepatitis C and alcohol use. She re cently underwent a TIPS. Unclear if it was for significance ascites or for esophageal bleeding. Her INR is elevated at 1.8 and her LFTs are relatively stable compared to prior although her total bili is slightly elevated. Her LFT's were in the 80 at and she is better here in the 40s. Bili has gone up to 2.7 here and she was 2.0 there. She is on spironolactone, furosemide at home but this has been held since discharge from [facility] given she had acute kidney injury there. Her electrical calibrator is Dr. Huerta at [facility]. Qualifiers: Hepatic cirrhosis type: alcoholic cirrhosis Ascites presence: with ascites Qualified Code(s): K70.31 - Alcoholic cirrhosis of liver with ascites (3) Anemia Conclusion/Plan: Hgb 8.0>7.4>7.7 She has a history of iron deficiency and is currently seen on iron supplementation. There may also be a component of her chronic disease contributing to her anemia. She presented at her baseline of approximately 8 on admission. Daughter reports that her hemoglobin was 8.2 on discharge from [facility]. She did require blood transfusions during that hospitalization. No evidence of bleeding at this time. Will use SCDs for DVT prophylaxis. Qualifiers: Anemia type: unspecified type Qualified Code(s): D64.9 - Anemia, unspecified (4) CKD (chronic kidney disease) stage 3, GFR 30-59 ml/min Conclusion/Plan: Her baseline creatinine is approximately 1.7 at and on admit 1.3>1.2>1.3 this am. Lowest it has been in quite some time. We will continue to monitor her renal function and urine output. (5) Hepatitis C Conclusion/Plan: She has history of hepatitis C likely from IV drug use. This is a contributing factor to her liver cirrhosis. She follows with GI (Dr. Huerta) at [facility] and is currently receiving therapy with Epclusa. Qualifiers: Viral hepatitis chronicity: chronic (6) History of alcohol abuse Conclusion/Plan: She also history of alcohol abuse which likely contributed to her liver cirr hosis. She is no longer actively drinking. Last use of metamphetamines was documented 11/2018 urine tox screen (7) History of esophageal varices with bleeding Conclusion/Plan: She does have a history of esophageal varices with bleeding. She did recently undergo a TIPS procedure. Currently there is no evidence of bleeding and hemoglobin stable at 8.0>7.4. We will monitor for evidence of bleeding. (8) Hypothyroidism Conclusion/Plan: Stable. We will continue her home Synthroid.
[2019-05-02] MEDS: oxyCODONE 5 MG TABLET PO PRN ×4 (04:36→22:19)
[2019-05-02 05:49] LABS: BASOPHILS # (AUTO) 0.1 10^3/uL (0.0-0.1); BASOPHILS % (AUTO) 0.8 %; EOSINOPHILS # (AUTO) 0.7 10^3/uL (0.0-0.7); EOSINOPHILS % (AUTO) 6.5 %; HGB - HEMOGLOBIN 7.5 g/dL (12.0-16.0); LYMPHOCYTES # (AUTO) 0.6 10^3/uL (1.5-3.5); LYMPHOCYTES % (AUTO) 5.9 %; MEAN CORPUSCULAR HEMOGLOBIN 23.4 pg (27.0-31.0); MEAN CORPUSCULAR VOLUME 77.9 fL (81.0-99.0); MEAN PLATELET VOLUME 7.9 fL (7.9-10.8); MONOCYTES # (AUTO) 1.2 10^3/uL (0.0-1.0); MONOCYTES % (AUTO) 11.1 %; NEUTROPHILS # (AUTO) 7.8 10^3/uL (1.5-6.6); PLT - PLATELET COUNT 134 10^3/uL (130-450); RED BLOOD COUNT 3.21 10^6/uL (4.20-5.40); RED CELL DISTRIBUTION WIDTH 24.8 % (12.0-15.0); WHITE BLOOD COUNT 10.3 x10^3/uL (4.8-10.8)
[2019-05-02 05:54] LABS: INR 1.7 (0.8-1.2); PT - PROTHROMBIN TIME 19.1 secs (9.9-12.6)
[2019-05-02 06:04] LABS: ALBUMIN 2.7 g/dL (3.2-5.5); BILIRUBIN,DIRECT 0.8 mg/dL (0.1-0.5); BILIRUBIN,TOTAL 1.9 mg/dL (0.2-1.0); CALCIUM 8.4 mg/dL (8.5-10.3); CREATININE 1.3 mg/dL (0.4-1.0); MAGNESIUM 1.9 mg/dL (1.7-2.8); PHOSPHORUS 2.6 mg/dL (2.5-4.6)
[2019-05-02 06:13] LABS: PLATELET ESTIMATE, MANUAL NORMAL (130-450,000) (NORMAL)
[2019-05-02] MEDS: LEVOTHYROXINE 25 MCG TABLET PO SCH (06:23)
[2019-05-02] MEDS: LACTULOSE 10 GM /15 ML UDC PO SCH ×4 (06:23→22:20)
[2019-05-02] MEDS: SODIUM CHLORIDE FLUSH 0.9% 10 ML SYRINGE IVP SCH ×3 (08:26→23:46)
[2019-05-02] MEDS: VELPATASVIR PO SCH (08:27)
[2019-05-02] MEDS: rifAXIMin 550 MG TABLET PO SCH ×2 (08:27→21:34)
[2019-05-02] MEDS: SOFOSBUVIR PO SCH (08:27)
[2019-05-02] MEDS: FERROUS GLUCONATE 324 MG TABLET PO SCH (08:27)
[2019-05-02] MEDS: LACTULOSE 10 GM/15 ML BOTTLE PR SCH (08:28)
[2019-05-02] MEDS ORDERED: BUFFERED LIDOCAINE 10 ML SYRINGE ONE (11:09)
--- NOTE | 2019-05-02 13:15 | PROVIDER PROGRESS NOTE ---
Subjective - Prog Note Date Prog Note Date: 05/02/19 Prog Note Time: 13:17 - Subjective Pt reports feeling: Improved Subjective: she is hungry, asking for pain meds. Taking her meds here well. Alert, appropriate Current Medications - Current Medications Current Medications: Active Medications Ferrous Gluconate (Fergon) 324 mg PO DAILYWM [facility] Last Admin: 05/02/19 08:27 Dose: 324 mg Haloperidol (Haldol Inj) 1 mg IM Q6H PRN PRN Reason: Agitation Last Admin: 04/30/19 01:31 Dose: 1 mg Lactulose (Enulose) 20 gm PO TID [facility] Last Admin: 05/02/19 06:23 Dose: 20 gm Levothyroxine Sodium (Synthroid) 50 mcg PO QDAC [facility] Last Admin: 05/02/19 06:23 Dose: 50 mcg Ondansetron HCl (Zofran Inj) 4 mg IVP Q6HR PRN PRN Reason: Nausea / Vomiting Oxycodone HCl (Roxicodone) 5 mg PO Q4HR PRN PRN Reason: PAIN Last Admin: 05/02/19 08:27 Dose: 5 mg Patient Own Meds ( Sofosbuvir 400mg - Velpatasvir 100mg) 1 each PO DAILY [facility] Last Admin: 05/02/19 08:27 Dose: 1 each Rifaximin (Xifaxan) 550 mg PO BID [facility] Last Admin: 05/02/19 08:27 Dose: 550 mg Sodium Chloride (Normal Saline Flush 0.9%) 10 ml IVP PRN PRN PRN Reason: NEEDED PER PROVIDER ORDERS Last Admin: 05/01/19 06:53 Dose: 10 ml Sodium Chloride (Normal Saline Flush 0.9%) 10 ml IVP 0100,0900,1700 [facility] Last Admin: 05/02/19 08:26 Dose: 10 ml Ascorbic Acid [Vitamin C] 500 mg PO BID 12/05/18 Mirtazapine 15 mg PO QPM PRN 01/08/19 Ondansetron Odt [Zofran] 4 mg TL Q8H PRN 01/08/19 Ciprofloxacin [Cipro] 500 mg PO DAILY 04/30/19 Cyanocobalamin (Vitamin B-12) [Vitamin B-12] 1,000 mcg PO DAILY 04/30/19 Lactulose [Constulose] 30 ml PO TID 04/30/19 Levothyroxine [Synthroid] 50 mcg PO DAILY 04/30/19 Pantoprazole Sodium 40 mg PO DAILY 04/30/19 Sofosbuvir/Velpatasvir [Sofosbuvir-Velpatasvir 400-100] 1 tab PO DAILY 04/30/19 Sucralfate [Carafate] 1 gm PO QID 04/30/19 oxyCODONE [Roxicodone] 10 mg PO QID PRN 04/30/19 Objective - Vital Signs/Intake & Output Reviewed Vital Signs: Yes Vital Signs: Vital Signs x48h Temp Pulse Resp BP Pulse Ox 05/02/19 08:30 36.9 C 85 18 150/88 H 98 Intake & Output: Intake & Output 04/29/19 04/30/19 05/01/19 05/02/19 23:59 23:59 23:59 23:59 Intake Total 700 1526 2120 Output Total 350 890 125 Balance 494 904 0607 - Objective General Appearance: positive: No acute distress, Alert, Other (5 foot 4 inch female who weighs 56 kg and looks drawn, cachectic) Eyes Bilateral: positive: PERRL, EOMI Eyes: OU Scleral icterus ENT: positive: Pharynx nml Neck: positive: No JVD. negative: Stiff neck Respiratory: positive: Chest non-tender. negative: Wheezes, Rales, Rhonchi Cardiovascular: positive: Regular rate & rhythm, Systolic murmur. negative: Gallop/S4, Friction rub Abdomen: positive: Non-tender, No organomegaly, Nml bowel sounds, No distention, Other (Not worse than yesterday. Still feel as if there is a small fluid wave 1 high rotator from side to side.) Skin: positive: Warm, Dry Extremities: positive: Non-tender, Full ROM, Pedal edema (And arm edema.) Neurologic/Psychiatric: positive: Oriented x3, CN's nml (2-12), Motor nml (Mild ataxia) - Lab Results Fish Bones: 05/02/19 05:40 05/02/19 05:40 Other Labs: Lab Results x24hrs 05/02/19 05/02/19 05/02/19 Range/Units 11:15 05:40 05:40 WBC (4.8-10.8) x10^3/uL RBC (4.20-5.40) 10^6/uL Hgb (12.0-16.0) g/dL Hct (37.0-47.0) % MCV (81.0-99.0) fL MCH (27.0-31.0) pg MCHC (32.0-36.0) g/dL RDW (12.0-15.0) % Plt Count (130-450) 10^3/uL MPV (7.9-10.8) fL Neut # (Auto) (1.5-6.6) 10^3/uL Lymph # (Auto) (1.5-3.5) 10^3/uL [place] # (Auto) (0.0-1.0) 10^3/uL Eos # (Auto) (0.0-0.7) 10^3/uL Baso # (Auto) (0.0-0.1) 10^3/uL Absolute Nucleated RBC x10^3/uL Nucleated RBC % /100WBC Manual Slide Review Platelet Estimate (NORMAL) RBC Morph Micro Appear (NORMAL) PT 19.1 H (9.9-12.6) secs INR 1.7 H (0.8-1.2) Sodium 133 L (135-145) mmol/L Potassium 4.2 (3.5-5.0) mmol/L Chloride 105 (101-111) mmol/L Carbon Dioxide 21 (21-32) mmol/L Anion Gap 7.0 (6-13) BUN 24 H (6-20) mg/dL Creatinine 1.3 H (0.4-1.0) mg/dL Estimated GFR (MDRD) 43 L (>89) Glucose 79 (70-100) mg/dL Calcium 8.4 L (8.5-10.3) mg/dL Phosphorus 2.6 (2.5-4.6) mg/dL Magnesium 1.9 (1.7-2.8) mg/dL Total Bilirubin 1.9 H (0.2-1.0) mg/dL Direct Bilirubin 0.8 H (0.1-0.5) mg/dL AST 45 H (10-42) IU/L ALT 40 (10-60) IU/L Alkaline Phosphatase 105 (42-121) IU/L Total Protein 5.0 L (6.7-8.2) g/dL Albumin 2.7 L (3.2-5.5) g/dL Globulin 2.3 (2.1-4.2) g/dL Blood Type B POSITIVE 05/02/19 Range/Units 05:40 WBC 10.3 (4.8-10.8) x10^3/uL RBC 3.21 L (4.20-5.40) 10^6/uL Hgb 7.5 L (12.0-16.0) g/dL Hct 25.0 L (37.0-47.0) % MCV 77.9 L (81.0-99.0) fL MCH 23.4 L (27.0-31.0) pg MCHC 30.0 L (32.0-36.0) g/dL RDW 24.8 H (12.0-15.0) % Plt Count 134 (130-450) 10^3/uL MPV 7.9 (7.9-10.8) fL Neut # (Auto) 7.8 H (1.5-6.6) 10^3/uL Lymph # (Auto) 0.6 L (1.5-3.5) 10^3/uL [place] # (Auto) 1.2 H (0.0-1.0) 10^3/uL Eos # (Auto) 0.7 (0.0-0.7) 10^3/uL Baso # (Auto) 0.1 (0.0-0.1) 10^3/uL Absolute Nucleated RBC 0.00 x10^3/uL Nucleated RBC % 0.0 /100WBC Manual Slide Review Indicated Platelet Estimate NORMAL (130-450,000) (NORMAL) RBC Morph Micro Appear 1+ OVALOCYTES (NORMAL) PT (9.9-12.6) secs INR (0.8-1.2) Sodium (135-145) mmol/L Potassium (3.5-5.0) mmol/L Chloride (101-111) mmol/L Carbon Dioxide (21-32) mmol/L Anion Gap (6-13) BUN (6-20) mg/dL Creatinine (0.4-1.0) mg/dL Estimated GFR (MDRD) (>89) Glucose (70-100) mg/dL Calcium (8.5-10.3) mg/dL Phosphorus (2.5-4.6) mg/dL Magnesium (1.7-2.8) mg/dL Total Bilirubin (0.2-1.0) mg/dL Direct Bilirubin (0.1-0.5) mg/dL AST (10-42) IU/L ALT (10-60) IU/L Alkaline Phosphatase (42-121) IU/L Total Protein (6.7-8.2) g/dL Albumin (3.2-5.5) g/dL Globulin (2.1-4.2) g/dL Blood Type ABX Reporting Has patient been on IV antibiotics over the past 48 hours?: No Assessment/Plan - Problem List (1) Hepatic encephalopathy Impression: Resolved. She is alert, oriented since last night. Eating 2 dinner trays last night and breaksfast this am. Appropriate quesitons and speech. Suspect her encephalopathy is secondary to hepatic cause given her elevated ammonia but she was not lethargic on admission, rather active and agitated with hepatic encephalopathy. She was singing [employer] songs that first night and the next morning on 04/30. Today she is just sleepy. Hard to wake up. Will get up to eat breakfast and then back to sleep. Encephalopathy possibly exacerbated after her TIPS procedure. There is currently no evidence of infection or hypovolemia or GI bleed as a trigger of her hepatic encephalopathy. CT of the head was unremarkable. Her urine drug screen was unremarkable except for oxycodone which she takes at home. She has already received lactulose and we will continue this. She finally had 4 BM between 04/30 and 05/01 and ammonia level down to 50s from 100s. She was compliant with lactulose at home except for when she was too sleepy at home to take and we started her on Rifaximin as well. Will use Haldol IV as needed as she is a potential harm to herself, and it did work early 04/30 morning to quiet her down and stop the singing. I spoke to her python developer, Shaheen Huerta MD @[phone] on 05/01 who is [facility] hepatology fellow at [facility]. She had her TIPS, complications of a little bit of anemia and acute kidney injury were treated for over 5 days. But he describes her as an incredibly chatty patient. A little bit opioid seeking but controllable. Baseline creatinine for him is about 1.7. Hemoglobin is about 7-8 for him. When she was discharged, she was at her baseline. She is not a candidate for transplant. She has limited family support, and the patient was homeless. He feels that her encephalopathy is reversible. It should slowly respond to her treatment after describing her case and our management. He does recommend a up to 5 L paracentesis to be done by May 04. We tried to do paracentesis today. To make sure she can get that before she went home. Preliminary ultrasound shows not enough fluid to do a 5 L paracentesis. As such we have canceled that. Plan: REsume lactulose today Continue to give her rifaximin Continue to monitor her labs and transfuse as necessary but she should be able to go home tomorrow Transferred to inpatient status from observation 05/01 Paracentesis cancelled Have RN or aide walk her in hallway today. (2) Cirrhosis of liver Conclusion/Plan: Is history of liver cirrhosis secondary to hepatitis C and alcohol use. She recently underwent a TIPS. Unclear if it was for significance ascites or for esophageal bleeding. Her INR is elevated at 1.8 and her LFTs are relatively stable compared to prior although her total bili is slightly elevated. Her LFT's were in the 80 at and she is better here in the 40s. Bili has gone up to 2.7 here and she was 2.0 there. She is on spironolactone, furosemide at home but this has been held since discharge from [facility] given she had acute kidney injury there. Her automatic folder seamer is Dr. Huerta at [facility]. Her meds will be resumed at home. She is on prophylactic cipro adn that will be resumed today Qualifiers: Hepatic cirrhosis type: alcoholic cirrhosis Ascites presence: with ascites Qualified Code(s): K70.31 - Alcoholic cirrhosis of liver with ascites (3) Anemia Conclusion/Plan: Hgb 8.0>7.4>7.7>7.5 She has a history of iron deficiency and is currently seen on iron supplementation. There may also be a component of her chronic disease contributing to her anemia. She presented at her baseline of approximately 8 on admission. Daughter reports that her hemoglobin was 8.2 on discharge from [facility]. She did require blood transfusions during that hospitalization. No evidence of bleeding at this time. Will use SCDs for DVT prophylaxis. Qualifiers: Anemia type: unspecified type Qualified Code(s): D64.9 - Anemia, unspecifi ed (4) CKD (chronic kidney disease) stage 3, GFR 30-59 ml/min Conclusion/Plan: Her baseline creatinine is approximately 1.7 at and on admit 1.3>1.2>1.3 this am. Lowest it has been in quite some time. We will continue to monitor her renal function and urine output. (5) Hepatitis C Conclusion/Plan: She has history of hepatitis C likely from IV drug use. This is a contributing factor to her liver cirrhosis. She follows with GI (Dr. Huerta) at [facility] and is currently receiving therapy with Epclusa. Qualifiers: Viral hepatitis chronicity: chronic (6) History of alcohol abuse Conclusion/Plan: She also history of alcohol abuse which likely contributed to her liver cirrhosis. She is no longer actively drinking. Last use of metamphetamines was documented 11/2018 urine tox screen (7) History of esophageal varices with bleeding Conclusion/Plan: She does have a history of esophageal varices with bleeding. She did recently undergo a TIPS procedure. Currently there is no evidence of bleeding and hemoglobin stable at 8.0>7.4>7.7>7.5 We will monitor for evidence of bleeding. (8) Hypothyroidism Conclusion/Plan: Stable. We will continue her home Synthroid.
[2019-05-02] MEDS ORDERED: MIRTAZAPINE 15 MG TABLET PO PRN (13:20)
--- NOTE | 2019-05-02 13:50 | Ultrasound Report ---
Reason: paracentesis Procedure Date: 05/02/2019 Accession Number: [id number] / [id number] Procedure: US - Abdomen Limited CPT Code: Final Report FULL RESULT: EXAM: ABDOMEN ULTRASOUND LIMITED EXAM DATE: 05/02/2019 12:00 PM. CLINICAL HISTORY: Cirrhosis, status post TIPS. Weekly paracentesis. COMPARISON: ABDOMINAL PARACENTESIS 11/30/2018 2:33 PM. TECHNIQUE: Real-time scanning was performed with static images obtained. FINDINGS IMPRESSION: Only a small amount of ascites is present, insufficient to perform paracentesis. The procedure is canceled and Dr. Maynard notified. RADIA
[2019-05-02] MEDS: SUCRALFATE 1 GM/10 ML UDC PO SCH ×2 (16:33→21:34)
[2019-05-02] MEDS: SODIUM CHLORIDE FLUSH 0.9% 10 ML SYRINGE IVP PRN (16:38)
[2019-05-02] MEDS: ONDANSETRON 4 MG/2 ML VIAL IVP PRN ×2 (16:38→23:54)
[2019-05-03] MEDS ORDERED: ACETAMINOPHEN 325 MG TABLET PO SCH (01:00)
--- NOTE | 2019-05-03 01:35 | Ultrasound Report ---
Reason: isolated upper chain large LN Procedure Date: 05/02/2019 Accession Number: [id number] / [id number] Procedure: US - Head or Neck Soft Tissue CPT Code: Final Report FULL RESULT: EXAM: NECK ULTRASOUND EXAM DATE: 05/02/2019 08:30 PM. CLINICAL HISTORY: Isolated upper chain large LN. COMPARISON: None. TECHNIQUE: Real-time sonographic imaging was performed by the global marketing specialist utilizing color-flow. Multiple petroleum products sales representative static images were saved for review. FINDINGS: Multiple normal-sized lymph nodes are seen on the left. Submandibular node measuring 4 mm. Cervical node measuring 5 mm. Supraclavicular node measuring 6 mm. By comparison, submandibular lymph node is seen on the right measuring 5 mm. IMPRESSION: 1. Multiple normal-sized lymph nodes seen on the left. RADIA
[2019-05-03] MEDS: LACTULOSE 10 GM /15 ML UDC PO SCH (06:13)
[2019-05-03] MEDS: oxyCODONE 5 MG TABLET PO PRN ×2 (06:15→13:47)
[2019-05-03] MEDS ORDERED: LEVOTHYROXINE 25 MCG TABLET PO SCH (07:00)
--- NOTE | 2019-05-03 07:53 | Discharge Plan ---
Discharge Plan Problem Reviewed?: Yes Disposition: Home, Self Care Condition: Fair Diet: Low Sodium (hepatic diet as well) Shower Restrictions: No Driving Restrictions: Yes (no driving) Health Concerns: You were brought to the emergency room with a history of liver cirrhosis secondary to hepatitis C and alcohol abuse, and had recently had a TIPS procedure at [facility]. You were brought to the emergency room because of severe confusion, fast pressured speech, alternating with sleeping all the time. Because you had been sleeping for over 24 hours, you would not had any of your medications. Once we resumed your medicines, and gave you Haldol to calm you down, you gradually came back to being yourself. Plan of Treatment: 1. We resumed your lactulose and your ammonia level started out at over a 100 and came down to less than 50. 2. We did do a CAT scan of your head to make sure that you had not fallen and given yourself bleeding in your brain and that was negative. 3. Dr. Huerta from [facility] asked if we could do a paracentesis which is removing fluid from your abdominal cavity. We did send you to radiology for that but the radiologist says there was less than 1 L in your abdomen and she would not recommend doing it at this time. Dr. Huerta usually is able to remove 5 L at a time. 4. You have an enlarged lymph gland on the left side of your neck. It was a little tender. Ultrasound shows that it is a normal lymph globe. If it stays enlarged in the next month, you will need to follow-up with your primary care provider, Dieter Rincon. Lymph glands can be enlarged for multiple reasons and they can go down on their own. But if they keep on staying elevated, Dr. Rincon may need to do other imaging studies to look at it. Care Goals: 1. Take your medicine every day as instructed 2. Follow-up with Dr. Rincon about the lymph node in a month if it is still there but you should make an appointment to see him in the next 2 weeks anyway so he can see how you are doing out of the hospital. 3. Follow-up with Dr. Huerta on May 04 as already scheduled. Assessment: Patient expresses understanding of goals and will follow through No Smoking: If you smoke, Please STOP! Call for help. Follow-up with: SHREYAS RINCON MD [Primary Care Provider] -
[2019-05-03] MEDS: ONDANSETRON 4 MG/2 ML VIAL IVP PRN ×2 (08:37→14:26)
[2019-05-03] MEDS: rifAXIMin 550 MG TABLET PO SCH (08:37)
[2019-05-03] MEDS: SUCRALFATE 1 GM/10 ML UDC PO SCH ×3 (08:37→17:05)
[2019-05-03] MEDS: SODIUM CHLORIDE FLUSH 0.9% 10 ML SYRINGE IVP SCH ×3 (08:38→17:05)
[2019-05-03] MEDS: SOFOSBUVIR PO SCH (08:39)
[2019-05-03] MEDS: VELPATASVIR PO SCH (08:39)
[2019-05-03] MEDS ORDERED: CYANOCOBALAMIN 500 MCG TABLET PO SCH (09:00)
[2019-05-03] MEDS ORDERED: CIPROFLOXACIN 250 MG TABLET PO SCH (09:00)
[2019-05-03] MEDS ORDERED: PANTOPRAZOLE 40 MG TABLET PO SCH (09:00)
--- NOTE | 2019-05-03 11:55 | XRAY Report ---
Reason: no bm, emesis, cirrhosis Procedure Date: 05/03/2019 Accession Number: [id number] / [id number] Procedure: XR - Abdomen 1 View X-Ray CPT Code: 62961 Final Report FULL RESULT: EXAM: ABDOMEN RADIOGRAPHY EXAM DATE: 05/03/2019 09:28 AM. CLINICAL HISTORY: No bm, emesis, cirrhosis. COMPARISON: ABDOMEN 1 VIEW 12/04/2018 9:28 PM ABDOMEN/PELVIS W/O 01/23/2019 9:18 PM. TECHNIQUE: Supine AP view x2. FINDINGS: Bowel Gas Pattern: Within normal limits. No dilated loops. No significant formed stool is identified in the colon. Other: Metallic TIPS stent now noted. Lobular mass projecting over the upper pelvis corresponding to a fluid-filled umbilical hernia on the prior CT. IMPRESSION: 1. Nonobstructive bowel gas pattern. No significant formed stool in the colon. 2. TIPS now present. 3. Large fluid-filled umbilical hernia, as before. RADIA
[2019-05-03] MEDS ORDERED: BISACODYL 10 MG SUPP PR ONE (13:15)
[2019-05-03] MEDS: FERROUS SULFATE 325 MG TABLET PO SCH ×2 (13:33→13:38)
[2019-05-03] MEDS ORDERED: LACTULOSE 10 GM /15 ML UDC PO SCH (14:00)
--- NOTE | 2019-05-03 16:00 | DISCHARGE SUMMARY ---
Discharge Summary Admit Date: 04/29/19 Discharge Date: 05/03/19 Discharging Provider: Agnes Maynard MD Primary Care Provider: Charlie Rincon MD Code Status: Attempt Resuscitation Condition at Discharge: Fair Discharge Disposition: 01 Home, Self Care - DIAGNOSES Discharge Diagnoses with Status of Each Condition: 1. Hepatic encephalopathy 2. Cirrhosis of the liver 3. Chronic anemia 4. Chronic kidney disease stage III 5. Hepatitis C 6. History of alcohol abuse 7. History of esophageal variceal bleeding 8. Hypothyroidism 9. Lymph node enlargement - HPI History of Present Illness: This is a 49-year-old female with a past medical history significant for liver cirrhosis secondary to hepatitis C and alcohol use who underwent a TIPS procedure earlier this month at [facility] on April 17. She was discharged just three days ago. History is obtained from the daughter as the patient is altered and unable to provide a history. Her daughter states she was doing quite well yesterday and today she went to work and when she returned home she found her mother still asleep in bed. When she woke her up the patient kept saying "I am cold." When her daughter asked to any other questions the patient kept repeating the same answer. The daughter was concerned she may have been having a stroke and so she brought her to emergency department. She has been reportedly taking her lactulose at least twice a day although she did not take it since yesterday as she was asleep all day. The daughter also believes the patient did not take her oxycodone today and that she last took 2 tablets last night for her chronic back pain. She is currently not taking her Aldactone and furosemide as that was held after her discharge from [facility] she had acute kidney injury and her creatinine was as high as 2.2. Daughter states her hospital course was complicated by anemia requiring transfusions and acute kidney injury. Her planning official is Dr. Huerta at [facility]. She is currently receiving therapy with Epclusa for hepatitis C. Daughter states the patient has been doing quite well otherwise. She does not drink alcohol anymore and she is now aware of any potential drug use. Last metamphetamine drug tox positive was November 2018. The patient was not complaining of anything in particu lar yesterday. In the emergency department, she was afebrile, heart rate in the 70s, hypertensive systolic blood pressure in the 150s. She is not tachypneic and saturating well on room air. Labs are significant for hemoglobin of 8 which is around her baseline. Her INR is elevated at 1.8. Her creatinine is 1.3 which is actually little bit lower than her baseline of 1.6-1.8. Her ammonia was fo und to be elevated at 109. Urine drug screen was positive for oxycodone but otherwise negative. A CT of the head was unremarkable. Medicine was consulted for admission given the concern for hepatic encephalopathy after undergoing a TIPS procedure. She did receive lactulose 20 g in the emergency department. Did discuss goals of care with the patient's daughter over the phone and she states the patient would like to be a full code. - Past Medical History Cardiovascular: reports: Congestive heart failure Neuro: reports: None Endocrine/Autoimmune: reports: HyPOthyroidism GI: reports: Esophageal varices, GI bleed, Hepatitis, Cirrhosis [employer]: reports: Miscarriage(s) : reports: Renal insuffiency HEENT: reports: None Musculoskeletal: reports: Chronic back pain Derm: reports: None - CONSULTS | PROCEDURES Procedures: 1. Head CT. No intraparenchymal hemorrhage. No evidence of mass, midline shift, or CT findings of infarction. There is a dense extra-axial rounded ossification/, suffocation anterior to the right temporal lobe. Dense meningioma. Complete opacification right maxillary antrum. Some mucosal thickening on the right. [place] to be chronic sinusitis. 2. Abdominal ultrasound shows only a small amount of ascites present. Insufficient amount to perform paracentesis on May 02. 3. Soft tissue ultrasound of neck. Multiple normal-sized lymph nodes seen on left. 4. Plain film of the abdomen done for vomiting shows nonobstructive bowel gas pattern. No significant formed stool. Large fluid-filled umbilical hernia as before, unchanged. 5. Urine tox screen negative except for oxycodone which the patient takes at home 6. Urine culture without growth - HOSPITAL COURSE Hospital Course: The patient was admitted as a hepatic encephalopathy. We did look for other causes of encephalopathy such as GI bleeding, [place], stroke, recreational substance abuse and none was found. Her ammonia level was high. Initially she was still lethargic she could not do p.o. and we were getting ready to do rectal lactulose. She finally became awake enough to take lactulose and that is when she started getting better. It took a day and 1/2 to 2 days to have a bowel movement and once that started happening mentation improved substantially. With mentation improving, this patient 8 of large amount of food. Dinner alone was 2 trays. We slow down on the lactulose thinking that we did not want her to have more than 3 or 4 bowel movements a day, and she had nausea, vomiting. We resumed the lactulose and emesis went away. I did speak to her gastroenterology fellow at [facility], Dr. Huerta. He did feel that as long as we continue the lactulose, and she was encouraged to take it on a regular basis, most of her encephalopathy was reversible. She was watched for a drop in her hemoglobin to make sure she did not have bleeding from her esophageal varices and not occurred. Anemia remained relatively stable. She did receive transfusion at [facility]. With this her hemoglobin started at 8 and she drifted down to 7.5. She did not require transfusion. She is to be kept on her oral iron supplementation. Chronic kidney disease remained sta ble. [facility] her baseline was 1.5. With that she was 1.3 and 1.2. Her liver enzymes are mildly elevated. Bili peaked at 2.6. AST and ALT remained stable. She did complain of an isolated lymph node that was tender in the upper anterior chain in the anterior cervical neck. It is palpable at about 2 cm and freely mobile. However ultrasound does not show an enlarged lymph node. I have asked her to follow-up with her primary care provider. If this lymph node stays present or enlarges over the next 4 to 6 weeks she may need other imaging studies and work-up. On the day of discharge she did have a bowel movement. Discharge exam had a temperature of 36.6, pulse 78, blood pressure 146/92. Respirations 16 and she is 94% on room air. She is a thin white female who looks much older than stated age. She is 5 foot 4 inches tall and weighs 56 kg. Overall appearance is that of a cachectic female with a slightly distended belly made more protuberant by her overall muscle mass wasting. Sclera are mildly icteric. Oral mucosa are pink and moist. Neck is supple with the isolated lymph node that is tender in the left side of her neck adjacent to the thyroid. Supple neck. No JVD. Lungs are clear to auscultation and percussion. PMI is normally placed with a regular rate and rhythm. The abdomen is slightly distended, and I do feel like I feel a fluid wave however ultrasound of the abdomen does not show significant ascites. Tenderness over the right upper quadrant but no rebound or guarding. Tenderness is described at a 3 out of a 10. She takes oxycodone 10 and it takes care of the pain. She has mild asterixis on neurological exam, mild cerebellar ataxia she gets up to walk to the bathroom with a walker. But needs minimal assist. Greater than 30 minutes was spent coordinating discharge. - ALLERGIES Allergies/Adverse Reactions: Allergies Allergy/AdvReac Type Severity Reaction Status Date / Time acetaminophen [From Tylenol] Allergy Unknown Verified 03/08/19 02:19 NSAIDS (Non-Steroidal Allergy Unknown Verified 03/08/19 02:19 Anti-Inflamma - MEDICATIONS Home Medications: Ambulatory Orders Medication Instructions Recorded Confirmed Cholecalciferol (Vitamin D3) 2,000 units PO DAILY #60 capsule 12/02/18 04/30/19 [Vitamin D3] Ferrous Sulfate 325 mg PO DAILY #30 tablet 12/02/18 04/30/19 Multivitamin W/Minerals [Theragran 1 tab PO DAILY #30 tablet 12/02/18 04/30/19 M] Ascorbic Acid [Vitamin C] 500 mg PO BID 12/05/18 04/30/19 Mirtazapine 15 mg PO QPM PRN 01/08/19 04/30/19 Ondansetron Odt [Zofran Odt] 4 mg TL Q8H PRN 01/08/19 04/30/19 Ciprofloxacin [Cipro] 500 mg PO DAILY 04/30/19 04/30/19 Cyanocobalamin (Vitamin B-12) 1,000 mcg PO DAILY 04/30/19 04/30/19 [Vitamin B-12] Lactulose [Constulose] 30 ml PO TID 04/30/19 04/30/19 Levothyroxine [Synthroid] 50 mcg PO DAILY 04/30/19 04/30/19 Pantoprazole Sodium 40 mg PO DAILY 04/30/19 04/30/19 Sofosbuvir/Velpatasvir 1 tab PO DAILY 04/30/19 04/30/19 [Sofosbuvir-Velpatasvir 400-100] Sucralfate [Carafate] 1 gm PO QID 04/30/19 04/30/19 oxyCODONE [Roxicodone] 10 mg PO QID PRN 04/30/19 04/30/19 - LABS Result Diagrams: 05/02/19 05:40 05/02/19 05:40
[2019-05-03] MEDS ORDERED: MULTIVITAMIN W/MINERALS TABLET PO SCH (17:00)
[2019-05-03 17:56] VITALS: BP 138/84
== END 2019-05-03 19:07 | disposition home or self-care (01) | DRG 442 ==
LOC: EDUNIT# → ED 20:24 → UNDOADMOB 21:49 → MS2 21:49 → OBSVTOIN 05-01 12:53 → INTOOBSV 05-01 12:53
PROVIDERS: ADMIT Internal Medicine; ATTEND Specialist
DX: K72.90 Hepatic failure, unspecified without coma (principal); I85.00 Esophageal varices without bleeding; T47.3X6A Underdosing of saline and osmotic laxatives, initial encounter; Z91.138 Patient's unintentional underdosing of medication regimen for other reason; Y92.003 Bedroom of unspecified non-institutional (private) residence as the place of occurrence of the external cause; K70.31 Alcoholic cirrhosis of liver with ascites; N18.3 Chronic kidney disease, stage 3 (moderate); D50.9 Iron deficiency anemia, unspecified; B18.2 Chronic viral hepatitis C; E03.9 Hypothyroidism, unspecified; R59.0 Localized enlarged lymph nodes; M54.9 Dorsalgia, unspecified; G89.29 Other chronic pain; I50.9 Heart failure, unspecified; K42.9 Umbilical hernia without obstruction or gangrene; Z79.899 Other long term (current) drug therapy; Z79.891 Long term (current) use of opiate analgesic; Z87.898 Personal history of other specified conditions; Z95.828 Presence of other vascular implants and grafts; Z79.2 Long term (current) use of antibiotics
CPT/HCPCS: 36415; 70450; 74018; 76536; 76705; 80048; 80053; 80076; 80306; 80307; 80320; 80329; 81001; 82140; 83690; 83735; 84100; 85025; 85610; 87086; 93005; 96372; 99285; A9270; G0378; J8499; 81003; 86900; 86901

== ENCOUNTER 2019-05-04 19:02 | Inpatient (IN) | payer MEDICAID, OTHER ==
--- NOTE | 2019-05-04 20:09 | ED Physician Documentation ---
History of Present Illness - Stated complaint Stated Complaint: TROUBLE SPEAKING - Chief complaint Chief Complaint: Neuro - Additonal information Additional information: This is a 49-year-old female with a history of hepatitis C and hepatic cirrhosis who had a TIPS procedure recently presents with altered mental status. Patient was recently hospitalized from 04/29 through 05/03 due to hepatic encephalopathy, she was discharged at her baseline mental state, she typically has conversational and has fairly normal cognition, this morning her daughter said she was acting normally and when she returned this afternoon she was is lying in bed and not responding in any meaningful way. She did potentially fall off her bed yesterday as she was found sitting on the ground next to her bed, but there is no obvious witnessed head trauma. Her daughter states this is similar to how she presented in her most recent admission. She has been taking her lactulose, but did not have a bowel movement last 24 hours. No fever, no obvious cough, she did have one episode of vomiting in the last 48 hours. Her T-max is been 99 F according to her daughter. Review of Systems Unable to obtain: Confused PD PAST MEDICAL HISTORY - Past Medical History Past Medical History: Yes Cardiovascular: Congestive heart failure Respiratory: Pneumonia, Shortness of breath Neuro: None Endocrine/Autoimmune: HyPOthyroidism GI: Esophageal varices, GI bleed, Hepatitis, Cirrhosis [employer]: Miscarriage(s) : Renal insuffiency HEENT: None Psych: Other Musculoskeletal: Chronic back pain Derm: None - Past Surgical History Past Surgical History: Yes General: Hiatal hernia repair Ortho: Other /[employer]: Tubal ligation HEENT: Other - Present Medications Home Medications: Ambulatory Orders Medication Instructions Recorded Confirmed Cholecalciferol (Vitamin D3) 2,000 units PO DAILY #60 capsule 12/02/18 05/05/19 [Vitamin D3] Multivitamin W/Minerals [Theragran 1 tab PO DAILY #30 tablet 12/02/18 05/05/19 M] Ascorbic Acid [Vitamin C] 500 mg PO BID 12/05/18 05/05/19 Mirtazapine 15 mg PO QPM PRN 01/08/19 05/05/19 Ondansetron Odt [Zofran Odt] 4 mg TL Q8H PRN 01/08/19 05/05/19 Ciprofloxacin [Cipro] 500 mg PO DAILY 04/30/19 05/05/19 Cyanocobalamin (Vitamin B-12) 1,000 mcg PO DAILY 04/30/19 05/05/19 [Vitamin B-12] Lactulose [Constulose] 30 ml PO TID 04/30/19 05/05/19 Levothyroxine [Synthroid] 50 mcg PO DAILY 04/30/19 05/05/19 Pantoprazole Sodium 40 mg PO DAILY 04/30/19 05/05/19 Sofosbuvir/Velpatasvir 1 tab PO DAILY 04/30/19 05/05/19 [Sofosbuvir-Velpatasvir 400-100] Sucralfate [Carafate] 1 gm PO QID 04/30/19 05/05/19 oxyCODONE [Roxicodone] 10 mg PO QID PRN 04/30/19 05/05/19 Ferrous Sulfate 325 mg PO Q2D 05/05/19 05/05/19 Furosemide 20 mg PO DAILY 05/05/19 05/05/19 - Allergies Allergies/Adverse Reactions: Allergies Allergy/AdvReac Type Severity Reaction Status Date / Time acetaminophen [From Tylenol] Allergy Unknown Verified 03/08/19 02:19 NSAIDS (Non-Steroidal Allergy Unknown Verified 03/08/19 02:19 Anti-Inflamma - Social History Does the pt smoke?: No Smoking Status: Never smoker Does the pt drink ETOH?: No Does the pt have substance abuse?: No - Immunizations Immunizations are current?: Yes - POLST Patient has POLST: No POLST Status: Full Code PD ED PE NORMAL - General General: Other (Somnolent, responds to painful stimuliIn all 4 extremities, but cannot provide any meaningful history.) - HEENT HEENT: Atraumatic - Cardiac Cardiac: RRR - Respiratory Respiratory: No respiratory distress, Clear bilaterally - Abdomen Abdomen: Soft, Non tender, Non distended, Other (Lower abdominal hernia which is easily reducible and with no overlying skin changes.) - Neuro Neuro: Other (Somnolent, moving all 4 extremities, not able to hold a conversation with me. Responds to touch over all 4 extremities.) Results - Vitals Vitals: Vital Signs - 24 hr 05/05/19 08:01 Temperature 36.4 C L Heart Rate [ 106 H Brachial] Respiratory 16 Rate Blood Pressure 173/120 H [Right] Oxygen O2 Source Room air - Labs Labs: Laboratory Tests 05/04/19 05/04/19 05/04/19 20:20 20:20 20:20 WBC 6.7 RBC 3.70 L Hgb 8.8 L Hct 28.6 L MCV 77.3 L MCH 23.8 L MCHC 30.8 L RDW 25.2 H Plt Count 138 MPV 7.8 L Neut # (Auto) 5.7 Lymph # (Auto) 0.3 L [place] # (Auto) 0.5 Eos # (Auto) 0.1 Baso # (Auto) 0.0 Absolute Nucleated RBC 0.00 Nucleated RBC % 0.0 Manual Slide Review Indicated WBC Morphology Platelet Estimate NORMAL (130-450,000) Platelet Morphology NORMAL APPEARANCE RBC Morph Micro Appear 1+ POLYCHROMASIA PT 20.6 H INR 1.9 H Sodium 134 L Potassium 5.0 Chloride 103 Carbon Dioxide 21 Anion Gap 10.0 BUN 25 H Creatinine 1.6 H Estimated GFR (MDRD) 34 L Glucose 103 H Calcium 8.7 Phosphorus Magnesium Total Bilirubin 3.2 H Direct Bilirubin AST 40 ALT 37 Alkaline Phosphatase 112 Ammonia Troponin I High Sens Total Protein 5.8 L Albumin 3.0 L Globulin 2.8 Albumin/Globulin Ratio 1.1 Lipase 47 Urine Color Urine Clarity Urine pH Ur Specific [place] Urine Protein Urine Glucose (UA) Urine Ketones Urine Occult Blood Urine Nitrite Urine Bilirubin Urine Urobilinogen Ur Leukocyte Esterase Urine RBC Urine WBC Ur Squamous Epith Cells Urine Bacteria Ur Microscopic Review Salicylates < 6.0 Urine Opiates Screen Ur Oxycodone Screen Urine Methadone Screen Ur Propoxyphene Screen Acetaminophen < 10 L Ur Barbiturates Screen Ur Tricyclics Screen Ur Phencyclidine Scrn Ur Amphetamine Screen U Methamphetamines Scrn U Benzodiazepines Scrn Urine Cocaine Screen U Cannabinoids Screen Ethyl Alcohol < 5.0 05/04/19 05/04/19 05/05/19 20:20 20:20 02:20 WBC RBC Hgb Hct MCV MCH MCHC RDW Plt Count MPV Neut # (Auto) Lymph # (Auto) [place] # (Auto) Eos # (Auto) Baso # (Auto) Absolute Nucleated RBC Nucleated RBC % Manual Slide Review WBC Morphology Platelet Estimate Platelet Morphology RBC Morph Micro Appear PT INR Sodium Potassium Chloride Carbon Dioxide Anion Gap BUN Creatinine Estimated GFR (MDRD) Glucose Calcium Phosphorus Magnesium Total Bilirubin Direct Bilirubin AST ALT Alkaline Phosphatase Ammonia 104.2 H* Troponin I High Sens 11.1 Total Protein Albumin Globulin Albumin/Globulin Ratio Lipase Urine Color YELLOW Urine Clarity CLEAR Urine pH 7.5 Ur Specific [place] <=1.005 Urine Protein NEGATIVE Urine Glucose (UA) NEGATIVE Urine Ketones NEGATIVE Urine Occult Blood SMALL H Urine Nitrite NEGATIVE Urine Bilirubin NEGATIVE Urine Urobilinogen 2 H Ur Leukocyte Esterase NEGATIVE Urine RBC 0-5 Urine WBC 0-3 Ur Squamous Epith Cells RARE Squamous Urine Bacteria None Seen Ur Microscopic Review INDICATED Salicylates Urine Opiates Screen NEGATIVE Ur Oxycodone Screen POSITIVE H Urine Methadone Screen NEGATIVE Ur Propoxyphene Screen NEGATIVE Acetaminophen Ur Barbiturates Screen NEGATIVE Ur Tricyclics Screen NEGATIVE Ur Phencyclidine Scrn NEGATIVE Ur Amphetamine Screen NEGATIVE U Methamphetamines Scrn NEGATIVE U Benzodiazepines Scrn NEGATIVE Urine Cocaine Screen NEGATIVE U Cannabinoids Screen NEGATIVE Ethyl Alcohol 05/05/19 05/05/19 05/05/19 05:26 05:26 05:26 WBC 8.4 RBC 3.60 L Hgb 8.3 L Hct 27.2 L MCV 75.6 L MCH 23.1 L MCHC 30.5 L RDW 25.2 H Plt Count 163 MPV 8.2 Neut # (Auto) 7.0 H Lymph # (Auto) 0.5 L [place] # (Auto) 0.7 Eos # (Auto) 0.2 Baso # (Auto) 0.0 Absolute Nucleated RBC 0.00 Nucleated RBC % 0.0 Manual Slide Review Indicated WBC Morphology NORMAL APPEARANCE Platelet Estimate NORMAL (130-450,000) Platelet Morphology NORMAL APPEARANCE RBC Morph Micro Appear 2+ ANISOCYTOSIS PT INR Sodium 138 Potassium 4.7 Chloride 108 Carbon Dioxide 18 L Anion Gap 12.0 BUN 26 H Creatinine 1.4 H Estimated GFR (MDRD) 40 L Glucose 80 Calcium 9.2 Phosphorus 3.3 Magnesium 2.1 Total Bilirubin 4.0 H Direct Bilirubin 1.4 H AST 45 H ALT 35 Alkaline Phosphatase 112 Ammonia 88.8 H* Troponin I High Sens Total Protein 5.9 L Albumin 3.0 L Globulin 2.9 Albumin/Globulin Ratio Lipase Urine Color Urine Clarity Urine pH Ur Specific [place] Urine Protein Urine Glucose (UA) Urine Ketones Urine Occult Blood Urine Nitrite Urine Bilirubin Urine Urobilinogen Ur Leukocyte Esterase Urine RBC Urine WBC Ur Squamous Epith Cells Urine Bacteria Ur Microscopic Review Salicylates Urine Opiates Screen Ur Oxycodone Screen Urine Methadone Screen Ur Propoxyphene Screen Acetaminophen Ur Barbiturates Screen Ur Tricyclics Screen Ur Phencyclidine Scrn Ur Amphetamine Screen U Methamphetamines Scrn U Benzodiazepines Scrn Urine Cocaine Screen U Cannabinoids Screen Ethyl Alcohol - Rads (name of study) Head CT WO Radiology: Other (No acute intracranial abnormality) PD MEDICAL DECISION MAKING - ED course Complexity details: considered differential (Intracranial hemorrhage, electrolyte abnormality, hepatic encephalopathy, UTI, pneumonia) ED course: On arrival patient is somnolent, but she has no focal deficits. CT of her head is obtained and shows no acute intracranial abnormality. IV is inserted, labs are drawn, she has stigmata of chronic liver disease and she also has an elevated ammonia at 104. Sounds like despite receiving her lactulose she has not had a bowel movement for 24 hours, which is likely the cause of her recurrent hepatic encephalopathy. There are no signs of infection, her abdomen is soft and benign, And she does not have Sufficient ascites fluid for a diagnostic paracentesis at this time. I spoke with gastroenterology at [facility], hepatology is not on-call at this time, but they recommend admission to our hospital and treatment with lactulose for her hyperammonemia, and hepatology can be consulted for discussion of whether she needs adjustment of her TIPS. It is a bit unclear at this point if her hyperammonemia is primarily driven by the recent TIPS procedure or if it is more to do with nonadherence from the patient with her lactulose. Patient was admitted to our hospital for further evaluation and treatment. She has a somewhat improving mental status at the time of admission after receiving lactulose here. Departure - Departure Disposition: ED Place in Observation Clinical Impression: Hepatic encephalopathy Condition: Stable Discharge Date/Time: 05/04/19 23:00
[2019-05-04 20:25] LABS: BASOPHILS % (AUTO) 0.4 %; EOSINOPHILS # (AUTO) 0.1 10^3/uL (0.0-0.7); EOSINOPHILS % (AUTO) 1.8 %; HGB - HEMOGLOBIN 8.8 g/dL (12.0-16.0); LYMPHOCYTES # (AUTO) 0.3 10^3/uL (1.5-3.5); LYMPHOCYTES % (AUTO) 4.8 %; MEAN CORPUSCULAR HEMOGLOBIN 23.8 pg (27.0-31.0); MEAN CORPUSCULAR HGB CONC 30.8 g/dL (32.0-36.0); MEAN CORPUSCULAR VOLUME 77.3 fL (81.0-99.0); MEAN PLATELET VOLUME 7.8 fL (7.9-10.8); MONOCYTES # (AUTO) 0.5 10^3/uL (0.0-1.0); NEUTROPHILS # (AUTO) 5.7 10^3/uL (1.5-6.6); NEUTROPHILS % (AUTO) 85.4 %; PLT - PLATELET COUNT 138 10^3/uL (130-450); RED CELL DISTRIBUTION WIDTH 25.2 % (12.0-15.0); WHITE BLOOD COUNT 6.7 x10^3/uL (4.8-10.8)
--- NOTE | 2019-05-04 20:36 | CT Report ---
Reason: altered Procedure Date: 05/04/2019 Accession Number: [id number] / [id number] Procedure: CT - HEAD WO CPT Code: Final Report FULL RESULT: EXAM: CT HEAD EXAM DATE: 05/04/2019 08:01 PM. CLINICAL HISTORY: Altered. Unable to talk or respond verbally this afternoon. COMPARISON: HEAD W/O 04/29/2019 8:47 PM. TECHNIQUE: Multiaxial CT images were obtained from the foramen magnum to the vertex. Reformats: Sagittal and coronal. IV contrast: None. In accordance with CT protocol optimization, one or more of the following dose reduction techniques were utilized for this exam: automated exposure control, adjustment of mA and/or KV based on patient size, or use of iterative reconstructive technique. FINDINGS: Parenchyma: No mass effect or midline shift. No evidence for edema. No acute intracranial hemorrhage is seen. Extraaxial Spaces: Right frontal extra-axial ossification measuring 1 cm abutting the inner table of the skull, unchanged. No subdural or epidural collections identified. Ventricles: Normal in size and position. Sinuses and Orbits: Near complete opacification of the right maxillary sinus again noted. Mild left maxillary sinus mucosal thickening, unchanged. Mild right ethmoid and frontal sinus mucosal thickening. Bones: No evidence of fracture or calvarial defect. IMPRESSION: 1. No acute or focal intracranial abnormalities seen. 2. Right frontal extra-axial ossification measuring 1 cm abutting the inner table of the skull, unchanged. 3. Chronic sinus disease. See above. RADIA
[2019-05-04 20:40] LABS: ACETAMINOPHEN < 10 ug/mL (10-30); ALBUMIN/GLOBULIN RATIO 1.1 (1.0-2.2); ALKALINE PHOSPHATASE 112 IU/L (42-121); ALT ALANINE AMINOTRANSFERASE 37 IU/L (10-60); AST ASPARTATE AMINOTRANSFERASE 40 IU/L (10-42); BILIRUBIN,TOTAL 3.2 mg/dL (0.2-1.0); BUN - BLOOD UREA NITROGEN 25 mg/dL (6-20); CALCIUM 8.7 mg/dL (8.5-10.3); CARBON DIOXIDE - CO2 21 mmol/L (21-32); CHLORIDE 103 mmol/L (101-111); CREATININE 1.6 mg/dL (0.4-1.0); GFR - MDRD 34 (>89); GLUCOSE 103 mg/dL (70-100); LIPASE 47 U/L (22-51); SALICYLATE < 6.0 mg/dL; SODIUM 134 mmol/L (135-145); TOTAL PROTEIN 5.8 g/dL (6.7-8.2)
[2019-05-04 20:46] LABS: INR 1.9 (0.8-1.2); PT - PROTHROMBIN TIME 20.6 secs (9.9-12.6)
[2019-05-04 20:51] LABS: PLATELET ESTIMATE, MANUAL NORMAL (130-450,000) (NORMAL); PLATELET MORPHOLOGY NORMAL APPEARANCE (NORMAL)
[2019-05-04] MEDS ORDERED: LACTULOSE 10 GM /15 ML UDC PO STA (21:52)
[2019-05-04] MEDS ORDERED: CIPROFLOXACIN 250 MG TABLET PO STA (22:20)
[2019-05-04] MEDS ORDERED: SODIUM CHLORIDE FLUSH 0.9% 10 ML SYRINGE IVP PRN (22:35)
[2019-05-04] MEDS ORDERED: ONDANSETRON 4 MG/2 ML VIAL IVP PRN (22:35)
--- NOTE | 2019-05-04 22:42 | HISTORY & PHYSICAL EXAMINATION ---
Chief Complaint - Chief Complaint Chief Complaint: Altered mental status History of Present Illness - Admitted From Admitted From:: Home - History Obtained From Records Reviewed: Yes History obtained from: ER Physician, EMR Exam Limitations: Patient is lethargic and unable to provide a history. - History of Present Illness HPI Comment/Other: This is a 49-year-old female with a past medical history significant for liver cirrhosis secondary to hepatitis C and alcohol use, CKD stage III, esophageal varices, refractory ascites who is now status post a TIPS procedure earlier this month presents with altered mental status. She has been admitted of years ago for hepatoencephalopathy and treated with lactulose and rifaximin. Her ammonia level trended down and her mental status improved. She was discharged just yesterday and her daughter states that she had been doing well and she was last seen normal this morning. Her daughter returned home from work this evening and she found her mother to be quite lethargic and mumbling random words like "ow". Her daughter states that she has been taking lactulose but the patient had a bowel movement in over 24 hours. I am unable to obtain a history from the patient as she is altered. In the emergency room, she was afebrile with a temperature of 36.3. She was tachycardic with a heart rate of 119 but this improved to the 70s throughout her stay in the emergency department. She is hypertensive with a systolic blood pressure in the 160s. She is not tachypneic and saturating well on room air. Labs once again significant for a hemoglobin of 8.8 which is slightly increased compared to discharge.Her INR is also elevated at 1.9. Creatinine is 1.6 which is slightly increased since discharge but is around her baseline of 1.5. Her total bilirubin is also elevated at 3.2 which is also slightly increased since discharge. Her ammonia was found to be elevated at 104. She was given 10 g of lactulose in the emergency department. She underwent a CT of the head which was unremarkable. Given these findings, medicine was consulted for admission. I did initially asked emergency department physician to speak with gastroenterology at [facility] given this is a second episode of hepatic encephalopathy since her TIPS procedure. There is no oiler and greaser stationary plant operators but gastroenterology recommended admitting the patient and starting her on lactulose as well as ciprofloxacin for SBP prophylaxis. They recommended contacting the on-call bow maker machine tender during the day as they are not available overnight. Review of prior records reveal the patient is a full code. History - Past Medical History Cardiovascular: reports: Congestive heart failure Respiratory: reports: Pneumonia, Shortness of breath Neuro: reports: None Endocrine/Autoimmune: reports: HyPOthyroidism GI: reports: Esophageal varices, GI bleed, Hepatitis, Cirrhosis BRAKE LINING FINISHER: reports: Miscarriage(s) : reports: Renal insuffiency HEENT: reports: None Psych: reports: Other Musculoskeletal: reports: Chronic back pain Derm: reports: None MRSA Hx?: No - Past Surgical History General: reports: Hiatal hernia repair Ortho: reports: Other /BRAKE LINING FINISHER: reports: Tubal ligation HEENT: reports: Other - Family & Social History Family History: Mother: , Father: , Hypertension Family History Comment/Other: Father had esophageal cancer. Mother had CVA at 62. Extensive family history of colon cancer on maternal side. Social History Notes: She moved to [facility] from [place] to live with her daughter back in November. She does not currently use alcohol, tobacco or illicit drugs. She has a significant past history of alcohol abuse. 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 - Substance History Use: Uses substance without health or social issues: Alcohol - POLST Patient has POLST: No POLST Status: Full Code Meds/Allgy - Home Medications Home Medications: Ambulatory Orders Medication Instructions Recorded Confirmed Cholecalciferol (Vitamin D3) 2,000 units PO DAILY #60 capsule 12/02/18 04/30/19 [Vitamin D3] Ferrous Sulfate 325 mg PO DAILY #30 tablet 12/02/18 04/30/19 Multivitamin W/Minerals [Theragran 1 tab PO DAILY #30 tablet 12/02/18 04/30/19 M] Ascorbic Acid [Vitamin C] 500 mg PO BID 12/05/18 04/30/19 Mirtazapine 15 mg PO QPM PRN 01/08/19 04/30/19 Ondansetron Odt [Zofran Odt] 4 mg TL Q8H PRN 01/08/19 04/30/19 Ciprofloxacin [Cipro] 500 mg PO DAILY 04/30/19 04/30/19 Cyanocobalamin (Vitamin B-12) 1,000 mcg PO DAILY 04/30/19 04/30/19 [Vitamin B-12] Lactulose [Constulose] 30 ml PO TID 04/30/19 04/30/19 Levothyroxine [Synthroid] 50 mcg PO DAILY 04/30/19 04/30/19 Pantoprazole Sodium 40 mg PO DAILY 04/30/19 04/30/19 Sofosbuvir/Velpatasvir 1 tab PO DAILY 04/30/19 04/30/19 [Sofosbuvir-Velpatasvir 400-100] Sucralfate [Carafate] 1 gm PO QID 04/30/19 04/30/19 oxyCODONE [Roxicodone] 10 mg PO QID PRN 04/30/19 04/30/19 - Allergies Allergies/Adverse Reactions: Allergies Allergy/AdvReac Type Severity Reaction Status Date / Time acetaminophen [From Tylenol] Allergy Unknown Verified 03/08/19 02:19 NSAIDS (Non-Steroidal Allergy Unknown Verified 03/08/19 02:19 Anti-Inflamma Review of Systems - All Other Systems All Other Systems: reports: Other (Unable to obtain review of systems due altered mental status.) Prior Level of Functionality: Lives with her daughter and is independent with her ADLs. Exam - Vital Signs Reviewed Vital Signs: Yes Vital Signs: Vital Signs x48h Temp Pulse Resp BP Pulse Ox 05/04/19 22:03 98 17 171/105 H 98 05/04/19 21:18 76 16 168/88 H 100 05/04/19 20:04 70 15 160/98 H 100 05/04/19 19:08 36.3 C L 119 H 20 166/91 H 99 - Physical Exam General Appearance: positive: Mild distress, Lethargic Eyes Bilateral: positive: Normal inspection, PERRL, Other (Scleral icterus noted.). negative: No scleral icterus ENT: positive: ENT inspection nml Neck: positive: Nml inspection Respiratory: positive: No respiratory distress. negative: Wheezes, Rales, Rhonc hi Cardiovascular: positive: Regular rate & rhythm, No murmur. negative: T achycardia, Bradycardia, Systolic murmur, Diastolic murmur Abdomen: positive: Non-tender, No distention, Other (Umbilical hernia noted). negative: Tenderness, Guarding, Rebound Skin: positive: No rash, Warm, Dry Extremities: positive: Full ROM, No pedal edema Neurologic/Psychiatric: positive: Other (Moving all 4 extremities. She is nonverbal and does not respond to questions. Her eyes are open and are reactive to light. She is quite agitated and moving around in bed. Difficult to further assess her neurologic status as she does not follow commands.) Conclusion/Plan - Problem List (1) Hepatic encephalopathy Conclusion/Plan: She presents once again with hepatic encephalopathy and elevated ammonia. She is currently quite lethargic which is different compared to her last admission where she was very alert, agitated with pressured speech. She reportedly has been taking her lactulose but has not had a bowel movement in over [address] of the head was unremarkable. Will restart her back on lactulose and give her a rectal dose right now as I am not sure she be able to take p.o. We will then start her on lactulose 20 mg 3 times a day orally and titrate to 2-3 bowel movements a day. If she does not improve with lactulose, will restart her on rifaximin. I did asked the ER physician to speak with Luiza Vital regarding potential transfer as she has had 2 episodes of hepatic encephalopathy since her TIPS procedure earlier this month. GI at [facility] recommended admission and treatment with lactulose as well as ciprofloxacin for SBP prophylaxis. They recommended contacting the oiler and greaser in the morning as they are not on-call overnight. (2) Cirrhosis of liver Conclusion/Plan: Stable. Secondary to alcohol abuse and hepatitis C. She underwent a TIPS procedure earlier this month for refractory ascites. Her INR is elevated at 1.9 . Gastroneurology recommended initiating ciprofloxacin for SBP prophylaxis. She follows with Dr. Huerta at [facility] Qualifiers: Hepatic cirrhosis type: alcoholic cirrhosis Ascites presence: with ascites Qualified Code(s): K70.31 - Alcoholic cirrhosis of liver with ascites (3) Anemia Conclusion/Plan: It is multifactorial and like secondary to chronic disease as well as iron deficiency. She is on iron supplementation which we will continue. Her hemoglobin is stable and there is no evidence of bleeding. Will use SCDs for DVT prophylaxis Qualifiers: Anemia type: unspecified type Qualified Code(s): D64.9 - Anemia, unspecified (4) CKD (chronic kidney disease) stage 3, GFR 30-59 ml/min Conclusion/Plan: Her creatinine is slightly elevated compared to labs from her prior admission but her baseline is around 1.5 and creatinine is currently 1.6. We will hold off on IV fluids for the time being. If her creatinine increases in the morning, will start her on IV hydration. (5) Hepatitis C Conclusion/Plan: Secondary to IV drug use.She follows with Dr. Huerta at [facility] and is currently receiving therapy with Epclusa. Qualifiers: Viral hepatitis chronicity: chronic (6) History of alcohol abuse Conclusion/Plan: This likely contributed to her liver cirrhosis as well as hepatitis C. Daughter reports is she no longer drinking alcohol. (7) History of esophageal varices with bleeding Conclusion/Plan: There is no evidence of bleeding at this time. Hemoglobin is stable compared to her baseline. She also underwent a TIPS procedure earlier this month. We will resume her home Protonix. (8) Hypothyroidism Conclusion/Plan: Stable. We will resume her home Synthroid. - Lab Results Fish Bones: 05/05/19 05:26 05/05/19 05:26 Core Measures - Anticipated LOS I expect patient to be DC'd or transferred within 96 hours.: Yes - Issues Hospital Issues and Management Plan: Hepatic encephalopathy requiring treatment with lactulose and trending her ammonia.
[2019-05-04] MEDS ORDERED: LACTULOSE 10 GM/15 ML BOTTLE PR ONE (23:00)
[2019-05-05] MEDS ORDERED: HALOPERIDOL 5 MG/ML VIAL IVP ONE (00:59)
[2019-05-05] MEDS ORDERED: LACTULOSE 10 GM /15 ML UDC ONE (01:04)
[2019-05-05] MEDS: SODIUM CHLORIDE FLUSH 0.9% 10 ML SYRINGE IVP SCH ×3 (01:16→18:08)
[2019-05-05 02:49] LABS: BILIRUBIN,URINE NEGATIVE (NEGATIVE); GLUCOSE, URINE (UA) NEGATIVE (NEGATIVE); KETONES,URINE (UA) NEGATIVE (NEGATIVE); LEUKOCYTE ESTERASE, URINE NEGATIVE (NEGATIVE); MUDS CUTOFF CONCENTRATIONS CUTOFF CONC BELOW:; NITRITE,URINE NEGATIVE (NEGATIVE); OCCULT BLOOD,URINE SMALL (NEGATIVE); PH,URINE 7.5 PH (5.0-7.5); PROTEIN,URINE NEGATIVE (NEGATIVE); UROBILINOGEN,URINE 2 E.U./dL (NORMAL)
[2019-05-05 03:00] LABS: AMPHETAMINE SCREEN,URINE NEGATIVE (NEGATIVE); BACTERIA,URINE None Seen /HPF (None Seen); BENZODIAZEPINES SCREEN, URINE NEGATIVE (NEGATIVE); CLARITY,URINE CLEAR (CLEAR); COCAINE SCREEN URINE NEGATIVE (NEGATIVE); METHADONE SCREEN, URINE NEGATIVE (NEGATIVE); METHAMPHETAMINES SCREEN, URINE NEGATIVE (NEGATIVE); OPIATE SCREEN, URINE NEGATIVE (NEGATIVE); OXYCODONE SCREEN, URINE POSITIVE (NEGATIVE); PROPOXYPHENE SCREEN, URINE NEGATIVE (NEGATIVE); RBC,URINE 0-5 /HPF (0-5); SQUAMOUS EPITHELIAL CELL,UR RARE Squamous (<= Few); TRICYCLIC ANTIDEPRESSANT,URINE NEGATIVE (NEGATIVE)
[2019-05-05 05:36] LABS: BASOPHILS % (AUTO) 0.4 %; EOSINOPHILS # (AUTO) 0.2 10^3/uL (0.0-0.7); EOSINOPHILS % (AUTO) 2.6 %; HGB - HEMOGLOBIN 8.3 g/dL (12.0-16.0); LYMPHOCYTES # (AUTO) 0.5 10^3/uL (1.5-3.5); LYMPHOCYTES % (AUTO) 5.6 %; MEAN CORPUSCULAR HEMOGLOBIN 23.1 pg (27.0-31.0); MEAN CORPUSCULAR HGB CONC 30.5 g/dL (32.0-36.0); MEAN CORPUSCULAR VOLUME 75.6 fL (81.0-99.0); MEAN PLATELET VOLUME 8.2 fL (7.9-10.8); MONOCYTES # (AUTO) 0.7 10^3/uL (0.0-1.0); PLT - PLATELET COUNT 163 10^3/uL (130-450); RED CELL DISTRIBUTION WIDTH 25.2 % (12.0-15.0); WHITE BLOOD COUNT 8.4 x10^3/uL (4.8-10.8)
[2019-05-05 05:59] LABS: RBC MORPHOLOGY (MULTIPLE) 2+ ANISOCYTOSIS (NORMAL)
[2019-05-05 06:02] LABS: BILIRUBIN,DIRECT 1.4 mg/dL (0.1-0.5); CALCIUM 9.2 mg/dL (8.5-10.3); CREATININE 1.4 mg/dL (0.4-1.0); MAGNESIUM 2.1 mg/dL (1.7-2.8); PHOSPHORUS 3.3 mg/dL (2.5-4.6); TOTAL PROTEIN 5.9 g/dL (6.7-8.2)
[2019-05-05 06:06] LABS: PLATELET ESTIMATE, MANUAL NORMAL (130-450,000) (NORMAL); PLATELET MORPHOLOGY NORMAL APPEARANCE (NORMAL)
[2019-05-05] MEDS: LEVOTHYROXINE 25 MCG TABLET PO SCH (06:26)
[2019-05-05] MEDS: PANTOPRAZOLE 40 MG TABLET PO SCH (06:26)
[2019-05-05] MEDS: LACTULOSE 10 GM /15 ML UDC PO SCH ×3 (06:26→21:12)
[2019-05-05] MEDS ORDERED: LACTULOSE 10 GM/15 ML BOTTLE PR SCH (08:00)
[2019-05-05] MEDS: FERROUS SULFATE 325 MG TABLET PO SCH (09:17)
[2019-05-05] MEDS: CIPROFLOXACIN 250 MG TABLET PO SCH (09:17)
[2019-05-05] MEDS: LACTATED RINGERS 1,000 ML IV SCH ×2 (09:25→21:13)
--- NOTE | 2019-05-05 12:49 | PROVIDER PROGRESS NOTE ---
Assessment/Plan - Problem List (1) Hepatic encephalopathy Assessment/Plan: She is less obtunded, but not at baseline awake She was able to swallow when fed Ammonia level improved from 100 to 88 toaday Continue Lactulose pr Follow daily ammonia She will need a different plan than going home without daytime help, since she is probably encephalopathic from not having taken her home Lactulose dose, on her own (2) Cirrhosis of liver Qualifiers: Hepatic cirrhosis type: alcoholic cirrhosis Ascites presence: with ascites Qualified Code(s): K70.31 - Alcoholic cirrhosis of liver with ascites Assessment/Plan: GI specialist contacted by yesterday's Hospitalist recommended Cipro to p rophylax from [facility]. Also recommended to call back Luiza Vital during the day, for Sugar Sampler's input, but there is no Sugar Sampler available over the weekend (today is Tuesday), when I spoke to Luiza Vital medication coordinator today. (3) Anemia Qualifiers: Anemia type: unspecified type Qualified Code(s): D64.9 - Anemia, unspecified Assessment/Plan: Anemia of chronic disease and iron deficiency from prior variceal bleed. No signs of blood loss Her dose of Iron will be continued. (4) CKD (chronic kidney disease) stage 3, GFR 30-59 ml/min Assessment/Plan: Stable abnormal creat Monitor BMP daily (5) Hepatitis C Qualifiers: Viral hepatitis chronicity: chronic Assessment/Plan: Per the Hx, this was from prior IVDA Hx (6) History of alcohol abuse Assessment/Plan: Per the Hx. She has stopped alcohol intake. Will order thiamine as well as continue the lactulose as above (7) Hypothyroidism Assessment/Plan: She is ordered to get her home dose of thyroid pill (8) History of esophageal varices with bleeding Assessment/Plan: As per Hx. - Current Meds Current Meds: Current Medications Generic Name Dose Route Start Last Admin Trade Name Freq PRN Reason Stop Dose Admin Ciprofloxacin 500 mg 05/05/19 09:00 05/05/19 09:17 Cipro PO 500 mg DAILY SUMEET Administration Ferrous Sulfate 325 mg 05/05/19 08:00 05/05/19 09:17 Feosol PO 325 mg DAILYWM SUMEET Administration Lactated Ringer's 1,000 mls @ 83.333 mls/hr 05/05/19 07:00 05/05/19 09:25 Lr IV 83.333 mls/hr .Q12H SUMEET Administration Lactulose 20 gm 05/05/19 06:00 05/05/19 06:26 Enulose PO Not Given TID SUMEET Levothyroxine Sodium 50 mcg 05/05/19 07:00 05/05/19 06:26 Synthroid PO Not Given QDAC SUMEET Pantoprazole Sodium 40 mg 05/05/19 07:00 05/05/19 06:26 Protonix PO Not Given QDAC SUMEET Sodium Chloride 10 ml 05/05/19 01:00 05/05/19 10:41 Normal Saline Flush 0.9% IVP Not Given 0100,0900,1700 SUMEET - Lab Result Fish Bone Diagrams: 05/05/19 05:26 05/05/19 05:26 - Additional Planning My Orders: My Active Orders 05/05/19 11:43 Admit [Admit \ Transfer \ Status] [RC] .ONCE 05/05/19 Dinner DIET [Soft Mechanical Diet] [DIET] Subjective - Subjective Patient Reports: Other (Not communicative, starring straight ahead, does not follow commands or acknowlege people that enter the room) Objective Vital Signs: Vital Signs - 24 hr 05/04/19 05/04/19 05/04/19 19:08 20:04 21:18 Temperature 36.3 C L Heart Rate 119 H 70 76 Heart Rate [ Brachial] Respiratory 20 15 16 Rate Blood Pressure 166/91 H 160/98 H 168/88 H Blood Pressure [Right] O2 Saturation 99 100 100 05/04/19 05/04/19 05/05/19 22:03 23:00 01:00 Temperature 36.2 C L Heart Rate 98 91 Heart Rate [ 86 Brachial] Respiratory 17 18 18 Rate Blood Pressure 171/105 H 170/113 H Blood Pressure 178/89 H [Right] O2 Saturation 98 98 99 05/05/19 05/05/19 05/05/19 04:02 08:01 12:40 Temperature 36.5 C 36.4 C L 36.4 C L Heart Rate Heart Rate [ 100 106 H 100 Brachial] Respiratory 14 16 23 Rate Blood Pressure Blood Pressure 165/95 H 173/120 H 162/94 H [Right] O2 Saturation 98 90 L Oxygen O2 Source Room air I&O (Last 24 Hrs): Intake and Output Totals x24h 05/03/19 05/04/1905/05/19 23:59 23:59 23:59 Output Total 600 Balance -600 General: Other (Starring ahead, does not acknowledge her surroundings or answer questions. Is cachectic) HEENT: Mucous membr. moist/pink, Other (Cachectic. Poor dentiition) Neck: Supple Neuro: Other (Is confused, does not acknowledge her surroundings or answer questions.) Cardiovascular: Regular rate Respiratory: No respiratory distress Abdomen: Soft, Other (No obvious ascites) Extremities: No edema - Results Results: Laboratory Results WBC 8.4 x10^3/uL (4.8-10.8) 05/05/19 05:26 RBC 3.60 10^6/uL (4.20-5.40) L 05/05/19 05:26 Hgb 8.3 g/dL (12.0-16.0) L 05/05/19 05:26 Hct 27.2 % (37.0-47.0) L 05/05/19 05:26 MCV 75.6 fL (81.0-99.0) L 05/05/19 05:26 MCH 23.1 pg (27.0-31.0) L 05/05/19 05:26 MCHC 30.5 g/dL (32.0-36.0) L 05/05/19 05:26 RDW 25.2 % (12.0-15.0) H 05/05/19 05:26 Plt Count 163 10^3/uL (130-450) 05/05/19 05:26 MPV 8.2 fL (7.9-10.8) 05/05/19 05:26 Neut # (Auto) 7.0 10^3/uL (1.5-6.6) H 05/05/19 05:26 Lymph # (Auto) 0.5 10^3/uL (1.5-3.5) L 05/05/19 05:26 [place] # (Auto) 0.7 10^3/uL (0.0-1.0) 05/05/19 05:26 Eos # (Auto) 0.2 10^3/uL (0.0-0.7) 05/05/19 05:26 Baso # (Auto) 0.0 10^3/uL (0.0-0.1) 05/05/19 05:26 Absolute Nucleated RBC 0.00 x10^3/uL 05/05/19 05:26 Nucleated RBC % 0.0 /100WBC 05/05/19 05:26 Manual Slide Review Indicated 05/05/19 05:26 WBC Morphology NORMAL APPEARANCE (NORMAL) 05/05/19 05:26 Platelet Estimate NORMAL (130-450,000) (NORMAL) 05/05/19 05:26 Platelet Morphology NORMAL APPEARANCE (NORMAL) 05/05/19 05:26 RBC Morph Micro Appear 1+ ANISOCYTOSIS (NORMAL) 1+ MACROCYTOSIS (NORMAL) 1+ MICROCYTOSIS (NORMAL) 1+ HYPOCHROMASIA (NORMAL) 1+ POLYCHROMASIA (NORMAL) 05/04/19 20:20 RBC Morph Micro Appear 1+ ANISOCYTOSIS (NORMAL) 1+ MACROCYTOSIS (NORMAL) 1+ MICROCYTOSIS (NORMAL) 1+ HYPOCHROMASIA (NORMAL) 1+ POLYCHROMASIA (NORMAL) 05/04/19 20:20 RBC Morph Micro Appear 1+ ANISOCYTOSIS (NORMAL) 1+ MACROCYTOSIS (NORMAL) 1+ MICROCYTOSIS (NORMAL) 1+ HYPOCHROMASIA (NORMAL) 1+ POLYCHROMASIA (NORMAL) 1 07/05/18 20:20 RBC Morph Micro Appear 1+ ANISOCYTOSIS (NORMAL) 1+ MACROCYTOSIS (NORMAL) 1+ MICROCYTOSIS (NORMAL) 1+ HYPOCHROMASIA (NORMAL) 1+ POLYCHROMASIA (NORMAL) 05/04/19 20:20 RBC Morph Micro Appear 2+ ANISOCYTOSIS (NORMAL) 05/05/19 05:26 PT 20.6 secs (9.9-12.6) H 05/04/19 20:20 INR 1.9 (0.8-1.2) H 05/04/19 20:20 Sodium 138 mmol/L (135-145) 05/05/19 05:26 Potassium 4.7 mmol/L (3.5-5.0) 05/05/19 05:26 Chloride 108 mmol/L (101-111) 05/05/19 05:26 Carbon Dioxide 18 mmol/L (21-32) L 05/05/19 05:26 Anion Gap 12.0 (6-13) 05/05/19 05:26 BUN 26 mg/dL (6-20) H 05/05/19 05:26 Creatinine 1.4 mg/dL (0.4-1.0) H 05/05/19 05:26 Estimated GFR (MDRD) 40 (>89) L 05/05/19 05:26 Glucose 80 mg/dL (70-100) 05/05/19 05:26 Calcium 9.2 mg/dL (8.5-10.3) 05/05/19 05:26 Phosphorus 3.3 mg/dL (2.5-4.6) 05/05/19 05:26 Magnesium 2.1 mg/dL (1.7-2.8) 05/05/19 05:26 Total Bilirubin 4.0 mg/dL (0.2-1.0) H 05/05/19 05:26 Direct Bilirubin 1.4 mg/dL (0.1-0.5) H 05/05/19 05:26 AST 45 IU/L (10-42) H 05/05/19 05:26 ALT 35 IU/L (10-60) 05/05/19 05:26 Alkaline Phosphatase 112 IU/L (42-121) 05/05/19 05:26 Ammonia 88.8 umol/L (7-35) H* 05/05/19 05:26 Troponin I High Sens 11.1 ng/L (2.3-14.8) 05/04/19 20:20 Total Protein 5.9 g/dL (6.7-8.2) L 05/05/19 05:26 Albumin 3.0 g/dL (3.2-5.5) L 05/05/19 05:26 Globulin 2.9 g/dL (2.1-4.2) 05/05/19 05:26 Albumin/Globulin Ratio 1.1 (1.0-2.2) 05/04/19 20:20 Lipase 47 U/L (22-51) 05/04/19 20:20 Urine Color YELLOW 05/05/19 02:20 Urine Clarity CLEAR (CLEAR) 05/05/19 02:20 Urine pH 7.5 PH (5.0-7.5) 05/05/19 02:20 Ur Specific [place] <=1.005 (1.002-1.030) 05/05/19 02:20 Urine Protein NEGATIVE mg/dL (NEGATIVE) 05/05/19 02:20 Urine Glucose (UA) NEGATIVE mg/dL (NEGATIVE) 05/05/19 02:20 Urine Ketones NEGATIVE mg/dL (NEGATIVE) 05/05/19 02:20 Urine Occult Blood SMALL (NEGATIVE) H 05/05/19 02:20 Urine Nitrite NEGATIVE (NEGATIVE) 05/05/19 02:20 Urine Bilirubin NEGATIVE (NEGATIVE) 05/05/19 02:20 Urine Urobilinogen 2 E.U./dL (NORMAL) H 05/05/19 02:20 Ur Leukocyte Esterase NEGATIVE (NEGATIVE) 05/05/19 02:20 Urine RBC 0-5 /HPF (0-5) 05/05/19 02:20 Urine WBC 0-3 /HPF (0-5) 05/05/19 02:20 Ur Squamous Epith Cells RARE Squamous (<= Few) 05/05/19 02:20 Urine Bacteria None Seen /HPF (None Seen) 05/05/19 02:20 Ur Microscopic Review INDICATED 05/05/19 02:20 Salicylates < 6.0 mg/dL 05/04/19 20:20 Urine Opiates Screen NEGATIVE (NEGATIVE) 05/05/19 02:20 Ur Oxycodone Screen POSITIVE (NEGATIVE) H 05/05/19 02:20 Urine Methadone Screen NEGATIVE (NEGATIVE) 05/05/19 02:20 Ur Propoxyphene Screen NEGATIVE (NEGATIVE) 05/05/19 02:20 Acetaminophen < 10 ug/mL (10-30) L 05/04/19 20:20 Ur Barbiturates Screen NEGATIVE (NEGATIVE) 05/05/19 02:20 Ur Tricyclics Screen NEGATIVE (NEGATIVE) 05/05/19 02:20 Ur Phencyclidine Scrn NEGATIVE (NEGATIVE) 05/05/19 02:20 Ur Amphetamine Screen NEGATIVE (NEGATIVE) 05/05/19 02:20 U Methamphetamines Scrn NEGATIVE (NEGATIVE) 05/05/19 02:20 U Benzodiazepines Scrn NEGATIVE (NEGATIVE) 05/05/19 02:20 Urine Cocaine Screen NEGATIVE (NEGATIVE) 05/05/19 02:20 U Cannabinoids Screen NEGATIVE (NEGATIVE) 05/05/19 02:20 Ethyl Alcohol < 5.0 mg/dL 05/04/19 20:20 - Procedures Procedures: Procedures DRAINAGE OF PERITONEAL CAVITY, PERCUTANEOUS APPROACH (12/01/18) TRANSFUSE NONAUT RED BLOOD CELLS IN PERIPH VEIN, PERC (12/01/18)
[2019-05-05] MEDS ORDERED: FERROUS SULFATE 325 MG TABLET PO SCH (19:00)
[2019-05-05] MEDS: ZINC OXIDE 20% OINT 30 GM TUBE TOP PRN (22:43)
[2019-05-06] MEDS: SODIUM CHLORIDE FLUSH 0.9% 10 ML SYRINGE IVP SCH ×3 (00:23→16:50)
[2019-05-06] MEDS ORDERED: MORPHINE 2 MG/ML CARPUJECT IVP STA (03:23)
[2019-05-06] MEDS: LACTULOSE 10 GM /15 ML UDC PO SCH (06:50)
[2019-05-06] MEDS: PANTOPRAZOLE 40 MG TABLET PO SCH (06:51)
[2019-05-06] MEDS: LEVOTHYROXINE 25 MCG TABLET PO SCH (06:51)
[2019-05-06] MEDS: LACTATED RINGERS 1,000 ML IV SCH ×2 (06:59→11:19)
[2019-05-06] MEDS ORDERED: LORazepam 2 MG/ML VIAL IVP PRN (07:26)
[2019-05-06] MEDS ORDERED: LACTULOSE 10 GM /15 ML UDC PO SCH (08:00)
[2019-05-06] MEDS ORDERED: LACTULOSE 10 GM/15 ML BOTTLE PR SCH (08:00)
[2019-05-06] MEDS ORDERED: CHOLECALCIFEROL 1,000 UNIT TABLET PO SCH (09:00)
[2019-05-06] MEDS ORDERED: MULTIVITAMIN W/MINERALS TABLET PO SCH (09:00)
[2019-05-06] MEDS ORDERED: THIAMINE 100 MG TABLET PO SCH (09:00)
--- NOTE | 2019-05-06 10:06 | CT Report ---
Reason: abdominal pain. nonreducible hernia. ?strangulated Procedure Date: 05/06/2019 Accession Number: [id number] / [id number] Procedure: CT - Abdomen/Pelvis WO CPT Code: Final Report FULL RESULT: EXAM: CT ABDOMEN AND PELVIS WITHOUT CONTRAST EXAM DATE: 05/06/2019 08:17 AM. CLINICAL HISTORY: Abdominal pain. Nonreducible hernia. ?strangulated. COMPARISONS: ABDOMEN/PELVIS W/O 01/23/2019 9:18 PM. TECHNIQUE: Routine helical CT imaging was performed through the abdomen and pelvis. IV contrast: None. Enteric contrast: No. Reconstructions: Coronal and sagittal. In accordance with CT protocol optimization, one or more of the following dose reduction techniques were utilized for this exam: automated exposure control, adjustment of mA and/or KV based on patient size, or use of iterative reconstructive technique. FINDINGS: Lung Bases: There is a small right pleural effusion and moderate left pleural effusion, new compared to 01/23/2019. There is mild compressive atelectasis at the bilateral lung bases. Liver: Nodular cirrhotic contour of the liver, as seen on the prior exam. A metallic TIPS stent is present, new compared to 01/23/2019. Gallbladder/Bile Ducts: The gallbladder is not well visualized on this noncontrast exam. The gallbladder may be decompressed or absent. No apparent biliary dilatation. Spleen: Splenomegaly, similar to prior. Splenic length measures up to 15.2 cm (series 6 image 18). Pancreas: Unremarkable. Adrenal Glands: Unremarkable. Kidneys: Unremarkable. No hydronephrosis or calculi. Peritoneal Cavity/Bowel: There is a moderate amount of free intraperitoneal fluid, greatest in the right upper quadrant over the dome of the liver. No free air. There are multiple dilated loops of proximal small bowel filled with gas and fluid, measuring up to 3.7 cm in diameter. There is a transition point at the umbilical hernia. There is a short loop of small bowel and moderate amount of fluid within the hernia. The distal small bowel is decompressed. There is a small amount of formed stool throughout the colon and rectum. Pelvic Organs: Unremarkable. Vasculature: No aneurysms or other significant abnormality apparent on this noncontrast exam. Bones: No significant abnormality. Other: None. IMPRESSION: 1. Small bowel obstruction secondary to umbilical hernia. There is a short segment of small bowel and moderate amount of fluid within the hernia sac. Vascular compromise cannot be excluded. 2. Findings consistent with cirrhosis and portal hypertension including splenomegaly and moderate ascites. There is a new TIPS stent in the liver. 3. Small right pleural effusion and moderate left pleural effusion, new compared to 01/23/2019. RADIA
[2019-05-06 10:43] LABS: BASOPHILS % (AUTO) 0.1 %; EOSINOPHILS # (AUTO) 0.1 10^3/uL (0.0-0.7); EOSINOPHILS % (AUTO) 1.4 %; HGB - HEMOGLOBIN 8.2 g/dL (12.0-16.0); LYMPHOCYTES # (AUTO) 0.5 10^3/uL (1.5-3.5); LYMPHOCYTES % (AUTO) 6.3 %; MEAN CORPUSCULAR HEMOGLOBIN 23.8 pg (27.0-31.0); MEAN CORPUSCULAR HGB CONC 30.8 g/dL (32.0-36.0); MEAN CORPUSCULAR VOLUME 77.3 fL (81.0-99.0); MEAN PLATELET VOLUME 8.1 fL (7.9-10.8); MONOCYTES # (AUTO) 0.8 10^3/uL (0.0-1.0); MONOCYTES % (AUTO) 9.2 %; NEUTROPHILS # (AUTO) 6.9 10^3/uL (1.5-6.6); NEUTROPHILS % (AUTO) 82.4 %; PLT - PLATELET COUNT 153 10^3/uL (130-450); RED BLOOD COUNT 3.44 10^6/uL (4.20-5.40); RED CELL DISTRIBUTION WIDTH 26.4 % (12.0-15.0); WHITE BLOOD COUNT 8.4 x10^3/uL (4.8-10.8)
[2019-05-06 10:50] LABS: ALBUMIN/GLOBULIN RATIO 1.2 (1.0-2.2); BILIRUBIN,TOTAL 5.2 mg/dL (0.2-1.0); CREATININE 1.5 mg/dL (0.4-1.0); TOTAL PROTEIN 5.6 g/dL (6.7-8.2)
[2019-05-06] MEDS: CIPROFLOXACIN 250 MG TABLET PO SCH (10:54)
[2019-05-06] MEDS: FERROUS SULFATE 325 MG TABLET PO SCH (10:54)
[2019-05-06] MEDS: MORPHINE 2 MG/ML CARPUJECT IVP PRN ×3 (11:15→21:21)
[2019-05-06 11:29] LABS: PLATELET ESTIMATE, MANUAL NORMAL (130-450,000) (NORMAL); PLATELET MORPHOLOGY NORMAL APPEARANCE (NORMAL)
[2019-05-06] MEDS: FAMOTIDINE 20 MG/2 ML VIAL IVP SCH ×2 (12:23→22:41)
--- NOTE | 2019-05-06 12:50 | CONSULTATION NOTE ---
Referring Provider Name of Referring Provider:: Dr. Dominguez Consult Date: 05/06/19 Chief Complaint - Chief Complaint Chief Complaint: abd pain History of Present Illness - Admitted From Admitted From:: ER - History Obtained From Records Reviewed: yes History obtained from: records Exam Limitations: pt is noncommunicative - History of Present Illness HPI Comment/Other: 49 yo female with severe liver disease thought due to alcohol and hepatitis C with hepatic cirrhosis, portal hypertension, esophageal varices, ascites, and hepatic encephalopathy, s/p recent TIPS procedure at [facility], recently admitted to [facility] for worsening mental status thought due to worsening hepatic encephalopathy, was noted to appear to be in pain last night by the tank bottom assembler. She has a known umbilical hernia and it was noted to be irreducible and tender. There has been no vomiting and her bowels have moved [address] abd/pelvis was obtained this morning which was notable for evidence of a SBO with a loop of small bowel within the umbilical hernia as the transition point, with dilated small bowel seen proximal to the herniated small bowel, and collapsed distal. Surgical consultation was requested. History - Past Medical History Cardiovascular: reports: Congestive heart failure Respiratory: reports: Pneumonia, Shortness of breath Neuro: reports: None Endocrine/Autoimmune: reports: HyPOthyroidism GI: reports: Esophageal varices, GI bleed, Hepatitis, Cirrhosis FORMULA CHECKER: reports: Miscarriage(s) : reports: Renal insuffiency HEENT: reports: None Psych: reports: Other Musculoskeletal: reports: Chronic back pain Derm: reports: None MRSA Hx?: No - Past Surgical History General: reports: Hiatal hernia repair Ortho: reports: Other /FORMULA CHECKER: reports: Tubal ligation HEENT: reports: Other - Family & Social History Family History: Mother: , Father: , Hypertension Family History Comment/Other: Father had esophageal cancer. Mother had CVA at 62. Extensive family history of colon cancer on maternal side. Social History Notes: She moved to [facility] from [place] to live with her daughter back in November. She does not currently use alcohol, tobacco or illicit drugs. She has a significant past history of alcohol abuse. 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 - POLST Patient has POLST: No POLST Status: Full Code Meds/Allgy - Home Medications Home Medications: Ambulatory Orders Medication Instructions Recorded Confirmed Cholecalciferol (Vitamin D3) 2,000 units PO DAILY #60 capsule 12/02/18 05/05/19 [Vitamin D3] Multivitamin W/Minerals [Theragran 1 tab PO DAILY #30 tablet 12/02/18 05/05/19 M] Ascorbic Acid [Vitamin C] 500 mg PO BID 12/05/18 05/05/19 Mirtazapine 15 mg PO QPM PRN 01/08/19 05/05/19 Ondansetron Odt [Zofran Odt] 4 mg TL Q8H PRN 01/08/19 05/05/19 Ciprofloxacin [Cipro] 500 mg PO DAILY 04/30/19 05/05/19 Cyanocobalamin (Vitamin B-12) 1,000 mcg PO DAILY 04/30/19 05/05/19 [Vitamin B-12] Lactulose [Constulose] 30 ml PO TID 04/30/19 05/05/19 Levothyroxine [Synthroid] 50 mcg PO DAILY 04/30/19 05/05/19 Pantoprazole Sodium 40 mg PO DAILY 04/30/19 05/05/19 Sofosbuvir/Velpatasvir 1 tab PO DAILY 04/30/19 05/05/19 [Sofosbuvir-Velpatasvir 400-100] Sucralfate [Carafate] 1 gm PO QID 04/30/19 05/05/19 oxyCODONE [Roxicodone] 10 mg PO QID PRN 04/30/19 05/05/19 Ferrous Sulfate 325 mg PO Q2D 05/05/19 05/05/19 Furosemide 20 mg PO DAILY 05/05/19 05/05/19 - Allergies Allergies/Adverse Reactions: Allergies Allergy/AdvReac Type Severity Reaction Status Date / Time acetaminophen [From Tylenol] Allergy Unknown Verified 03/08/19 02:19 NSAIDS (Non-Steroidal Allergy Unknown Verified 03/08/19 02:19 Anti-Inflamma Review of Systems - All Other Systems All Other Systems: reports: Other (unobtainable due to altered mental status) Exam - Vital Signs Reviewed Vital Signs: Yes Vital Signs: Vital Signs x48h Temp Pulse Resp BP Pulse Ox 05/06/19 08:28 36.3 C L 89 20 159/107 H 96 05/06/19 06:47 85 20 169/96 H 96 - Physical Exam General Appearance: positive: No acute distress, Lethargic Eyes Bilateral: positive: No scleral icterus ENT: positive: Other (unable to visualize; will not open her mouth) Neck: positive: Nml inspection, No JVD, Trachea midline. negative: Lymphadenopathy (R), Lymphadenopathy (L) Respiratory: positive: Chest non-tender, No respiratory distress, Breath sounds nml Cardiovascular: positive: Regular rate & rhythm, No murmur, No gallop Abdomen: positive: Tenderness (mild diffuse, but unclear due to altered mental status), Mass (large tense irreducible, ? tender, umbilical hernia with sac measuring 10-12 cm diameter), Abnml bowel sounds (high pitched, tympanitic) Skin: positive: Color nml, No rash, Warm, Dry Extremities: positive: No pedal edema. negative: Nml appearance (muscle wasting evident), Calf tenderness Neurologic/Psychiatric: negative: Disoriented to person, Disoriented to place, Disoriented to time Conclusion and Plan - Lab Results Laboratory Results 05/06/19 10:25: Ammonia 59.9 H 05/06/19 10:25: Sodium 136, Potassium 4.9, Chloride 108, Carbon Dioxide 17 L, Anion Gap 11.0, BUN 34 H, Creatinine 1.5 H, Estimated GFR (MDRD) 37 L, Glucose 76, Calcium 9.0, Total Bilirubin 5.2 H, AST 83 H, ALT 41, Alkaline Phosphatase 99, Total Protein 5.6 L, Albumin 3.0 L, Globulin 2.6, Albumin/Globulin Ratio 1.2 05/06/19 10:25: WBC 8.4, RBC 3.44 L, Hgb 8.2 L, Hct 26.6 L, MCV 77.3 L, MCH 23.8 L, MCHC 30.8 L, RDW 26.4 H, Plt Count 153, MPV 8.1, Neut # (Auto) 6.9 H, Lymph # (Auto) 0.5 L, Stevens # (Auto) 0.8, Eos # (Auto) 0.1, Baso # (Auto) 0.0, Absolute Nucleated RBC 0.00, Nucleated RBC % 0.0, Manual Slide Review Indicated, WBC Morphology NORMAL APPEARANCE, Platelet Estimate NORMAL (130-450,000), Platelet Morphology NORMAL APPEARANCE, RBC Morph Micro Appear 2+ POIKILOCYTOSIS 05/05/19 05:26: Ammonia 88.8 H* 05/05/19 05:26: Sodium 138, Potassium 4.7, Chloride 108, Carbon Dioxide 18 L, Anion Gap 12.0, BUN 26 H, Creatinine 1.4 H, Estimated GFR (MDRD) 40 L, Glucose 80, Calcium 9.2, Phosphorus 3.3, Magnesium 2.1, Total Bilirubin 4.0 H, Direct Bilirubin 1.4 H, AST 45 H, ALT 35, Alkaline Phosphatase 112, Total Protein 5.9 L, Albumin 3.0 L, Globulin 2.9 05/05/19 05:26: WBC 8.4, RBC 3.60 L, Hgb 8.3 L, Hct 27.2 L, MCV 75.6 L, MCH 23.1 L, MCHC 30.5 L, RDW 25.2 H, Plt Count 163, MPV 8.2, Neut # (Auto) 7.0 H, Lymph # (Auto) 0.5 L, Stevens # (Auto) 0.7, Eos # (Auto) 0.2, Baso # (Auto) 0.0, Absolute Nucleated RBC 0.00, Nucleated RBC % 0.0, Manual Slide Review Indicated, WBC Morphology NORMAL APPEARANCE, Platelet Estimate NORMAL (130-450,000), Platelet Morphology NORMAL APPEARANCE, RBC Morph Micro Appear 2+ ANISOCYTOSIS 05/05/19 02:20: Urine Color YELLOW, Urine Clarity CLEAR, Urine pH 7.5, Ur Specific [place] <=1.005, Urine Protein NEGATIVE, Urine Glucose (UA) NEGATIVE, Urine Ketones NEGATIVE, Urine Occult Blood SMALL H, Urine Nitrite NEGATIVE, Urine Bilirubin NEGATIVE, Urine Urobilinogen 2 H, Ur Leukocyte Esterase NEGATIVE, Urine RBC 0-5, Urine WBC 0-3, Ur Squamous Epith Cells RARE Squamous, Urine Bacteria None Seen, Ur Microscopic Review INDICATED, Urine Opiates Screen NEGATIVE, Ur Oxycodone Screen POSITIVE H, Urine Methadone Screen NEGATIVE, Ur Propoxyphene Screen NEGATIVE, Ur Barbiturates Screen NEGATIVE, Ur Tricyclics Screen NEGATIVE, Ur Phencyclidine Scrn NEGATIVE, Ur Amphetamine Screen NEGATIVE, U Methamphetamines Scrn NEGATIVE, U Benzodiazepines Scrn NEGATIVE, Urine Cocaine Screen NEGATIVE, U Cannabinoids Screen NEGATIVE 05/04/19 20:20: Troponin I High Sens 11.1 05/04/19 20:20: Ammonia 104.2 H* 05/04/19 20:20: PT 20.6 H, INR 1.9 H 05/04/19 20:20: Sodium 134 L, Potassium 5.0, Chloride 103, Carbon Dioxide 21, Anion Gap 10.0, BUN 25 H, Creatinine 1.6 H, Estimated GFR (MDRD) 34 L, Glucose 103 H, Calcium 8.7, Total Bilirubin 3.2 H, AST 40, ALT 37, Alkaline Phosphatase 112, Total Protein 5.8 L, Albumin 3.0 L, Globulin 2.8, Albumin/Globulin Ratio 1.1, Lipase 47, Salicylates < 6.0, Acetaminophen < 10 L, Ethyl Alcohol < 5.0 05/04/19 20:20: WBC 6.7, RBC 3.70 L, Hgb 8.8 L, Hct 28.6 L, MCV 77.3 L, MCH 23.8 L, MCHC 30.8 L, RDW 25.2 H, Plt Count 138, MPV 7.8 L, Neut # (Auto) 5.7, Lymph # (Auto) 0.3 L, Stevens # (Auto) 0.5, Eos # (Auto) 0.1, Baso # (Auto) 0.0, Absolute Nucleated RBC 0.00, Nucleated RBC % 0.0, Manual Slide Review Indicated, Platelet Estimate NORMAL (130-450,000), Platelet Morphology NORMAL APPEARANCE, RBC Morph Micro Appear 1+ POLYCHROMASIA - Diagnostic Imaging Results Diagnostic Imaging Results: positive: Final report reviewed, Read independently Diagnostic Imaging Results Comments: See HPI - Diagnosis Diagnosis: Incarcerated umbilical hernia with SBO in a patient with end stage liver disease and acute hepatic encephalopathy - Plan Plan: Given her extremely high perioperative risk due to her liver disease, I advised transfer to higher level of care for further treatment and surgery as appropriate. This was discussed with Dr. Dominguez, who agrees and will make arrangements for same. Thanks,
[2019-05-06] MEDS: LACTULOSE 10 GM/15 ML BOTTLE PR SCH ×2 (14:34→22:41)
[2019-05-06] MEDS: ZINC OXIDE 20% OINT 30 GM TUBE TOP PRN (17:52)
[2019-05-06 19:44] VITALS: BP 154/95
[2019-05-06 20:59] LABS: BASOPHILS % (AUTO) 0.2 %; EOSINOPHILS # (AUTO) 0.2 10^3/uL (0.0-0.7); EOSINOPHILS % (AUTO) 1.7 %; HGB - HEMOGLOBIN 8.7 g/dL (12.0-16.0); LYMPHOCYTES # (AUTO) 0.7 10^3/uL (1.5-3.5); LYMPHOCYTES % (AUTO) 6.9 %; MEAN CORPUSCULAR HEMOGLOBIN 23.4 pg (27.0-31.0); MEAN CORPUSCULAR HGB CONC 30.4 g/dL (32.0-36.0); MEAN CORPUSCULAR VOLUME 76.9 fL (81.0-99.0); MEAN PLATELET VOLUME 7.8 fL (7.9-10.8); MONOCYTES # (AUTO) 0.7 10^3/uL (0.0-1.0); MONOCYTES % (AUTO) 7.3 %; NEUTROPHILS % (AUTO) 83.2 %; PLT - PLATELET COUNT 159 10^3/uL (130-450); RED BLOOD COUNT 3.72 10^6/uL (4.20-5.40); RED CELL DISTRIBUTION WIDTH 26.7 % (12.0-15.0); WHITE BLOOD COUNT 9.6 x10^3/uL (4.8-10.8)
[2019-05-06 21:08] LABS: ALBUMIN 3.2 g/dL (3.2-5.5); ALBUMIN/GLOBULIN RATIO 1.2 (1.0-2.2); BILIRUBIN,TOTAL 5.3 mg/dL (0.2-1.0); CALCIUM 9.3 mg/dL (8.5-10.3); CREATININE 1.7 mg/dL (0.4-1.0); TOTAL PROTEIN 5.9 g/dL (6.7-8.2)
--- NOTE | 2019-05-06 21:22 | DISCHARGE SUMMARY ---
Discharge Summary Admit Date: 05/04/19 Discharge Date: 05/06/19 Discharging Provider: Mg Heller Code Status: Attempt Resuscitation Condition at Discharge: Stable Discharge Disposition: 02 Transfer Acute Care Hosp Discharge Facility Name: [facility] - DIAGNOSES Admission Diagnoses: 1. Hepatic Encephalopathy 2. Cirrhosis of liver 3. Anemia 4. CKD stage 3 5. Hepatitis C 6. History of Alcohol abuse 7. Hypothyroidism 8. History of esophageal varices with bleeding Discharge Diagnoses with Status of Each Condition: 1. Small Bowel Obstruction 2/2 Umbilical Hernia 2. Hepatic Encephalopathy 3. Cirrhosis of liver 4. Anemia 5. CKD stage 3 6. Hepatitis C 7. History of Alcohol abuse 8. Hypothyroidism 9. History of esophageal varices with bleeding - HPI History of Present Illness: This is a 49-year-old female with a past medical history significant for liver cirrhosis secondary to hepatitis C and alcohol use, CKD stage III, esophageal varices, refractory ascites who is now status post a TIPS procedure earlier this month presents with altered mental status. She has been admitted of years ago for hepatoencephalopathy and treated with lactulose and rifaximin. Her ammonia level trended down and her mental status improved. She was discharged just yesterday and her daughter states that she had been doing well and she was last seen normal this morning. Her daughter returned home from work this evening and she found her mother to be quite lethargic and mumbling random words like "ow". Her daughter states that she has been taking lactulose but the patient had a bowel movement in over 24 hours. I am unable to obtain a history from the patient as she is altered. In the emergency room, she was afebrile with a temperature of 36.3. She was tachycardic with a heart rate of 119 but this improved to the 70s throughout her stay in the emergency department. She is hypertensive with a systolic blood pressure in the 160s. She is not tachypneic and saturating well on room air. Labs once again significant for a hemoglobin of 8.8 which is slightly increased compared to discharge.Her INR is also elevated at 1.9. Creatinine is 1.6 which is slightly increased since discharge but is around her baseline of 1.5. Her total bilirubin is also elevated at 3.2 which is also slightly increased since discharge. Her ammonia was found to be elevated at 104. She was given 10 g of lactulose in the emergency department. She underwent a CT of the head which was unremarkable. Given these findings, medicine was consulted for admission. I did initially asked emergency department physician to speak with gastroenterology at [facility] given this is a second episode of hepatic encephalopathy since her TIPS procedure. There is no railroad carman biometrics consultant but gastroenterology recommended admitting the patient and starting her on lactulose as well as ciprofloxacin for SBP prophylaxis. They recommended contacting the on-call railroad carman during the day as they are not available overnight. Review of prior records reveal the patient is a full code. - CONSULTS | PROCEDURES Consultations: General Surgery: Dr Stephen Head - HOSPITAL COURSE Hospital Course: Patient became less obtunded with lactulose administration for hepatic encephalopathy but never communicative and needed to be fed. Her ammonia level improved from 104 to 60. However she was never to the point to holding a conversation. On the night of 05/05/19, it was brought to attention that she was crying out in pain. She was given some pain medication which help her sleep throught the night. On examination of her abdomen her umbilical hernia was noted to be firm and non-reducible. As a result a CT of the abd/pelvis was ordered to further evaluate for concern of strangulated bowel. The results showed small bowel obstruction secondary to umbilical hernia. There was a short segment of small bowel and moderate amount of fluid within the hernia sac. Vascular compromise could not be excluded. New TIPS stent was noted in the liver. Moderate ascites, small right pleural effusion and moderate left pleural effusion were also noted. General surgery was consulted. After seeing the patient it was recommended that she be transferred to higher level of care for further treatment and surgery given her extremely high per-ioperative risk due to her liver disease. [facility] was initially contacted for transfer. Sometime later the purchasing coordinator called back to say that her insurance was not accepted at [facility] and that the TIPS procedure and hepatology management must have been done with a prior approval. They advised a transfer to [facility] or [facility]. [facility] was then contacted and the railroad carman was connected with Dr Stokes, hospitalist at [facility] only after all the images were pushed, which took 3 hours and delayed the call. She accepted to see the patient as a consult but requested that the patient be admitted to the General Surgery Service. The purchasing coordinator connected Dr Stokes [facility] with Dr Mariaelena Larkin of General surgery after 2 hours as the surgeon was in the OR. After discussing with the hospitalist, Dr Larkin wanted to sp eak with Dr Stephen Head (general surgeon at [facility]). Dr Larkin accepted the patient and requested that the patient be transferred to [facility] ED for evaluation. She was transferred by air around 11pm on 05/06/19. - ALLERGIES Allergies/Adverse Reactions: Allergies Allergy/AdvReac Type Severity Reaction Status Date / Time acetaminophen [From Tylenol] Allergy Unknown Verified 03/08/19 02:19 NSAIDS (Non-Steroidal Allergy Unknown Verified 03/08/19 02:19 Anti-Inflamma - MEDICATIONS Home Medications: Ambulatory Orders Medication Instructions Recorded Confirmed Cholecalciferol (Vitamin D3) 2,000 units PO DAILY #60 capsule 12/02/18 05/05/19 [Vitamin D3] Multivitamin W/Minerals [Theragran 1 tab PO DAILY #30 tablet 12/02/18 05/05/19 M] Ascorbic Acid [Vitamin C] 500 mg PO BID 12/05/18 05/05/19 Mirtazapine 15 mg PO QPM PRN 01/08/19 05/05/19 Ondansetron Odt [Zofran Odt] 4 mg TL Q8H PRN 01/08/19 05/05/19 Ciprofloxacin [Cipro] 500 mg PO DAILY 04/30/19 05/05/19 Cyanocobalamin (Vitamin B-12) 1,000 mcg PO DAILY 04/30/19 05/05/19 [Vitamin B-12] Lactulose [Constulose] 30 ml PO TID 04/30/19 05/05/19 Levothyroxine [Synthroid] 50 mcg PO DAILY 04/30/19 05/05/19 Pantoprazole Sodium 40 mg PO DAILY 04/30/19 05/05/19 Sofosbuvir/Velpatasvir 1 tab PO DAILY 04/30/19 05/05/19 [Sofosbuvir-Velpatasvir 400-100] Sucralfate [Carafate] 1 gm PO QID 04/30/19 05/05/19 oxyCODONE [Roxicodone] 10 mg PO QID PRN 04/30/19 05/05/19 Ferrous Sulfate 325 mg PO Q2D 05/05/19 05/05/19 Furosemide 20 mg PO DAILY 05/05/19 05/05/19 - PHYSICAL EXAM AT DISCHARGE General Appearance: positive: Moderate distress, Lethargic Eyes Bilateral: positive: PERRL, EOMI Respiratory: positive: Chest non-tender, No respiratory distress, Breath sounds nml. negative: Wheezes, Rales, Rhonchi Cardiovascular: positive: Regular rate & rhythm Abdomen: positive: Tenderness, Splenomegaly, Abnml bowel sounds (hyperesonant ), Other (nonreducible umbilical hernia noted) Back: positive: Nml inspection Skin: positive: Color nml, Warm, Dry Neurologic/Psychiatric: positive: Disoriented to place, Disoriented to time. negative: Oriented x3 - LABS Result Diagrams: 05/06/19 20:50 05/06/19 20:50 - QUALITY (Female Hip Fx Only) Was patient sent home on osteoporosis medication?: No (Discharged to another acute care hospital) - TIME SPENT Time Spent in Discharge (Minutes): 45
--- NOTE | 2019-05-06 21:23 | Discharge Plan ---
Discharge Plan Problem Reviewed?: Yes Disposition: 02 Transfer Acute Care Hosp Condition: Stable Health Concerns: 1. Small Bowel Obstruction 2/2 Umbilical Hernia 2. Hepatic Encephalopathy 3. Cirrhosis of liver 4. Anemia 5. CKD stage 3 6. Hepatitis C 7. History of Alcohol abuse 8. Hypothyroidism 9. History of esophageal varices with bleeding Plan of Treatment: 1. Small Bowel Obstruction 2/2 Umbilical Hernia: Acute. Being transfered to [facility] ED for evaluation and transfer by General Surgery at [facility] 2. Hepatic Encephalopathy: Persistent. Ammonia level trending down 3. Cirrhosis of liver: Chronic. Will be seen by railroad wheels and axles inspector at [facility] 4. Anemia: Stable 5. CKD stage 3 6. Hepatitis C: Chronic from previous IVDU 7. History of Alcohol abuse 8. Hypothyroidism: Chronic 9. History of esophageal varices with bleeding. No acute problem Care Goals: 1. Small Bowel Obstruction 2/2 Umbilical Hernia: Acute. Being transfered to [facility] ED for evaluation and transfer by General Surgery at [facility] 2. Hepatic Encephalopathy: Persistent. Ammonia level trending down 3. Cirrhosis of liver: Chronic. Will be seen by railroad wheels and axles inspector at [facility] 4. Anemia: Stable 5. CKD stage 3 6. Hepatitis C: Chronic from previous IVDU 7. History of Alcohol abuse 8. Hypothyroidism: Chronic 9. History of esophageal varices with bleeding. No acute problem Assessment: The plan of treatment was explained to the patient's daughter (Larry) who expressed understanding and was agreeable with the plan. No Smoking: If you smoke, Please STOP! Call for help.
[2019-05-06 21:27] LABS: PLATELET ESTIMATE, MANUAL NORMAL (130-450,000) (NORMAL); PLATELET MORPHOLOGY NORMAL APPEARANCE (NORMAL)
[2019-05-06 21:38] LABS: INR 2.4 (0.8-1.2); PT - PROTHROMBIN TIME 25.9 secs (9.9-12.6)
== END 2019-05-06 22:15 | disposition short-term general hospital (02) | DRG 442 ==
LOC: ED 19:02 → MS3 22:35 → OBSVTOIN 05-05 11:43
PROVIDERS: ADMIT Internal Medicine; ATTEND Internal Medicine
DX: K72.00 Acute and subacute hepatic failure without coma (principal); K42.0 Umbilical hernia with obstruction, without gangrene; K76.6 Portal hypertension; N18.3 Chronic kidney disease, stage 3 (moderate); K70.31 Alcoholic cirrhosis of liver with ascites; B18.2 Chronic viral hepatitis C; D50.0 Iron deficiency anemia secondary to blood loss (chronic); D63.8 Anemia in other chronic diseases classified elsewhere; E03.9 Hypothyroidism, unspecified; Z86.79 Personal history of other diseases of the circulatory system; Z95.828 Presence of other vascular implants and grafts; Z87.898 Personal history of other specified conditions; Z79.899 Other long term (current) drug therapy; Z78.1 Physical restraint status
CPT/HCPCS: 36415; 51701; 70450; 74176; 80048; 80053; 80076; 80306; 80307; 80320; 80329; 81001; 82140; 83605; 83690; 83735; 84100; 84484; 85025; 85610; 96374; 99281; 99285; A9270; G0378; J2060; J7120; 81003

== ENCOUNTER 2019-05-20 20:31 | Emergency (ER) | payer MEDICAID, OTHER ==
--- NOTE | 2019-05-20 20:47 | ED Physician Documentation ---
PD HPI ABD PAIN - Stated complaint Stated Complaint: BLOOD IN STOOL, ABD/BACK PAIN - Chief complaint Chief Complaint: Abd Pain - History obtained from History obtained from: Patient, Family (daughter (in ED at bedside)) - History of Present Illness Timing - onset: Yesterday Timing - details: Intermittant, Waxing and waning Quality: Cramping Location: All over / everywhere Improved by: Other (no ameliorating factors) Worsened by: Other (no apparent exacerbating factors) Associated symptoms: Melena, Hematochezia. No: Fever, Nausea, Vomiting Similar symptoms before: Diagnosis (cirrhosis, umbilical hernia) Recently seen: Emergency Dept, Admitted, Transferred - Additional information Additional information: presents with chief complaint of lower GIB; also c/o generalized abdominal pain, nausea and vomiting. patient moved to [facility] in November; she moved from [place] and had not established with any physicians in this area before moving here. Due to her complicated medical history that includes cirrhosis and ascites, she presented to [facility] ED within 2 weeks of moving to [facility] and has had frequent [facility] ED visits since then, typically due to complications of her chronic disease (abdominal pain, need for paracentesis due to ascites, hepatic encephalopathy, and LGIB). Prior to tonight, she last came to this ED 05/04 for AMS, then admitted for hepatic encephalopathy, but transferred 05/06 to [facility] due to incarcerated umbilical hernia. She wasn't discharged from [facility] until 05/18. During the inpatient stay, she was started on Eliquis due to PE. Per patient and daughter, she was not taken to surgery for the hernia due to her extensive medical history and instead, the hernia was eventually reduced manually. Patient says the day after she was discharged (2 days ago), she had large BRBPR. She says she had subsequent smaller amounts of bloody stool but tonight she again had large blood per rectum (maroon color). she has had episodic abdominal pain as well as nausea and vomiting. Review of Systems Constitutional: reports: Fatigue. denies: Fever, Chills, Sweats Eyes: reports: Reviewed and negative Ears: reports: Reviewed and negative Nose: reports: Reviewed and negative Throat: reports: Reviewed and negative Cardiac: reports: Reviewed and negative Respiratory: reports: Reviewed and negative GI: reports: Abdominal Pain, Nausea, Vomiting, Bloody / black stool. 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: Miscarriage(s) : Renal insuffiency HEENT: None Psych: Other Musculoskeletal: Chronic back pain Derm: None - Past Surgical History Past Surgical History: Yes General: Hiatal hernia repair Ortho: Other /SPRAY DYER: Tubal ligation HEENT: Other - Present Medications Home Medications: Ambulatory Orders Medication Instructions Recorded Confirmed Cholecalciferol (Vitamin D3) 2,000 units PO DAILY #60 capsule 12/02/18 05/05/19 [Vitamin D3] Multivitamin W/Minerals [Theragran 1 tab PO DAILY #30 tablet 12/02/18 05/05/19 M] Ascorbic Acid [Vitamin C] 500 mg PO BID 12/05/18 05/05/19 Mirtazapine 15 mg PO QPM PRN 01/08/19 05/05/19 Ondansetron Odt [Zofran Odt] 4 mg TL Q8H PRN 01/08/19 05/05/19 Ciprofloxacin [Cipro] 500 mg PO DAILY 04/30/19 05/05/19 Cyanocobalamin (Vitamin B-12) 1,000 mcg PO DAILY 04/30/19 05/05/19 [Vitamin B-12] Lactulose [Constulose] 30 ml PO TID 04/30/19 05/05/19 Levothyroxine [Synthroid] 50 mcg PO DAILY 04/30/19 05/05/19 Pantoprazole Sodium 40 mg PO DAILY 04/30/19 05/05/19 Sofosbuvir/Velpatasvir 1 tab PO DAILY 04/30/19 05/05/19 [Sofosbuvir-Velpatasvir 400-100] Sucralfate [Carafate] 1 gm PO QID 04/30/19 05/05/19 oxyCODONE [Roxicodone] 10 mg PO QID PRN 04/30/19 05/05/19 Ferrous Sulfate 325 mg PO Q2D 05/05/19 05/05/19 Furosemide 20 mg PO DAILY 05/05/19 05/05/19 - Allergies Allergies/Adverse Reactions: Allergies Allergy/AdvReac Type Severity Reaction Status Date / Time acetaminophen [From Tylenol] Allergy Unknown Verified 05/20/19 20:41 NSAIDS (Non-Steroidal Allergy Unknown Verified 05/20/19 20:41 Anti-Inflamma - Social History Does the pt smoke?: No Smoking Status: Never smoker Does the pt drink ETOH?: No Does the pt have substance abuse?: No - Immunizations Immunizations are current?: Yes - POLST Patient has POLST: No POLST Status: Full Code PD ED PE NORMAL - Vitals Vital signs reviewed: Yes - General General: Alert and oriented X 3, No acute distress, Other (cachectic, appears older than stated age) - HEENT HEENT: Moist mucous membranes - Neck Neck: Supple, no meningeal sign - Cardiac Cardiac: RRR, No murmur - Respiratory Respiratory: No respiratory distress, Clear bilaterally - Abdomen Abdomen: Soft, Non tender, Other (mild distention. soft, nontender, large umbilical hernia) - Extremities Extremities: No edema - Neuro Neuro: Alert and oriented X 3, Normal speech Eye Opening: Spontaneous Motor: Obeys Commands Verbal: Oriented GCS Score: 15 PD ED PE EXPANDED - Derm Derm: Pale Results - Vitals Vitals: Vital Signs - 24 hr 05/20/19 05/20/19 05/20/19 20:35 22:12 23:28 Temperature 36.5 C 36.8 C Heart Rate 70 72 84 Respiratory 17 12 18 Rate Blood Pressure 116/73 104/65 129/87 H O2 Saturation 98 100 05/21/19 05/21/19 00:32 01:51 Temperature 36.7 C Heart Rate 56 L 77 Respiratory 18 20 Rate Blood Pressure 115/82 H 119/75 O2 Saturation 96 91 L Oxygen O2 Source Room air - Labs Labs: Laboratory Tests 05/20/19 05/20/19 05/20/19 00:05 22:18 22:18 WBC RBC Hgb Hct MCV MCH MCHC RDW Plt Count MPV Neut # (Auto) Lymph # (Auto) [place] # (Auto) Eos # (Auto) Baso # (Auto) Absolute Nucleated RBC Nucleated RBC % Manual Slide Review WBC Morphology Platelet Estimate Platelet Morphology RBC Morph Micro Appear PT 47.2 H INR 4.5 H* APTT 53.5 H Sodium 130 L Potassium 3.0 L Chloride 96 L Carbon Dioxide 20 L Anion Gap 14.0 H BUN 37 H Creatinine 2.3 H Estimated GFR (MDRD) 22 L Glucose 113 H Calcium 8.0 L Total Bilirubin 3.7 H AST 41 ALT 22 Alkaline Phosphatase 74 Ammonia 30.6 Total Protein 5.1 L Albumin 2.5 L Globulin 2.6 Albumin/Globulin Ratio 1.0 Lipase 83 H 05/20/19 22:34 WBC 9.1 RBC 2.24 L Hgb 6.0 L* Hct 18.8 L* MCV 83.9 MCH 26.8 L MCHC 31.9 L RDW 30.5 H Plt Count 96 L MPV 8.8 Neut # (Auto) 6.6 Lymph # (Auto) 0.9 L [place] # (Auto) 1.1 H Eos # (Auto) 0.4 Baso # (Auto) 0.0 Absolute Nucleated RBC 0.00 Nucleated RBC % 0.0 Manual Slide Review Indicated WBC Morphology NORMAL APPEARANCE Platelet Estimate DECREASED (<130,000) Platelet Morphology NORMAL APPEARANCE RBC Morph Micro Appear 1+ POLYCHROMASIA PT INR APTT Sodium Potassium Chloride Carbon Dioxide Anion Gap BUN Creatinine Estimated GFR (MDRD) Glucose Calcium Total Bilirubin AST ALT Alkaline Phosphatase Ammonia Total Protein Albumin Globulin Albumin/Globulin Ratio Lipase PD MEDICAL DECISION MAKING - ED course Complexity details: reviewed old records, reviewed results, re-evaluated patient, considered differential, d/w patient, d/w family ED course: hemoglobin is 6.0, was 8.5 on most recent check at [facility]. Her abdomen is not as distended as when I saw her 2 months ago, and the hernia is soft and nontender. Patient is well known to this ED from many visits over past 6-7 months; I was told by [facility] lab staff that her previous type/crossmatch for PRBC is complicated by multiple antibodies and thus any such attempts tonight to crossmatch would need to be sent to another hospital and blood would have to be sent back to [facility]. I was told this would take a minimum of 6-8 hours. Given her significant anemia and drop in hgb from recent results at .., I did not perform T+C, as plan is to transfer. D/W transfer center at [facility]. Unfortunately, there are no beds available. I then contacted [facility] and discussed the case with Dr. Holliday (soap chipper). He accepts transfer. he recommends IV PPI and octreotide, as well as rifaxamin. These were ordered and given in ED. Both [facility] and [facility] were contacted and neither can fly patient to and thus sent by ground. Of note, patient's vital signs were stable during ED visit Departure - Departure Disposition: 02 Transfer Acute Care Hosp Clinical Impression: Cirrhosis of liver Qualifiers: Hepatic cirrhosis type: unspecified hepatic cirrhosis Ascites presence: with ascites Qualified Code(s): K74.60 - Unspecified cirrhosis of liver GI bleed Qualifiers: GI bleed type/associated pathology: unspecified gastrointestinal hemorrhage type Qualified Code(s): K92.2 - Gastrointestinal hemorrhage, unspecified Anemia Qualifiers: Anemia type: unspecified type Qualified Code(s): D64.9 - Anemia, unspecified Condition: Serious Discharge Date/Time: 05/21/19 02:10
[2019-05-20] MEDS ORDERED: ONDANSETRON 4 MG/2 ML VIAL IVP STA (21:30)
[2019-05-20 22:32] LABS: ALBUMIN 2.5 g/dL (3.2-5.5); BILIRUBIN,TOTAL 3.7 mg/dL (0.2-1.0); CREATININE 2.3 mg/dL (0.4-1.0); TOTAL PROTEIN 5.1 g/dL (6.7-8.2)
[2019-05-20 22:39] LABS: BASOPHILS % (AUTO) 0.4 %; EOSINOPHILS # (AUTO) 0.4 10^3/uL (0.0-0.7); EOSINOPHILS % (AUTO) 4.6 %; LYMPHOCYTES # (AUTO) 0.9 10^3/uL (1.5-3.5); LYMPHOCYTES % (AUTO) 9.3 %; MEAN CORPUSCULAR HEMOGLOBIN 26.8 pg (27.0-31.0); MEAN CORPUSCULAR HGB CONC 31.9 g/dL (32.0-36.0); MEAN CORPUSCULAR VOLUME 83.9 fL (81.0-99.0); MEAN PLATELET VOLUME 8.8 fL (7.9-10.8); MONOCYTES # (AUTO) 1.1 10^3/uL (0.0-1.0); MONOCYTES % (AUTO) 11.9 %; NEUTROPHILS # (AUTO) 6.6 10^3/uL (1.5-6.6); NEUTROPHILS % (AUTO) 72.6 %; PLT - PLATELET COUNT 96 10^3/uL (130-450); RED BLOOD COUNT 2.24 10^6/uL (4.20-5.40); RED CELL DISTRIBUTION WIDTH 30.5 % (12.0-15.0); WHITE BLOOD COUNT 9.1 x10^3/uL (4.8-10.8)
[2019-05-20] MEDS ORDERED: ONDANSETRON ODT 4 MG TABLET TL STA (22:51)
[2019-05-20] MEDS ORDERED: MORPHINE 2 MG/ML CARPUJECT IM STA (22:51)
[2019-05-20] MEDS: MORPHINE 2 MG/ML CARPUJECT IVP STA ×2 (22:52→23:53)
[2019-05-20 22:53] LABS: PLATELET ESTIMATE, MANUAL DECREASED (<130,000) (NORMAL); PLATELET MORPHOLOGY NORMAL APPEARANCE (NORMAL)
[2019-05-21 00:15] LABS: PT - PROTHROMBIN TIME 47.2 secs (9.9-12.6)
[2019-05-21 00:28] LABS: PARTIAL THROMBOPLASTIN TIME 53.5 secs (24.9-33.3)
[2019-05-21 00:30] LABS: INR 4.5 (0.8-1.2)
[2019-05-21] MEDS ORDERED: PANTOPRAZOLE 40 MG VIAL IVP STA (00:47)
[2019-05-21] MEDS ORDERED: rifAXIMin 550 MG TABLET PO STA (00:56)
[2019-05-21] MEDS ORDERED: OCTREOTIDE 500 MCG in SODIUM CHLORIDE 0.9% 100ML 99 ML IV SCH (01:00)
[2019-05-21 01:51] VITALS: BP 119/75
[2019-05-21] MEDS ORDERED: MORPHINE 2 MG/ML CARPUJECT IVP STA (01:53)
== END 2019-05-21 02:10 | disposition short-term general hospital (02) ==
LOC: ED 20:31
DX: K92.1 Melena (principal); D64.9 Anemia, unspecified; K74.60 Unspecified cirrhosis of liver; R18.8 Other ascites; K42.9 Umbilical hernia without obstruction or gangrene
CPT/HCPCS: 36415; 80053; 82140; 83690; 85025; 85610; 85730; 96374; 96375; 96376; 99285; J8499; Q0162

== ENCOUNTER 2019-05-21 02:12 | Outpatient (CLI) | payer MEDICAID | END 2019-05-21 02:13 | disposition short-term general hospital (02) | LOC: EMS 02:12 | PROVIDERS: ATTEND Surgery | DX: K92.1 Melena (principal); R10.33 Periumbilical pain; Z79.01 Long term (current) use of anticoagulants | CPT/HCPCS: A0425; A0426 ==

== ENCOUNTER 2019-08-15 14:25 | Outpatient (CLI) | payer MEDICAID, OTHER ==
[2019-08-15 16:46] LABS: BASOPHILS % (AUTO) 0.5 %; EOSINOPHILS # (AUTO) 0.3 10^3/uL (0.0-0.7); EOSINOPHILS % (AUTO) 4.3 %; HGB - HEMOGLOBIN 7.7 g/dL (12.0-16.0); LYMPHOCYTES # (AUTO) 0.7 10^3/uL (1.5-3.5); LYMPHOCYTES % (AUTO) 11.6 %; MEAN CORPUSCULAR HEMOGLOBIN 37.7 pg (27.0-31.0); MEAN CORPUSCULAR VOLUME 107.8 fL (81.0-99.0); MEAN PLATELET VOLUME 9.2 fL (7.9-10.8); MONOCYTES # (AUTO) 0.5 10^3/uL (0.0-1.0); MONOCYTES % (AUTO) 7.5 %; NEUTROPHILS # (AUTO) 4.6 10^3/uL (1.5-6.6); NEUTROPHILS % (AUTO) 75.4 %; PLT - PLATELET COUNT 104 10^3/uL (130-450); RED BLOOD COUNT 2.04 10^6/uL (4.20-5.40); RED CELL DISTRIBUTION WIDTH 23.9 % (12.0-15.0); WHITE BLOOD COUNT 6.1 x10^3/uL (4.8-10.8)
[2019-08-15 17:09] LABS: ALBUMIN 2.9 g/dL (3.2-5.5); ALBUMIN/GLOBULIN RATIO 0.9 (1.0-2.2); BILIRUBIN,DIRECT 3.9 mg/dL (0.1-0.5); BILIRUBIN,TOTAL 8.6 mg/dL (0.2-1.0); CALCIUM 9.2 mg/dL (8.5-10.3); CREATININE 1.7 mg/dL (0.4-1.0)
[2019-08-15 17:44] LABS: PLATELET ESTIMATE, MANUAL DECREASED (<130,000) (NORMAL); PLATELET MORPHOLOGY NORMAL APPEARANCE (NORMAL)
== END 2019-08-15 23:59 | disposition home or self-care (01) ==
LOC: LAB.WCP 14:25
PROVIDERS: ATTEND Family Medicine
DX: K74.60 Unspecified cirrhosis of liver (principal)
CPT/HCPCS: 36415; 80053; 82248; 85025

== ENCOUNTER 2019-08-27 23:30 | Outpatient (CLI) | payer MEDICAID | END 2019-08-27 23:31 | disposition critical access hospital (66) | LOC: EMS 23:30 | PROVIDERS: ATTEND Surgery | DX: R10.9 Unspecified abdominal pain (principal); M54.5 Low back pain; R11.0 Nausea | CPT/HCPCS: A0425; A0427; A0999 ==

== ENCOUNTER 2019-08-27 23:37 | Emergency (ER) | payer MEDICAID ==
--- NOTE | 2019-08-27 23:42 | ED Physician Documentation ---
PD HPI ABD PAIN - Stated complaint Stated Complaint: AB PX - History obtained from History obtained from: Patient - History of Present Illness Timing - onset: How many hours ago (4) Timing - details: Abrupt onset Improved by: Laying still Worsened by: Moving, Position (sitting up), Palpation Associated symptoms: No: Fever, Nausea, Vomiting Similar symptoms before: Diagnosis (u,bilical hernia with h/o sbo due to incarceration) Recently seen: Admitted (transferred from this ED early May to and was inpatient at for over 2 months) - Additional information Additional information: BIBA c/o pain at her umbilical hernia site. 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 denies: Nausea, Vomiting, Constipation, Diarrhea PD PAST MEDICAL HISTORY - Past Medical History Cardiovascular: Congestive heart failure Respiratory: Pneumonia, Shortness of breath Neuro: None Endocrine/Autoimmune: HyPOthyroidism GI: Esophageal varices, GI bleed, Hepatitis, Cirrhosis, Other DIRECTOR FRAUD: Miscarriage(s) : Renal insuffiency HEENT: None Psych: Other Musculoskeletal: Chronic back pain Derm: None - Past Surgical History Past Surgical History: Yes General: Hiatal hernia repair Ortho: Other /DIRECTOR FRAUD: Tubal ligation HEENT: Other - Present Medications Home Medications: Ambulatory Orders Medication Instructions Recorded Confirmed Cholecalciferol (Vitamin D3) 2,000 units PO DAILY #60 capsule 12/02/18 08/27/19 [Vitamin D3] Multivitamin W/Minerals [Theragran 1 tab PO DAILY #30 tablet 12/02/18 08/27/19 M] Ascorbic Acid [Vitamin C] 500 mg PO BID 12/05/18 08/27/19 Mirtazapine 15 mg PO QPM PRN 01/08/19 08/27/19 Ondansetron Odt [Zofran Odt] 4 mg TL Q8H PRN 01/08/19 08/27/19 Ciprofloxacin [Cipro] 500 mg PO DAILY 04/30/19 08/27/19 Cyanocobalamin (Vitamin B-12) 1,000 mcg PO DAILY 04/30/19 08/27/19 [Vitamin B-12] Lactulose [Constulose] 30 ml PO TID 04/30/19 08/27/19 Levothyroxine [Synthroid] 50 mcg PO DAILY 04/30/19 08/27/19 Pantoprazole Sodium 40 mg PO DAILY 04/30/19 08/27/19 Sofosbuvir/Velpatasvir 1 tab PO DAILY 04/30/19 08/27/19 [Sofosbuvir-Velpatasvir 400-100] Sucralfate [Carafate] 1 gm PO QID 04/30/19 08/27/19 oxyCODONE [Roxicodone] 10 mg PO QID PRN 04/30/19 08/27/19 Ferrous Sulfate 325 mg PO Q2D 05/05/19 08/27/19 Furosemide 20 mg PO DAILY 05/05/19 08/27/19 - Allergies Allergies/Adverse Reactions: Allergies Allergy/AdvReac Type Severity Reaction Status Date / Time acetaminophen [From Tylenol] Allergy Unknown Verified 08/27/19 23:45 NSAIDS (Non-Steroidal Allergy Unknown Verified 08/27/19 23:45 Anti-Inflamma - Social History Does the pt smoke?: No Smoking Status: Never smoker Does the pt drink ETOH?: No Does the pt have substance abuse?: No - Immunizations Immunizations are current?: Yes - POLST Patient has POLST: No POLST Status: Full Code PD ED PE NORMAL - Vitals Vital signs reviewed: Yes - General General: Other (drowsy, awakens to voice, falls asleep at times during H+P; cachectic, emaciated) - HEENT HEENT: Moist mucous membranes - Cardiac Cardiac: RRR - Respiratory Respiratory: No respiratory distress - Abdomen Abdomen: Normal bowel sounds - Derm Derm: Other (sallow with mild jaundice) - Neuro Neuro: Other (drowsy as noted above, but oriented x 3 and answers appropriately) Eye Opening: To Voice Motor: Obeys Commands Verbal: Oriented GCS Score: 14 PD ED PE EXPANDED - Cardiac Cardiac: Murmur Present - Abdomen Abdomen: Distended (mild generalized distention c/w anasarca although markedly improved since some of her previous presentations when she required paracentesis), Other (large, firm, tender umbilical hernia that is not reducible) Results - Vitals Vitals: Oxygen O2 Source Room air - Labs Labs: Laboratory Tests 08/28/19 08/28/19 08/28/19 00:31 00:31 00:31 WBC 6.9 RBC 2.25 L Hgb 7.8 L Hct 24.0 L MCV 106.7 H MCH 34.7 H MCHC 32.5 RDW 21.1 H Plt Count 88 L MPV 8.4 Neut # (Auto) 5.2 Lymph # (Auto) 0.5 L [place] # (Auto) 0.6 Eos # (Auto) 0.5 Baso # (Auto) 0.0 Absolute Nucleated RBC 0.00 Nucleated RBC % 0.0 Manual Slide Review Indicated WBC Morphology NORMAL APPEARANCE Platelet Estimate DECREASED (<130,000) Platelet Morphology NORMAL APPEARANCE RBC Morph Micro Appear 2+ ANISOCYTOSIS PT 20.3 H INR 1.8 H APTT 41.3 H Sodium 133 L Potassium 2.8 L Chloride 98 L Carbon Dioxide 23 Anion Gap 12.0 BUN 42 H Creatinine 1.5 H Estimated GFR (MDRD) 37 L Glucose 95 Lactic Acid Calcium 8.3 L Total Bilirubin 7.1 H AST 54 H ALT 26 Alkaline Phosphatase 146 H Ammonia Total Protein 6.1 L Albumin 2.8 L Globulin 3.3 Albumin/Globulin Ratio 0.8 L Lipase 55 H 08/28/19 08/28/19 00:45 00:45 WBC RBC Hgb Hct MCV MCH MCHC RDW Plt Count MPV Neut # (Auto) Lymph # (Auto) [place] # (Auto) Eos # (Auto) Baso # (Auto) Absolute Nucleated RBC Nucleated RBC % Manual Slide Review WBC Morphology Platelet Estimate Platelet Morphology RBC Morph Micro Appear PT INR APTT Sodium Potassium Chloride Carbon Dioxide Anion Gap BUN Creatinine Estimated GFR (MDRD) Glucose Lactic Acid 1.7 Calcium Total Bilirubin AST ALT Alkaline Phosphatase Ammonia 75.1 H Total Protein Albumin Globulin Albumin/Globulin Ratio Lipase - Rads (name of study) CT A/P Radiology: Prelim report reviewed, See rad report PD MEDICAL DECISION MAKING - ED course Complexity details: reviewed old records, reviewed results, re-evaluated patient, considered differential, d/w patient, d/w family, d/w e business consultant ED course: Patient well known to this emergency department due to frequent visits, most typically related to complications of her cirrhosis. She has a particularly complex medical history, and was recently discharged from [facility] after an inpatient stay of over two months. I requested those records from [facility], and over 250 pages were eventually faxed, received, and reviewed by me. after my initial evaluation of the patient, I contacted Dr. Vuong, on-call surgery for [facility], regarding the large, firm, tender, and unreducible hernia. she recommends obtaining bloodwork and CT scan. These tests were obtained, and in the interim I was able to review the records that were fax from [facility]. Those records indicate a history of this hernia becoming incarcerated. there are notes in those records that indicate that surgery was not recommended even if the patient were to have perforation. However, also noted is the dictation from a surgeon at [facility] (Dr. Salamanca) that surgery would not be recommended unless the patient had strangulation or underwent a liver transplant. I re-contacted Dr. Vuong and discuss the results of the tests, as well as the records I had reviewed from [facility]. The patients hernia remains unchanged from my initial exam, although patient was stable, resting comfortably, and reported adequate pain control after [address] Vuong recommends against surgical intervention at this time, as there is no evidence of strangulation at this time. I subsequently spoke with Dr. Salamanca and and she agrees with this assessment. Dr. Salamanca notes that if patient develops indications of perforation or strangulation, surgical intervention might be considered although patient comorbities make her such a high-risk for surgery that it would likely be futile. Subsequently, patients daughter arrived to the emergency department. she is familiar with the concept of hernia reduction and says she has been able to partially reduce the hernia since she had arrived to the emergency department and while waiting to talk to me about her mothers condition. On re-examination, the patients hernia is indeed significantly reduced in size, is significantly softer although still has areas of tenderness and firmness as well. Hi again attempted reduction of the hernia without success. Dr. Mejia then entered the room and offered his assistance, and he was able to completely reduce the hernia. The patient reported immediate, marked improvement in her discomfort and both patient and her daughter were quite comfortable with being discharged home at that point. Departure - Departure Disposition: 01 Home, Self Care Clinical Impression: Abdominal hernia Qualifiers: Hernia type: umbilical Obstruction and gangrene presence: without obstruction or gangrene Qualified Code(s): K42.9 - Umbilical hernia without obstruction or gangrene Condition: Stable Instructions: ED Hernia Inguinal Follow-Up: SHREYAS POZO MD [Primary Care Provider] - Discharge Date/Time: 08/28/19 08:50
[2019-08-28] MEDS ORDERED: MORPHINE 2 MG/ML CARPUJECT IVP STA (00:26)
[2019-08-28 00:52] LABS: BASOPHILS % (AUTO) 0.6 %; EOSINOPHILS # (AUTO) 0.5 10^3/uL (0.0-0.7); EOSINOPHILS % (AUTO) 7.2 %; HGB - HEMOGLOBIN 7.8 g/dL (12.0-16.0); LYMPHOCYTES # (AUTO) 0.5 10^3/uL (1.5-3.5); LYMPHOCYTES % (AUTO) 7.1 %; MEAN CORPUSCULAR HEMOGLOBIN 34.7 pg (27.0-31.0); MEAN CORPUSCULAR HGB CONC 32.5 g/dL (32.0-36.0); MEAN CORPUSCULAR VOLUME 106.7 fL (81.0-99.0); MEAN PLATELET VOLUME 8.4 fL (7.9-10.8); MONOCYTES # (AUTO) 0.6 10^3/uL (0.0-1.0); MONOCYTES % (AUTO) 9.2 %; NEUTROPHILS # (AUTO) 5.2 10^3/uL (1.5-6.6); NEUTROPHILS % (AUTO) 74.6 %; PLT - PLATELET COUNT 88 10^3/uL (130-450); RED BLOOD COUNT 2.25 10^6/uL (4.20-5.40); RED CELL DISTRIBUTION WIDTH 21.1 % (12.0-15.0); WHITE BLOOD COUNT 6.9 x10^3/uL (4.8-10.8)
[2019-08-28 00:57] LABS: INR 1.8 (0.8-1.2); PT - PROTHROMBIN TIME 20.3 secs (9.9-12.6)
[2019-08-28 01:04] LABS: PARTIAL THROMBOPLASTIN TIME 41.3 secs (24.9-33.3)
[2019-08-28 01:05] LABS: ALBUMIN 2.8 g/dL (3.2-5.5); ALBUMIN/GLOBULIN RATIO 0.8 (1.0-2.2); BILIRUBIN,TOTAL 7.1 mg/dL (0.2-1.0); CALCIUM 8.3 mg/dL (8.5-10.3); CREATININE 1.5 mg/dL (0.4-1.0); TOTAL PROTEIN 6.1 g/dL (6.7-8.2)
[2019-08-28 01:15] LABS: PLATELET MORPHOLOGY NORMAL APPEARANCE (NORMAL); RBC MORPHOLOGY (MULTIPLE) 2+ ANISOCYTOSIS (NORMAL)
[2019-08-28 01:20] LABS: PLATELET ESTIMATE, MANUAL DECREASED (<130,000) (NORMAL)
--- NOTE | 2019-08-28 02:05 | CT Report ---
Reason: abd. pain Procedure Date: 08/28/2019 Accession Number: [id number] / [id number] Procedure: CT - Abdomen/Pelvis WO CPT Code: Final Report FULL RESULT: EXAM: CT ABDOMEN AND PELVIS (CT KUB) EXAM DATE: 08/28/2019 01:26 AM CLINICAL HISTORY: Abdominal pain. COMPARISONS: ABDOMEN/PELVIS W/O 05/06/2019 8:06 AM. TECHNIQUE: Routine axial helical CT imaging was performed through the abdomen and pelvis without IV contrast. Reconstructions: Coronal and sagittal. In accordance with CT protocol optimization, one or more of the following dose reduction techniques were utilized for this exam: automated exposure control, adjustment of mA and/or KV based on patient size, or use of iterative reconstructive technique. FINDINGS: Lung Bases: There is a patchy infiltrate at the left lung base. The heart is slightly enlarged and there is calcification of the mitral valve annulus. Right Kidney/Ureter: No stones, hydronephrosis, or hydroureter. No perinephric fat stranding. Left Kidney/Ureter: No stones, hydronephrosis, or hydroureter. No perinephric fat stranding. Other Solid Organs: The liver is contracted and nodular compatible with underlying cirrhosis. There is a portacaval shunt in place. Gallbladder/Bile Ducts: The gallbladder is distended. No evidence for cholelithiasis. Peritoneal Cavity: There is abdominal ascites mostly contiguous with the liver. There is no distention of the small bowel, however, there are several loops of small bowel trapped within an anterior pelvic wall hernia. The hernia sac measures 82 mm x 54 mm. There is no edematous change of these loops of small bowel. The findings are very similar to the prior exam. There is a large amount of stool within the colon. Pelvic Organs: No bladder stones or wall thickening. Noncontrast images of the visualized pelvic organs are unremarkable. Vasculature: Unremarkable. Other: There is subcutaneous edema progressive compared to the prior exam. IMPRESSION: 1. Hepatic cirrhosis. Portacaval shunt. Abdominal ascites. 2. Prominent ventral wall hernia in the mid pelvis with several loops of entrapped small bowel yet no edematous change in the fontenot of the small bowel and no evidence for small bowel proximal distention. 3. Large amount of stool within the colon. RADIA
[2019-08-28 08:50] VITALS: BP 157/87
== END 2019-08-28 08:50 | disposition home or self-care (01) ==
LOC: ED 23:37
DX: K42.9 Umbilical hernia without obstruction or gangrene (principal); K74.60 Unspecified cirrhosis of liver; R18.8 Other ascites
CPT/HCPCS: 36415; 74176; 80053; 82140; 83605; 83690; 85025; 85610; 85730; 96374; 99284

== ENCOUNTER 2019-09-05 07:00 | Outpatient (CLI) | payer MEDICAID ==
[2019-09-05 17:54] LABS: BASOPHILS % (AUTO) 0.6 %; EOSINOPHILS # (AUTO) 0.4 10^3/uL (0.0-0.7); EOSINOPHILS % (AUTO) 6.7 %; LYMPHOCYTES # (AUTO) 0.5 10^3/uL (1.5-3.5); LYMPHOCYTES % (AUTO) 10.4 %; MEAN CORPUSCULAR HEMOGLOBIN 35.3 pg (27.0-31.0); MEAN CORPUSCULAR HGB CONC 31.6 g/dL (32.0-36.0); MEAN CORPUSCULAR VOLUME 111.6 fL (81.0-99.0); MEAN PLATELET VOLUME 10.3 fL (7.9-10.8); MONOCYTES # (AUTO) 0.8 10^3/uL (0.0-1.0); MONOCYTES % (AUTO) 15.4 %; NEUTROPHILS # (AUTO) 3.5 10^3/uL (1.5-6.6); NEUTROPHILS % (AUTO) 66.5 %; PLT - PLATELET COUNT 93 10^3/uL (130-450); RED CELL DISTRIBUTION WIDTH 18.2 % (12.0-15.0); WHITE BLOOD COUNT 5.2 x10^3/uL (4.8-10.8)
[2019-09-05 18:42] LABS: HGB - HEMOGLOBIN 6.7 g/dL (12.0-16.0); PLATELET ESTIMATE, MANUAL DECREASED (<130,000) (NORMAL); PLATELET MORPHOLOGY NORMAL APPEARANCE (NORMAL)
[2019-09-05 19:01] LABS: ALBUMIN 2.4 g/dL (3.2-5.5); ALBUMIN/GLOBULIN RATIO 0.8 (1.0-2.2); BILIRUBIN,TOTAL 5.1 mg/dL (0.2-1.0); CREATININE 1.7 mg/dL (0.4-1.0); TOTAL PROTEIN 5.4 g/dL (6.7-8.2)
== END 2019-09-05 23:59 | disposition home or self-care (01) ==
LOC: LAB.WCP 07:00
PROVIDERS: ATTEND Family Medicine
DX: K74.60 Unspecified cirrhosis of liver (principal); I27.20 Pulmonary hypertension, unspecified; B19.20 Unspecified viral hepatitis C without hepatic coma; R07.9 Chest pain, unspecified
CPT/HCPCS: 36415; 80053; 81599; 83880; 84484; 85025; 86803

== ENCOUNTER 2019-09-06 14:39 | Outpatient (CLI) | payer MEDICAID ==
--- NOTE | 2019-09-06 15:30 | CONSULTATION NOTE ---
Palliative Care Consultation - Referral Referring Provider: Dr. Matheus Mckenna Time of Visit: [id number] Referral setting: Home Referral Reason: Cirrhosis/Symptom Management/Advanced Care Planning - Information Sources Records reviewed: Previous records reviewed History/Review of Systems obtained from: Patient, Family (daughter Larry) Exam limitations: Clinical condition (Fatigue due to anemia) - History of Present Illness Brief History of Present Illness: This is a 49-year-old woman who was seen and evaluated in her home with her daughter, Larry present for initial palliative care consultation due to decompensated cirrhosis, chronic anemia, establishment of goals of care, and advanced care planning. The patient relocated to [facility] in November 2018 to reside with her daughter for additional caregiving assistance. Prior to that time she was living in [place], [place]. Since the patient has relocated to [facility] she has undergone multiple complex and prolonged hospitalizations. She was hospitalized as follows: 03/19-03/24/2019 for GIB with esophageal varicies 04/17-04/26/2019 for worsening liver failure, LEXI on CKD 04/29-05/03/2019 for hepatic encephalopathy 05/06-05/18/2019 incarcerated hernia and PE 05/21-08/08/2019 decompensated cirrhosis, pulmonary HTN The patient underwent a TI PS [facility] 04/17/2019. Prior to her TIP S she was requiring weekly paracentesis. Since the TI PS she has only required 1 episode of paracentesis per the patient and daughter report. However, since having this procedure done her peripheral edema has worsened and she has also had worsening anemia because seeing frequent blood transfusions. This week she has felt weak and passed out on Tuesday. Typically in the past when the patient feels this week and her lower extremities ache typically her blood count is low. She was seen in her primary care office yesterday and lab work was obtained with a result of her hemoglobin of 6.7. She is ordered for 2 units of packed RBCs today to be transfused at the [facility]. She also reported chest pain yesterday when she was seen at the primary care office. A work-up was started. The patient denies chest pain or palpitations today she does report resolution of her central chest pain after flatus as well as removal of plastic from her abdominal binder. During her last extended hospitalization at [facility] she was found to have pulmonary HTN and this is precluding her from being a liver transplant candidate. She is being followed by hepatology, cardiology and pulmonology. Due to her increased weight and edema her spironolactone dose was doubled. She continues on her torsemide as ordered. Since the increase of her spironolactone yesterday by her PCP office she has noticed a reduction in her lower extremity edema but not to her hands. She does report of abdominal pain that typically worsens with increased fluid due to ascites and lack of defecation. She typically is having approximately 3 bowel movements a day. She will have on and off encephalopathy at home if she does not have routine bowel movements. Her goal bowel movements are to be 3 to 4/day to limit confusion. She remains on lactulose and rifaximin. She does report improvement of abdominal discomfort after defecation. 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 She will use a lidocaine patch application intermittently to her lower back. Otherwise she is maintained on acetaminophen 325 mg 4 times daily and oxycodone 5 mg 3 times daily for pain management. The patient also has a longstanding history of an umbilical hernia with intermittent incarceration. She has been evaluated by to surgical services, 1 at [facility] and 1 at [facility] both deeming her not a surgical candidate. She wears an abdominal binder for support and to reduce her risk of obstruction and incarceration. She was last at [facility] emergency department on 08/26 for reduction of her umbilical hernia which was successful. The patient is reporting a depressed mood and today became tearful describing the loss of her brother recently who also of cirrhosis. She was looking to obtain therapy support for assistance with managing her feelings right before the fallout of the coronavirus pandemic. Due to the coronavirus she has been unable to seek the additional services that she needs to help manage her feelings. Her daughter, Larry is supportive but reports that she is typically a fixer and does not know how to offer adequate support for the patient. She does report a stable appetite with some noted improvement. She grazes throughout the day. Her ideal weight is at 110 pounds. Today, the patient is seen in the living room with her daughter present. There are 3 younger children that are coming and going out of the room as well as an additional adult. The visit today will not be the typical length of time for initial palliative care consultation as the patient needs to go to the hospital to have her labs drawn and her blood transfusion today. Medical/Surgical History - Past Medical History Cardiovascular: reports: Congestive heart failure (diastolic HFpEF LVEF 75% 07/12/2019), Valve disorder (moderte TR), Other (Pulmonary HTN; portal venin thrombosis) Respiratory: reports: Pneumonia Neuro: None Endocrine/Autoimmune: reports: HyPOthyroidism GI: reports: Esophageal varices, GI bleed, Hepatitis (Chronic Hepatitis C; Hepatitis B core AB positive), Cirrhosis, Other (Hepatic encephalopathy; hepatic coma x 2) TEMPORARY HELP AGENCY REFERRAL CLERK: reports: Miscarriage(s) : reports: Other (CKD stage III) HEENT: reports: None Psych: reports: Depression, Other Musculoskeletal: reports: Chronic back pain Derm: reports: None MRSA Hx?: Yes Other Past Medical History: chronic anemia; umbilical hernia with intermittent incarceration; spontaneous bacterial peritonitis - Past Surgical History General: reports: Hiatal hernia repair Ortho: reports: Other (Left ankle fracture and repair) /TEMPORARY HELP AGENCY REFERRAL CLERK: reports: Tubal ligation, Other (Left lumpectomy) HEENT: reports: Other Other past surgical history: TIPS 04/2019; EGD and banding of esophageal varices - Substance History Use: Uses substance without health or social issues: Alcohol (past history of alcohol use with no recent use in years per patient and daughter report. Never a smoker.) Social History - Living Situation Living arrangement: At home Living Situation: With family (daughter Larry and Larry's family (, daughter Rufus)) Support System: G[place] in [place] the [facility] in [place]. Her father was an engineering test specialist on the rail road and there was only one school in the town for all grades to attend K-12. The patient got into dancing and had a passion for dance. She and her brother were known as the "up and coming Donovan Loretta and Kandi Powers." The patient has a younger adoptive brother and 2 older brothers (one ) and 1 sister. She has 4 children, and she has one child who is . The patient's mother opened up a dance school in their town. The patient was the youngest member of the [employer] in [place] graduating in 1986. 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 She developed back injuries. In recent years she has lived in her car in [place] not wanting to be a burden to her children while they establish their lives and was essentially homeless for 9 years. In November 2018 ,the patient moved in with her daughter, Larry and her family as the patient "needed the help." Larry owns the trailer that the family resides in. Larry is an advocate for the patient and is her primary associate director career services. Her grandduaghter, Rufus, is the light of her eye. Family History - Family History Family History: Mother: , Father: Family History Comment/Other: Family history of ETOH abuse Brother, cirrhosis of liver Medications/Allergies - Medications Home Medications: Ambulatory Orders Medication Instructions Recorded Confirmed Cholecalciferol (Vitamin D3) 2,000 units PO DAILY #60 capsule 12/02/18 09/07/19 [Vitamin D3] Ondansetron Odt [Zofran Odt] 4 mg TL Q8H PRN 01/08/19 09/07/19 Ciprofloxacin [Cipro] 500 mg PO DAILY 04/30/19 09/07/19 Lactulose [Constulose] 30 ml PO TID 04/30/19 09/07/19 Pantoprazole Sodium 40 mg PO DAILY 04/30/19 09/07/19 Sucralfate [Carafate] 1 gm PO QID 04/30/19 09/07/19 Acetaminophen [Tylenol] 325 mg PO QID 09/07/19 09/07/19 Cyanocobalamin (Vitamin B-12) 2,500 mcg PO DAILY 09/07/19 09/07/19 [Vitamin B-12] Enulose 300 ml [place] DAILY PRN 09/07/19 Levothyroxine [Synthroid] 75 mcg PO DAILY 09/07/19 09/07/19 Lidocaine Patch 5% [Lidoderm Patch] 1 patch TP DAILY PRN 09/07/19 09/07/19 Spironolactone 50 mg ORAL BID 09/07/19 09/07/19 Torsemide 50 mg PO DAILY 09/07/19 09/07/19 oxyCODONE [Roxicodone] 5 mg PO TID 09/07/19 09/07/19 rifAXIMin [Xifaxan] 550 mg PO BID 09/07/19 09/07/19 - Allergies Allergies/Adverse Reactions: Allergies Allergy/AdvReac Type Severity Reaction Status Date / Time acetaminophen [From Tylenol] Allergy Unknown Verified 09/07/19 15:53 NSAIDS (Non-Steroidal Allergy Unknown Verified 09/07/19 15:53 Anti-Inflamma Review of Systems - Constitutional Constitutional: reports: Fatigue, Weight gain. denies: Fever, Chills, Poor appetite - Eyes Eyes: denies: Corrective lenses - Ears, Nose & Throat Ears, Nose & Throat: reports: Other (went to the dentist yesterday for gum irritation and was started on antibiotic therapy that needs to be picked up) - Cardiovascular Cardiovascular: reports: Edema. denies: Palpitations, Chest pain (not present today on assessment), Lightheadedness - Respiratory Respiratory: denies: Cough - Gastrointestinal Gastrointestinal: reports: Abdominal distention, Other (umbilical hernia). denies: Abdominal pain, Nausea, Vomiting, Poor appetite - Genitourinary Genitourinary: denies: Dysuria - Musculoskeletal Musculoskeletal: reports: Back pain, Assistive devices (cane with ambulation) - Integumentary Integumentary: denies: Rash - Neurological Neurological: reports: General weakness, Memory problems (waxes and wanes with hepatic encephalopathy affecting cognition). denies: Dizziness - Psychiatric Psychiatric: reports: Depression - Endocrine Endocrine: reports: Hypothyroidism. denies: Diabetes type 2 - Hematologic/Lymphatic Hematologic/Lymphatic: reports: Anemia, Other (on lifelong cipro for SBP) - All Other Systems All Other Systems: reports: Reviewed and negative Physical Exam - Vital Signs Temperature: 36.7 C Pulse Rate: 78 O2 Saturation: 93 (on RA at rest) Blood Pressure: 152/83 (left wrist cuff) - Physical Exam General Appearance: positive: No acute distress, Alert, Cachetic, Other (appears older then stated age, ill appearing, resting on left side on couch in living room in [facility]) Eyes Bilateral: positive: Normal inspection, Other (no evidence of periorbtal edema) ENT: positive: No signs of dehydration Neck: positive: No JVD, Trachea midline Cardiovascular: positive: Regular rate & rhythm, No murmur, No gallop Respiratory: positive: Chest non-tender, No respiratory distress, Breath sounds nml. negative: Rales Abdomen: positive: Soft, Nml bowel sounds, Distended, Other (abdominal binder in place--declined removal to evaluate umbilical hernia during this visit) Skin: positive: Pallor Extremities: positive: Other (pitting edema to BUE and BLE indiciative of anascara appx +1) Neurologic/Psychiatric: positive: Oriented x3, Weakness, Depressed mood/affect, Other (engaged and attentive during evaluation; answered questions appropriately) Palliative Care - POLST Patient has POLST: No Pain: Pain unchanged (Patient reports of abdominal pain that is typically relieved by flatus or defecation. She has a history of chronic back pain and is managed on routine acetaminophen and oxycodone.) Tiredness/Fatigue: Mild (1-3) Drowsiness/Sedation: Mild (1-3) Nausea: None Anorexia: None Depression: Moderate (4-6) Feelings of wellbeing/Perceived Quality of Life: Acceptable Sleep: Sleeps well Constipation: Managed (goal BM 3-4 per day) Performance Status: Patient is ambulatory with a cane within the home. No recent falls reported. She requires assistance with personal hygiene, dressing, and medication management. No change in appetite. She is continent of bowel and bladder. PPS 50% - Palliative Care Discussion: The patient has had a prolonged and extensive complex medical journey that began over a decade ago. The patient reports that she was consuming multiple doses of Tylenol at a time as well as consuming alcohol and this combination has led to the cirrhosis of her liver. She has had light and off episodes of hepatic encephalopathy requiring frequent hospitalizations. She is also been into hepatic coma's which was the start of her journey. 1, lasted 5 days and the other 3 days. During 1 of these comas she was felt by the medical staff not going to make it and a decision was made by her family to take her off life support but she survived. The decision to take her off life support was made by her siblings as her children were night of age to make that decision. Her daughter, Larry, reflects on that time is being very difficult as she did not want the family nor the medical staff to give up on her mother as she is "a fighter." The patient recalls that her brother, who was recently from cirrhosis, told her to fight and to not give up. The patient herself recently was at her brother's bedside while he was in the hospital and relieved the same advice that he had previously given her over a decade ago about fighting and not giving up. The patient herself became tearful and reporting that her brother did not fight and that he "gave up." During self reflection the patient reports that she is upset and angry with her brother that he did not "try harder to stay here." She recognizes that she is presently having depressive symptoms and difficulty managing her feelings in regards to the loss of her brother. She wishes for additional support regarding managing the symptoms and is open to speaking to the palliative care physiotherapy assistant when offered today. The patient herself has spiritual beliefs and strong values regarding longevity. She wishes to spend time with her grandchildren, specifically Rufus, and therefore longevity i s a priority for her. She wishes to do anything possible to increase her longevity to spend time with her family. Results - Lab Results Lab results reviewed: Yes Lab and Imaging Results: 09/05/2019: Sodium 133, potassium 3.9, BUN 39, creatinine 1.7, glucose 106, estimated GFR 32, AST 48, ALT 26, alk phos 128, BNP 816, albumin 2.4. WBC 5.2, RBC 1.9, hemoglobin 6.7, hematocrit 21.2%, MCV 111.6, RDW 18.2, platelet 93. Impression and Recommendations - Palliative Care Impression: This is a complex 49-year-old female with decompensated cirrhosis secondary to alcohol and hepatitis C status post TI PS with chronic anemia, pulmonary hypertension, heart failure, chronic back pain, and depression due to recent family loss. The patient is scheduled for 2 units of packed RBCs today due to her hemoglobin at 6.7 obtained on 09/04. Palliative care to continue to provide symptom management, exploration of goals of care, anticipatory guidance and advanced care planning. Recommendations/Counseling Done: 1. Chronic anemia. Patient has required frequent blood transfusions due to anemia. Transfusions are made difficult has she has a history of antibodies in the blood. Goal is to transfuse if her hemoglobin is less than 7. She is scheduled for 2 units of packed RBCs today as her hemoglobin was 6.7 on 09/04. Questionable continued TI PS hemolysis? She is scheduled to see hematology on 09/17. 2.Peripheral edema, pulmonary hypertension. Presently on spironolactone twice daily and furosemide. Improvement in lower extremity edema but continues with upper extremity edema. May need adjustment of torsemide in the future. Followed by cardiology. Echo performed 07/11/2019 demonstrated moderate pulmonary hypertension, grade 2 diastolic dysfunction, moderate TR. Continue to be followed by cardiology. 3. Depression. This is related to recent loss of her brother due to cirrhosis. Patient needs additional tools to manage with grief and loss. Given time restraints of today's visit and patient having to go to the [facility] for blood transfusion unable to discuss pharmacologic interventions. Request that palliative care physiotherapy assistant reach out to the patient to provide additional support and services and she is open to this support given her strong yazidi beliefs. Supportive listening provided. 4. Diastolic Heart Failure with Preserved Ejection Fraction. LVEF 75% on 07/12/2019. Continue spironolactone and furosemide as ordered. Continue fluid restriction. Continue to monitor weight gain. Continue to limit sodium intake. 5. SBP. Continue ciprofloxacin as ordered. Will need lifelong therapy due to prior history. 6. Decompensated cirrhosis secondary to hepatitis C and past alcohol use. Status post TI PS 04/17/2019. Not a candidate for transplant due to severe pulmonary hypertension. Goal bowel movements 3 to 4/day. Continue oral lactulose and rifaximin. Has lactulose enema as needed which was recently administered with success. Followed by Dr. Huerta at [facility]. Continue to be followed by hepatology. 7.Chronic Pain Syndrome. 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 Also reports of pain to abdomen with improvement with defecation. We will continue to explore further details of pain for optimal management. Continue acetaminophen as ordered with goal less than 2gram per day and oxycodone as ordered. 8. CKD. Creatinine typically 1.4-1.6 at baseline. Continue to monitor. Avoid nephrotoxic medications. 9. Umbilical hernia with intermittent incarceration. Unable to fully assess during examination today as patient did not wish to remove her abdominal binder. She is not a surgical candidate secondary to her cirrhosis status post surgical consultation. Continue to wear her abdominal binder for support. Control as cites and peripheral edema to limit risk of an incarceration. 10. Advance care planning. She is quite clear regarding her strong values on long [place] as she wishes to spend time with her grandchildren and her family. Provided paperwork for assigning a DURABLE POWER OF RECREATION OFFICER for health. The patient wishes for her daughter Larry to act as her healthcare agent if she is unable to speak for herself. Palliative care to combine continue to build rapport and explore goals of care. Patient does not have a POLST within the home nor has she appointed a healthcare agent. Patient and daughter, Larry are presently working with home health criminal justice social worker. Time Spent: Total time spent 65 minutes with greater than 50% of this spent in counseling and coordination of care with patient and daughter Larry; palliative care philosophy; supportive listening; examination of patient; review of pain and symptom management and anticipatory guidance. CPT 03766; I spent 65 minutes reviewing the patient's old medical records and hospitalization documents prior to her visit today. disclaimer: The chart note was formulated using voice recognition technology and unfortunately sound alike errors may occur.
== END 2019-09-06 14:40 | disposition home or self-care (01) ==
LOC: PC 14:39
PROVIDERS: ATTEND Nurse Practitioner Family
DX: Z51.5 Encounter for palliative care (principal); I27.20 Pulmonary hypertension, unspecified; I50.30 Unspecified diastolic (congestive) heart failure; G89.4 Chronic pain syndrome; K70.30 Alcoholic cirrhosis of liver without ascites; B18.2 Chronic viral hepatitis C; N18.3 Chronic kidney disease, stage 3 (moderate); F32.9 Major depressive disorder, single episode, unspecified; K65.2 Spontaneous bacterial peritonitis; K42.9 Umbilical hernia without obstruction or gangrene; Z79.899 Other long term (current) drug therapy; Z79.891 Long term (current) use of opiate analgesic; Z79.2 Long term (current) use of antibiotics; Z87.898 Personal history of other specified conditions
CPT/HCPCS: 99344; 99358

== ENCOUNTER 2019-09-11 09:43 | Outpatient (CLI) | payer MEDICAID | END 2019-09-11 09:44 | disposition critical access hospital (66) | LOC: EMS 09:43 | PROVIDERS: ATTEND Surgery | DX: R10.9 Unspecified abdominal pain (principal) | CPT/HCPCS: A0425; A0429; A0999 ==

== ENCOUNTER 2019-09-11 10:05 | Emergency (ER) | payer MEDICAID ==
--- NOTE | 2019-09-11 10:52 | ED Physician Documentation ---
PD HPI ABD PAIN - Stated complaint Stated Complaint: ABD PAIN - Chief complaint Chief Complaint: Abd Pain - History obtained from History obtained from: Patient - History of Present Illness Timing - onset: Last night Timing - duration: Hours Timing - details: Waxing and waning Quality: Aching, Pain (She has an umbilical hernia that is protuberant intermittently. It is more often protruding with slight constipation. She does take's laxative daily as well as lactulose. She states it was more protuberant and firm and tender and painful last night into today. She had had this happen recently and it had medications to help decompress and actually reduced. She does have history of liver disease and is a poor surgical candidate. Review of previous notes on the last visit showed a consultation with surgery here and her surgeon at [facility], both of whom say they would not do surgery for the hernia repair or even incarceration but only if it was strangulated or obstructed.) Location: Periumbilical Radiation: No: Lower back Worsened by: Moving, Palpation Associated symptoms: Nausea. No: Fever, Vomiting, Diarrhea, Constipation, Melena Similar symptoms before: Diagnosis (Umbilical hernia with intermittent incarceration) Recently seen: Emergency Dept Review of Systems Constitutional: denies: Fever, Chills Nose: denies: Rhinorrhea / runny nose, Congestion Throat: denies: Sore throat Respiratory: denies: Cough GI: reports: Abdominal Pain, Abdominal Swelling, Nausea. 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) : Other HEENT: None Psych: Depression, Other Musculoskeletal: Chronic back pain Derm: None - Past Surgical History Past Surgical History: Yes General: Hiatal hernia repair Ortho: Other /FINANCIAL INSTITUTION TREASURER: Tubal ligation, Other HEENT: Other - Present Medications Home Medications: Ambulatory Orders Medication Instructions Recorded Confirmed Cholecalciferol (Vitamin D3) 2,000 units PO DAILY #60 capsule 12/02/18 09/07/19 [Vitamin D3] Ondansetron Odt [Zofran Odt] 4 mg TL Q8H PRN 01/08/19 09/07/19 Ciprofloxacin [Cipro] 500 mg PO DAILY 04/30/19 09/07/19 Lactulose [Constulose] 30 ml PO TID 04/30/19 09/07/19 Pantoprazole Sodium 40 mg PO DAILY 04/30/19 09/07/19 Sucralfate [Carafate] 1 gm PO QID 04/30/19 09/07/19 Acetaminophen [Tylenol] 325 mg PO QID 09/07/19 09/07/19 Cyanocobalamin (Vitamin B-12) 2,500 mcg PO DAILY 09/07/19 09/07/19 [Vitamin B-12] Enulose 300 ml AK DAILY PRN 09/07/19 Levothyroxine [Synthroid] 75 mcg PO DAILY 09/07/19 09/07/19 Lidocaine Patch 5% [Lidoderm Patch] 1 patch TP DAILY PRN 09/07/19 09/07/19 Spironolactone 50 mg ORAL BID 09/07/19 09/07/19 Torsemide 50 mg PO DAILY 09/07/19 09/07/19 oxyCODONE [Roxicodone] 5 mg PO TID 09/07/19 09/07/19 rifAXIMin [Xifaxan] 550 mg PO BID 09/07/19 09/07/19 Ondansetron Odt [Zofran] 4 mg TL Q6H PRN #15 tablet 09/11/19 oxyCODONE [Roxicodone] 5 mg PO TID PRN #12 tablet 09/11/19 - Allergies Allergies/Adverse Reactions: Allergies Allergy/AdvReac Type Severity Reaction Status Date / Time NSAIDS (Non-Steroidal Allergy Unknown Verified 09/12/19 04:49 Anti-Inflamma - Social History Does the pt smoke?: No Smoking Status: Never smoker Does the pt drink ETOH?: No Does the pt have substance abuse?: No - Immunizations Immunizations are current?: Yes - POLST Patient has POLST: No POLST Status: Full Code PD ED PE NORMAL - Vitals Vital signs reviewed: Yes - General General: Alert and oriented X 3, No acute distress, Well developed/nourished - HEENT HEENT: Pharynx benign - Neck Neck: Supple, no meningeal sign, No adenopathy - Cardiac Cardiac: RRR, No murmur - Respiratory Respiratory: Clear bilaterally - Abdomen Abdomen: Soft, Non distended, No organomegaly, Other (She has not have general abdominal distention per se. There is some mild fullness with shifting dullness consistent with some mild some ascites. She does have a protuberant umbilical hernia which is about a grapefruit sized and is tender firm and hard and not reducible on initial exam. There is no redness nor warmth of the area.). No: Normal bowel sounds (decreased generally) - Female Female : Deferred - Rectal Rectal: Deferred - Back Back: No CVA TTP - Derm Derm: Normal color, Warm and dry - Extremities Extremities: No tenderness to palpate, Normal ROM s pain, No edema, No calf tenderness / cord - Neuro Neuro: Alert and oriented X 3, No motor deficit, Normal speech Results - Vitals Vitals: Vital Signs - 24 hr 09/11/19 09/11/19 09/11/19 10:10 12:38 14:00 Temperature 36.9 C Heart Rate 78 85 81 Respiratory 17 14 17 Rate Blood Pressure 158/93 H 159/96 H 165/101 H O2 Saturation 97 93 93 Oxygen O2 Source Room air - Labs Labs: Laboratory Tests 09/11/19 09/11/19 09/11/19 12:10 12:10 12:32 WBC 5.9 RBC 3.15 L Hgb 10.1 L Hct 30.8 L MCV 97.8 MCH 32.1 H MCHC 32.8 RDW 18.9 H Plt Count 90 L MPV 8.9 Neut # (Auto) 4.6 Lymph # (Auto) 0.4 L King # (Auto) 0.5 Eos # (Auto) 0.3 Baso # (Auto) 0.1 Absolute Nucleated RBC 0.00 Nucleated RBC % 0.0 Sodium 134 L Potassium 4.1 Chloride 101 Carbon Dioxide 22 Anion Gap 11.0 BUN 44 H Creatinine 1.7 H Estimated GFR (MDRD) 32 L Glucose 94 Lactic Acid 1.3 Calcium 8.1 L Magnesium 2.2 Total Bilirubin 6.3 H AST 42 ALT 27 Alkaline Phosphatase 149 H Total Protein 5.5 L Albumin 2.3 L Globulin 3.2 Albumin/Globulin Ratio 0.7 L Lipase 60 H PD MEDICAL DECISION MAKING - ED course Complexity details: reviewed old records, re-evaluated patient (She is given some IV fluids and medications. She was placed supine and also had some ice applied to the hernia sac. With this and then some gentle pressure the area decompressed to a softer tone though it was still not reducible per se. It did reduce by about half the size and was no longer tense or tight. I feel it is decompressed and her pain is decreased. Review of prior records show that she is not a surgical candidate and she states the hernia is often extruded and protruding. At this point I feel the tension is improved and so symptom lewis is at a manageable and dischargeable condition. She is in agreement. She states she is to get a refill of her pain medicine in a couple of days and had been delayed because of pharmacy issues. I wrote her prescription for short-term 3 days.), considered differential (She does have some tenseness firmness and marked tenderness of the umbilical hernia area. Concern for incarceration as is not reducible. I do not get a sense of strangulation at this point based on her symptoms. However can check some blood tests to get a better gauge. No obstructive symptoms without any did general distention nausea nor vomiting.), d/w patient Departure - Departure Disposition: Home, Self Care Clinical Impression: Cirrhosis of liver Qualifiers: Hepatic cirrhosis type: unspecified hepatic cirrhosis Ascites presence: without ascites Qualified Code(s): K74.60 - Unspecified cirrhosis of liver Umbilical hernia Qualifiers: Obstruction and gangrene presence: without obstruction or gangrene Qualified Code(s): K42.9 - Umbilical hernia without obstruction or gangrene Abdominal pain Qualifiers: Abdominal location: periumbilical Qualified Code(s): R10.33 - Periumbilical pain Condition: Stable Record reviewed to determine appropriate education?: Yes Instructions: ED Hernia Inguinal Prescriptions: Ondansetron Odt [Zofran] 4 mg TL Q6H PRN #15 tablet PRN Reason: Nausea / Vomiting oxyCODONE [Roxicodone] 5 mg PO TID PRN #12 tablet PRN Reason: Pain Comments: Continue usual medications including stool softener and lactulose. Continue pain medicines 2-3 times a day as needed for pain. Ondansetron if needed for nausea. At this point there is no signs of strangulation or obstruction with the hernia. It was a under pressure and hurting more (incarcerated). The pain is lessened now and hopefully will stay lessened with some pain medicine and regular stool softener. Return if worse symptoms or associated with general abdominal distention, fever, vomiting, bloody stool or other concerns. If it is feeling more pressured and hurting, you can try lying on your back with your head up a little bit to decrease abdominal muscle tension and put some cool towels or ice onto the hernia, and see if it will decrease some of the pressure within it. Discharge Date/Time: 09/11/19 15:59
[2019-09-11] MEDS: HYDROmorphone 2 MG/ML VIAL IM STA (11:37)
--- NOTE | 2019-09-11 12:21 | CONSULTATION NOTE ---
Consultation Report: Called to ED to assist with peripheral IV access in patient. Attempt x2 made to place peripheral IV in RUE via ultrasound without success. #18G IV catheter placed in right external jugular vein under direct visualization without difficulty. Saline flushed and dressed with tegaderm.
[2019-09-11 12:31] LABS: ALBUMIN 2.3 g/dL (3.2-5.5); ALBUMIN/GLOBULIN RATIO 0.7 (1.0-2.2); BILIRUBIN,TOTAL 6.3 mg/dL (0.2-1.0); CALCIUM 8.1 mg/dL (8.5-10.3); CREATININE 1.7 mg/dL (0.4-1.0); MAGNESIUM 2.2 mg/dL (1.7-2.8); TOTAL PROTEIN 5.5 g/dL (6.7-8.2)
[2019-09-11] MEDS: HYDROmorphone 1 MG/ML CARPUJECT IVP STA (12:37)
[2019-09-11 12:42] LABS: BASOPHILS # (AUTO) 0.1 10^3/uL (0.0-0.1); BASOPHILS % (AUTO) 1.2 %; EOSINOPHILS # (AUTO) 0.3 10^3/uL (0.0-0.7); EOSINOPHILS % (AUTO) 5.4 %; HGB - HEMOGLOBIN 10.1 g/dL (12.0-16.0); LYMPHOCYTES # (AUTO) 0.4 10^3/uL (1.5-3.5); LYMPHOCYTES % (AUTO) 7.1 %; MEAN CORPUSCULAR HEMOGLOBIN 32.1 pg (27.0-31.0); MEAN CORPUSCULAR HGB CONC 32.8 g/dL (32.0-36.0); MEAN CORPUSCULAR VOLUME 97.8 fL (81.0-99.0); MEAN PLATELET VOLUME 8.9 fL (7.9-10.8); MONOCYTES # (AUTO) 0.5 10^3/uL (0.0-1.0); MONOCYTES % (AUTO) 7.6 %; NEUTROPHILS # (AUTO) 4.6 10^3/uL (1.5-6.6); PLT - PLATELET COUNT 90 10^3/uL (130-450); RED BLOOD COUNT 3.15 10^6/uL (4.20-5.40); RED CELL DISTRIBUTION WIDTH 18.9 % (12.0-15.0); WHITE BLOOD COUNT 5.9 x10^3/uL (4.8-10.8)
[2019-09-11] MEDS: LACTULOSE 10 GM/15 ML BOTTLE PR STA (13:23)
[2019-09-11] MEDS: LACTULOSE 10 GM /15 ML UDC PR STA (13:44)
[2019-09-11 14:16] VITALS: BP 165/101
== END 2019-09-11 15:59 | disposition home or self-care (01) ==
LOC: EDUNIT# → ED 10:05
DX: K42.9 Umbilical hernia without obstruction or gangrene (principal); K74.60 Unspecified cirrhosis of liver
CPT/HCPCS: 36415; 80053; 83605; 83690; 83735; 85025; 96374; 99284

== ENCOUNTER 2019-09-12 04:32 | Emergency (ER) | payer MEDICAID ==
--- NOTE | 2019-09-12 04:36 | ED Physician Documentation ---
History of Present Illness - Stated complaint Stated Complaint: VOMITING/ABD PX - History obtained from History obtained from: Patient (Patient is a 49-year-old female who was just seen within the last 24 hours with a known history of a previous abdominal hernia she is well-known to the emergency department she presents specifically this morning with a chief complaint of wanting a CAT scan. She denies any severe pain she reports that she has a chronic abdominal hernia and she wears a chronic binder she denies any new symptoms today denies fevers, cough, new rashes.Patient is has a known history of liver failure and is a TIPS patient.) Review of Systems Constitutional: reports: Reviewed and negative Eyes: reports: Reviewed and negative Ears: reports: Reviewed and negative Nose: reports: Reviewed and negative Throat: reports: Reviewed and negative Cardiac: reports: Reviewed and negative Respiratory: reports: Reviewed and negative GI: reports: Other (Abdominal hernia) : reports: Reviewed and negative Skin: reports: Reviewed and negative Musculoskeletal: reports: Reviewed and negative Neurologic: reports: Reviewed and negative Psychiatric: reports: Reviewed and negative Endocrine: reports: Reviewed and negative Immunocompromised: reports: Reviewed and negative PD PAST MEDICAL HISTORY - Past Medical History Cardiovascular: Congestive heart failure, Valve disorder, Other Respiratory: Pneumonia Neuro: None Endocrine/Autoimmune: HyPOthyroidism GI: Esophageal varices, GI bleed, Hepatitis, Cirrhosis, Other 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) : Other HEENT: None Psych: Depression, Other Musculoskeletal: Chronic back pain Derm: None - Past Surgical History Past Surgical History: Yes General: Hiatal hernia repair Ortho: Other /SENIOR SOFTWARE DEVELOPER: Tubal ligation, Other HEENT: Other - Present Medications Home Medications: Ambulatory Orders Medication Instructions Recorded Confirmed Cholecalciferol (Vitamin D3) 2,000 units PO DAILY #60 capsule 12/02/18 09/07/19 [Vitamin D3] Ondansetron Odt [Zofran Odt] 4 mg TL Q8H PRN 01/08/19 09/07/19 Ciprofloxacin [Cipro] 500 mg PO DAILY 04/30/19 09/07/19 Lactulose [Constulose] 30 ml PO TID 04/30/19 09/07/19 Pantoprazole Sodium 40 mg PO DAILY 04/30/19 09/07/19 Sucralfate [Carafate] 1 gm PO QID 04/30/19 09/07/19 Acetaminophen [Tylenol] 325 mg PO QID 09/07/19 09/07/19 Cyanocobalamin (Vitamin B-12) 2,500 mcg PO DAILY 09/07/19 09/07/19 [Vitamin B-12] Enulose 300 ml [place] DAILY PRN 09/07/19 Levothyroxine [Synthroid] 75 mcg PO DAILY 09/07/19 09/07/19 Lidocaine Patch 5% [Lidoderm Patch] 1 patch TP DAILY PRN 09/07/19 09/07/19 Spironolactone 50 mg ORAL BID 09/07/19 09/07/19 Torsemide 50 mg PO DAILY 09/07/19 09/07/19 oxyCODONE [Roxicodone] 5 mg PO TID 09/07/19 09/07/19 rifAXIMin [Xifaxan] 550 mg PO BID 09/07/19 09/07/19 Ondansetron Odt [Zofran] 4 mg TL Q6H PRN #15 tablet 09/11/19 oxyCODONE [Roxicodone] 5 mg PO TID PRN #12 tablet 09/11/19 - Allergies Allergies/Adverse Reactions: Allergies Allergy/AdvReac Type Severity Reaction Status Date / Time NSAIDS (Non-Steroidal Allergy Unknown Verified 09/12/19 04:49 Anti-Inflamma - Social History Does the pt smoke?: No Smoking Status: Never smoker Does the pt drink ETOH?: No Does the pt have substance abuse?: No - Immunizations Immunizations are current?: Yes - POLST Patient has POLST: No POLST Status: Full Code PD ED PE NORMAL - Vitals Vital signs reviewed: Yes - General General: Alert and oriented X 3, No acute distress - HEENT HEENT: PERRL, Moist mucous membranes - Neck Neck: Supple, no meningeal sign - Cardiac Cardiac: RRR, No murmur, Strong equal pulses - Respiratory Respiratory: No respiratory distress, Clear bilaterally - Abdomen Abdomen: Normal bowel sounds, Soft, Non tender, Non distended, Other (Periumbilical hernia that soft there is no signs of incarceration or str angulation.) - Derm Derm: Warm and dry - Extremities Extremities: No deformity - Neuro Neuro: Alert and oriented X 3 - Psych Psych: Normal mood, Normal affect Results - Vitals Vitals: Vital Signs - 24 hr 0409/12/19 09/12/19 04:46 05:34 06:17 Temperature 36.4 C L Heart Rate 83 80 Respiratory 18 17 17 Rate Blood Pressure 153/109 H 153/93 H 149/95 H O2 Saturation 97 97 Oxygen O2 Source Room air PD MEDICAL DECISION MAKING - ED course Complexity details: re-evaluated patient, considered differential (Will get CT scan to rule out any incarceration or strangulation), d/w patient (Discussed results with the patient CT scan the abdomen pelvis shows no signs of incarcerated or strangulated periumbilical hernia or bowel obstruction.Patient will be discharged with close follow-up.) Departure - Departure Disposition: 01 Home, Self Care Clinical Impression: Periumbilical hernia Condition: Stable Instructions: Hernia Follow-Up: Eneida Abdullahi DO [Primary Care Provider] - 09/12/19 Comments: call your surgeon and you pcp today to schedule a follow up. Discharge Date/Time: 09/12/19 06:35
--- NOTE | 2019-09-12 05:48 | CT Report ---
Reason: abd pain hernia Procedure Date: 09/12/2019 Accession Number: [id number] / [id number] Procedure: CT - Abdomen/Pelvis WO CPT Code: Final Report FULL RESULT: EXAM: CT ABDOMEN AND PELVIS (CT KUB) EXAM DATE: 09/12/2019 05:33 AM CLINICAL HISTORY: Abdominal pain, hernia. COMPARISONS: ABDOMEN/PELVIS W/O 08/28/2019 1:15 AM. TECHNIQUE: Routine axial helical CT imaging was performed through the abdomen and pelvis without IV contrast. No IV contrast per physician order. Reconstructions: Coronal and sagittal. In accordance with CT protocol optimization, one or more of the following dose reduction techniques were utilized for this exam: automated exposure control, adjustment of mA and/or KV based on patient size, or use of iterative reconstructive technique. FINDINGS: Lung Bases: Small pleural effusions. Cardiomegaly and mitral annular calcifications appear stable. Low-density blood pool in the heart, consistent with anemia. Right Kidney/Ureter: No stones, hydronephrosis, or hydroureter. No perinephric fat stranding. Left Kidney/Ureter: No stones, hydronephrosis, or hydroureter. No perinephric fat stranding. Other Solid Organs: Cirrhotic liver with TIPS in place. Moderate splenomegaly. Grossly unremarkable adrenals and pancreas. Gallbladder/Bile Ducts: Not seen. Peritoneal Cavity: Moderate stool burden. Mild free fluid and diffuse mesenteric edema is likely related to patient's generalized anasarca/liver disease. Anterior abdominal wall periumbilical hernia contains fat and fluid currently. Defect measures approximately 2 x 1 cm with a larger approximately 11 x 5 x 9 cm hernia sac. No bowel involvement. Pelvic Organs: No bladder stones or wall thickening. Noncontrast images of the visualized pelvic organs are unremarkable. Vasculature: Unremarkable. Other: Generalized anasarca. IMPRESSION: 1. Anterior abdominal wall periumbilical hernia contains fat and fluid currently. Defect measures approximately 2 x 1 cm with a larger approximately 11 x 5 x 9 cm hernia sac. No bowel involvement. 2. Generalized anasarca, likely a combination of liver disease/hypoproteinemia. 3. Cardiomegaly. 4. Cirrhosis and portal hypertension with TIPS in place. 5. Moderate stool burden. RADIA
[2019-09-12 06:17] VITALS: BP 149/95
== END 2019-09-12 06:35 | disposition home or self-care (01) ==
LOC: ED 04:32
DX: Z76.89 Persons encountering health services in other specified circumstances (principal); K42.9 Umbilical hernia without obstruction or gangrene; R60.1 Generalized edema; K74.60 Unspecified cirrhosis of liver
CPT/HCPCS: 74176; 99284

== ENCOUNTER 2019-10-21 08:00 | Outpatient (CLI) | payer MEDICAID ==
[2019-10-22 01:46] LABS: H. PYLORIS ANTIGEN STL NEGATIVE (Negative)
== END 2019-10-21 23:59 | disposition home or self-care (01) ==
LOC: LAB.R 08:00
PROVIDERS: ATTEND Family Medicine
DX: B89 Unspecified parasitic disease (principal)
CPT/HCPCS: 82274; 83630; 87015; 87045; 87046; 87177; 87209; 87272; 87329; 87338; 87493

== ENCOUNTER 2019-10-21 16:20 | Outpatient (CLI) | payer MEDICAID | END 2019-10-21 16:21 | disposition home or self-care (01) | LOC: LAB 16:20 | PROVIDERS: ATTEND Family Medicine | DX: B89 Unspecified parasitic disease (principal) ==

== ENCOUNTER 2019-10-22 00:11 | Emergency (ER) | payer MEDICAID ==
--- NOTE | 2019-10-22 00:21 | ED Physician Documentation ---
History of Present Illness - Stated complaint Stated Complaint: ABNORMAL LABS - Chief complaint Chief Complaint: General - History obtained from History obtained from: Patient (Patient is a 49-year-old female presents with a chief complaint of GI bleed. The patient was discharged from [facility] on October 14. Patient has a known history of esophageal varices recurrent GI bleeds liver cirrhosis and status post TIPS procedure. She denies being anticoagulated but reports today she is had 2-3 dark tarry bowel movements. She did have her labs checked today as an outpatient that showed a hemoglobin of 6.8 her most recent hemoglobin for comparison was 10.She denies any chest pain or syncopal episodes.) Review of Systems Constitutional: reports: Reviewed and negative Eyes: reports: Reviewed and negative Ears: reports: Reviewed and negative Nose: reports: Reviewed and negative Throat: reports: Reviewed and negative Cardiac: reports: Reviewed and negative Respiratory: reports: Reviewed and negative GI: reports: Bloody / black stool : reports: Reviewed and negative Skin: reports: Reviewed and negative Musculoskeletal: reports: Reviewed and negative Neurologic: reports: Reviewed and negative Psychiatric: reports: Reviewed and negative Endocrine: reports: Reviewed and negative Immunocompromised: reports: Reviewed and negative PD PAST MEDICAL HISTORY - Past Medical History Cardiovascular: Congestive heart failure, Valve disorder, Other Respiratory: Pneumonia Neuro: None Endocrine/Autoimmune: HyPOthyroidism GI: Esophageal varices, GI bleed, Hepatitis, Cirrhosis, Other 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) : Other HEENT: None Psych: Depression, Other Musculoskeletal: Chronic back pain Derm: None - Past Surgical History Past Surgical History: Yes General: Hiatal hernia repair Ortho: Other /OUTBOARD MOTOR INSPECTOR: Tubal ligation, Other HEENT: Other - Present Medications Home Medications: Ambulatory Orders Medication Instructions Recorded Confirmed Cholecalciferol (Vitamin D3) 2,000 units PO DAILY #60 capsule 12/02/18 10/22/19 [Vitamin D3] Ondansetron Odt [Zofran Odt] 4 mg TL Q8H PRN 01/08/19 10/22/19 Ciprofloxacin [Cipro] 500 mg PO DAILY 04/30/19 10/22/19 Lactulose [Constulose] 30 ml PO TID 04/30/19 10/22/19 Sucralfate [Carafate] 1 gm PO QID 04/30/19 10/22/19 Acetaminophen [Tylenol] 325 mg PO QID 09/07/19 10/22/19 Cyanocobalamin (Vitamin B-12) 2,500 mcg PO DAILY 09/07/19 10/22/19 [Vitamin B-12] Levothyroxine [Synthroid] 75 mcg PO DAILY 09/07/19 10/22/19 Lidocaine Patch 5% [Lidoderm Patch] 1 patch TP DAILY PRN 09/07/19 10/22/19 Spironolactone 50 mg ORAL BID 09/07/19 10/22/19 Torsemide 50 mg PO DAILY 09/07/19 10/22/19 oxyCODONE [Roxicodone] 5 mg PO Q6HR PRN 09/07/19 10/22/19 rifAXIMin [Xifaxan] 550 mg PO BID 09/07/19 10/22/19 Ocular Lubricant 1 drops EACHEYE Q6HR PRN 10/22/19 Omeprazole 20 mg PO BID 10/22/19 10/22/19 - Allergies Allergies/Adverse Reactions: Allergies Allergy/AdvReac Type Severity Reaction Status Date / Time NSAIDS (Non-Steroidal Allergy Unknown Verified 10/22/19 01:23 Anti-Inflamma - Social History Does the pt smoke?: No Smoking Status: Current every day smoker Does the pt drink ETOH?: No Does the pt have substance abuse?: No - Immunizations Immunizations are current?: Yes - POLST Patient has POLST: No POLST Status: Full Code PD ED PE NORMAL - Vitals Vital signs reviewed: Yes - General General: Alert and oriented X 3, No acute distress, Well developed/nourished - HEENT HEENT: PERRL, Moist mucous membranes - Neck Neck: Supple, no meningeal sign - Cardiac Cardiac: RRR, No murmur, Strong equal pulses - Respiratory Respiratory: No respiratory distress, Clear bilaterally - Abdomen Abdomen: Normal bowel sounds, Soft, Non tender, Non distended, Other (hepatomegaly) - Derm Derm: Warm and dry - Extremities Extremities: No deformity, Other (2+ edema to b/l le.) - Neuro Neuro: Alert and oriented X 3 - Psych Psych: Normal mood, Normal affect Results - Vitals Vitals: Vital Signs - 24 hr 10/22/19 10/22/19 10/22/19 00:15 01:02 01:29 Temperature 37.0 C Heart Rate 87 83 88 Respiratory 18 14 13 Rate Blood Pressure 161/101 H 165/96 H 165/96 H O2 Saturation 95 99 95 10/22/19 10/22/19 10/22/19 02:18 02:56 03:24 Temperature Heart Rate 88 89 87 Respiratory 13 12 13 Rate Blood Pressure 144/100 H 139/95 H 152/94 H O2 Saturation 97 94 97 Oxygen O2 Source Room air - EKG (time done) 01:01 Rate: Other (no stemi) - Labs Labs: Laboratory Tests 10/22/19 10/22/19 10/22/19 00:40 00:40 00:40 WBC 6.1 RBC 2.28 L Hgb 6.7 L* Hct 21.4 L MCV 93.9 MCH 29.4 MCHC 31.3 L RDW 27.3 H Plt Count 136 MPV 9.4 Neut # (Auto) 4.3 Lymph # (Auto) 0.7 L Lamar # (Auto) 0.6 Eos # (Auto) 0.4 Baso # (Auto) 0.1 Absolute Nucleated RBC 0.00 Nucleated RBC % 0.0 Manual Slide Review Indicated Platelet Estimate NORMAL (130-450,000) Platelet Morphology NORMAL APPEARANCE RBC Morph Micro Appear 2+ ANISOCYTOSIS PT 19.7 H INR 1.8 H APTT 34.5 H Sodium Potassium Chloride Carbon Dioxide Anion Gap BUN Creatinine Estimated GFR (MDRD) Glucose Lactic Acid Calcium Phosphorus 4.7 H Magnesium 2.8 Total Bilirubin 4.5 H Direct Bilirubin 1.9 H AST 60 H ALT 20 Alkaline Phosphatase 131 H Ammonia Total Creatine Kinase 367 H Troponin I High Sens B-Natriuretic Peptide Total Protein 5.6 L Albumin 2.5 L Globulin 3.1 Lipase 48 Urine Color Urine Clarity Urine pH Ur Specific Gonzales Urine Protein Urine Glucose (UA) Urine Ketones Urine Occult Blood Urine Nitrite Urine Bilirubin Urine Urobilinogen Ur Leukocyte Esterase Ur Microscopic Review Urine Culture Comments Urine Opiates Screen Ur Oxycodone Screen Urine Methadone Screen Ur Propoxyphene Screen Ur Barbiturates Screen Ur Tricyclics Screen Ur Phencyclidine Scrn Ur Amphetamine Screen U Methamphetamines Scrn U Benzodiazepines Scrn Urine Cocaine Screen U Cannabinoids Screen Ethyl Alcohol < 5.0 Blood Type Antibody Screen Antibody Identification Crossmatch 10/22/19 10/22/19 10/22/19 00:40 00:40 00:40 WBC RBC Hgb Hct MCV MCH MCHC RDW Plt Count MPV Neut # (Auto) Lymph # (Auto) Lamar # (Auto) Eos # (Auto) Baso # (Auto) Absolute Nucleated RBC Nucleated RBC % Manual Slide Review Platelet Estimate Platelet Morphology RBC Morph Micro Appear PT INR APTT Sodium Potassium Chloride Carbon Dioxide Anion Gap BUN Creatinine Estimated GFR (MDRD) Glucose Lactic Acid Calcium Phosphorus Magnesium Total Bilirubin Direct Bilirubin AST ALT Alkaline Phosphatase Ammonia 52.4 H Total Creatine Kinase Troponin I High Sens 46.6 H* B-Natriuretic Peptide 1906 H Total Protein Albumin Globulin Lipase Urine Color Urine Clarity Urine pH Ur Specific Gonzales Urine Protein Urine Glucose (UA) Urine Ketones Urine Occult Blood Urine Nitrite Urine Bilirubin Urine Urobilinogen Ur Leukocyte Esterase Ur Microscopic Review Urine Culture Comments Urine Opiates Screen Ur Oxycodone Screen Urine Methadone Screen Ur Propoxyphene Screen Ur Barbiturates Screen Ur Tricyclics Screen Ur Phencyclidine Scrn Ur Amphetamine Screen U Methamphetamines Scrn U Benzodiazepines Scrn Urine Cocaine Screen U Cannabinoids Screen Ethyl Alcohol Blood Type Antibody Screen Antibody Identification Crossmatch 10/22/19 10/22/19 10/22/19 00:40 01:21 01:21 WBC RBC Hgb Hct MCV MCH MCHC RDW Plt Count MPV Neut # (Auto) Lymph # (Auto) Lamar # (Auto) Eos # (Auto) Baso # (Auto) Absolute Nucleated RBC Nucleated RBC % Manual Slide Review Platelet Estimate Platelet Morphology RBC Morph Micro Appear PT INR APTT Sodium 129 L Potassium 4.3 Chloride 94 L Carbon Dioxide 20 L Anion Gap 15.0 H BUN 55 H Creatinine 2.2 H Estimated GFR (MDRD) 24 L Glucose 96 Lactic Acid 3.2 H* Calcium 8.3 L Phosphorus Magnesium Total Bilirubin Direct Bilirubin AST ALT Alkaline Phosphatase Ammonia Total Creatine Kinase Troponin I High Sens B-Natriuretic Peptide Total Protein Albumin Globulin Lipase Urine Color Urine Clarity Urine pH Ur Specific Gonzales Urine Protein Urine Glucose (UA) Urine Ketones Urine Occult Blood Urine Nitrite Urine Bilirubin Urine Urobilinogen Ur Leukocyte Esterase Ur Microscopic Review Urine Culture Comments Urine Opiates Screen Ur Oxycodone Screen Urine Methadone Screen Ur Propoxyphene Screen Ur Barbiturates Screen Ur Tricyclics Screen Ur Phencyclidine Scrn Ur Amphetamine Screen U Methamphetamines Scrn U Benzodiazepines Scrn Urine Cocaine Screen U Cannabinoids Screen Ethyl Alcohol Blood Type B POSITIVE Antibody Screen POSITIVE Antibody Identification Not Reportable Crossmatch See Detail 10/22/19 03:33 WBC RBC Hgb Hct MCV MCH MCHC RDW Plt Count MPV Neut # (Auto) Lymph # (Auto) Lamar # (Auto) Eos # (Auto) Baso # (Auto) Absolute Nucleated RBC Nucleated RBC % Manual Slide Review Platelet Estimate Platelet Morphology RBC Morph Micro Appear PT INR APTT Sodium Potassium Chloride Carbon Dioxide Anion Gap BUN Creatinine Estimated GFR (MDRD) Glucose Lactic Acid Calcium Phosphorus Magnesium Total Bilirubin Direct Bilirubin AST ALT Alkaline Phosphatase Ammonia Total Creatine Kinase Troponin I High Sens B-Natriuretic Peptide Total Protein Albumin Globulin Lipase Urine Color YELLOW Urine Clarity CLEAR Urine pH 7.0 Ur Specific Gonzales 1.010 Urine Protein TRACE Urine Glucose (UA) NEGATIVE Urine Ketones NEGATIVE Urine Occult Blood TRACE-INTA Urine Nitrite NEGATIVE Urine Bilirubin NEGATIVE Urine Urobilinogen 0.2 (NORMAL) Ur Leukocyte Esterase NEGATIVE Ur Microscopic Review NOT INDICATED Urine Culture Comments NOT INDICATED Urine Opiates Screen NEGATIVE Ur Oxycodone Screen POSITIVE H Urine Methadone Screen NEGATIVE Ur Propoxyphene Screen NEGATIVE Ur Barbiturates Screen NEGATIVE Ur Tricyclics Screen NEGATIVE Ur Phencyclidine Scrn NEGATIVE Ur Amphetamine Screen NEGATIVE U Methamphetamines Scrn NEGATIVE U Benzodiazepines Scrn NEGATIVE Urine Cocaine Screen NEGATIVE U Cannabinoids Screen NEGATIVE Ethyl Alcohol Blood Type Antibody Screen Antibody Identification Crossmatch PD MEDICAL DECISION MAKING - ED course Complexity details: reviewed results, re-evaluated patient, considered differential (GI Bleed. will need transfer to higher level of care, patient will be transfused 2UPRBC while awaiting accepting physician to transfer. attempted to transfer to [facility], unsuccessful thus far.), d/w patient, d/w family, d/w framing consultant - Consults Consults: Discussed case with (dr. weinberg at [facility]. Has agreed to accept this patient. Recommends to give 10 mg IV vitamin K and protonix.), Request framing consultant accept pt in transfer - Critical Care Time(min): 30 Time Includes: Direct patient care, Review records, Reassess patient, Document care, Coordinate care, Medical consult, Family consult for tx dec Data interpretation: Labs Procedures included in critical care time: Peripheral IV Procedures excluded from critical care time: EKG Departure - Departure Disposition: 02 Transfer Acute Care Hosp Clinical Impression: Acute kidney injury, Hyponatremia GI bleed Qualifiers: GI bleed type/associated pathology: unspecified gastrointestinal hemorrhage type Qualified Code(s): K92.2 - Gastrointestinal hemorrhage, unspecified Condition: Stable
[2019-10-22 01:03] LABS: BASOPHILS # (AUTO) 0.1 10^3/uL (0.0-0.1); BASOPHILS % (AUTO) 0.8 %; EOSINOPHILS # (AUTO) 0.4 10^3/uL (0.0-0.7); EOSINOPHILS % (AUTO) 6.3 %; LYMPHOCYTES # (AUTO) 0.7 10^3/uL (1.5-3.5); LYMPHOCYTES % (AUTO) 11.7 %; MEAN CORPUSCULAR HEMOGLOBIN 29.4 pg (27.0-31.0); MEAN CORPUSCULAR HGB CONC 31.3 g/dL (32.0-36.0); MEAN CORPUSCULAR VOLUME 93.9 fL (81.0-99.0); MEAN PLATELET VOLUME 9.4 fL (7.9-10.8); MONOCYTES # (AUTO) 0.6 10^3/uL (0.0-1.0); MONOCYTES % (AUTO) 9.7 %; NEUTROPHILS # (AUTO) 4.3 10^3/uL (1.5-6.6); NEUTROPHILS % (AUTO) 71.2 %; PLT - PLATELET COUNT 136 10^3/uL (130-450); RED BLOOD COUNT 2.28 10^6/uL (4.20-5.40); RED CELL DISTRIBUTION WIDTH 27.3 % (12.0-15.0); WHITE BLOOD COUNT 6.1 x10^3/uL (4.8-10.8)
[2019-10-22 01:06] LABS: HGB - HEMOGLOBIN 6.7 g/dL (12.0-16.0); INR 1.8 (0.8-1.2); PT - PROTHROMBIN TIME 19.7 secs (9.9-12.6)
[2019-10-22 01:13] LABS: PARTIAL THROMBOPLASTIN TIME 34.5 secs (24.9-33.3)
[2019-10-22 01:14] LABS: ALBUMIN 2.5 g/dL (3.2-5.5); ALKALINE PHOSPHATASE 131 IU/L (42-121); ALT ALANINE AMINOTRANSFERASE 20 IU/L (10-60); AST ASPARTATE AMINOTRANSFERASE 60 IU/L (10-42); BILIRUBIN,DIRECT 1.9 mg/dL (0.1-0.5); BILIRUBIN,TOTAL 4.5 mg/dL (0.2-1.0); CK- CREATINE KINASE 367 IU/L (22-269); LIPASE 48 U/L (22-51); MAGNESIUM 2.8 mg/dL (1.7-2.8); PHOSPHORUS 4.7 mg/dL (2.5-4.6); TOTAL PROTEIN 5.6 g/dL (6.7-8.2)
[2019-10-22 01:54] LABS: PLATELET ESTIMATE, MANUAL NORMAL (130-450,000) (NORMAL); PLATELET MORPHOLOGY NORMAL APPEARANCE (NORMAL)
[2019-10-22] MEDS ORDERED: PANTOPRAZOLE 40 MG VIAL IV STA (03:03)
[2019-10-22] MEDS ORDERED: PHYTONADIONE INJ (ADULT) 10 MG in SODIUM CHLORIDE 0.9% 50 ML IV ONE (03:05)
[2019-10-22 03:14] LABS: CALCIUM 8.3 mg/dL (8.5-10.3); CREATININE 2.2 mg/dL (0.4-1.0)
[2019-10-22 03:38] LABS: MUDS CUTOFF CONCENTRATIONS CUTOFF CONC BELOW:
[2019-10-22 03:39] LABS: BILIRUBIN,URINE NEGATIVE (NEGATIVE); GLUCOSE, URINE (UA) NEGATIVE (NEGATIVE); KETONES,URINE (UA) NEGATIVE (NEGATIVE); LEUKOCYTE ESTERASE, URINE NEGATIVE (NEGATIVE); NITRITE,URINE NEGATIVE (NEGATIVE); OCCULT BLOOD,URINE TRACE-INTA (NEGATIVE); PROTEIN,URINE TRACE mg/dL (NEGATIVE); UROBILINOGEN,URINE 0.2 (NORMAL) E.U./dL (NORMAL)
[2019-10-22] MEDS ORDERED: HYDROmorphone 1 MG/ML CARPUJECT IVP STA (03:39)
[2019-10-22 03:40] LABS: CLARITY,URINE CLEAR (CLEAR)
[2019-10-22 03:51] LABS: AMPHETAMINE SCREEN,URINE NEGATIVE (NEGATIVE); BENZODIAZEPINES SCREEN, URINE NEGATIVE (NEGATIVE); COCAINE SCREEN URINE NEGATIVE (NEGATIVE); METHADONE SCREEN, URINE NEGATIVE (NEGATIVE); METHAMPHETAMINES SCREEN, URINE NEGATIVE (NEGATIVE); OPIATE SCREEN, URINE NEGATIVE (NEGATIVE); OXYCODONE SCREEN, URINE POSITIVE (NEGATIVE); PROPOXYPHENE SCREEN, URINE NEGATIVE (NEGATIVE); TRICYCLIC ANTIDEPRESSANT,URINE NEGATIVE (NEGATIVE)
[2019-10-22 04:46] VITALS: BP 152/93
== END 2019-10-22 04:48 | disposition short-term general hospital (02) ==
LOC: ED 00:11
DX: K92.1 Melena (principal); N17.9 Acute kidney failure, unspecified; E87.1 Hypo-osmolality and hyponatremia; D64.9 Anemia, unspecified; I50.9 Heart failure, unspecified; Z87.19 Personal history of other diseases of the digestive system
CPT/HCPCS: 36415; 36430; 80048; 80076; 80306; 80320; 81003; 82140; 82550; 83605; 83690; 83735; 83880; 84100; 84484; 85025; 85610; 85730; 86850; 86870; 86900; 86901; 86922; 93005; 96365; 96375; 99291; J1170; J7040; 81001; 82272; 87086

== ENCOUNTER 2019-10-22 04:48 | Outpatient (CLI) | payer MEDICAID | END 2019-10-22 04:49 | disposition short-term general hospital (02) | LOC: EMS 04:48 | PROVIDERS: ATTEND Surgery | DX: K92.2 Gastrointestinal hemorrhage, unspecified (principal) | CPT/HCPCS: A0425; A0426 ==

== ENCOUNTER 2019-11-09 20:48 | Outpatient (CLI) | payer MEDICAID ==
[2019-11-09 21:10] LABS: BASOPHILS # (AUTO) 0.1 10^3/uL (0.0-0.1); BASOPHILS % (AUTO) 0.7 %; EOSINOPHILS # (AUTO) 0.5 10^3/uL (0.0-0.7); EOSINOPHILS % (AUTO) 7.3 %; LYMPHOCYTES # (AUTO) 0.6 10^3/uL (1.5-3.5); LYMPHOCYTES % (AUTO) 8.7 %; MEAN CORPUSCULAR HEMOGLOBIN 30.7 pg (27.0-31.0); MEAN CORPUSCULAR HGB CONC 31.3 g/dL (32.0-36.0); MEAN CORPUSCULAR VOLUME 98.2 fL (81.0-99.0); MEAN PLATELET VOLUME 8.9 fL (7.9-10.8); MONOCYTES # (AUTO) 0.6 10^3/uL (0.0-1.0); NEUTROPHILS # (AUTO) 5.1 10^3/uL (1.5-6.6); NEUTROPHILS % (AUTO) 74.7 %; PLT - PLATELET COUNT 122 10^3/uL (130-450); RED BLOOD COUNT 2.28 10^6/uL (4.20-5.40); RED CELL DISTRIBUTION WIDTH 24.2 % (12.0-15.0); WHITE BLOOD COUNT 6.9 x10^3/uL (4.8-10.8)
[2019-11-09 22:11] LABS: PLATELET ESTIMATE, MANUAL DECREASED (<130,000) (NORMAL); PLATELET MORPHOLOGY NORMAL APPEARANCE (NORMAL)
[2019-11-09 22:30] LABS: FREE T4 (FREE THYROXINE) 0.99 ng/dL (0.58-1.64)
== END 2019-11-09 20:49 | disposition home or self-care (01) ==
LOC: LAB 20:48
PROVIDERS: ATTEND Family Medicine
DX: K31.819 Angiodysplasia of stomach and duodenum without bleeding (principal); I50.33 Acute on chronic diastolic (congestive) heart failure; D64.9 Anemia, unspecified
CPT/HCPCS: 83880; 84439; 84443; 85025

== ENCOUNTER 2019-11-15 13:15 | Outpatient (CLI) | payer MEDICAID | END 2019-11-15 13:16 | disposition critical access hospital (66) | LOC: EMS 13:15 | PROVIDERS: ATTEND Surgery | DX: R53.1 Weakness (principal); R06.09 Other forms of dyspnea | CPT/HCPCS: A0425; A0429; A0999 ==

== ENCOUNTER 2019-11-15 13:35 | Emergency (ER) | payer MEDICAID ==
--- NOTE | 2019-11-15 14:32 | ED Physician Documentation ---
History of Present Illness - Stated complaint Stated Complaint: WEAK - Chief complaint Chief Complaint: Neuro - History obtained from History obtained from: Patient, Other (chart) - History of Present Illness Timing: Prior to arrival, Today Pain level max: 0 Pain level now: 0 - Additonal information Additional information: Samantha Estrada is a 49-year-old female that looks much older than her stated age. She presents to the emergency department with a near syncopal episode when she was exiting her doctor's office this afternoon. Patient reports to me that she was notified early last week that she had developed anemia and would need a blood transfusion. However she did not present for follow-up because of family dynamics. Patient has a complex medical history that includes a history of GI bleed, esophageal varices, liver cirrhosis. She has had the TIPS procedure. She is currently taking lactulose. She denies that recently she has had any melena or hematochezia. She denies chest pain. She does feel some dyspnea. She states that she always feels this way when she develops anemia. of note pt does smell of ETOH Review of Systems Constitutional: denies: Fever, Chills Cardiac: denies: Chest pain / pressure, Palpitations Respiratory: reports: Dyspnea. denies: Cough, Hemoptysis, Wheezing GI: reports: Abdominal Pain, Abdominal Swelling, Nausea, Diarrhea (lactulose induced). denies: Vomiting, Hematemesis, Bloody / black stool : denies: Dysuria, Frequency Skin: denies: Rash, Lesions Musculoskeletal: denies: Neck pain, Back pain Neurologic: reports: Generalized weakness, Near syncope. 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: Tubal ligation, Other HEENT: Other - Present Medications Home Medications: Ambulatory Orders Medication Instructions Recorded Confirmed Cholecalciferol (Vitamin D3) 2,000 units PO DAILY #60 capsule 12/02/18 10/22/19 [Vitamin D3] Ondansetron Odt [Zofran Odt] 4 mg TL Q8H PRN 01/08/19 10/22/19 Ciprofloxacin [Cipro] 500 mg PO DAILY 04/30/19 10/22/19 Lactulose [Constulose] 30 ml PO TID 04/30/19 10/22/19 Sucralfate [Carafate] 1 gm PO QID 04/30/19 10/22/19 Acetaminophen [Tylenol] 325 mg PO QID 09/07/19 10/22/19 Cyanocobalamin (Vitamin B-12) 2,500 mcg PO DAILY 09/07/19 10/22/19 [Vitamin B-12] Levothyroxine [Synthroid] 75 mcg PO DAILY 09/07/19 10/22/19 Lidocaine Patch 5% [Lidoderm Patch] 1 patch TP DAILY PRN 09/07/19 10/22/19 Spironolactone 50 mg ORAL BID 09/07/19 10/22/19 Torsemide 50 mg PO DAILY 09/07/19 10/22/19 oxyCODONE [Roxicodone] 5 mg PO Q6HR PRN 09/07/19 10/22/19 rifAXIMin [Xifaxan] 550 mg PO BID 09/07/19 10/22/19 Ocular Lubricant 1 drops EACHEYE Q6HR PRN 10/22/19 Omeprazole 20 mg PO BID 10/22/19 10/22/19 - Allergies Allergies/Adverse Reactions: Allergies Allergy/AdvReac Type Severity Reaction Status Date / Time acetaminophen [From Tylenol] Allergy Unknown Verified 11/15/19 13:45 NSAIDS (Non-Steroidal Allergy Unknown Verified 10/22/19 01:23 Anti-Inflamma - Social History Does the pt smoke?: No Smoking Status: Never smoker Does the pt drink ETOH?: No Does the pt have substance abuse?: No - Immunizations Immunizations are current?: Yes - POLST Patient has POLST: No POLST Status: Full Code PD ED PE EXPANDED - General General: Alert, No acute distress, Well developed/nourished - HEENT HEENT: PERRL, EOMI - Neck Neck: Supple w/out meningeal sx. No: Adenopathy - Cardiac Cardiac: Regular Rate, Radial strong equal - Respiratory Respiratory: Clear to ausultation valeriano. No: Distress, Labored - Abdomen Abdomen: Normal Bowel sounds, Hyperactive BS, Periumbilical (large umbilical hernia; easily reduced). No: Tender to palpation, Rebound, Guarding - Extremities Extremities: Normal - Neuro Neuro: Alert and Oriented X 3, CNII-XII intact - GCS Eye Opening: Spontaneous Motor: Obeys Commands Verbal: Oriented Total: 15 Results - Vitals Vitals: Vital Signs - 24 hr 11/15/19 11/15/19 13:35 15:51 Temperature 37.0 C Heart Rate 85 71 Respiratory 24 12 Rate Blood Pressure 147/93 H 146/88 H O2 Saturation 94 94 Oxygen O2 Source Nasal cannula - EKG (time done) 1423 Rate: Rate (enter#) (72) Rhythm: NSR Mcpherson: Normal Intervals: Normal TN QRS: Normal Ischemia: Non specific changes Compare to prior EKG: Unchanged from prior EKG Computer interpretation: Agree with computer - Labs Labs: Laboratory Tests 11/15/19 11/15/19 11/15/19 14:20 14:20 14:20 WBC 6.8 RBC 1.88 L Hgb 5.8 L* Hct 18.7 L* MCV 99.5 H MCH 30.9 MCHC 31.0 L RDW 24.6 H Plt Count 107 L MPV 8.5 Neut # (Auto) 5.3 Lymph # (Auto) 0.5 L Leslie # (Auto) 0.5 Eos # (Auto) 0.4 Baso # (Auto) 0.0 Absolute Nucleated RBC 0.00 Nucleated RBC % 0.0 Manual Slide Review Indicated Platelet Estimate DECREASED (<130,000) Platelet Morphology NORMAL APPEARANCE RBC Morph Micro Appear 1+ POLYCHROMASIA PT 19.5 H INR 1.8 H APTT 48.6 H Sodium 132 L Potassium 4.9 Chloride 100 L Carbon Dioxide 22 Anion Gap 10.0 BUN 56 H Creatinine 2.6 H Estimated GFR (MDRD) 19 L Glucose 110 H Lactic Acid Calcium 8.2 L Total Bilirubin 3.3 H AST 31 ALT 21 Alkaline Phosphatase 114 Total Protein 4.5 L Albumin 1.9 L Globulin 2.6 Albumin/Globulin Ratio 0.7 L Lipase 40 Ethyl Alcohol 11/15/19 11/15/19 14:20 14:20 WBC RBC Hgb Hct MCV MCH MCHC RDW Plt Count MPV Neut # (Auto) Lymph # (Auto) Leslie # (Auto) Eos # (Auto) Baso # (Auto) Absolute Nucleated RBC Nucleated RBC % Manual Slide Review Platelet Estimate Platelet Morphology RBC Morph Micro Appear PT INR APTT Sodium Potassium Chloride Carbon Dioxide Anion Gap BUN Creatinine Estimated GFR (MDRD) Glucose Lactic Acid 2.0 Calcium Total Bilirubin AST ALT Alkaline Phosphatase Total Protein Albumin Globulin Albumin/Globulin Ratio Lipase Ethyl Alcohol < 5.0 PD MEDICAL DECISION MAKING - ED course Complexity details: reviewed old records, reviewed results, re-evaluated patient, d/w patient ED course: 49-year-old female with a history of cirrhosis, history of esophageal varices, status post TIPS procedure, comes to the ED with near syncope this a.m. She was advised last week by her primary care physician to obtain a blood transfusion for an anemia. But she did not present to the hospital. - Today her hemoglobin is 5.8. Her hematocrit is 18.7.Patient denies h emataemesis or melena. - I believe that her near syncope is related to the anemia. However we have been informed by blood bank that she has multiple antibodies and we are not able to procure the blood necessary to give her the transfusion. - She will therefore be transferred to the hospitalist service at [facility]. - I have spoken with the hospitalist service. They are aware that patient also has chronic kidney disease in addition to her liver disease. Patient's vital signs are stable. She is not tachycardic or hypotensive. She remains alert and unaltered. She will be transferred via ALS. Departure - Departure Clinical Impression: CKD (chronic kidney disease) stage 4, GFR 15-29 ml/min, Near syncope Anemia Qualifiers: Anemia type: unspecified type Qualified Code(s): D64.9 - Anemia, unspecified Cirrhosis of liver Qualifiers: Hepatic cirrhosis type: alcoholic cirrhosis Ascites presence: without ascites Qualified Code(s): K70.30 - Alcoholic cirrhosis of liver without ascites
[2019-11-15 14:33] LABS: BASOPHILS % (AUTO) 0.4 %; EOSINOPHILS # (AUTO) 0.4 10^3/uL (0.0-0.7); EOSINOPHILS % (AUTO) 5.5 %; LYMPHOCYTES # (AUTO) 0.5 10^3/uL (1.5-3.5); LYMPHOCYTES % (AUTO) 6.7 %; MEAN CORPUSCULAR HEMOGLOBIN 30.9 pg (27.0-31.0); MEAN CORPUSCULAR VOLUME 99.5 fL (81.0-99.0); MEAN PLATELET VOLUME 8.5 fL (7.9-10.8); MONOCYTES # (AUTO) 0.5 10^3/uL (0.0-1.0); MONOCYTES % (AUTO) 7.9 %; NEUTROPHILS # (AUTO) 5.3 10^3/uL (1.5-6.6); NEUTROPHILS % (AUTO) 79.1 %; PLT - PLATELET COUNT 107 10^3/uL (130-450); RED BLOOD COUNT 1.88 10^6/uL (4.20-5.40); RED CELL DISTRIBUTION WIDTH 24.6 % (12.0-15.0); WHITE BLOOD COUNT 6.8 x10^3/uL (4.8-10.8)
[2019-11-15 14:34] LABS: INR 1.8 (0.8-1.2); PT - PROTHROMBIN TIME 19.5 secs (9.9-12.6)
[2019-11-15 14:36] LABS: HGB - HEMOGLOBIN 5.8 g/dL (12.0-16.0)
[2019-11-15 14:42] LABS: ALBUMIN 1.9 g/dL (3.2-5.5); ALBUMIN/GLOBULIN RATIO 0.7 (1.0-2.2); BILIRUBIN,TOTAL 3.3 mg/dL (0.2-1.0); CALCIUM 8.2 mg/dL (8.5-10.3); CREATININE 2.6 mg/dL (0.4-1.0); PARTIAL THROMBOPLASTIN TIME 48.6 secs (24.9-33.3); TOTAL PROTEIN 4.5 g/dL (6.7-8.2)
[2019-11-15 14:54] LABS: PLATELET ESTIMATE, MANUAL DECREASED (<130,000) (NORMAL); PLATELET MORPHOLOGY NORMAL APPEARANCE (NORMAL)
[2019-11-15 19:52] LABS: BILIRUBIN,URINE NEGATIVE (NEGATIVE); GLUCOSE, URINE (UA) NEGATIVE (NEGATIVE); KETONES,URINE (UA) NEGATIVE (NEGATIVE); LEUKOCYTE ESTERASE, URINE NEGATIVE (NEGATIVE); NITRITE,URINE NEGATIVE (NEGATIVE); OCCULT BLOOD,URINE NEGATIVE (NEGATIVE); PH,URINE 5.5 PH (5.0-7.5); PROTEIN,URINE NEGATIVE (NEGATIVE); UROBILINOGEN,URINE 0.2 (NORMAL) E.U./dL (NORMAL)
[2019-11-15 19:53] LABS: CLARITY,URINE CLEAR (CLEAR)
[2019-11-15 21:07] VITALS: BP 153/99
== END 2019-11-15 23:05 | disposition short-term general hospital (02) ==
LOC: EDUNIT# → ED 13:35
DX: D64.9 Anemia, unspecified (principal); K70.30 Alcoholic cirrhosis of liver without ascites; N18.4 Chronic kidney disease, stage 4 (severe)
CPT/HCPCS: 36415; 80053; 80320; 81001; 81003; 83605; 83690; 85025; 85610; 85730; 87086; 93005; 99284; 99285

== ENCOUNTER 2019-11-15 23:08 | Outpatient (CLI) | payer MEDICAID | END 2019-11-15 23:59 | disposition short-term general hospital (02) | LOC: EMS 23:08 | PROVIDERS: ATTEND Surgery | DX: K74.60 Unspecified cirrhosis of liver (principal); N18.9 Chronic kidney disease, unspecified | CPT/HCPCS: A0425; A0427 ==

== ENCOUNTER 2019-12-02 15:48 | Outpatient (CLI) | payer MEDICAID | END 2019-12-02 15:49 | disposition critical access hospital (66) | LOC: EMS 15:48 | PROVIDERS: ATTEND Surgery | DX: R41.82 Altered mental status, unspecified (principal); R06.00 Dyspnea, unspecified; R11.10 Vomiting, unspecified; R60.0 Localized edema | CPT/HCPCS: A0425; A0427; A0999 ==

== ENCOUNTER 2019-12-02 15:53 | Inpatient (IN) | payer MEDICAID ==
[2019-12-02 16:31] LABS: BILIRUBIN,URINE NEGATIVE (NEGATIVE); GLUCOSE, URINE (UA) NEGATIVE (NEGATIVE); KETONES,URINE (UA) NEGATIVE (NEGATIVE); LEUKOCYTE ESTERASE, URINE NEGATIVE (NEGATIVE); NITRITE,URINE NEGATIVE (NEGATIVE); OCCULT BLOOD,URINE SMALL (NEGATIVE); PH,URINE 5.5 PH (5.0-7.5); PROTEIN,URINE NEGATIVE (NEGATIVE); UROBILINOGEN,URINE 0.2 (NORMAL) E.U./dL (NORMAL)
[2019-12-02] MEDS ORDERED: PROPOFOL 200 MG/20 ML VIAL IVP STA (16:35)
[2019-12-02] MEDS ORDERED: ROCURONIUM 50 MG/5 ML VIAL IVP STA (16:35)
[2019-12-02] MEDS ORDERED: VANCOMYCIN INJ 1 GM in SODIUM CHLORIDE 0.9% 500 ML IV STA (16:36)
[2019-12-02] MEDS ORDERED: metroNIDAZOLE 500 MG/100 ML 500 MG/100 ML BAG IV ONE (16:36)
[2019-12-02] MEDS ORDERED: CEFEPIME 2 GM in SODIUM CHLORIDE 0.9% MINIBAG 100 ML IV STA (16:36)
[2019-12-02 16:39] LABS: BASOPHILS # (AUTO) 0.1 10^3/uL (0.0-0.1); BASOPHILS % (AUTO) 0.4 %; EOSINOPHILS % (AUTO) 0.1 %; HGB - HEMOGLOBIN 8.2 g/dL (12.0-16.0); LYMPHOCYTES # (AUTO) 0.3 10^3/uL (1.5-3.5); LYMPHOCYTES % (AUTO) 1.4 %; MEAN CORPUSCULAR HEMOGLOBIN 32.4 pg (27.0-31.0); MEAN CORPUSCULAR HGB CONC 30.8 g/dL (32.0-36.0); MEAN CORPUSCULAR VOLUME 105.1 fL (81.0-99.0); MEAN PLATELET VOLUME 7.9 fL (7.9-10.8); MONOCYTES # (AUTO) 0.6 10^3/uL (0.0-1.0); MONOCYTES % (AUTO) 2.8 %; NEUTROPHILS # (AUTO) 21.4 10^3/uL (1.5-6.6); NEUTROPHILS % (AUTO) 93.6 %; PLT - PLATELET COUNT 88 10^3/uL (130-450); RED BLOOD COUNT 2.53 10^6/uL (4.20-5.40); RED CELL DISTRIBUTION WIDTH 25.2 % (12.0-15.0); WHITE BLOOD COUNT 22.8 x10^3/uL (4.8-10.8)
--- NOTE | 2019-12-02 16:39 | ED Physician Documentation ---
PD HPI ALTERED MENTAL STATUS - Stated complaint Stated Complaint: DEC LOC - Chief complaint Chief Complaint: Neuro - History obtained from History obtained from: EMS - Additional information Additional information: 49-year-old woman with history of end-stage liver disease presents by ambulance for altered mental status. No history is available from the patient since she is obtunded. Reportedly last known normal at 3 AM. Recent admission to [facility] for a liver and hepatorenal related issues. Fever prior to arrival at 103. No family available on arrival, all of the history is from EMS. Review of Systems Unable to obtain: AMS PD PAST MEDICAL HISTORY - Past Medical History Cardiovascular: Congestive heart failure, Valve disorder, Other Respiratory: Pneumonia Neuro: None Endocrine/Autoimmune: HyPOthyroidism GI: Esophageal varices, GI bleed, Hepatitis, Cirrhosis, Other ENVIRONMENTAL AIDE: Miscarriage(s) : Other HEENT: None Psych: Depression, Other Musculoskeletal: Chronic back pain Derm: None - Past Surgical History Past Surgical History: Yes General: Hiatal hernia repair Ortho: Other /ENVIRONMENTAL AIDE: Tubal ligation, Other HEENT: Other - Present Medications Home Medications: Ambulatory Orders Medication Instructions Recorded Confirmed Cholecalciferol (Vitamin D3) 2,000 units PO DAILY #60 capsule 12/02/18 10/22/19 [Vitamin D3] Ondansetron Odt [Zofran Odt] 4 mg TL Q8H PRN 01/08/19 10/22/19 Ciprofloxacin [Cipro] 500 mg PO DAILY 04/30/19 10/22/19 Lactulose [Constulose] 30 ml PO TID 04/30/19 10/22/19 Sucralfate [Carafate] 1 gm PO QID 04/30/19 10/22/19 Acetaminophen [Tylenol] 325 mg PO QID 09/07/19 10/22/19 Cyanocobalamin (Vitamin B-12) 2,500 mcg PO DAILY 09/07/19 10/22/19 [Vitamin B-12] Levothyroxine [Synthroid] 75 mcg PO DAILY 09/07/19 10/22/19 Lidocaine Patch 5% [Lidoderm Patch] 1 patch TP DAILY PRN 09/07/19 10/22/19 Spironolactone 50 mg ORAL BID 09/07/19 10/22/19 Torsemide 50 mg PO DAILY 09/07/19 10/22/19 oxyCODONE [Roxicodone] 5 mg PO Q6HR PRN 09/07/19 10/22/19 rifAXIMin [Xifaxan] 550 mg PO BID 09/07/19 10/22/19 Ocular Lubricant 1 drops EACHEYE Q6HR PRN 10/22/19 Omeprazole 20 mg PO BID 10/22/19 10/22/19 - Allergies Allergies/Adverse Reactions: Allergies Allergy/AdvReac Type Severity Reaction Status Date / Time acetaminophen [From Tylenol] Allergy Unknown Verified 12/02/19 16:01 NSAIDS (Non-Steroidal Allergy Unknown Verified 12/02/19 16:01 Anti-Inflamma - Social History Does the pt smoke?: No Smoking Status: Never smoker Does the pt drink ETOH?: No Does the pt have substance abuse?: No - Immunizations Immunizations are current?: Yes - POLST Patient has POLST: No POLST Status: Full Code PD ED PE NORMAL - Vitals Vital signs reviewed: Yes - General General: Other (She is minimally responsive, does moan to painful stimulus, does not follow any commands. She appears edematous with anasarca.) - Neck Neck: Supple, no meningeal sign, No bony TTP - Cardiac Cardiac: Other (Tachycardic but regular without murmur) - Respiratory Respiratory: No respiratory distress, Clear bilaterally, Other (But noted to be hypoxic) - Abdomen Abdomen: Other (Diffuse tenderness which is mild, bedside ultrasound demonstrates moderate ascites, large umbilical hernia easily reducible.) - Back Back: No CVA TTP, No spinal TTP - Extremities Extremities: Other (Anasarca throughout) - Neuro Eye Opening: None Motor: Withdraws to Pain Verbal: Incomprehensible GCS Score: 7 Results - Vitals Vitals: Vital Signs - 24 hr 12/02/19 12/02/19 12/02/19 16:01 16:28 16:38 Temperature 39.2 C H 39.1 C H Heart Rate 104 H 98 99 Respiratory 16 18 14 Rate Blood Pressure 170/96 H 158/101 H 153/101 H O2 Saturation 84 L 99 100 12/02/19 12/02/19 12/02/19 16:47 16:50 17:00 Temperature 39.4 C H Heart Rate 114 H 115 H 117 H Respiratory 8 L Rate Blood Pressure 129/79 146/105 H 166/108 H O2 Saturation 100 100 98 12/02/19 12/02/19 12/02/19 17:10 17:49 18:00 Temperature 39.4 C H 39.3 C H 39.2 C H Heart Rate 112 H 113 H 111 H Respiratory 11 L 19 15 Rate Blood Pressure 161/93 H 137/78 H 129/75 O2 Saturation 98 100 12/02/19 12/02/19 12/02/19 18:31 19:00 19:28 Temperature 39 C H 38.9 C H 38.8 C H Heart Rate 109 H 97 94 Respiratory 14 16 16 Rate Blood Pressure 131/76 H 132/77 H 128/77 O2 Saturation 100 100 100 Oxygen O2 Source Mechanical ventilator - Labs Labs: Microbiology 12/02/19 16:20 Body Fluid Culture - Preliminary Ascities Fluid Laboratory Tests 12/02/19 12/02/19 12/02/19 16:20 16:20 16:30 WBC 22.8 H RBC 2.53 L Hgb 8.2 L Hct 26.6 L MCV 105.1 H MCH 32.4 H MCHC 30.8 L RDW 25.2 H Plt Count 88 L MPV 7.9 Neut # (Auto) 21.4 H Lymph # (Auto) 0.3 L Summers # (Auto) 0.6 Eos # (Auto) 0.0 Baso # (Auto) 0.1 Absolute Nucleated RBC 0.02 Band Neuts % (Manual) Not Reportable Abnorm Lymph % (Manual) Not Reportable Nucleated RBC % 0.1 Neutrophils # (Manual) Not Reportable Lymphocytes # (Manual) Not Reportable Monocytes # (Manual) Not Reportable Eosinophils # (Manual) Not Reportable Basophils # (Manual) Not Reportable Differential Comment MANUAL=AUTO DIFF Manual Slide Review Indicated Platelet Estimate DECREASED (<130,000) Platelet Morphology NORMAL APPEARANCE RBC Morph Micro Appear 1+ BASO STIPPLING PT INR APTT VBG pH VBG pCO2 VBG pO2 VBG HCO3 VBG Total CO2 VBG O2 Saturation VBG Base Excess Sodium Potassium Chloride Carbon Dioxide Anion Gap BUN Creatinine Estimated GFR (MDRD) Glucose Lactic Acid Calcium Phosphorus Magnesium Total Bilirubin AST ALT Alkaline Phosphatase Ammonia Troponin I High Sens B-Natriuretic Peptide Total Protein Albumin Globulin Albumin/Globulin Ratio Lipase Urine Color YELLOW Urine Clarity CLEAR Urine pH 5.5 Ur Specific [place] 1.020 Urine Protein NEGATIVE Urine Glucose (UA) NEGATIVE Urine Ketones NEGATIVE Urine Occult Blood SMALL H Urine Nitrite NEGATIVE Urine Bilirubin NEGATIVE Urine Urobilinogen 0.2 (NORMAL) Ur Leukocyte Esterase NEGATIVE Urine RBC 6-10 H Urine WBC 0-3 Ur Squamous Epith Cells RARE Squamous Urine Bacteria Rare Urine Casts 11-25 Hyaline Casts Ur Microscopic Review INDICATED Urine Culture Comments NOT INDICATED Urine Opiates Screen NEGATIVE Ur Oxycodone Screen POSITIVE H Urine Methadone Screen NEGATIVE Ur Propoxyphene Screen NEGATIVE Ur Barbiturates Screen NEGATIVE Ur Tricyclics Screen NEGATIVE Ur Phencyclidine Scrn NEGATIVE Ur Amphetamine Screen NEGATIVE U Methamphetamines Scrn NEGATIVE U Benzodiazepines Scrn NEGATIVE Urine Cocaine Screen NEGATIVE U Cannabinoids Screen NEGATIVE Ethyl Alcohol 12/02/19 12/02/19 12/02/19 16:30 16:30 16:30 WBC RBC Hgb Hct MCV MCH MCHC RDW Plt Count MPV Neut # (Auto) Lymph # (Auto) Summers # (Auto) Eos # (Auto) Baso # (Auto) Absolute Nucleated RBC Band Neuts % (Manual) Abnorm Lymph % (Manual) Nucleated RBC % Neutrophils # (Manual) Lymphocytes # (Manual) Monocytes # (Manual) Eosinophils # (Manual) Basophils # (Manual) Differential Comment Manual Slide Review Platelet Estimate Platelet Morphology RBC Morph Micro Appear PT INR APTT VBG pH VBG pCO2 VBG pO2 VBG HCO3 VBG Total CO2 VBG O2 Saturation VBG Base Excess Sodium 136 Potassium 4.4 Chloride 102 Carbon Dioxide 22 Anion Gap 12.0 BUN 45 H Creatinine 2.2 H Estimated GFR (MDRD) 24 L Glucose 93 Lactic Acid 2.2 Calcium 8.0 L Phosphorus 4.7 H Magnesium 2.7 Total Bilirubin 3.6 H AST 37 ALT 23 Alkaline Phosphatase 154 H Ammonia 70.2 H Troponin I High Sens B-Natriuretic Peptide Total Protein 4.8 L Albumin 1.7 L Globulin 3.1 Albumin/Globulin Ratio 0.5 L Lipase 40 Urine Color Urine Clarity Urine pH Ur Specific [place] Urine Protein Urine Glucose (UA) Urine Ketones Urine Occult Blood Urine Nitrite Urine Bilirubin Urine Urobilinogen Ur Leukocyte Esterase Urine RBC Urine WBC Ur Squamous Epith Cells Urine Bacteria Urine Casts Ur Microscopic Review Urine Culture Comments Urine Opiates Screen Ur Oxycodone Screen Urine Methadone Screen Ur Propoxyphene Screen Ur Barbiturates Screen Ur Tricyclics Screen Ur Phencyclidine Scrn Ur Amphetamine Screen U Methamphetamines Scrn U Benzodiazepines Scrn Urine Cocaine Screen U Cannabinoids Screen Ethyl Alcohol < 5.0 12/02/19 12/02/19 12/02/19 16:30 16:30 16:30 WBC RBC Hgb Hct MCV MCH MCHC RDW Plt Count MPV Neut # (Auto) Lymph # (Auto) Summers # (Auto) Eos # (Auto) Baso # (Auto) Absolute Nucleated RBC Band Neuts % (Manual) Abnorm Lymph % (Manual) Nucleated RBC % Neutrophils # (Manual) Lymphocytes # (Manual) Monocytes # (Manual) Eosinophils # (Manual) Basophils # (Manual) Differential Comment Manual Slide Review Platelet Estimate Platelet Morphology RBC Morph Micro Appear PT 19.7 H INR 1.8 H APTT 44.7 H VBG pH 7.507 H VBG pCO2 32.2 L VBG pO2 105.8 H VBG HCO3 24.9 VBG Total CO2 25.9 VBG O2 Saturation 97.3 H VBG Base Excess 2.0 Sodium Potassium Chloride Carbon Dioxide Anion Gap BUN Creatinine Estimated GFR (MDRD) Glucose Lactic Acid Calcium Phosphorus Magnesium Total Bilirubin AST ALT Alkaline Phosphatase Ammonia Troponin I High Sens 85.6 H* B-Natriuretic Peptide Total Protein Albumin Globulin Albumin/Globulin Ratio Lipase Urine Color Urine Clarity Urine pH Ur Specific [place] Urine Protein Urine Glucose (UA) Urine Ketones Urine Occult Blood Urine Nitrite Urine Bilirubin Urine Urobilinogen Ur Leukocyte Esterase Urine RBC Urine WBC Ur Squamous Epith Cells Urine Bacteria Urine Casts Ur Microscopic Review Urine Culture Comments Urine Opiates Screen Ur Oxycodone Screen Urine Methadone Screen Ur Propoxyphene Screen Ur Barbiturates Screen Ur Tricyclics Screen Ur Phencyclidine Scrn Ur Amphetamine Screen U Methamphetamines Scrn U Benzodiazepines Scrn Urine Cocaine Screen U Cannabinoids Screen Ethyl Alcohol 12/02/19 16:30 WBC RBC Hgb Hct MCV MCH MCHC RDW Plt Count MPV Neut # (Auto) Lymph # (Auto) Summers # (Auto) Eos # (Auto) Baso # (Auto) Absolute Nucleated RBC Band Neuts % (Manual) Abnorm Lymph % (Manual) Nucleated RBC % Neutrophils # (Manual) Lymphocytes # (Manual) Monocytes # (Manual) Eosinophils # (Manual) Basophils # (Manual) Differential Comment Manual Slide Review Platelet Estimate Platelet Morphology RBC Morph Micro Appear PT INR APTT VBG pH VBG pCO2 VBG pO2 VBG HCO3 VBG Total CO2 VBG O2 Saturation VBG Base Excess Sodium Potassium Chloride Carbon Dioxide Anion Gap BUN Creatinine Estimated GFR (MDRD) Glucose Lactic Acid Calcium Phosphorus Magnesium Total Bilirubin AST ALT Alkaline Phosphatase Ammonia Troponin I High Sens B-Natriuretic Peptide 2117 H Total Protein Albumin Globulin Albumin/Globulin Ratio Lipase Urine Color Urine Clarity Urine pH Ur Specific [place] Urine Protein Urine Glucose (UA) Urine Ketones Urine Occult Blood Urine Nitrite Urine Bilirubin Urine Urobilinogen Ur Leukocyte Esterase Urine RBC Urine WBC Ur Squamous Epith Cells Urine Bacteria Urine Casts Ur Microscopic Review Urine Culture Comments Urine Opiates Screen Ur Oxycodone Screen Urine Methadone Screen Ur Propoxyphene Screen Ur Barbiturates Screen Ur Tricyclics Screen Ur Phencyclidine Scrn Ur Amphetamine Screen U Methamphetamines Scrn U Benzodiazepines Scrn Urine Cocaine Screen U Cannabinoids Screen Ethyl Alcohol - Rads (name of study) CXR Radiology: EMP read contemporaneously (Endotracheal tube 4 cm above the korey, right sided central line with the tip in the superior vena cava, suspicious for CHF.) CT A/P Radiology: EMP read contemporaneously (Mild to moderate ascites, bilateral pleural effusions, left larger than right, cirrhotic liver with a TIPS catheter. Fat-containing ventral hernia. Generalized anasarca.) Procedures - Central Line Central Line Preparation: Unable to obtain consent, Time out completed, Ultrasound used, Sterile prep and drape. No: Consent Obtained Central line location: Right IJ Central line type: Triple lumen Central line aftercare: Chlorhexidine disc placed, Secured, Placement confirmed, No pneumothorax, No complications - Paracentesis Preparation: Other (Diagnostic paracentesis was done in the left lower quadrant. A very small amount of clearish fluid was obtained, only enough to send for culture. It was not purulent.). No: Consent obtained Location: LLQ Fluid: Clear, Sent for culture PD MEDICAL DECISION MAKING - ED course ED course: 49-year-old woman with history of end-stage liver disease status post TIPS presents with alteration of mental status and high fever today. No source on exam. Diagnostic paracentesis done but only enough for culture but appeared clear and negative Gram stain. Urine normal. No evidence of pneumonia. CT of the abdomen without source 2. Daughter updated at bedside. Necessitated intubation for severe altered mental status and not protecting the airway. Also difficult for IV access and a right IJ central line was placed. Dr. Dodgesef will admit to ICU. Daughter maintains that patient wishes were always to be full code. Received cefepime Flagyl and vancomycin after blood cultures for severe sepsis of unknown source. She was not given large volume fluid resuscitation because of the lack of shock and anasarca. - Critical Care Time(min): 55 Time Includes: Direct patient care, Review records, Reassess patient, Document care, Coordinate care, Medical consult, Family consult for tx dec Data interpretation: Labs, Pulse ox Procedures included in critical care time: Peripheral IV Procedures excluded from critical care time: Central IV, Intubation, EKG Departure - Departure Disposition: 66 [facility] DC/Xfer Clinical Impression: History of alcohol abuse, Poor dentition, Encephalopathy, Acute respiratory failure with hypoxia, Anasarca Altered mental status Qualifiers: Altered mental status type: delirium Qualified Code(s): R41.0 - Disorientation, unspecified Ascites Qualifiers: Ascites type: due to alcoholic cirrhosis Qualified Code(s): K70.31 - Alcoholic cirrhosis of liver with ascites Hepatitis C Qualifiers: Viral hepatitis chronicity: chronic Hepatic coma status: with hepatic coma Qualified Code(s): B18.2 - Chronic viral hepatitis C Condition: Critical Discharge Date/Time: 12/02/19 20:14
[2019-12-02 16:40] LABS: MUDS CUTOFF CONCENTRATIONS CUTOFF CONC BELOW:
[2019-12-02] MEDS ORDERED: ROCURONIUM 50 MG/5 ML VIAL ONE (16:41)
[2019-12-02] MEDS ORDERED: PROPOFOL 200 MG/20 ML VIAL IVP ONE (16:41)
[2019-12-02 16:49] LABS: CLARITY,URINE CLEAR (CLEAR)
[2019-12-02] MEDS: PROPOFOL 500 MG/50 ML 500 MG/50 ML VIAL IV STA ×2 (16:50→22:13)
[2019-12-02 16:51] LABS: AMPHETAMINE SCREEN,URINE NEGATIVE (NEGATIVE); BENZODIAZEPINES SCREEN, URINE NEGATIVE (NEGATIVE); COCAINE SCREEN URINE NEGATIVE (NEGATIVE); METHAMPHETAMINES SCREEN, URINE NEGATIVE (NEGATIVE); OPIATE SCREEN, URINE NEGATIVE (NEGATIVE); TRICYCLIC ANTIDEPRESSANT,URINE NEGATIVE (NEGATIVE)
[2019-12-02 16:52] LABS: METHADONE SCREEN, URINE NEGATIVE (NEGATIVE); OXYCODONE SCREEN, URINE POSITIVE (NEGATIVE); PROPOXYPHENE SCREEN, URINE NEGATIVE (NEGATIVE)
[2019-12-02 16:55] LABS: ALBUMIN 1.7 g/dL (3.2-5.5); ALBUMIN/GLOBULIN RATIO 0.5 (1.0-2.2); ALKALINE PHOSPHATASE 154 IU/L (42-121); ALT ALANINE AMINOTRANSFERASE 23 IU/L (10-60); AST ASPARTATE AMINOTRANSFERASE 37 IU/L (10-42); BILIRUBIN,TOTAL 3.6 mg/dL (0.2-1.0); BUN - BLOOD UREA NITROGEN 45 mg/dL (6-20); CARBON DIOXIDE - CO2 22 mmol/L (21-32); CHLORIDE 102 mmol/L (101-111); CREATININE 2.2 mg/dL (0.4-1.0); GLUCOSE 93 mg/dL (70-100); LIPASE 40 U/L (22-51); MAGNESIUM 2.7 mg/dL (1.7-2.8); PHOSPHORUS 4.7 mg/dL (2.5-4.6); SODIUM 136 mmol/L (135-145); TOTAL PROTEIN 4.8 g/dL (6.7-8.2)
[2019-12-02 16:55] LABS: BACTERIA,URINE Rare /HPF (None Seen); CASTS, URINE 11-25 Hyaline Casts /LPF; SQUAMOUS EPITHELIAL CELL,UR RARE Squamous (<= Few)
--- NOTE | 2019-12-02 16:55 | XRAY Report ---
PROCEDURE: Chest 1 View X-Ray INDICATIONS: fever TECHNIQUE: One view of the chest was acquired. COMPARISON: 01/08/2019, 01/01/2019, 12/04/2017. Correlation is also made with abdomen pelvis CT 09/12/19 FINDINGS: Surgical changes and devices: There is a right-sided central line seen, with the tip overlying the in ferior aspect of the superior vena cava, 1 to 2 cm above the cavoatrial junction. A TIPS catheter is partially seen. Lungs and pleura: Interstitial prominence is seen. There is a small left-sided pleural effusion. No p neumothorax is seen. Mediastinum: Mediastinal contours appear normal. Heart size is moderately enlarged. Bones and chest wall: No suspicious bony lesions. Overlying soft tissues appear unremarkable. IMPRESSION: Right-sided central line, with the tip overlying the inferior aspect of the superior vena cava. Howev er, the line is seen along the lateralmost aspect of the superior vena cava. Please correlate with [facility] functionality. Please consider a dedicated CT study for further evaluation. Cardiomegaly and a small left-sided pleural effusion with interstitial prominence. Please correlate w ith patient examination, history, and laboratory values for underlying congestive heart failure. TIPS catheter faintly seen. Reviewed by: Edgar Hamm MD on 12/02/2019 3:54 PM JEFRY Approved by: Edgar Hamm MD on 12/02/2019 3:54 PM JEFRY Station ID: [id number]
[2019-12-02 16:57] LABS: INR 1.8 (0.8-1.2); PT - PROTHROMBIN TIME 19.7 secs (9.9-12.6)
[2019-12-02 17:00] LABS: VBG PCO2 32.2 mmHg (41-51); VBG PH 7.507 (7.31-7.41); VBG PO2 105.8 mmHg (25-47); VBG TOTAL CO2 25.9 mmol/L (24-29)
[2019-12-02 17:04] LABS: PARTIAL THROMBOPLASTIN TIME 44.7 secs (24.9-33.3)
[2019-12-02 17:06] LABS: DIFFERENTIAL COMMENT MANUAL=AUTO DIFF; PLATELET ESTIMATE, MANUAL DECREASED (<130,000) (NORMAL); PLATELET MORPHOLOGY NORMAL APPEARANCE (NORMAL)
--- NOTE | 2019-12-02 17:20 | XRAY Report ---
PROCEDURE: Chest for Line Placement INDICATIONS: post intubation TECHNIQUE: One view of the chest was acquired. COMPARISON: 12/02/2019, 01/08/2019, 01/01/2019. Correlation is also made with abdomen pelvis CT 09/12/19 FINDINGS: Surgical changes and devices: An endotracheal tube is has been placed, with the tip 4 cm above the ca ric. There is a right-sided central line seen, with the tip overlying the inferior aspect of the sup erior vena cava, approximately 2 cm above the cavoatrial junction. On the current study, the central line appears better centered overlying the superior vena cava. A TIPS catheter is again seen. Lungs and pleura: There is a small left-sided pleural effusion. Interstitial prominence is seen. Mediastinum: Mediastinal contours appear normal. Heart size is moderately enlarged. Bones and chest wall: No suspicious bony lesions. Age-appropriate degenerative changes are seen. Overlying soft tissues appear unremarkable. IMPRESSION: The endotracheal tube is seen 4 cm above the korey. Right-sided central line, with the tip overlying the inferior aspect of the superior vena cava. Findings suspicious for CHF. TIPS catheter. Reviewed by: Edgar Hamm MD on 12/02/2019 4:18 PM [email or web address] Approved by: Edgar Hamm MD on 12/02/2019 4:18 PM AKDT Station ID: [id number]
[2019-12-02] MEDS ORDERED: FUROSEMIDE 40 MG/4 ML VIAL IVP STA (17:53)
--- NOTE | 2019-12-02 18:11 | CT Report ---
PROCEDURE: Abdomen/Pelvis WO INDICATIONS: ABD TTP TECHNIQUE: Noncontrast 5 mm thick sections acquired from the diaphragms to the symphysis. 5 mm coronal and sagi ttal reformats were then performed. For radiation dose reduction, the following was used: automated exposure control, adjustment of mA and/or kV according to patient size. COMPARISON: 09/12/2019, 08/28/2019, 05/06/2019. Correlation is also made with chest radiographs . FINDINGS: Image quality: Excellent. ABDOMEN: Lung bases: There is a small left-sided pleural effusion and a trace to small right-sided pleural eff usion. Heart size is at the upper limits of normal. Dense calcification can be seen involving the mi tral valve annulus. Solid organs: A cirrhotic liver is again seen. A TIPS catheter is seen. The spleen measures nearly e very limits of normal. Gallbladder is not seen. Pancreas is normal in contours. No adrenal nodules. Kidneys are normal in size, without hydronephrosis or nephrolithiasis. Peritoneum and bowel: A gastric tube is seen, with the tip within the mid to distal stomach. Mild as cites is seen. A mild to moderate amount of stool is seen within the colon. No dilated loops of small bowel are seen. No free air is seen. Nodes and vessels: No retroperitoneal or mesenteric adenopathy by size criteria. Aorta and inferior vena cava are normal in caliber. Miscellaneous: There is a fat-containing anterior abdominal wall hernia. No bowel is seen within the hernia sac at this time. Prominent generalized anasarca is seen. PELVIS: Genitourinary: A Arredondo catheter is seen. Miscellaneous: No inguinal hernias or adenopathy. Bones: No suspicious bony lesions. No vertebral body compression fractures. S-shaped scoliotic cur vature is incidentally noted. Age-appropriate degenerative changes are seen. Transitional lumbar a natomy, with partial lumbarization of S1. IMPRESSION: Mild to moderate ascites. Bilateral pleural effusions, left larger than right. Cirrhotic liver again seen with a TIPS catheter. The spleen is upper limits of normal for size. Fat-containing ventral hernia, which does not contain bowel at this time. This hernia is similar to t he prior examination. Generalized anasarca. The tip of the gastric tube is seen within the distal stomach. Incidental note is made of: Dense calcification of the mitral valve annulus S-shaped scoliotic curvature Arredondo catheter Mild to moderate amount of stool within the colon Transitional lumbar anatomy Reviewed by: Edgar aHmm MD on 12/02/2019 5:09 PM JEFRY Approved by: Edgar Hamm MD on 12/02/2019 5:09 PM JEFRY Station ID: [id number]
[2019-12-02] MEDS ORDERED: ONDANSETRON 4 MG/2 ML VIAL IVP PRN (19:42)
[2019-12-02] MEDS ORDERED: ACETAMINOPHEN 650 MG SUPP PR PRN (19:46)
--- NOTE | 2019-12-02 19:52 | HISTORY & PHYSICAL EXAMINATION ---
Chief Complaint - Chief Complaint Chief Complaint: Change in mental status History of Present Illness - Admitted From Admitted From:: Home - History Obtained From Records Reviewed: Yes History obtained from: ER Physician, EMR, Daughter Exam Limitations: Patient is intubated and unable to provide history. - History of Present Illness HPI Comment/Other: This is a 49-year-old female with a past medical history significant for end- stage liver disease, chronic kidney disease, hypothyroidism who presents today from home due to change in mental status. History is obtained from the patient's daughter and the emergency department provider as the patient is intubated and unable to provide a history. The patient's daughter reports that she was in her usual state of health and was last seen normal this morning at around 3:30 AM when she was taking a shower. The patient checked on her mother this afternoon at around 3 PM and found her minimally responsive. She was able to open up her eyes but was unable to communicate. She states her mother had not had any complaints over the past few days. She has been having on and off diarrhea but has been taking lactulose due to her history of hepatic encephalopathy. She reports her mother did have one episode of emesis today. Her mother had been complaining of difficulty ambulating due to her significant edema. The patient was admitted earlier this month for 6 days at [facility] due to anemia. The patient daughter reports the patient gained 20 pounds during that hospitalization and her diuretics were held due to an elevated creatinine. The patient has since been resumed on her torsemide and spironolactone and her edema has slightly improved but she is still very edematous throughout all her extremities. The patient's daughter also believes her mother's umbilical hernia was incarcerated yesterday and she was able to reduce the hernia after a few hours. The patient has not had any fevers. The patient's daughter tells me that the patient does wear a mask whenever she leaves the home which is not very often to begin with. She has been hospitalized multiple times over the past 6 to 7 months but the patient is adamant that she wants to be a full code and to live as long as possible. They have had multiple discussions throughout these hospitalizations and at home regarding goals of care but the patient has made it clear that she wants to be a full code. In the emergency department, she is on be febrile with temperature of 39.2 C. Her heart rate was 104. Her blood pressure was initially 170/96. She was not tachypneic but was saturating 84% on room air. This improved to 99% on 3 L of oxygen via nasal cannula. Given her altered mental status, she was intubated for airway protection. The emergency department provider was able to perform a paracentesis but there is only enough fluid for culture the fluid did appear clear and the Gram stain was negative. She was given cefepime, Flagyl, vancomycin in the emergency department. Labs revealed a white count of 22.8 with a left shift. Her hemoglobin was 8.2. Platelets were 88. Her creatinine was 2.2. Troponin was 85.6. Ammonia was 70.2. Her BNP was elevated at 2100. She was also given a dose of IV Lasix in the emergency department. She was not given IV fluids due to her anasarca and the fact that her blood pressures were maintaining. Given the above findings, medicine was consulted for admission. I did once again discuss goals of care with the patient's daughter and as mentioned above, the patient has made it clear in the past that she wants to be a full code. 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 There is significant family history of colon cancer on the patient's maternal side. Living arrangement: At home Living Situation: With family Social History Notes: [place] in November 2018. She does have a history of alcohol abuse in the past but she no longer drinks alcohol, use tobacco or illicit drugs. She has had multiple hospitalization over the past several months due to her severe liver disease. She lives at home with her daughter, Larry. - Substance History Use: Uses substance without health or social issues: Alcohol (past history of alcohol use with no recent use in years per patient and daughter report. Never a smoker.) - POLST Patient has POLST: No POLST Status: Full Code Meds/Allgy - Home Medications Home Medications: Ambulatory Orders Medication Instructions Recorded Confirmed Cholecalciferol (Vitamin D3) 2,000 units PO DAILY #60 capsule 12/02/18 10/22/19 [Vitamin D3] Ondansetron Odt [Zofran Odt] 4 mg TL Q8H PRN 01/08/19 10/22/19 Ciprofloxacin [Cipro] 500 mg PO DAILY 04/30/19 10/22/19 Lactulose [Constulose] 30 ml PO TID 04/30/19 10/22/19 Sucralfate [Carafate] 1 gm PO QID 04/30/19 10/22/19 Acetaminophen [Tylenol] 325 mg PO QID 09/07/19 10/22/19 Cyanocobalamin (Vitamin B-12) 2,500 mcg PO DAILY 09/07/19 10/22/19 [Vitamin B-12] Levothyroxine [Synthroid] 75 mcg PO DAILY 09/07/19 10/22/19 Lidocaine Patch 5% [Lidoderm Patch] 1 patch TP DAILY PRN 09/07/19 10/22/19 Spironolactone 50 mg ORAL BID 09/07/19 10/22/19 Torsemide 50 mg PO DAILY 09/07/19 10/22/19 oxyCODONE [Roxicodone] 5 mg PO Q6HR PRN 09/07/19 10/22/19 rifAXIMin [Xifaxan] 550 mg PO BID 09/07/19 10/22/19 Ocular Lubricant 1 drops EACHEYE Q6HR PRN 10/22/19 Omeprazole 20 mg PO BID 10/22/19 10/22/19 - Allergies Allergies/Adverse Reactions: Allergies Allergy/AdvReac Type Severity Reaction Status Date / Time acetaminophen [From Tylenol] Allergy Unknown Verified 12/02/19 16:01 NSAIDS (Non-Steroidal Allergy Unknown Verified 12/02/19 16:01 Anti-Inflamma Review of Systems - All Other Systems All Other Systems: reports: Other (Unable to obtain as patient is intubated.) Prior Level of Functionality: Lives at home with her daughter and is physically independent. She has had multiple admissions over the past year for hepatic encephalopathy and anemia related to esophageal varices and her end-stage liver disease. Exam - Vital Signs Reviewed Vital Signs: Yes Vital Signs: Vital Signs x48h Temp Pulse Resp BP Pulse Ox 12/02/19 19:42 38.7 C H 110 H 16 134/79 H 100 12/02/19 19:28 38.8 C H 94 16 128/77 100 12/02/19 19:00 38.9 C H 97 16 132/77 H 100 12/02/19 18:31 39 C H 109 H 14 131/76 H 100 12/02/19 18:00 39.2 C H 111 H 15 129/75 100 12/02/19 17:49 39.3 C H 113 H 19 137/78 H 98 12/02/19 17:10 39.4 C H 112 H 11 L 161/93 H 12/02/19 17:00 117 H 166/108 H 98 12/02/19 16:50 115 H 146/105 H 100 12/02/19 16:47 39.4 C H 114 H 8 L 129/79 100 12/02/19 16:38 39.1 C H 99 14 153/101 H 100 12/02/19 16:28 98 18 158/101 H 99 12/02/19 16:01 39.2 C H 104 H 16 170/96 H 84 L - Physical Exam General Appearance: positive: No acute distress Eyes Bilateral: positive: Normal inspection, Other (Pupils constricted bilaterally.) ENT: positive: ENT inspection nml, Other (ET tube in place.) Neck: positive: Nml inspection, Other (Central line is in place over the right IJ. Dressing is saturated in blood) Respiratory: positive: No respiratory distress, Other (Diminished breath sounds in the bilateral bases.). negative: Wheezes, Rales Cardiovascular: positive: Tachycardia. negative: Irregularly irregular, Bradycardia, Systolic murmur Abdomen: positive: Non-tender, No distention, Other (Umbilical hernia noted. Her abdomen significant pitting edema throughout. There is evidence of portal hypertension. Bowel sounds are hypoactive.). negative: Tenderness Skin: positive: Warm, Dry Extremities: positive: Pedal edema (She has +2 pitting edema throughout all 4 extremities and her abdomen. Diffuse anasarca.) Neurologic/Psychiatric: positive: Other (She is sedated on the ventilator. She does not follow commands.) Sepsis Event Note (H) - Evaluation Current Stage of Sepsis: Severe sepsis Possible source of Sepsis: positive: Unknown - Sepsis Criteria Sepsis Criteria: Recorded Temperature greater than 38.3C or Less than 36C, Recorded Heart Rate greater than 90 bpm, Recorded Respiratory Rate greater than 20, Respiratory: Increasing oxygen requirements, WBC count greater than 12,000 or less than 4000, PREFORM PLATE MAKER: altered consciousness (unrelated to primary neuro pathology) Conclusion/Plan - Problem List (1) Encephalopathy Conclusion/Plan: Etiology is not clear at this time. Her ammonia is only slightly elevated and would not explain her change in mental status. This may potentially be due to sepsis given her fever and elevated white count. Given she is coagulopathic, will need to rule out intracranial bleed and so we will obtain a CT of the head. We will keep her on IV antibiotics for suspected sepsis. Given she is intubated, we will keep her sedated with propofol and morphine IV as needed. Daily sedation vacation. (2) Acute respiratory failure with hypoxia Conclusion/Plan: This may be secondary to CHF. She was hypoxic on room air and she required 3 L of oxygen to maintain her oxygen saturations. She was ultimately intubated for airway protection due to her encephalopathy. Chest x-ray shows possible pulmonary vascular congestion. This may also be related to her sepsis and encephalopathy. We will keep her intubated overnight. Vent management as per protocol. We will hope to extubate her once mental status improves and so we will assess her neurologic status on a daily basis. (3) SIRS (systemic inflammatory response syndrome) Conclusion/Plan: Concern is for sepsis given her elevated white count, fever, tachycardia. Fortunately she is not hypotensive. There is no obvious source of infection at this time. Chest x-ray does not reveal any obvious infiltrate, her urinalysis unremarkable, and imaging of the abdomen did not reveal a source of infection. She received vancomycin, cefepime, Flagyl IV in the emergency department. We will continue her on these broad-spectrum antibiotics given the concern for severe sepsis. We will recheck a lactic acid. We will hold off on administering IV fluids given she is normotensive and has diffuse anasarca. Trend her CBC, follow-up blood cultures. If she continues to have diarrhea with her lactulose is held then we will check her for C. difficile. (4) Suspected CHF (congestive heart failure) Conclusion/Plan: Suspect she has congestive heart failure given her elevated BNP and pulmonary vascular congestion on imaging. She was given a dose of IV Lasix in the emergency department. We will hold off on further Lasix at this time given she is normotensive and there is concern for possible sepsis still. Will obtain echocardiogram in the morning. (5) CKD (chronic kidney disease) stage 4, GFR 15-29 ml/min Conclusion/Plan: She has chronic kidney disease secondary to hepatorenal syndrome. Her baseline creatinine fluctuates from 1.7-2.2. Her creatinine today is 2.2 which appears at baseline for her. We will continue to monitor her renal function and urine output. Avoid nephrotoxins. (6) Cirrhosis of liver Conclusion/Plan: She has end-stage liver disease secondary to alcohol use and hepatitis C. Her meld score is 27. Her resource specialist is at [facility]. Qualifiers: Hepatic cirrhosis type: alcoholic cirrhosis Ascites presence: without ascites Qualified Code(s): K70.30 - Alcoholic cirrhosis of liver without ascites (7) Elevated troponin Conclusion/Plan: Suspect this is likely demand ischemia. Her EKG does not suggest any active ischemia. We will trend her troponin. Check an echocardiogram. Monitor on telemetry. (8) Anemia Conclusion/Plan: She has chronic anemia due to iron deficiency secondary to gastrointestinal bleeding. Her hemoglobin today is 8.2 which is relatively stable for the patient. There is no evidence of bleeding at this time. We will continue to monitor her CBC daily. Will transfuse for goal hemoglobin greater than 7. Qualifiers: Anemia type: unspecified type Qualified Code(s): D64.9 - Anemia, unspecified (9) Thrombocytopenia Conclusion/Plan: This is secondary to her liver cirrhosis. Her platelet count is stable in the 80s. There is no evidence of bleeding at this time. We will hold off on chemical DVT prophylaxis given her INR is nearly 2. (10) Hypothyroidism Conclusion/Plan: We will continue her home Synthroid. - Lab Results Lab results reviewed: Yes Fish Bones: 12/02/19 16:30 12/02/19 16:30 - Diagnostic Imaging Results Diagnostic Imaging Results: positive: Final report reviewed - EKG Results EKG Interpreted Independently: Yes Core Measures - Anticipated LOS I expect patient to be DC'd or transferred within 96 hours.: Yes - Issues Hospital Issues and Management Plan: 29-year-old female with end-stage liver disease and CKD stage IV who presents with encephalopathy. Intubated in the ER for airway protection respiratory failure. Admit to ICU as she appears septic for IV antibiotics. Possible CHF so obtain echocardiogram. - DVT/VTE - Prophylaxis VTE/DVT Device ordered at admit?: Yes VTE/DVT Prophylaxis med ordered at admit?: No
[2019-12-02] MEDS ORDERED: metroNIDAZOLE 500 MG/100 ML 500 MG/100 ML BAG IV SCH (21:00)
[2019-12-02] MEDS: SODIUM CHLORIDE 0.9% 500 ML IV PRN (22:14)
[2019-12-02] MEDS: PROPOFOL 500 MG/50 ML 500 MG/50 ML VIAL IV SCH (22:14)
[2019-12-02] MEDS: ethyl alcohoL 62% SWAB AMPULE NAS SCH (23:49)
[2019-12-03] MEDS: SODIUM CHLORIDE FLUSH 0.9% 10 ML SYRINGE IVP SCH ×3 (01:10→17:53)
[2019-12-03] MEDS: metroNIDAZOLE 500 MG/100 ML 500 MG/100 ML BAG IV SCH ×3 (01:10→17:48)
[2019-12-03] MEDS: SODIUM CHLORIDE FLUSH 0.9% 10 ML SYRINGE IVP PRN ×2 (02:24→05:51)
[2019-12-03] MEDS: PROPOFOL 500 MG/50 ML 500 MG/50 ML VIAL IV SCH ×4 (03:29→22:20)
[2019-12-03] MEDS: CEFEPIME 1 GM in SODIUM CHLORIDE 0.9% MINIBAG 100 ML IV SCH ×2 (04:28→16:27)
[2019-12-03] MEDS: MORPHINE 2 MG/ML CARPUJECT IVP PRN ×4 (04:28→17:50)
[2019-12-03 06:05] LABS: BASOPHILS % (AUTO) 0.2 %; EOSINOPHILS % (AUTO) 0.1 %; HGB - HEMOGLOBIN 7.4 g/dL (12.0-16.0); LYMPHOCYTES # (AUTO) 0.4 10^3/uL (1.5-3.5); LYMPHOCYTES % (AUTO) 2.2 %; MEAN CORPUSCULAR HEMOGLOBIN 37.8 pg (27.0-31.0); MEAN CORPUSCULAR HGB CONC 34.7 g/dL (32.0-36.0); MEAN CORPUSCULAR VOLUME 108.7 fL (81.0-99.0); MEAN PLATELET VOLUME 8.8 fL (7.9-10.8); MONOCYTES # (AUTO) 0.6 10^3/uL (0.0-1.0); MONOCYTES % (AUTO) 3.4 %; NEUTROPHILS # (AUTO) 16.5 10^3/uL (1.5-6.6); NEUTROPHILS % (AUTO) 93.3 %; PLT - PLATELET COUNT 70 10^3/uL (130-450); RED BLOOD COUNT 1.96 10^6/uL (4.20-5.40); RED CELL DISTRIBUTION WIDTH 25.7 % (12.0-15.0); WHITE BLOOD COUNT 17.7 x10^3/uL (4.8-10.8)
[2019-12-03 06:20] LABS: ALBUMIN 1.6 g/dL (3.2-5.5); BILIRUBIN,DIRECT 1.5 mg/dL (0.1-0.5); BILIRUBIN,TOTAL 3.2 mg/dL (0.2-1.0); CALCIUM 7.7 mg/dL (8.5-10.3); CREATININE 2.3 mg/dL (0.4-1.0); MAGNESIUM 2.4 mg/dL (1.7-2.8); PHOSPHORUS 4.6 mg/dL (2.5-4.6)
[2019-12-03] MEDS: PANTOPRAZOLE 40 MG VIAL IVP SCH (06:24)
[2019-12-03 06:26] LABS: PLATELET ESTIMATE, MANUAL DECREASED (<130,000) (NORMAL); PLATELET MORPHOLOGY NORMAL APPEARANCE (NORMAL)
--- NOTE | 2019-12-03 07:06 | CT Report ---
PROCEDURE: HEAD WO INDICATIONS: Encephalopathy TECHNIQUE: Noncontrast 4.5 mm thick angled axial sections acquired from the foramen magnum to the vertex. For r adiation dose reduction, the following was used: automated exposure control, adjustment of mA and/or kV according to patient size. COMPARISON: None. FINDINGS: Image quality: Limited by beam hardening artifact related to support equipment. CSF spaces: Basal cisterns are patent. No extra-axial fluid collections. Ventricles are normal in size and shape. Brain: No midline shift. No intracranial masses or hemorrhage. Sauer-white matter interface is norm al. Skull and face: Calvarium and visualized facial bones are intact, without suspicious lesions. Right temporal scalp swelling. Presence of endotracheal tube noted. Sinuses: Visualized sinuses and mastoids are clear. IMPRESSION: No acute intracranial disease process within limitations of the study. Reviewed by: Ashley Hui MD, PhD on 12/03/2019 7:05 AM PDT Approved by: Ashley Hui MD, PhD on 12/03/2019 7:05 AM PDT Station ID: [id number]
--- NOTE | 2019-12-03 09:00 | PHARMACY PROGRESS NOTE ---
- Therapy Status Vancomycin regimen day #: 2 (1250MG Q 36H INITIATED ) Basis for treatment: Empirical Treatment indication: SEPSIS; MRSA POS Trough goal: 15-20 Concurrent antibiotics: CEFEPIME 1G Q12H - LEXI Risk Risk level for Acute Kidney Injury: High Acute Kidney Injury risk factors: Baseline CrCl <50, Sepsis - Monitoring and Recommendation Clinical response to treatment: I&O Previous 24 hours 12/01/19 12/02/19 12/03/19 23:59 23:59 23:59 Intake Total 729.750 346.216 Output Total 190 280 Balance 539.750 66.216 Lab Results 12/03/19 12/02/19 04:40 16:30 BUN 44 H 45 H Creatinine 2.3 H 2.2 H Estimated GFR (MDRD) 22 L 24 L Cultures 12/02/19 16:30 Blood - Central Line Blood Culture - Preliminary 12/02/19 16:45 Blood Blood Culture - Preliminary 12/02/19 16:20 Ascities Fluid Body Fluid Culture - Preliminary Monitoring plan: Daily serum creatinine, Draw trough early
[2019-12-03] MEDS: ethyl alcohoL 62% SWAB AMPULE NAS SCH ×2 (11:01→21:04)
--- NOTE | 2019-12-03 12:28 | PHARMACY PROGRESS NOTE ---
- Best Possible Medication History Admit Date and Time: 12/02/191941 Processed by: Pharmacy Medication History completed: Yes Patient Interview: Pt unable to participate Secondary Source(s): Pharmacy records (PATIENT UNABLE TO PARTICIPATE; INTUBATED; PAHRMACY RECORDS FROM [facility]; DISCREPANCIES ON DIURETICS FUROSEMIDE VS TORSEMIDE), Insurance records As the person ultimately responsible for medication therapy, providers are able to order a medication from an existing home medication list in [facility] via the "Reconcile Routine" prior to Confirmation of that medication by support merchandiser. Such practice is discouraged except when the physician, in their clinical judgment, deems that a medical need exists for a medication without regard to previous use.
--- NOTE | 2019-12-03 16:37 | PROVIDER PROGRESS NOTE ---
Subjective - Prog Note Date Prog Note Date: 12/03/19 - Subjective Subjective: She is sedated and intubated Objective - Vital Signs/Intake & Output Reviewed Vital Signs: Yes Vital Signs: Vital Signs Temp Pulse Pulse Resp BP Pulse Ox 12/03/19 16:00 66 16 87/49 L 100 12/03/19 15:35 36.2 C L 12/03/19 15:31 72 12/03/19 15:00 35.9 C L 66 16 88/55 L 100 12/03/19 14:00 68 16 87/46 L 100 12/03/19 13:42 72 12/03/19 13:00 68 16 96/55 L 100 Intake & Output: Intake & Output 11/30/19 12/01/19 12/02/19 12/03/19 23:59 23:59 23:59 23:59 Intake Total 729.750 496.216 Output Total 190 385 Balance 539.750 111.216 - Objective General Appearance: positive: Other (Sedated and on the ventilator.) Eyes Bilateral: positive: Other (Closed, this patient is sedated) ENT: positive: Other Neck: positive: Nml inspection (ET tube in place) Respiratory: positive: No respiratory distress (Sedated and on the ventilator) Cardiovascular: positive: Regular rate & rhythm Skin: positive: Color nml, Warm, Dry Extremities: positive: Other (Diffuse 1-2+ anasarca of arms and leg) Neurologic/Psychiatric: positive: Other (Sedated) - Lab Results Fish Bones: 12/03/19 04:40 12/03/19 04:40 Other Labs: Lab Results x24hrs 12/03/19 12/03/19 12/03/19 Range/Units 08:10 04:40 04:40 WBC (4.8-10.8) x10^3/uL RBC (4.20-5.40) 10^6/uL Hgb (12.0-16.0) g/dL Hct (37.0-47.0) % MCV (81.0-99.0) fL MCH (27.0-31.0) pg MCHC (32.0-36.0) g/dL RDW (12.0-15.0) % Plt Count (130-450) 10^3/uL MPV (7.9-10.8) fL Neut # (Auto) (1.5-6.6) 10^3/uL Lymph # (Auto) (1.5-3.5) 10^3/uL Whitman # (Auto) (0.0-1.0) 10^3/uL Eos # (Auto) (0.0-0.7) 10^3/uL Baso # (Auto) (0.0-0.1) 10^3/uL Absolute Nucleated RBC x10^3/uL Band Neuts % (Manual) Abnorm Lymph % (Manual) Nucleated RBC % /100WBC Neutrophils # (Manual) Lymphocytes # (Manual) Monocytes # (Manual) Eosinophils # (Manual) Basophils # (Manual) Differential Comment Manual Slide Review Platelet Estimate (NORMAL) Platelet Morphology (NORMAL) RBC Morph Micro Appear (NORMAL) PT (9.9-12.6) secs INR (0.8-1.2) APTT (24.9-33.3) secs VBG pH (7.31-7.41) VBG pCO2 (41-51) mmHg VBG pO2 (25-47) mmHg VBG HCO3 (23-28) mmol/L VBG Total CO2 (24-29) mmol/L VBG O2 Saturation (60-80) % VBG Base Excess (-2 - +2) mmol/L Sodium (135-145) mmol/L Potassium (3.5-5.0) mmol/L Chloride (101-111) mmol/L Carbon Dioxide (21-32) mmol/L Anion Gap (6-13) BUN (6-20) mg/dL Creatinine (0.4-1.0) mg/dL Estimated GFR (MDRD) (>89) Glucose (70-100) mg/dL Lactic Acid 2.1 (0.5-2.2) mmol/L Calcium (8.5-10.3) mg/dL Phosphorus (2.5-4.6) mg/dL Magnesium (1.7-2.8) mg/dL Total Bilirubin (0.2-1.0) mg/dL Direct Bilirubin (0.1-0.5) mg/dL AST (10-42) IU/L ALT (10-60) IU/L Alkaline Phosphatase (42-121) IU/L Ammonia 60.6 H (7-35) umol/L Troponin I High Sens 82.9 H* (2.3-14.8) ng/L B-Natriuretic Peptide (5-100) pg/mL Total Protein (6.7-8.2) g/dL Albumin (3.2-5.5) g/dL Globulin (2.1-4.2) g/dL Albumin/Globulin Ratio (1.0-2.2) Lipase (22-51) U/L Urine Color Urine Clarity (CLEAR) Urine pH (5.0-7.5) PH Ur Specific Harshaw (1.002-1.030) Urine Protein (NEGATIVE) mg/dL Urine Glucose (UA) (NEGATIVE) mg/dL Urine Ketones (NEGATIVE) mg/dL Urine Occult Blood (NEGATIVE) Urine Nitrite (NEGATIVE) Urine Bilirubin (NEGATIVE) Urine Urobilinogen (NORMAL) E.U./dL Ur Leukocyte Esterase (NEGATIVE) Urine RBC (0-5) /HPF Urine WBC (0-5) /HPF Ur Squamous Epith Cells (<= Few) Urine Bacteria (None Seen) /HPF Urine Casts /LPF Ur Microscopic Review Urine Culture Comments Nasal Screen MRSA (PCR) (NEGATIVE) Urine Opiates Screen (NEGATIVE) Ur Oxycodone Screen (NEGATIVE) Urine Methadone Screen (NEGATIVE) Ur Propoxyphene Screen (NEGATIVE) Ur Barbiturates Screen (NEGATIVE) Ur Tricyclics Screen (NEGATIVE) Ur Phencyclidine Scrn (NEGATIVE) Ur Amphetamine Screen (NEGATIVE) U Methamphetamines Scrn (NEGATIVE) U Benzodiazepines Scrn (NEGATIVE) Urine Cocaine Screen (NEGATIVE) U Cannabinoids Screen (NEGATIVE) Ethyl Alcohol mg/dL 12/03/19 12/03/19 12/03/19 Range/Units 04:40 04:40 01:55 WBC 17.7 H (4.8-10.8) x10^3/uL RBC 1.96 L (4.20-5.40) 10^6/uL Hgb 7.4 L (12.0-16.0) g/dL Hct 21.3 L (37.0-47.0) % MCV 108.7 H (81.0-99.0) fL MCH 37.8 H (27.0-31.0) pg MCHC 34.7 (32.0-36.0) g/dL RDW 25.7 H (12.0-15.0) % Plt Count 70 L (130-450) 10^3/uL MPV 8.8 (7.9-10.8) fL Neut # (Auto) 16.5 H (1.5-6.6) 10^3/uL Lymph # (Auto) 0.4 L (1.5-3.5) 10^3/uL Whitman # (Auto) 0.6 (0.0-1.0) 10^3/uL Eos # (Auto) 0.0 (0.0-0.7) 10^3/uL Baso # (Auto) 0.0 (0.0-0.1) 10^3/uL Absolute Nucleated RBC 0.00 x10^3/uL Band Neuts % (Manual) Abnorm Lymph % (Manual) Nucleated RBC % 0.0 /100WBC Neutrophils # (Manual) Lymphocytes # (Manual) Monocytes # (Manual) Eosinophils # (Manual) Basophils # (Manual) Differential Comment Manual Slide Review Indicated Platelet Estimate DECREASED (<130,000) (NORMAL) Platelet Morphology NORMAL APPEARANCE (NORMAL) RBC Morph Micro Appear 2+ ANISOCYTOSIS (NORMAL) PT (9.9-12.6) secs INR (0.8-1.2) APTT (24.9-33.3) secs VBG pH (7.31-7.41) VBG pCO2 (41-51) mmHg VBG pO2 (25-47) mmHg VBG HCO3 (23-28) mmol/L VBG Total CO2 (24-29) mmol/L VBG O2 Saturation (60-80) % VBG Base Excess (-2 - +2) mmol/L Sodium 136 (135-145) mmol/L Potassium 4.1 (3.5-5.0) mmol/L Chloride 103 (101-111) mmol/L Carbon Dioxide 24 (21-32) mmol/L Anion Gap 9.0 (6-13) BUN 44 H (6-20) mg/dL Creatinine 2.3 H (0.4-1.0) mg/dL Estimated GFR (MDRD) 22 L (>89) Glucose 86 (70-100) mg/dL Lactic Acid 2.3 H (0.5-2.2) mmol/L Calcium 7.7 L (8.5-10.3) mg/dL Phosphorus 4.6 (2.5-4.6) mg/dL Magnesium 2.4 (1.7-2.8) mg/dL Total Bilirubin 3.2 H (0.2-1.0) mg/dL Direct Bilirubin 1.5 H (0.1-0.5) mg/dL AST 38 (10-42) IU/L ALT 21 (10-60) IU/L Alkaline Phosphatase 119 (42-121) IU/L Ammonia (7-35) umol/L Troponin I High Sens (2.3-14.8) ng/L B-Natriuretic Peptide (5-100) pg/mL Total Protein 4.0 L (6.7-8.2) g/dL Albumin 1.6 L (3.2-5.5) g/dL Globulin 2.4 (2.1-4.2) g/dL Albumin/Globulin Ratio (1.0-2.2) Lipase (22-51) U/L Urine Color Urine Clarity (CLEAR) Urine pH (5.0-7.5) PH Ur Specific Harshaw (1.002-1.030) Urine Protein (NEGATIVE) mg/dL Urine Glucose (UA) (NEGATIVE) mg/dL Urine Ketones (NEGATIVE) mg/dL Urine Occult Blood (NEGATIVE) Urine Nitrite (NEGATIVE) Urine Bilirubin (NEGATIVE) Urine Urobilinogen (NORMAL) E.U./dL Ur Leukocyte Esterase (NEGATIVE) Urine RBC (0-5) /HPF Urine WBC (0-5) /HPF Ur Squamous Epith Cells (<= Few) Urine Bacteria (None Seen) /HPF Urine Casts /LPF Ur Microscopic Review Urine Culture Comments Nasal Screen MRSA (PCR) (NEGATIVE) Urine Opiates Screen (NEGATIVE) Ur Oxycodone Screen (NEGATIVE) Urine Methadone Screen (NEGATIVE) Ur Propoxyphene Screen (NEGATIVE) Ur Barbiturates Screen (NEGATIVE) Ur Tricyclics Screen (NEGATIVE) Ur Phencyclidine Scrn (NEGATIVE) Ur Amphetamine Screen (NEGATIVE) U Methamphetamines Scrn (NEGATIVE) U Benzodiazepines Scrn (NEGATIVE) Urine Cocaine Screen (NEGATIVE) U Cannabinoids Screen (NEGATIVE) Ethyl Alcohol mg/dL 12/02/19 12/02/19 12/02/19 Range/Units 22:30 22:30 20:30 WBC (4.8-10.8) x10^3/uL RBC (4.20-5.40) 10^6/uL Hgb (12.0-16.0) g/dL Hct (37.0-47.0) % MCV (81.0-99.0) fL MCH (27.0-31.0) pg MCHC (32.0-36.0) g/dL RDW (12.0-15.0) % Plt Count (130-450) 10^3/uL MPV (7.9-10.8) fL Neut # (Auto) (1.5-6.6) 10^3/uL Lymph # (Auto) (1.5-3.5) 10^3/uL Whitman # (Auto) (0.0-1.0) 10^3/uL Eos # (Auto) (0.0-0.7) 10^3/uL Baso # (Auto) (0.0-0.1) 10^3/uL Absolute Nucleated RBC x10^3/uL Band Neuts % (Manual) Abnorm Lymph % (Manual) Nucleated RBC % /100WBC Neutrophils # (Manual) Lymphocytes # (Manual) Monocytes # (Manual) Eosinophils # (Manual) Basophils # (Manual) Differential Comment Manual Slide Review Platelet Estimate (NORMAL) Platelet Morphology (NORMAL) RBC Morph Micro Appear (NORMAL) PT (9.9-12.6) secs INR (0.8-1.2) APTT (24.9-33.3) secs VBG pH (7.31-7.41) VBG pCO2 (41-51) mmHg VBG pO2 (25-47) mmHg VBG HCO3 (23-28) mmol/L VBG Total CO2 (24-29) mmol/L VBG O2 Saturation (60-80) % VBG Base Excess (-2 - +2) mmol/L Sodium (135-145) mmol/L Potassium (3.5-5.0) mmol/L Chloride (101-111) mmol/L Carbon Dioxide (21-32) mmol/L Anion Gap (6-13) BUN (6-20) mg/dL Creatinine (0.4-1.0) mg/dL Estimated GFR (MDRD) (>89) Glucose (70-100) mg/dL Lactic Acid 2.2 (0.5-2.2) mmol/L Calcium (8.5-10.3) mg/dL Phosphorus (2.5-4.6) mg/dL Magnesium (1.7-2.8) mg/dL Total Bilirubin (0.2-1.0) mg/dL Direct Bilirubin (0.1-0.5) mg/dL AST (10-42) IU/L ALT (10-60) IU/L Alkaline Phosphatase (42-121) IU/L Ammonia (7-35) umol/L Troponin I High Sens 158.7 H* (2.3-14.8) ng/L B-Natriuretic Peptide (5-100) pg/mL Total Protein (6.7-8.2) g/dL Albumin (3.2-5.5) g/dL Globulin (2.1-4.2) g/dL Albumin/Globulin Ratio (1.0-2.2) Lipase (22-51) U/L Urine Color Urine Clarity (CLEAR) Urine pH (5.0-7.5) PH Ur Specific Harshaw (1.002-1.030) Urine Protein (NEGATIVE) mg/dL Urine Glucose (UA) (NEGATIVE) mg/dL Urine Ketones (NEGATIVE) mg/dL Urine Occult Blood (NEGATIVE) Urine Nitrite (NEGATIVE) Urine Bilirubin (NEGATIVE) Urine Urobilinogen (NORMAL) E.U./dL Ur Leukocyte Esterase (NEGATIVE) Urine RBC (0-5) /HPF Urine WBC (0-5) /HPF Ur Squamous Epith Cells (<= Few) Urine Bacteria (None Seen) /HPF Urine Casts /LPF Ur Microscopic Review Urine Culture Comments Nasal Screen MRSA (PCR) POSITIVE A* (NEGATIVE) Urine Opiates Screen (NEGATIVE) Ur Oxycodone Screen (NEGATIVE) Urine Methadone Screen (NEGATIVE) Ur Propoxyphene Screen (NEGATIVE) Ur Barbiturates Screen (NEGATIVE) Ur Tricyclics Screen (NEGATIVE) Ur Phencyclidine Scrn (NEGATIVE) Ur Amphetamine Screen (NEGATIVE) U Methamphetamines Scrn (NEGATIVE) U Benzodiazepines Scrn (NEGATIVE) Urine Cocaine Screen (NEGATIVE) U Cannabinoids Screen (NEGATIVE) Ethyl Alcohol mg/dL 12/02/19 12/02/19 12/02/19 Range/Units 16:30 16:30 16:30 WBC (4.8-10.8) x10^3/uL RBC (4.20-5.40) 10^6/uL Hgb (12.0-16.0) g/dL Hct (37.0-47.0) % MCV (81.0-99.0) fL MCH (27.0-31.0) pg MCHC (32.0-36.0) g/dL RDW (12.0-15.0) % Plt Count (130-450) 10^3/uL MPV (7.9-10.8) fL Neut # (Auto) (1.5-6.6) 10^3/uL Lymph # (Auto) (1.5-3.5) 10^3/uL Whitman # (Auto) (0.0-1.0) 10^3/uL Eos # (Auto) (0.0-0.7) 10^3/uL Baso # (Auto) (0.0-0.1) 10^3/uL Absolute Nucleated RBC x10^3/uL Band Neuts % (Manual) Abnorm Lymph % (Manual) Nucleated RBC % /100WBC Neutrophils # (Manual) Lymphocytes # (Manual) Monocytes # (Manual) Eosinophils # (Manual) Basophils # (Manual) Differential Comment Manual Slide Review Platelet Estimate (NORMAL) Platelet Morphology (NORMAL) RBC Morph Micro Appear (NORMAL) PT 19.7 H (9.9-12.6) secs INR 1.8 H (0.8-1.2) APTT 44.7 H (24.9-33.3) secs VBG pH (7.31-7.41) VBG pCO2 (41-51) mmHg VBG pO2 (25-47) mmHg VBG HCO3 (23-28) mmol/L VBG Total CO2 (24-29) mmol/L VBG O2 Saturation (60-80) % VBG Base Excess (-2 - +2) mmol/L Sodium (135-145) mmol/L Potassium (3.5-5.0) mmol/L Chloride (101-111) mmol/L Carbon Dioxide (21-32) mmol/L Anion Gap (6-13) BUN (6-20) mg/dL Creatinine (0.4-1.0) mg/dL Estimated GFR (MDRD) (>89) Glucose (70-100) mg/dL Lactic Acid (0.5-2.2) mmol/L Calcium (8.5-10.3) mg/dL Phosphorus (2.5-4.6) mg/dL Magnesium (1.7-2.8) mg/dL Total Bilirubin (0.2-1.0) mg/dL Direct Bilirubin (0.1-0.5) mg/dL AST (10-42) IU/L ALT (10-60) IU/L Alkaline Phosphatase (42-121) IU/L Ammonia (7-35) umol/L Troponin I High Sens 85.6 H* (2.3-14.8) ng/L B-Natriuretic Peptide 2117 H (5-100) pg/mL Total Protein (6.7-8.2) g/dL Albumin (3.2-5.5) g/dL Globulin (2.1-4.2) g/dL Albumin/Globulin Ratio (1.0-2.2) Lipase (22-51) U/L Urine Color Urine Clarity (CLEAR) Urine pH (5.0-7.5) PH Ur Specific Harshaw (1.002-1.030) Urine Protein (NEGATIVE) mg/dL Urine Glucose (UA) (NEGATIVE) mg/dL Urine Ketones (NEGATIVE) mg/dL Urine Occult Blood (NEGATIVE) Urine Nitrite (NEGATIVE) Urine Bilirubin (NEGATIVE) Urine Urobilinogen (NORMAL) E.U./dL Ur Leukocyte Esterase (NEGATIVE) Urine RBC (0-5) /HPF Urine WBC (0-5) /HPF Ur Squamous Epith Cells (<= Few) Urine Bacteria (None Seen) /HPF Urine Casts /LPF Ur Microscopic Review Urine Culture Comments Nasal Screen MRSA (PCR) (NEGATIVE) Urine Opiates Screen (NEGATIVE) Ur Oxycodone Screen (NEGATIVE) Urine Methadone Screen (NEGATIVE) Ur Propoxyphene Screen (NEGATIVE) Ur Barbiturates Screen (NEGATIVE) Ur Tricyclics Screen (NEGATIVE) Ur Phencyclidine Scrn (NEGATIVE) Ur Amphetamine Screen (NEGATIVE) U Methamphetamines Scrn (NEGATIVE) U Benzodiazepines Scrn (NEGATIVE) Urine Cocaine Screen (NEGATIVE) U Cannabinoids Screen (NEGATIVE) Ethyl Alcohol mg/dL 12/02/19 12/02/19 12/02/19 Range/Units 16:30 16:30 16:30 WBC (4.8-10.8) x10^3/uL RBC (4.20-5.40) 10^6/uL Hgb (12.0-16.0) g/dL Hct (37.0-47.0) % MCV (81.0-99.0) fL MCH (27.0-31.0) pg MCHC (32.0-36.0) g/dL RDW (12.0-15.0) % Plt Count (130-450) 10^3/uL MPV (7.9-10.8) fL Neut # (Auto) (1.5-6.6) 10^3/uL Lymph # (Auto) (1.5-3.5) 10^3/uL Whitman # (Auto) (0.0-1.0) 10^3/uL Eos # (Auto) (0.0-0.7) 10^3/uL Baso # (Auto) (0.0-0.1) 10^3/uL Absolute Nucleated RBC x10^3/uL Band Neuts % (Manual) Abnorm Lymph % (Manual) Nucleated RBC % /100WBC Neutrophils # (Manual) Lymphocytes # (Manual) Monocytes # (Manual) Eosinophils # (Manual) Basophils # (Manual) Differential Comment Manual Slide Review Platelet Estimate (NORMAL) Platelet Morphology (NORMAL) RBC Morph Micro Appear (NORMAL) PT (9.9-12.6) secs INR (0.8-1.2) APTT (24.9-33.3) secs VBG pH 7.507 H (7.31-7.41) VBG pCO2 32.2 L (41-51) mmHg VBG pO2 105.8 H (25-47) mmHg VBG HCO3 24.9 (23-28) mmol/L VBG Total CO2 25.9 (24-29) mmol/L VBG O2 Saturation 97.3 H (60-80) % VBG Base Excess 2.0 (-2 - +2) mmol/L Sodium (135-145) mmol/L Potassium (3.5-5.0) mmol/L Chloride (101-111) mmol/L Carbon Dioxide (21-32) mmol/L Anion Gap (6-13) BUN (6-20) mg/dL Creatinine (0.4-1.0) mg/dL Estimated GFR (MDRD) (>89) Glucose (70-100) mg/dL Lactic Acid 2.2 (0.5-2.2) mmol/L Calcium (8.5-10.3) mg/dL Phosphorus (2.5-4.6) mg/dL Magnesium (1.7-2.8) mg/dL Total Bilirubin (0.2-1.0) mg/dL Direct Bilirubin (0.1-0.5) mg/dL AST (10-42) IU/L ALT (10-60) IU/L Alkaline Phosphatase (42-121) IU/L Ammonia 70.2 H (7-35) umol/L Troponin I High Sens (2.3-14.8) ng/L B-Natriuretic Peptide (5-100) pg/mL Total Protein (6.7-8.2) g/dL Albumin (3.2-5.5) g/dL Globulin (2.1-4.2) g/dL Albumin/Globulin Ratio (1.0-2.2) Lipase (22-51) U/L Urine Color Urine Clarity (CLEAR) Urine pH (5.0-7.5) PH Ur Specific Harshaw (1.002-1.030) Urine Protein (NEGATIVE) mg/dL Urine Glucose (UA) (NEGATIVE) mg/dL Urine Ketones (NEGATIVE) mg/dL Urine Occult Blood (NEGATIVE) Urine Nitrite (NEGATIVE) Urine Bilirubin (NEGATIVE) Urine Urobilinogen (NORMAL) E.U./dL Ur Leukocyte Esterase (NEGATIVE) Urine RBC (0-5) /HPF Urine WBC (0-5) /HPF Ur Squamous Epith Cells (<= Few) Urine Bacteria (None Seen) /HPF Urine Casts /LPF Ur Microscopic Review Urine Culture Comments Nasal Screen MRSA (PCR) (NEGATIVE) Urine Opiates Screen (NEGATIVE) Ur Oxycodone Screen (NEGATIVE) Urine Methadone Screen (NEGATIVE) Ur Propoxyphene Screen (NEGATIVE) Ur Barbiturates Screen (NEGATIVE) Ur Tricyclics Screen (NEGATIVE) Ur Phencyclidine Scrn (NEGATIVE) Ur Amphetamine Screen (NEGATIVE) U Methamphetamines Scrn (NEGATIVE) U Benzodiazepines Scrn (NEGATIVE) Urine Cocaine Screen (NEGATIVE) U Cannabinoids Screen (NEGATIVE) Ethyl Alcohol mg/dL 12/02/19 12/02/19 12/02/19 Range/Units 16:30 16:30 16:20 WBC 22.8 H (4.8-10.8) x10^3/uL RBC 2.53 L (4.20-5.40) 10^6/uL Hgb 8.2 L (12.0-16.0) g/dL Hct 26.6 L (37.0-47.0) % MCV 105.1 H (81.0-99.0) fL MCH 32.4 H (27.0-31.0) pg MCHC 30.8 L (32.0-36.0) g/dL RDW 25.2 H (12.0-15.0) % Plt Count 88 L (130-450) 10^3/uL MPV 7.9 (7.9-10.8) fL Neut # (Auto) 21.4 H (1.5-6.6) 10^3/uL Lymph # (Auto) 0.3 L (1.5-3.5) 10^3/uL Whitman # (Auto) 0.6 (0.0-1.0) 10^3/uL Eos # (Auto) 0.0 (0.0-0.7) 10^3/uL Baso # (Auto) 0.1 (0.0-0.1) 10^3/uL Absolute Nucleated RBC 0.02 x10^3/uL Band Neuts % (Manual) Not Reportable Abnorm Lymph % (Manual) Not Reportable Nucleated RBC % 0.1 /100WBC Neutrophils # (Manual) Not Reportable Lymphocytes # (Manual) Not Reportable Monocytes # (Manual) Not Reportable Eosinophils # (Manual) Not Reportable Basophils # (Manual) Not Reportable Differential Comment MANUAL=AUTO DIFF Manual Slide Review Indicated Platelet Estimate DECREASED (<130,000) (NORMAL) Platelet Morphology NORMAL APPEARANCE (NORMAL) RBC Morph Micro Appear 1+ BASO STIPPLING (NORMAL) PT (9.9-12.6) secs INR (0.8-1.2) APTT (24.9-33.3) secs VBG pH (7.31-7.41) VBG pCO2 (41-51) mmHg VBG pO2 (25-47) mmHg VBG HCO3 (23-28) mmol/L VBG Total CO2 (24-29) mmol/L VBG O2 Saturation (60-80) % VBG Base Excess (-2 - +2) mmol/L Sodium 136 (135-145) mmol/L Potassium 4.4 (3.5-5.0) mmol/L Chloride 102 (101-111) mmol/L Carbon Dioxide 22 (21-32) mmol/L Anion Gap 12.0 (6-13) BUN 45 H (6-20) mg/dL Creatinine 2.2 H (0.4-1.0) mg/dL Estimated GFR (MDRD) 24 L (>89) Glucose 93 (70-100) mg/dL Lactic Acid (0.5-2.2) mmol/L Calcium 8.0 L (8.5-10.3) mg/dL Phosphorus 4.7 H (2.5-4.6) mg/dL Magnesium 2.7 (1.7-2.8) mg/dL Total Bilirubin 3.6 H (0.2-1.0) mg/dL Direct Bilirubin (0.1-0.5) mg/dL AST 37 (10-42) IU/L ALT 23 (10-60) IU/L Alkaline Phosphatase 154 H (42-121) IU/L Ammonia (7-35) umol/L Troponin I High Sens (2.3-14.8) ng/L B-Natriuretic Peptide (5-100) pg/mL Total Protein 4.8 L (6.7-8.2) g/dL Albumin 1.7 L (3.2-5.5) g/dL Globulin 3.1 (2.1-4.2) g/dL Albumin/Globulin Ratio 0.5 L (1.0-2.2) Lipase 40 (22-51) U/L Urine Color Urine Clarity (CLEAR) Urine pH (5.0-7.5) PH Ur Specific Harshaw (1.002-1.030) Urine Protein (NEGATIVE) mg/dL Urine Glucose (UA) (NEGATIVE) mg/dL Urine Ketones (NEGATIVE) mg/dL Urine Occult Blood (NEGATIVE) Urine Nitrite (NEGATIVE) Urine Bilirubin (NEGATIVE) Urine Urobilinogen (NORMAL) E.U./dL Ur Leukocyte Esterase (NEGATIVE) Urine RBC (0-5) /HPF Urine WBC (0-5) /HPF Ur Squamous Epith Cells (<= Few) Urine Bacteria (None Seen) /HPF Urine Casts /LPF Ur Microscopic Review Urine Culture Comments Nasal Screen MRSA (PCR) (NEGATIVE) Urine Opiates Screen NEGATIVE (NEGATIVE) Ur Oxycodone Screen POSITIVE H (NEGATIVE) Urine Methadone Screen NEGATIVE (NEGATIVE) Ur Propoxyphene Screen NEGATIVE (NEGATIVE) Ur Barbiturates Screen NEGATIVE (NEGATIVE) Ur Tricyclics Screen NEGATIVE (NEGATIVE) Ur Phencyclidine Scrn NEGATIVE (NEGATIVE) Ur Amphetamine Screen NEGATIVE (NEGATIVE) U Methamphetamines Scrn NEGATIVE (NEGATIVE) U Benzodiazepines Scrn NEGATIVE (NEGATIVE) Urine Cocaine Screen NEGATIVE (NEGATIVE) U Cannabinoids Screen NEGATIVE (NEGATIVE) Ethyl Alcohol < 5.0 mg/dL 12/02/19 Range/Units 16:20 WBC (4.8-10.8) x10^3/uL RBC (4.20-5.40) 10^6/uL Hgb (12.0-16.0) g/dL Hct (37.0-47.0) % MCV (81.0-99.0) fL MCH (27.0-31.0) pg MCHC (32.0-36.0) g/dL RDW (12.0-15.0) % Plt Count (130-450) 10^3/uL MPV (7.9-10.8) fL Neut # (Auto) (1.5-6.6) 10^3/uL Lymph # (Auto) (1.5-3.5) 10^3/uL Whitman # (Auto) (0.0-1.0) 10^3/uL Eos # (Auto) (0.0-0.7) 10^3/uL Baso # (Auto) (0.0-0.1) 10^3/uL Absolute Nucleated RBC x10^3/uL Band Neuts % (Manual) Abnorm Lymph % (Manual) Nucleated RBC % /100WBC Neutrophils # (Manual) Lymphocytes # (Manual) Monocytes # (Manual) Eosinophils # (Manual) Basophils # (Manual) Differential Comment Manual Slide Review Platelet Estimate (NORMAL) Platelet Morphology (NORMAL) RBC Morph Micro Appear (NORMAL) PT (9.9-12.6) secs INR (0.8-1.2) APTT (24.9-33.3) secs VBG pH (7.31-7.41) VBG pCO2 (41-51) mmHg VBG pO2 (25-47) mmHg VBG HCO3 (23-28) mmol/L VBG Total CO2 (24-29) mmol/L VBG O2 Saturation (60-80) % VBG Base Excess (-2 - +2) mmol/L Sodium (135-145) mmol/L Potassium (3.5-5.0) mmol/L Chloride (101-111) mmol/L Carbon Dioxide (21-32) mmol/L Anion Gap (6-13) BUN (6-20) mg/dL Creatinine (0.4-1.0) mg/dL Estimated GFR (MDRD) (>89) Glucose (70-100) mg/dL Lactic Acid (0.5-2.2) mmol/L Calcium (8.5-10.3) mg/dL Phosphorus (2.5-4.6) mg/dL Magnesium (1.7-2.8) mg/dL Total Bilirubin (0.2-1.0) mg/dL Direct Bilirubin (0.1-0.5) mg/dL AST (10-42) IU/L ALT (10-60) IU/L Alkaline Phosphatase (42-121) IU/L Ammonia (7-35) umol/L Troponin I High Sens (2.3-14.8) ng/L B-Natriuretic Peptide (5-100) pg/mL Total Protein (6.7-8.2) g/dL Albumin (3.2-5.5) g/dL Globulin (2.1-4.2) g/dL Albumin/Globulin Ratio (1.0-2.2) Lipase (22-51) U/L Urine Color YELLOW Urine Clarity CLEAR (CLEAR) Urine pH 5.5 (5.0-7.5) PH Ur Specific Harshaw 1.020 (1.002-1.030) Urine Protein NEGATIVE (NEGATIVE) mg/dL Urine Glucose (UA) NEGATIVE (NEGATIVE) mg/dL Urine Ketones NEGATIVE (NEGATIVE) mg/dL Urine Occult Blood SMALL H (NEGATIVE) Urine Nitrite NEGATIVE (NEGATIVE) Urine Bilirubin NEGATIVE (NEGATIVE) Urine Urobilinogen 0.2 (NORMAL) (NORMAL) E.U./dL Ur Leukocyte Esterase NEGATIVE (NEGATIVE) Urine RBC 6-10 H (0-5) /HPF Urine WBC 0-3 (0-5) /HPF Ur Squamous Epith Cells RARE Squamous (<= Few) Urine Bacteria Rare (None Seen) /HPF Urine Casts 11-25 Hyaline Casts /LPF Ur Microscopic Review INDICATED Urine Culture Comments NOT INDICATED Nasal Screen MRSA (PCR) (NEGATIVE) Urine Opiates Screen (NEGATIVE) Ur Oxycodone Screen (NEGATIVE) Urine Methadone Screen (NEGATIVE) Ur Propoxyphene Screen (NEGATIVE) Ur Barbiturates Screen (NEGATIVE) Ur Tricyclics Screen (NEGATIVE) Ur Phencyclidine Scrn (NEGATIVE) Ur Amphetamine Screen (NEGATIVE) U Methamphetamines Scrn (NEGATIVE) U Benzodiazepines Scrn (NEGATIVE) Urine Cocaine Screen (NEGATIVE) U Cannabinoids Screen (NEGATIVE) Ethyl Alcohol mg/dL - Diagnostic Imaging Diagnostic Imaging Results: positive: Final report reviewed Sepsis Event Note (H) - Evaluation Current Stage of Sepsis: Severe sepsis Possible source of Sepsis: positive: Unknown - Sepsis Criteria Sepsis Criteria: Recorded Temperature greater than 38.3C or Less than 36C, Recorded Heart Rate greater than 90 bpm, Recorded Respiratory Rate greater than 20, Respiratory: Increasing oxygen requirements, WBC count greater than 12,000 or less than 4000, [employer]: altered consciousness (unrelated to primary neuro pathology) Assessment/Plan - Problem List (1) Encephalopathy Impression: Etiology is not clear at this time. Her ammonia is only slightly elevated and would not explain her change in mental status. This may potentially be due to sepsis given her fever and elevated white count. Given she is coagulopathic, a CT of the head showed no bleed. We continue empiric IV antibiotics for suspected sepsis. Given she is intubated, we will keep her sedated with propofol and morphine IV as needed. (2) Acute respiratory failure with hypoxia Impression: This may be secondary to CHF. She was hypoxic on room air and she required 3 L of oxygen to maintain her oxygen saturations. She was ultimately intubated for airway protection due to her encephalopathy. Chest x-ray shows possible pulmonary vascular congestion. This may also be related to her sepsis and encephalopathy. Vent management as per protocol. We will hope to extubate her once mental status improves and so we will assess her neurologic status on a daily basis with sedation vacation. COVID result is pending. Isolation continues. Her echo shows RV dilation with severe pulmonary pretension. She may need specialty care with cardiology and pulmonology, and may be a difficult extubation. (3) SIRS (systemic inflammatory response syndrome) Impression: Concern is for sepsis given her elevated white count, fever, tachycardia. There is no obvious source of infection at this time. Chest x-ray does not reveal any obvious infiltrate, her urinalysis unremarkable, and imaging of the abdomen did not reveal a source of infection. She received vancomycin, cefepime, Flagyl IV in the emergency department. We will continue her on these broad-spectrum antibiotics given the concern for severe sepsis. Hold off on administering IV fluids given she is normotensive and has diffuse a nasarca. Follow CBC, await blood cultures. If she continues to have diarrhea with her lactulose is held then we will check her for C. difficile. (4) Suspected CHF (congestive heart failure) Impression: Suspect she has congestive heart failure given her elevated BNP and pulmonary vascular congestion on imaging. She was given a dose of IV Lasix in the emergency department. We will hold off on further Lasix at this time given she is normotensive and t here is concern for possible sepsis still. Echocardiogram done today shows Normal LVEF, possibly LV diastolic dysfunction. There is RV dilation and failure and severe pulmonary pretension. Also seen was mild to moderate mitral stenosis. This would be excessive effects of back pressure from just mild to moderate mitral stenosis, however. There has not been an echo done before to know what her PA pressure was previously. 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 Her baseline creatinine fluctuates from 1.7-2.2. Her creatinine here is 2.2-2.3 which appears at baseline for her. We will continue to monitor her renal function and urine output. Avoid nephrotoxins. 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 Her meld score is 27. Her language translator is at [facility]. Qualifiers: Hepatic cirrhosis type: alcoholic cirrhosis Ascites presence: without ascites Qualified Code(s): K70.30 - Alcoholic cirrhosis of liver without ascites (7) History of alcohol abuse Impression: As per Hx (8) Elevated troponin Impression: Troponins were 85>> 158>> 82. Suspect this is likely demand ischemia. The rapid increase in rapid decline are not consistent with acute DC. Her EKG does not suggest any active ischemia. Monitor on telemetry. (9) Anemia Impression: She has chronic anemia due to iron deficiency secondary to gastrointestinal bleeding. Her adm hemoglobin was 8.2 which was relatively stable for the patient. There is no evidence of bleeding at this time. Today Hgb is 7.4. Possibly hemodilutional. Monitor her CBC daily. Will transfuse for goal hemoglobin greater than 7. Qualifiers: Anemia type: unspecified type Qualified Code(s): D64.9 - Anemia, unspecified (10) Thrombocytopenia Impression: This is secondary to her liver cirrhosis. Her platelet count is 80s>> 70's today. There is no evidence of bleeding at this time. We will hold off on chemical DVT prophylaxis given her INR is nearly 2 and plts low. (11) Esophageal varices Impression: Will hold off on any NG tube because of low platelets, high INR, history of known varices in the esophagus. Calories will have to be with peripheral hydration until she is extubated. Qualifiers: Esophageal varices type: unspecified type Esophageal varices bleeding: with bleeding Qualified Code(s): I85.01 - Esophageal varices with bleeding (12) Hypothyroidism Impression: We will eventually continue her home Synthroid.
[2019-12-03] MEDS ORDERED: SODIUM CHLORIDE 0.9% 500 ML IV ONE (20:02)
[2019-12-03] MEDS: SODIUM CHLORIDE 0.9% 500 ML IV PRN (20:07)
[2019-12-03] MEDS ORDERED: VANCOMYCIN INJ 1.25 GM in SODIUM CHLORIDE 0.9% 250 ML IV SCH (22:00)
[2019-12-03] MEDS: VANCOMYCIN INJ 1.25 GM in SODIUM CHLORIDE 0.9% 250 ML IV SCH (22:17)
[2019-12-04] MEDS ORDERED: DEXTROSE 25% ABBOJECT 2.5 GM/10 ML SYRINGE IVP ONE (00:15)
[2019-12-04] MEDS: DEXTROSE 5% 1,000 ML IV SCH ×2 (00:42→14:41)
[2019-12-04] MEDS: SODIUM CHLORIDE FLUSH 0.9% 10 ML SYRINGE IVP PRN ×2 (00:43→14:39)
[2019-12-04] MEDS: metroNIDAZOLE 500 MG/100 ML 500 MG/100 ML BAG IV SCH ×3 (00:43→17:24)
[2019-12-04] MEDS: SODIUM CHLORIDE FLUSH 0.9% 10 ML SYRINGE IVP SCH ×3 (00:43→17:24)
[2019-12-04] MEDS: PROPOFOL 500 MG/50 ML 500 MG/50 ML VIAL IV SCH ×3 (01:58→16:27)
[2019-12-04] MEDS: CEFEPIME 1 GM in SODIUM CHLORIDE 0.9% MINIBAG 100 ML IV SCH ×2 (05:12→16:28)
[2019-12-04 05:32] LABS: BASOPHILS % (AUTO) 0.2 %; EOSINOPHILS # (AUTO) 0.3 10^3/uL (0.0-0.7); EOSINOPHILS % (AUTO) 3.2 %; HGB - HEMOGLOBIN 7.1 g/dL (12.0-16.0); LYMPHOCYTES # (AUTO) 0.3 10^3/uL (1.5-3.5); LYMPHOCYTES % (AUTO) 3.7 %; MEAN CORPUSCULAR HEMOGLOBIN 32.9 pg (27.0-31.0); MEAN CORPUSCULAR HGB CONC 31.1 g/dL (32.0-36.0); MEAN CORPUSCULAR VOLUME 105.6 fL (81.0-99.0); MEAN PLATELET VOLUME 8.8 fL (7.9-10.8); MONOCYTES # (AUTO) 0.4 10^3/uL (0.0-1.0); MONOCYTES % (AUTO) 4.7 %; NEUTROPHILS # (AUTO) 7.3 10^3/uL (1.5-6.6); NEUTROPHILS % (AUTO) 87.6 %; PLT - PLATELET COUNT 59 10^3/uL (130-450); RED BLOOD COUNT 2.16 10^6/uL (4.20-5.40); RED CELL DISTRIBUTION WIDTH 25.2 % (12.0-15.0); WHITE BLOOD COUNT 8.4 x10^3/uL (4.8-10.8)
[2019-12-04 05:48] LABS: ALBUMIN 1.4 g/dL (3.2-5.5); BILIRUBIN,DIRECT 1.2 mg/dL (0.1-0.5); BILIRUBIN,TOTAL 2.6 mg/dL (0.2-1.0); CALCIUM 7.6 mg/dL (8.5-10.3); CREATININE 2.5 mg/dL (0.4-1.0); MAGNESIUM 2.5 mg/dL (1.7-2.8); TOTAL PROTEIN 3.7 g/dL (6.7-8.2)
[2019-12-04 05:53] LABS: PLATELET ESTIMATE, MANUAL DECREASED (<130,000) (NORMAL); PLATELET MORPHOLOGY NORMAL APPEARANCE (NORMAL)
[2019-12-04] MEDS: PANTOPRAZOLE 40 MG VIAL IVP SCH (06:28)
--- NOTE | 2019-12-04 08:52 | PROVIDER PROGRESS NOTE ---
Subjective - Prog Note Date Prog Note Date: 12/04/19 Prog Note Time: 13:20 - Subjective Subjective: Yesterday when we reduced her propofol, she would regain consciousness enough that her feet started to drum on the foot of her bed. Today when we reduce the propofol from 20-15, not much response. She has minimal urine output of 2 to 3 cc an hour. Remains encephalopathic. Blood pressure in the high 90s systolic. Requiring FiO2 of 35%. She is intubated because of respiratory failure causing hypoxia as well as airway protection in the face of severe encephalopathy. Ascitic fluid cultures have no growth to date. She had her belly tapped in the ER. Blood cultures have grown out MRSA in both bottles. Current Medications - Current Medications Current Medications: Active Medications Acetaminophen (Tylenol) 650 mg WI Q6HR PRN PRN Reason: Pain or Fever > 38C (100.4F) Alcohol (Nozin) 1 amp JANICE BID [facility] Last Admin: 12/04/19 10:04 Dose: 1 amp Documented by: Heparin Sodium (Beef Lung) () 30 - 50 unit IVP PRN PRN PRN Reason: Central Line Protocol (<24 hr) Last Admin: 12/03/19 05:52 Dose: 50 unit Documented by: Propofol (Diprivan) 500 mg in 50 mls @ 4.56 mls/hr IV .[id number] [facility]; Protocol Last Admin: 12/04/19 07:51 Dose: 16 mcg/kg/min, 7.296 mls/hr Documented by: Cefepime HCl 1 gm/ Sodium (Chloride) 100 mls @ 200 mls/hr IV Q12H [facility] Last Infusion: 12/04/19 05:56 Dose: Infused Documented by: Metronidazole (Flagyl 500 Mg/100 Ml) 500 mg in 100 mls @ 100 mls/hr IV Q8H [facility] Last Infusion: 12/04/19 11:18 Dose: Infused Documented by: Vancomycin HCl 1.25 gm/ Sodium (Chloride) 250 mls @ 167 mls/hr IV Q36H [facility] Last Infusion: 12/04/19 00:37 Dose: Infused Documented by: Dextrose (D5w) 1,000 mls @ 75 mls/hr IV .[id number] [facility] Last Admin: 12/04/19 00:42 Dose: 75 mls/hr Documented by: Sodium Chloride (Normal Saline 0.9%) 500 mls @ 999 mls/hr IV ONCE ONE Stop: 12/04/19 13:39 Lactulose (Lactulose) 60 gm WI DAILY [facility] Last Admin: 12/04/19 11:25 Dose: 60 gm Documented by: Morphine Sulfate (Morphine (Carpuject)) 2 mg IVP Q2HR PRN PRN Reason: PAIN Last Admin: 12/03/19 17:50 Dose: 2 mg Documented by: Ondansetron HCl (Zofran Inj) 4 mg IVP Q6HR PRN PRN Reason: Nausea / Vomiting Pantoprazole Sodium (Protonix) 40 mg IVP QDAC [facility] Last Admin: 12/04/19 06:28 Dose: 40 mg Documented by: Sodium Chloride (Normal Saline Flush 0.9%) 10 ml IVP 0100,0900,1700 [facility] Last Admin: 12/04/19 00:43 Dose: 10 ml Documented by: Sodium Chloride (Normal Saline Flush 0.9%) 10 ml IVP PRN PRN PRN Reason: NEEDED PER PROVIDER ORDERS Last Admin: 12/04/19 00:43 Dose: 10 ml Documented by: Sodium Chloride (Normal Saline Flush 0.9%) 20 ml IVP PRN PRN PRN Reason: After Blood Draw Last Admin: 12/03/19 05:51 Dose: 20 ml Documented by: Vancomycin HCl (Vancomycin-Pharmacy To Dose) 1 each IV ONCE PRN PRN Reason: PER PHARMACY Stop: 12/12/19 19:46 Ondansetron Odt [Zofran Odt] 4 mg TL Q8H PRN 01/08/19 Sucralfate [Carafate] 1 gm PO QID 04/30/19 Levothyroxine [Synthroid] 75 mcg PO DAILY 09/07/19 Lidocaine Patch 5% [Lidoderm Patch] 1 patch TP DAILY PRN 09/07/19 Ascorbic Acid [Vitamin C] 500 mg PO .QOD 12/03/19 Folic Acid 1 mg PO DAILY 12/03/19 Furosemide 20 mg PO DAILY 12/03/19 Pantoprazole Sodium [Protonix] 40 mg PO DAILY 12/03/19 Potassium Chloride [Klor-Con 10] 10 meq PO DAILY 12/03/19 Spironolactone 50 mg PO DAILY 12/03/19 Torsemide 20 mg PO DAILY 12/03/19 oxyCODONE [Roxicodone] 5 mg PO Q6H PRN 12/03/19 Objective - Vital Signs/Intake & Output Reviewed Vital Signs: Yes Vital Signs: Vital Signs Temp Pulse Pulse Resp BP Pulse Ox 12/04/19 08:31 53 L 12/04/19 07:00 55 L 16 94/66 100 12/04/19 06:00 57 L 16 94/60 100 12/04/19 05:35 56 L 12/04/19 05:00 35.9 C L 55 L 16 99/61 100 Intake & Output: Intake & Output 12/01/19 12/02/19 12/03/19 12/04/19 23:59 23:59 23:59 23:59 Intake Total 941.092 7593.216 533.136 Output Total 190 524 121 Balance 539.750 722.216 412.136 - Objective General Appearance: positive: Other (intubated and sedated with propofol, very cuellar/yellow skin color) Eyes Bilateral: positive: PERRL (but slightly dilated and sluggish) Eyes: OU Scleral icterus Neck: positive: No JVD Respiratory: positive: Chest non-tender, No respiratory distress, Rales Cardiovascular: positive: Regular rate & rhythm. negative: Systolic murmur, Gallop/S4 Abdomen: positive: Non-tender, Abnml bowel sounds (hypoactive bowel sounds), Other (large abd panus that is flacid not tense. tense umbilial hernia can't be reduced. skin of abd and back has thick, woody texture as well as edema.) Skin: positive: Warm, Dry, Pallor, Other (diffuse anasarca worse in her dependent areas of butt, back, etc.) Extremities: positive: Pedal edema Neurologic/Psychiatric: positive: Other (intubated and sedated.) - Lab Results Fish Bones: 12/04/19 05:18 12/04/19 05:18 Other Labs: Lab Results x24hrs 12/04/19 12/04/19 12/04/19 Range/Units 05:18 05:18 05:18 WBC 8.4 (4.8-10.8) x10^3/uL RBC 2.16 L (4.20-5.40) 10^6/uL Hgb 7.1 L (12.0-16.0) g/dL Hct 22.8 L (37.0-47.0) % MCV 105.6 H (81.0-99.0) fL MCH 32.9 H (27.0-31.0) pg MCHC 31.1 L (32.0-36.0) g/dL RDW 25.2 H (12.0-15.0) % Plt Count 59 L (130-450) 10^3/uL MPV 8.8 (7.9-10.8) fL Neut # (Auto) 7.3 H (1.5-6.6) 10^3/uL Lymph # (Auto) 0.3 L (1.5-3.5) 10^3/uL Webster # (Auto) 0.4 (0.0-1.0) 10^3/uL Eos # (Auto) 0.3 (0.0-0.7) 10^3/uL Baso # (Auto) 0.0 (0.0-0.1) 10^3/uL Absolute Nucleated RBC 0.00 x10^3/uL Nucleated RBC % 0.0 /100WBC Manual Slide Review Indicated WBC Morphology NORMAL APPEARANCE (NORMAL) Platelet Estimate DECREASED (<130,000) (NORMAL) Platelet Morphology NORMAL APPEARANCE (NORMAL) RBC Morph Micro Appear 1+ POLYCHROMASIA (NORMAL) Sodium 138 (135-145) mmol/L Potassium 3.9 (3.5-5.0) mmol/L Chloride 104 (101-111) mmol/L Carbon Dioxide 21 (21-32) mmol/L Anion Gap 13.0 (6-13) BUN 54 H (6-20) mg/dL Creatinine 2.5 H (0.4-1.0) mg/dL Estimated GFR (MDRD) 20 L (>89) Glucose 109 H (70-100) mg/dL Calcium 7.6 L (8.5-10.3) mg/dL Phosphorus 5.0 H (2.5-4.6) mg/dL Magnesium 2.5 (1.7-2.8) mg/dL Total Bilirubin 2.6 H (0.2-1.0) mg/dL Direct Bilirubin 1.2 H (0.1-0.5) mg/dL AST 38 (10-42) IU/L ALT 21 (10-60) IU/L Alkaline Phosphatase 99 (42-121) IU/L Ammonia 63.5 H (7-35) umol/L Total Protein 3.7 L (6.7-8.2) g/dL Albumin 1.4 L (3.2-5.5) g/dL Globulin 2.3 (2.1-4.2) g/dL Coronavirus (PCR) 12/02/19 Range/Units 19:30 WBC (4.8-10.8) x10^3/uL RBC (4.20-5.40) 10^6/uL Hgb (12.0-16.0) g/dL Hct (37.0-47.0) % MCV (81.0-99.0) fL MCH (27.0-31.0) pg MCHC (32.0-36.0) g/dL RDW (12.0-15.0) % Plt Count (130-450) 10^3/uL MPV (7.9-10.8) fL Neut # (Auto) (1.5-6.6) 10^3/uL Lymph # (Auto) (1.5-3.5) 10^3/uL Webster # (Auto) (0.0-1.0) 10^3/uL Eos # (Auto) (0.0-0.7) 10^3/uL Baso # (Auto) (0.0-0.1) 10^3/uL Absolute Nucleated RBC x10^3/uL Nucleated RBC % /100WBC Manual Slide Review WBC Morphology (NORMAL) Platelet Estimate (NORMAL) Platelet Morphology (NORMAL) RBC Morph Micro Appear (NORMAL) Sodium (135-145) mmol/L Potassium (3.5-5.0) mmol/L Chloride (101-111) mmol/L Carbon Dioxide (21-32) mmol/L Anion Gap (6-13) BUN (6-20) mg/dL Creatinine (0.4-1.0) mg/dL Estimated GFR (MDRD) (>89) Glucose (70-100) mg/dL Calcium (8.5-10.3) mg/dL Phosphorus (2.5-4.6) mg/dL Magnesium (1.7-2.8) mg/dL Total Bilirubin (0.2-1.0) mg/dL Direct Bilirubin (0.1-0.5) mg/dL AST (10-42) IU/L ALT (10-60) IU/L Alkaline Phosphatase (42-121) IU/L Ammonia (7-35) umol/L Total Protein (6.7-8.2) g/dL Albumin (3.2-5.5) g/dL Globulin (2.1-4.2) g/dL Coronavirus (PCR) NEGATIVE Sepsis Event Note (H) - Evaluation Current Stage of Sepsis: Severe sepsis Possible source of Sepsis: positive: Unknown - Sepsis Criteria Sepsis Criteria: Recorded Temperature greater than 38.3C or Less than 36C, Recorded Heart Rate greater than 90 bpm, Recorded Respiratory Rate greater than 20, Respiratory: Increasing oxygen requirements, WBC count greater than 12,000 or less than 4000, REFRIGERATION TECH: altered consciousness (unrelated to primary neuro pathology) Assessment/Plan - Problem List (1) Encephalopathy Impression: Etiology is not clear at this time but most likely it's her sepsis. Her ammonia is only slightly elevated and would not explain her change in mental status. Given she is coagulopathic, a CT of the head showed no bleed. She is not waking up in spite of lowering her propofol dose today. Plan: We continue empiric IV antibiotics for suspected sepsis. Given she is intubated, we will keep her sedated with propofol and morphine IV as needed. Continue to watch ammonia level and I will add lactulose again since it was s topped for diarrhea The patients daughter, Larry, is POA and I did update her on patients progress s o far. (2) Acute respiratory failure with hypoxia Impression: This may be secondary to CHF. She was hypoxic on room air and she required 3 L of oxygen to maintain her oxygen saturations. She was ultimately intubated for airway protection due to her encephalopathy. Chest x-ray shows possible pulmonary vascular congestion. This may also be related to her sepsis and encephalopathy. Vent management as per protocol. Today respiratory says she's not awake enough to try to extubate. We will hope to extubate her once mental status improves and so we will assess her neurologic status on a daily basis with sedation vacation. COVID result is negative. Isolation can stop. Her echo shows RV dilation with severe pulmonary pretension. She may need specialty care with cardiology and pulmonology, and may be a difficult extubation. (3) SIRS (systemic inflammatory response syndrome) Impression: Concern is for sepsis given her elevated white count, fever, tachycardia and MRSA bacteremia. There is no obvious source of infection at this time. Chest x-ray does not reveal any obvious infiltrate, her urinalysis unremarkable, and imaging of the abdomen did not reveal a source of infection. She received vancomycin, cefepime, Flagyl IV in the emergency department. We will continue her on these broad-spectrum antibiotics given the concern for severe sepsis. We held off on administering IV fluids given she was normotensive and has diffuse anasarca. Today will give her 500 cc bolus of NS since BP lower and UOP nil. Following CBC Her blood cultures were MRSA positive and her ascitic fluid was negative. I've called for ID consult line to ask for advice. (4) Suspected CHF (congestive heart failure) Impression: Suspect she has congestive heart failure given her elevated BNP and pulmonary vascular congestion on imaging even though ECHO confirms primarily right sided heart failure. She was given a dose of IV Lasix in the emergency department. We will held off on further Lasix given she was normotensive and there is concern for possible sepsis still. Echocardiogram done 12/01 shows Normal LVEF, possibly grade 2 LV diastolic dysfunction. Severely dilated atria. There is RV dilation and failure and severe pulmonary pretension. Also seen was mild to moderate mitral stenosis and severe tricuspid regurg. This would be excessive effects of back pressure from just mild to moderate mitral stenosis, however. There has not been an echo done before to know what her PA pressure was previously. Pressures on right 108 mmHg. No vegetations. Her pulmonary hypertension is the reason she is not a candidate for liver transplant. So this unfortunate patient is need for diuresis in the face of liver failure with anasarca but has low blood pressures. 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 Her baseline creatinine fluctuates from 1.7-2.2. Her creatinine here is 2.2-2.3 which appears at baseline for her. We will continue to monitor her renal function and urine output. Avoid nephrotoxins. 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 Her meld score is 27. Her leasing specialist is at [facility]. I did call the gastroenterology department at [facility] and call [phone]. They do not feel that she is an active patient in the department. She has had an EGD and paracentesis with them. But she is not been seen in a visit with a physician for a while. When I spoke to the patient's daughter, Larry, Larry feels that there was a successful telemedicine visit done. Larry regards the GI department as the de facto physicians for her mom. Qualifiers: Hepatic cirrhosis type: alcoholic cirrhosis Ascites presence: without ascites Qualified Code(s): K70.30 - Alcoholic cirrhosis of liver without ascites (7) History of alcohol abuse Impression: As per Hx (8) Elevated troponin Impression: Troponins were 85>> 158>> 82. Suspect this is likely demand ischemia. The rapid increase in rapid decline are not consistent with acute VT. Her EKG does not suggest any active ischemia. Monitor on telemetry. (9) Anemia Impression: She has chronic anemia due to iron deficiency secondary to gastrointestinal bleeding. Her adm hemoglobin was 8.2 which was relatively stable for the patient. There is no evidence of bleeding at this time. Hgb trend is downward with 8.2>>7.4>>7.1 today. Monitor her CBC daily. Will transfuse for goal hemoglobin greater than 7. Qualifiers: Anemia type: unspecified type Qualified Code(s): D64.9 - Anemia, unspecified (10) Thrombocytopenia Impression: This is secondary to her liver cirrhosis. Her platelet count is 80s>> 70>>59 today. There is no evidence of bleeding at this time. We will hold off on chemical DVT prophylaxis given her INR is nearly 2 and plts low. (11) Esophageal varices Impression: Will hold off on any NG tube because of low platelets, high INR, history of known varices in the esophagus. Calories will have to be with peripheral hydration until she is extubated. Qualifiers: Esophageal varices type: unspecified type Esophageal varices bleeding: with bleeding Qualified Code(s): I85.01 - Esophageal varices with bleeding (12) Hypothyroidism Impression: We will eventually continue her home Synthroid.
[2019-12-04] MEDS: ethyl alcohoL 62% SWAB AMPULE NAS SCH ×2 (10:04→20:45)
--- NOTE | 2019-12-04 10:51 | XRAY Report ---
PROCEDURE: Chest 1 View X-Ray INDICATIONS: chf and hypoxia followup TECHNIQUE: One view of the chest was acquired. COMPARISON: Chest x-ray 12/02/2019 FINDINGS: Surgical changes and devices: Endotracheal tube, right-sided central venous catheter unchanged. Nasog astric tube has been removed. Stent device is noted overlying the right upper quadrant. Lungs and pleura: There is persistent appearance of increased pulmonary vascularity bilaterally. The re is slight increased opacification within the left hemithorax compared to prior exam. Previous righ t pleural effusion has markedly improved. Mediastinum: Mediastinal contours appear normal. Heart size is normal. Bones and chest wall: No suspicious bony lesions. Overlying soft tissues appear unremarkable. IMPRESSION: 1. Support lines as above. 2. Improved right pleural effusion. 3. Persistent left pleural effusion with increased opacification left hemithorax possibly related to enlarging effusion or superimposed areas of focal edema and/or airspace disease. 4. Increased pulmonary vascularity, suggestive of edema. Reviewed by: Inga Martinez MD on 12/04/2019 10:50 AM PDT Approved by: Inga Martinez MD on 12/04/2019 10:50 AM PDT Station ID: [id number]
[2019-12-04] MEDS: LACTULOSE 10 GM/15 ML BOTTLE PR SCH (11:25)
[2019-12-04] MEDS ORDERED: SODIUM CHLORIDE 0.9% 500 ML IV ONE (13:09)
[2019-12-04] MEDS ORDERED: FUROSEMIDE 20 MG/2 ML VIAL IVP ONE (18:08)
[2019-12-04] MEDS: CHLORHEXIDINE GLUCONATE 15 ML UDC PO SCH (22:02)
[2019-12-05] MEDS: SODIUM CHLORIDE FLUSH 0.9% 10 ML SYRINGE IVP SCH ×4 (00:26→21:04)
[2019-12-05] MEDS: metroNIDAZOLE 500 MG/100 ML 500 MG/100 ML BAG IV SCH ×2 (00:26→09:28)
[2019-12-05] MEDS: PROPOFOL 500 MG/50 ML 500 MG/50 ML VIAL IV SCH ×2 (04:36→19:47)
[2019-12-05] MEDS: DEXTROSE 5% 1,000 ML IV SCH ×2 (04:52→19:47)
[2019-12-05] MEDS: CEFEPIME 1 GM in SODIUM CHLORIDE 0.9% MINIBAG 100 ML IV SCH (04:55)
[2019-12-05] MEDS: PANTOPRAZOLE 40 MG VIAL IVP SCH (06:06)
[2019-12-05 08:14] LABS: BASOPHILS % (AUTO) 0.4 %; EOSINOPHILS # (AUTO) 0.5 10^3/uL (0.0-0.7); EOSINOPHILS % (AUTO) 6.7 %; HGB - HEMOGLOBIN 10.9 g/dL (12.0-16.0); LYMPHOCYTES # (AUTO) 0.3 10^3/uL (1.5-3.5); LYMPHOCYTES % (AUTO) 4.3 %; MEAN CORPUSCULAR HEMOGLOBIN 37.3 pg (27.0-31.0); MEAN CORPUSCULAR HGB CONC 36.3 g/dL (32.0-36.0); MEAN CORPUSCULAR VOLUME 102.7 fL (81.0-99.0); MEAN PLATELET VOLUME 9.9 fL (7.9-10.8); MONOCYTES # (AUTO) 0.7 10^3/uL (0.0-1.0); MONOCYTES % (AUTO) 9.7 %; NEUTROPHILS # (AUTO) 5.9 10^3/uL (1.5-6.6); NEUTROPHILS % (AUTO) 78.2 %; PLT - PLATELET COUNT 54 10^3/uL (130-450); RED BLOOD COUNT 2.92 10^6/uL (4.20-5.40); WHITE BLOOD COUNT 7.6 x10^3/uL (4.8-10.8)
[2019-12-05 08:17] LABS: ALBUMIN 1.5 g/dL (3.2-5.5); ALBUMIN/GLOBULIN RATIO 0.6 (1.0-2.2); CALCIUM 7.5 mg/dL (8.5-10.3); CREATININE 2.5 mg/dL (0.4-1.0); TOTAL PROTEIN 4.2 g/dL (6.7-8.2)
[2019-12-05 08:19] LABS: ALBUMIN 1.3 g/dL (3.2-5.5); BILIRUBIN,DIRECT 1.6 mg/dL (0.1-0.5); BILIRUBIN,TOTAL 4.1 mg/dL (0.2-1.0); MAGNESIUM 2.5 mg/dL (1.7-2.8); TOTAL PROTEIN 4.1 g/dL (6.7-8.2)
[2019-12-05] MEDS: ethyl alcohoL 62% SWAB AMPULE NAS SCH ×2 (09:32→20:35)
[2019-12-05] MEDS: CHLORHEXIDINE GLUCONATE 15 ML UDC PO SCH ×2 (09:32→20:35)
[2019-12-05] MEDS: LACTULOSE 10 GM/15 ML BOTTLE PR SCH (10:45)
[2019-12-05] MEDS: VANCOMYCIN INJ 1.25 GM in SODIUM CHLORIDE 0.9% 250 ML IV SCH ×2 (11:13→12:24)
--- NOTE | 2019-12-05 11:30 | PROVIDER PROGRESS NOTE ---
Subjective - Prog Note Date Prog Note Date: 12/05/19 Prog Note Time: 11:30 - Subjective Subjective: This she received 2 units of packed cells yesterday. Hemoglobin now 10.9, daughter was concerned that mom usually gets transfused at 7.0. Took a long time to screen her because of antibodies. Tolerated transfusion. She is still unresponsive. Does spontaneously grimace but not in relation to being moved or touched. Minimal urine output even with a 500 cc fluid bolus yesterday. Blood pressure is 120s to 130s systolic, 70s to 90s diastolic. No fever since admission. She was 38.1 then. Since then she has been afebrile. This morning 34.5, and this late morning 36.4. Enema partially unsuccessful. Even though medicine was inserted correctly, lactulose to use at her rectum almost immediately with no retention. Current Medications - Current Medications Current Medications: Active Medications Acetaminophen (Tylenol) 650 mg AR Q6HR PRN PRN Reason: Pain or Fever > 38C (100.4F) Alcohol (Nozin) 1 amp JANICE BID [facility] Last Admin: 12/05/19 09:32 Dose: 1 amp Documented by: Chlorhexidine Gluconate (Peridex) 15 ml PO BID SUMEET Last Admin: 12/05/19 09:32 Dose: 15 ml Documented by: Heparin Sodium (Beef Lung) () 30 - 50 unit IVP PRN PRN PRN Reason: Central Line Protocol (<24 hr) Last Admin: 12/03/19 05:52 Dose: 50 unit Documented by: Propofol (Diprivan) 500 mg in 50 mls @ 4.56 mls/hr IV .[id number] [facility]; Protocol Last Titration: 12/05/19 07:30 Dose: 0 mcg/kg/min, 0 mls/hr Documented by: Dextrose (D5w) 1,000 mls @ 75 mls/hr IV .[id number] [facility] Last Infusion: 12/05/19 04:52 Dose: Infused Documented by: Vancomycin HCl 1.25 gm/ Sodium (Chloride) 250 mls @ 167 mls/hr IV Q36H SUMEET Last Admin: 12/05/19 12:24 Dose: 167 mls/hr Documented by: Lactulose (Lactulose) 60 gm AR DAILY [facility] Last Admin: 12/05/19 10:45 Dose: 60 gm Documented by: Morphine Sulfate (Morphine (Carpuject)) 2 mg IVP Q2HR PRN PRN Reason: PAIN Last Admin: 12/03/19 17:50 Dose: 2 mg Documented by: Ondansetron HCl (Zofran Inj) 4 mg IVP Q6HR PRN PRN Reason: Nausea / Vomiting Pantoprazole Sodium (Protonix) 40 mg IVP QDAC SUMEET Last Admin: 12/05/19 06:06 Dose: 40 mg Documented by: Sodium Chloride (Normal Saline Flush 0.9%) 10 ml IVP 0100,0900,1700 [facility] Last Admin: 12/05/19 09:00 Dose: 10 ml Documented by: Sodium Chloride (Normal Saline Flush 0.9%) 10 ml IVP PRN PRN PRN Reason: NEEDED PER PROVIDER ORDERS Last Admin: 12/04/19 14:39 Dose: 10 ml Documented by: Sodium Chloride (Normal Saline Flush 0.9%) 20 ml IVP PRN PRN PRN Reason: After Blood Draw Last Admin: 12/03/19 05:51 Dose: 20 ml Documented by: Vancomycin HCl (Vancomycin-Pharmacy To Dose) 1 each IV ONCE PRN PRN Reason: PER PHARMACY Stop: 12/12/19 19:46 Ondansetron Odt [Zofran Odt] 4 mg TL Q8H PRN 01/08/19 Sucralfate [Carafate] 1 gm PO QID 04/30/19 Levothyroxine [Synthroid] 75 mcg PO DAILY 09/07/19 Lidocaine Patch 5% [Lidoderm Patch] 1 patch TP DAILY PRN 09/07/19 Ascorbic Acid [Vitamin C] 500 mg PO .QOD 12/03/19 Folic Acid 1 mg PO DAILY 12/03/19 Furosemide 20 mg PO DAILY 12/03/19 Pantoprazole Sodium [Protonix] 40 mg PO DAILY 12/03/19 Potassium Chloride [Klor-Con 10] 10 meq PO DAILY 12/03/19 Spironolactone 50 mg PO DAILY 12/03/19 Torsemide 20 mg PO DAILY 12/03/19 oxyCODONE [Roxicodone] 5 mg PO Q6H PRN 12/03/19 Objective - Vital Signs/Intake & Output Reviewed Vital Signs: Yes Vital Signs: Vital Signs Temp Pulse Resp BP Pulse Ox 12/05/19 11:00 70 16 127/90 H 100 12/05/19 10:00 54 L 16 127/80 100 12/05/19 09:00 36.4 C L 56 L 16 117/77 100 12/05/19 08:00 34.5 C L 55 L 16 129/91 H Intake & Output: Intake & Output 12/02/19 12/03/19 12/04/19 12/05/19 23:59 23:59 23:59 23:59 Intake Total 845.130 3946.216 2930.851 2227.472 Output Total 190 524 499 274 Balance 539.750 651.313 0278.851 1953.472 - Objective General Appearance: positive: Other (Unresponsive to voice, but does respond to deep sternal stimuli with facial grimace. Rare opening of eyes for the last 2 days.Intubated, on propofol drip. Malnourished argueta/yellow skin woman whose vitals are stable, respiratory effort stable.) Eyes Bilateral: positive: PERRL (But sluggish), Other (Icterus present both sclera) ENT: positive: Other (Poor, poor dentition. Tongue is thick and dry in spite of pink oral mucosa that is moist.) Neck: positive: No JVD. negative: Stiff neck Respiratory: positive: No respiratory distress, Other (Diminished breath sounds at the bases of axilla lungs, and when rolled over on her back.). negative: Wheezes, Rales, Rhonchi Cardiovascular: positive: Regular rate & rhythm. negative: Gallop/S4, Friction rub Abdomen: positive: Other (No grimace of pain with palpation of the belly. The skin of her abdominal pannus is thick and woody and firm with her edema. Nonreducible umbilical hernia. Hypoactive bowel sounds. No distention, flexural folds have some leakage of serous fluid.) Rectal: positive: Other (Intertriginous folds are without Camryn. Labia felt carefully for abscesses, nonpalpable. Skin of labia, pudendal, perineal area is normal.) Skin: positive: Warm, Pallor, Other (Multiple areas were flexural creases have spontaneous oozing of clear serous watery fluid. She has diffuse, tense skin and areas especially that her dependent skin. Anasarca is evident.) Extremities: positive: Pedal edema Neurologic/Psychiatric: positive: Other (Intubated, on propofol) - Lab Results Fish Bones: 12/05/19 07:45 12/05/19 07:45 Other Labs: Lab Results x24hrs 12/05/19 12/05/19 12/05/19 Range/Units 08:52 07:45 07:45 WBC (4.8-10.8) x10^3/uL RBC (4.20-5.40) 10^6/uL Hgb (12.0-16.0) g/dL Hct (37.0-47.0) % MCV (81.0-99.0) fL MCH (27.0-31.0) pg MCHC (32.0-36.0) g/dL RDW (12.0-15.0) % Plt Count (130-450) 10^3/uL MPV (7.9-10.8) fL Neut # (Auto) (1.5-6.6) 10^3/uL Lymph # (Auto) (1.5-3.5) 10^3/uL [place] # (Auto) (0.0-1.0) 10^3/uL Eos # (Auto) (0.0-0.7) 10^3/uL Baso # (Auto) (0.0-0.1) 10^3/uL Absolute Nucleated RBC x10^3/uL Nucleated RBC % /100WBC Sodium 134 L (135-145) mmol/L Potassium 3.5 (3.5-5.0) mmol/L Chloride 103 (101-111) mmol/L Carbon Dioxide 22 (21-32) mmol/L Anion Gap 9.0 (6-13) BUN 64 H (6-20) mg/dL Creatinine 2.5 H (0.4-1.0) mg/dL Estimated GFR (MDRD) 20 L (>89) Glucose 109 H (70-100) mg/dL Calcium 7.5 L (8.5-10.3) mg/dL Phosphorus (2.5-4.6) mg/dL Magnesium (1.7-2.8) mg/dL Total Bilirubin 4.0 H (0.2-1.0) mg/dL Direct Bilirubin (0.1-0.5) mg/dL AST 53 H (10-42) IU/L ALT 25 (10-60) IU/L Alkaline Phosphatase 114 (42-121) IU/L Ammonia 68.2 H (7-35) umol/L Total Protein 4.2 L (6.7-8.2) g/dL Albumin 1.5 L (3.2-5.5) g/dL Globulin 2.7 (2.1-4.2) g/dL Albumin/Globulin Ratio 0.6 L (1.0-2.2) Prealbumin 3 L (18-45) mg/dL Last Dose Date UNK Last Dose Time UNK Vancomycin Trough 21.0 H (10.0-20.0) ug/mL Blood Type Antibody Screen Antibody Identification Crossmatch 12/05/19 12/05/19 12/03/19 Range/Units 07:45 07:45 04:40 WBC 7.6 (4.8-10.8) x10^3/uL RBC 2.92 L (4.20-5.40) 10^6/uL Hgb 10.9 L (12.0-16.0) g/dL Hct 30.0 L (37.0-47.0) % MCV 102.7 H (81.0-99.0) fL MCH 37.3 H (27.0-31.0) pg MCHC 36.3 H (32.0-36.0) g/dL RDW 25.0 H (12.0-15.0) % Plt Count 54 L (130-450) 10^3/uL MPV 9.9 (7.9-10.8) fL Neut # (Auto) 5.9 (1.5-6.6) 10^3/uL Lymph # (Auto) 0.3 L (1.5-3.5) 10^3/uL [place] # (Auto) 0.7 (0.0-1.0) 10^3/uL Eos # (Auto) 0.5 (0.0-0.7) 10^3/uL Baso # (Auto) 0.0 (0.0-0.1) 10^3/uL Absolute Nucleated RBC 0.04 x10^3/uL Nucleated RBC % 0.5 /100WBC Sodium (135-145) mmol/L Potassium (3.5-5.0) mmol/L Chloride (101-111) mmol/L Carbon Dioxide (21-32) mmol/L Anion Gap (6-13) BUN (6-20) mg/dL Creatinine (0.4-1.0) mg/dL Estimated GFR (MDRD) (>89) Glucose (70-100) mg/dL Calcium (8.5-10.3) mg/dL Phosphorus 5.0 H (2.5-4.6) mg/dL Magnesium 2.5 (1.7-2.8) mg/dL Total Bilirubin 4.1 H (0.2-1.0) mg/dL Direct Bilirubin 1.6 H (0.1-0.5) mg/dL AST 53 H (10-42) IU/L ALT 26 (10-60) IU/L Alkaline Phosphatase 120 (42-121) IU/L Ammonia (7-35) umol/L Total Protein 4.1 L (6.7-8.2) g/dL Albumin 1.3 L (3.2-5.5) g/dL Globulin 2.8 (2.1-4.2) g/dL Albumin/Globulin Ratio (1.0-2.2) Prealbumin (18-45) mg/dL Last Dose Date Last Dose Time Vancomycin Trough (10.0-20.0) ug/mL Blood Type B POSITIVE Antibody Screen POSITIVE Antibody Identification Warm Auto Antibody Crossmatch See Detail Sepsis Event Note (H) - Evaluation Current Stage of Sepsis: Resolved Possible source of Sepsis: positive: Unknown - Sepsis Criteria Sepsis Criteria: Recorded Temperature greater than 38.3C or Less than 36C, Recorded Heart Rate greater than 90 bpm, Recorded Respiratory Rate greater than 20, Respiratory: Increasing oxygen requirements, WBC count greater than 12,000 or less than 4000, 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 Her ammonia is only slightly elevated and would not explain her change in mental status. Given she is coagulopathic, a CT of the head showed no bleed. She is not waking up in spite of lowering her propofol dose 12/03. In speaking to [facility] Medicine consult line for ID today, the only other thing we could do in work-up to identify infection as a possible cause of encephalopathy is to do a lumbar puncture. Plan: We continue empiric IV antibiotics for suspected sepsis. Given she is intubated, we will keep her sedated with propofol and morphine IV as needed. Continue to watch ammonia level and I change lactulose to po thru her OG tube (2) Acute respiratory failure with hypoxia Impression: This may be secondary to CHF. She was hypoxic on room air and she required 3 L of oxygen to maintain her oxygen saturations. She was ultimately intubated for airway protection due to her encephalopathy. Chest x-ray showed possible pulmonary vascular congestion. This may also be related to her sepsis and encephalopathy. Vent management as per protocol. She continues to have decreased response and not able to cooperate with Respiratory to extubate. We tried 12/03 as well. We will hope to extubate her once mental status improves and so we will assess her neurologic status on a daily basis with sedation vacation. COVID result is negative. Isolation can stop. Her echo shows RV dilation with severe pulmonary hypertension. She may need specialty care with cardiology and pulmonology, and may be at risk for re-intubation if she doesn't wake up. (3) SIRS (systemic inflammatory response syndrome) Impression: Concern is for sepsis given her elevated white count, fever, tachycardia and MRSA bacteremia. There is no obvious source of infection at this time. Chest x-ray does not reveal any obvious infiltrate, her urinalysis unremarkable, and imaging of the abdomen did not reveal a source of infection. She received vancomycin, cefepime, Flagyl IV in the emergency department. We continued her on these broad-spectrum antibiotics given the concern for severe sepsis. We held off on administering IV fluids given she was normotensive and has di ffuse anasarca but then gave her 500 cc bolus of NS since BP lower and UOP nil by 12/03. I called [facility] medicine consult line, and spoke to the infectious disease service. I had called them yesterday and they returned my call today. There are 3 other sources they want me to verify. One is a skin exam, which I did. There is nothing suggesting that she is a subcutaneous abscess. We examined labia, perineal folds, buttocks today. If repeat blood cultures are negative (those were done yesterday), then she does not need the stent for her TIPS removed. If they are positive, the stent may be the source of infection and it would need to be removed. The third possibility is meningitis. We carefully went over her history when she presented, and there is no indication she should get a lumbar puncture. Following CBC Her blood cultures were MRSA positive and her ascitic fluid was negative. Plan: de-escalate her abx and stop cefepime and flagyl but continue vancomycin for 10 days. (4) Suspected CHF (congestive heart failure) Impression: Suspect she has congestive heart failure given her elevated BNP and pulmonary vascular congestion on imaging even though ECHO confirms primarily right sided heart failure. She was given a dose of IV Lasix in the emergency department. We will held off on further Lasix given she was normotensive and there is concern for possible sepsis. Echocardiogram done 12/01 shows Normal LVEF, possibly grade 2 LV diastolic dysfunction. Severely dilated atria. There is RV dilation and failure and severe pulmonary pretension. Also seen was mild to moderate mitral stenosis and severe tricuspid regurg. This would be excessive effects of back pressure from just mild to moderate mitral stenosis, however. Pressures on right 108 mmHg. No vegetations. Her pulmonary hypertension is the reason she is not a candidate for liver transplant per her daughter. The ECHO was done with one of her hospitalizations. So this unfortunate patient is need for diuresis in the face of liver failure with anasarca but has low blood pressures. Today I will try lasix followed by albumin. 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 Her baseline creatinine fluctuates from 1.7-2.2. Her creatinine here was 2.2-2.3 which appears at baseline for her but has crept to to 2.5 for the last 2 days. The blood transfusion did not help. We will continue to monitor her renal function and urine output. Avoid nephrotoxins. 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 Her meld score is 27. 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 I did call the gastroenterology department at [facility] 12/03 and called [phone]. They do not feel lalo t she is an active patient in the department. She has had an EGD and paracentesis with them. But she is not been seen in a visit with a physician for a while. When I spoke to the patient's daughter, Larry, Larry feels that there was a successful telemedicine visit done. Larry regards the GI department as the de facto physicians for her mom. Overall this patient's prognosis is poor. Her end-stage liver disease is that the source of all of her problems at this time. I feel like we are in a holding pattern as we support this patient through this episode of acute care. We are addressing all of her individual problems, but this point, she is not responding by waking up. Qualifiers: Hepatic cirrhosis type: alcoholic cirrhosis Ascites presence: without ascites Qualified Code(s): K70.30 - Alcoholic cirrhosis of liver without ascites (7) History of alcohol abuse Impression: As per Hx (8) Elevated troponin Impression: Troponins were 85>> 158>> 82. Suspect this is likely demand ischemia. The rapid increase in rapid decline are not consistent with acute VA. Her EKG does not suggest any active ischemia. Monitor on telemetry. (9) Anemia Impression: She has chronic anemia due to iron deficiency secondary to gastrointestinal bleeding. She does have varices. Her adm hemoglobin was 8.2 which was relatively stable for the patient. There is no evidence of bleeding at this time. Hgb trend is downward with 8.2>>7.4>>7.1 on 12/03. so transfused and is 10.9 today. Monitor her CBC daily. Will transfuse again, if needed, for goal hemoglobin greater than 7. Qualifiers: Anemia type: unspecified type Qualified Code(s): D64.9 - Anemia, unspecified (10) Thrombocytopenia Impression: This is secondary to her liver cirrhosis. Her platelet count is 80s>> 70>>59>>54 today. There is no evidence of bleeding at this time. We will hold off on chemical DVT prophylaxis given her INR is nearly 2 and plts low. (11) Esophageal varices Impression: Will hold off on any NG tube because of low platelets, high INR, history of known varices in the esophagus. But an OG was placed afterall in face of lack of nutrition. Jevity started 12/03 as well and is getting 1 liter every 24 hours. Qualifiers: Esophageal varices type: unspecified type Esophageal varices bleeding: with bleeding Qualified Code(s): I85.01 - Esophageal varices with bleeding (12) Hypothyroidism Impression: We will eventually continue her home Synthroid.
[2019-12-05] MEDS: MORPHINE 2 MG/ML CARPUJECT IVP PRN (20:36)
[2019-12-05] MEDS ORDERED: VANCOMYCIN INJ 1.25 GM in SODIUM CHLORIDE 0.9% 250 ML IV SCH (22:00)
[2019-12-06] MEDS: SODIUM CHLORIDE FLUSH 0.9% 10 ML SYRINGE IVP PRN ×4 (01:17→23:27)
[2019-12-06] MEDS: MORPHINE 2 MG/ML CARPUJECT IVP PRN ×7 (01:17→23:27)
[2019-12-06] MEDS: PROPOFOL 500 MG/50 ML 500 MG/50 ML VIAL IV SCH (02:08)
[2019-12-06 04:04] LABS: BASOPHILS % (AUTO) 0.5 %; EOSINOPHILS % (AUTO) 11.3 %; HGB - HEMOGLOBIN 10.7 g/dL (12.0-16.0); LYMPHOCYTES # (AUTO) 0.6 10^3/uL (1.5-3.5); MEAN CORPUSCULAR HEMOGLOBIN 33.1 pg (27.0-31.0); MEAN CORPUSCULAR HGB CONC 33.3 g/dL (32.0-36.0); MEAN CORPUSCULAR VOLUME 99.4 fL (81.0-99.0); MEAN PLATELET VOLUME 9.5 fL (7.9-10.8); MONOCYTES # (AUTO) 0.9 10^3/uL (0.0-1.0); MONOCYTES % (AUTO) 10.4 %; NEUTROPHILS # (AUTO) 5.9 10^3/uL (1.5-6.6); NEUTROPHILS % (AUTO) 69.6 %; PLT - PLATELET COUNT 39 10^3/uL (130-450); RED BLOOD COUNT 3.23 10^6/uL (4.20-5.40); RED CELL DISTRIBUTION WIDTH 24.5 % (12.0-15.0); WHITE BLOOD COUNT 8.5 x10^3/uL (4.8-10.8)
[2019-12-06 04:16] LABS: CALCIUM 7.3 mg/dL (8.5-10.3); CREATININE 2.4 mg/dL (0.4-1.0); MAGNESIUM 2.5 mg/dL (1.7-2.8); PHOSPHORUS 4.2 mg/dL (2.5-4.6)
[2019-12-06 05:08] LABS: PLATELET ESTIMATE, MANUAL DECREASED (<130,000) (NORMAL)
[2019-12-06] MEDS: DEXTROSE 5% 1,000 ML IV SCH (07:01)
[2019-12-06] MEDS: PANTOPRAZOLE 40 MG VIAL IVP SCH (07:05)
[2019-12-06] MEDS: LEVOTHYROXINE 75 MCG TABLET NG SCH (07:05)
[2019-12-06] MEDS ORDERED: LACTULOSE 10 GM/15 ML BOTTLE NG SCH (09:00)
[2019-12-06] MEDS ORDERED: LACTULOSE 10 GM /15 ML UDC NG SCH (09:00)
[2019-12-06] MEDS: POTASSIUM CHLOR 10 MEQ/100 ML 10 MEQ/100 ML BAG IV SCH ×2 (09:07→10:10)
[2019-12-06] MEDS: CHLORHEXIDINE GLUCONATE 15 ML UDC PO SCH ×2 (09:11→20:17)
[2019-12-06] MEDS: ethyl alcohoL 62% SWAB AMPULE NAS SCH ×2 (09:11→20:17)
--- NOTE | 2019-12-06 09:56 | XRAY Report ---
PROCEDURE: Chest 1 View X-Ray INDICATIONS: intubated TECHNIQUE: One view of the chest was acquired. COMPARISON: 12/04/2019 similar plain film FINDINGS: Surgical changes and devices: Endotracheal tube is at the korey, directed to the orifice of the righ t mainstem bronchus central line from right-sided approach extends into the distal SVC. Esophagogastr ic tube extends below the imaging margin at least into the gastric body area. Lungs and pleura: No pneumothorax. Lungs are abnormal with a generalized alveolar edema pattern gre ater on the left than the right, without definite improvement except at the left upper lobe where mil d improved aeration can be seen. Quality of visualization of each lung base is very limited. Pleural effusions may be present. Mediastinum: Mediastinal contours appear normal. Heart size is difficult to accurately assess due t o the density over the lower lungs bilaterally. Bones and chest wall: No suspicious bony lesions. Overlying soft tissues appear unremarkable. IMPRESSION: No definite improvement in relatively dense alveolar infiltration over the lungs bilaterally except a t the left apex where mild improvement has developed. The endotracheal tube currently is at the orifice of the right mainstem bronchus, at the korey. The endotracheal tube should be withdrawn several centimeters in this circumstance. Central line and esop hagogastric tube positioning remains normal. Reviewed by: William Miguel MD on 12/06/2019 9:54 AM PDT Approved by: William Miguel MD on 12/06/2019 9:54 AM PDT Station ID: [id number]
[2019-12-06] MEDS: SODIUM CHLORIDE FLUSH 0.9% 10 ML SYRINGE IVP SCH ×4 (10:07→20:21)
[2019-12-06 11:28] LABS: VBG PCO2 33.9 mmHg (41-51); VBG PH 7.41 (7.31-7.41)
[2019-12-06 11:29] LABS: VBG PO2 47.4 mmHg (25-47)
[2019-12-06 11:53] LABS: ALBUMIN 1.2 g/dL (3.2-5.5); BILIRUBIN,DIRECT 1.4 mg/dL (0.1-0.5); BILIRUBIN,TOTAL 3.1 mg/dL (0.2-1.0); TOTAL PROTEIN 3.7 g/dL (6.7-8.2)
--- NOTE | 2019-12-06 16:12 | PROVIDER PROGRESS NOTE ---
Subjective - Prog Note Date Prog Note Date: 12/06/19 Prog Note Time: 16:10 - Subjective Subjective: Has been off propofol since 2300 on December 03. Did not wake up at all yesterday. Today she has been much more alert, responsive and squeezing her hands. No fevers. Blood pressure stable. Urine output is still very minimal. At this point, when this note is dictated, I calculate her at 5945 cc positive Current Medications - Current Medications Current Medications: Active Medications Acetaminophen (Tylenol) [address] Q6HR PRN PRN Reason: Pain or Fever > 38C (100.4F) Alcohol (Nozin) 1 amp JANICE BID [facility] Last Admin: 12/06/19 09:11 Dose: 1 amp Documented by: Chlorhexidine Gluconate (Peridex) 15 ml PO BID [facility] Last Admin: 12/06/19 09:11 Dose: 15 ml Documented by: Heparin Sodium (Beef Lung) () 30 - 50 unit IVP PRN PRN PRN Reason: Central Line Protocol (<24 hr) Last Admin: 12/06/19 03:55 Dose: 60 unit Documented by: Vancomycin HCl 1.25 gm/ Sodium (Chloride) 250 mls @ 167 mls/hr IV Q36H [facility] Last Infusion: 12/05/19 14:05 Dose: Infused Documented by: Albumin Human (Albuminar-25) 12.5 gm in 50 mls @ 50 mls/hr IV ONCE STA Stop: 12/06/19 17:29 Levothyroxine Sodium (Synthroid) 75 mcg NG QDAC [facility] Last Admin: 12/06/19 07:05 Dose: 75 mcg Documented by: Morphine Sulfate (Morphine (Carpuject)) 2 mg IVP Q2HR PRN PRN Reason: PAIN Last Admin: 12/06/19 14:59 Dose: 2 mg Documented by: Ondansetron HCl (Zofran Inj) 4 mg IVP Q6HR PRN PRN Reason: Nausea / Vomiting Pantoprazole Sodium (Protonix) 40 mg IVP QDAC [facility] Last Admin: 12/06/19 07:05 Dose: 40 mg Documented by: Sodium Chloride (Normal Saline Flush 0.9%) 10 ml IVP 0100,0900,1700 [facility] Last Admin: 12/06/19 15:00 Dose: 10 ml Documented by: Sodium Chloride (Normal Saline Flush 0.9%) 10 ml IVP PRN PRN PRN Reason: NEEDED PER PROVIDER ORDERS Last Admin: 12/06/19 07:05 Dose: 10 ml Documented by: Sodium Chloride (Normal Saline Flush 0.9%) 20 ml IVP PRN PRN PRN Reason: After Blood Draw Last Admin: 12/06/19 03:32 Dose: 20 ml Documented by: Vancomycin HCl (Vancomycin-Pharmacy To Dose) 1 each IV ONCE PRN PRN Reason: PER PHARMACY Stop: 12/12/19 19:46 Ondansetron Odt [Zofran Odt] 4 mg TL Q8H PRN 01/08/19 Sucralfate [Carafate] 1 gm PO QID 04/30/19 Levothyroxine [Synthroid] 75 mcg PO DAILY 09/07/19 Lidocaine Patch 5% [Lidoderm Patch] 1 patch TP DAILY PRN 09/07/19 Ascorbic Acid [Vitamin C] 500 mg PO .QOD 12/03/19 Folic Acid 1 mg PO DAILY 12/03/19 Furosemide 20 mg PO DAILY 12/03/19 Pantoprazole Sodium [Protonix] 40 mg PO DAILY 12/03/19 Potassium Chloride [Klor-Con 10] 10 meq PO DAILY 12/03/19 Spironolactone 50 mg PO DAILY 12/03/19 Torsemide 20 mg PO DAILY 12/03/19 oxyCODONE [Roxicodone] 5 mg PO Q6H PRN 12/03/19 Objective - Vital Signs/Intake & Output Reviewed Vital Signs: Yes Vital Signs: Vital Signs Temp Pulse Pulse Resp BP Pulse Ox 12/06/19 15:50 36.9 C 12/06/19 15:40 66 12/06/19 15:00 67 24 128/83 H 100 12/06/19 14:11 64 12/06/19 14:00 64 12 131/80 H 100 12/06/19 13:00 64 14 120/87 H 100 Intake & Output: Intake & Output 12/03/19 12/04/19 12/05/19 12/06/19 23:59 23:59 23:59 23:59 Intake Total 5289.910 8262.851 3317.472 859 Output Total 786 329 744 538 Balance 407.142 9859.851 2573.472 321 - Objective General Appearance: positive: Other (Intubated, not sedated. Sluggishly opening eyes, squeezing my hands. Fades away after 2-3 questions. If I come back she is able to open her eyes and do it all over again.) Eyes Bilateral: positive: PERRL Eyes: OU Scleral icterus ENT: positive: Other (OG and ET tube in place) Neck: positive: No JVD, Trachea midline Respiratory: positive: Chest non-tender, No respiratory distress, Other (Intermittent tidal volume generated on her own. Sometimes of breath is on the vent and stack and she will generate close to a liter, sometimes 70 cc.). negative: Wheezes, Rales, Rhonchi Cardiovascular: positive: Regular rate & rhythm, Systolic murmur. negative: Gallop/S4, Friction rub Abdomen: positive: Non-tender, No organomegaly, Nml bowel sounds Skin: positive: Other (Diffuse anasarca in the skin of her abdominal wall is almost corduroy) Extremities: positive: Full ROM, Pedal edema Neurologic/Psychiatric: positive: CN's nml (2-12), Other (Will spontaneously move her arms or legs to noxious stimuli. Yesterday she was grimacing. Today she is as she opening her eyes and interacting.) - Lab Results Fish Bones: 12/06/19 04:00 12/06/19 04:00 Other Labs: Lab Results x24hrs 12/06/19 12/06/19 12/06/19 Range/Units 11:24 04:01 04:00 WBC (4.8-10.8) x10^3/uL RBC (4.20-5.40) 10^6/uL Hgb (12.0-16.0) g/dL Hct (37.0-47.0) % MCV (81.0-99.0) fL MCH (27.0-31.0) pg MCHC (32.0-36.0) g/dL RDW (12.0-15.0) % Plt Count (130-450) 10^3/uL MPV (7.9-10.8) fL Neut # (Auto) (1.5-6.6) 10^3/uL Lymph # (Auto) (1.5-3.5) 10^3/uL [place] # (Auto) (0.0-1.0) 10^3/uL Eos # (Auto) (0.0-0.7) 10^3/uL Baso # (Auto) (0.0-0.1) 10^3/uL Absolute Nucleated RBC x10^3/uL Nucleated RBC % /100WBC Manual Slide Review Platelet Estimate (NORMAL) RBC Morph Micro Appear (NORMAL) VBG pH 7.410 (7.31-7.41) VBG pCO2 33.9 L (41-51) mmHg VBG pO2 47.4 H (25-47) mmHg VBG HCO3 21.0 L (23-28) mmol/L VBG Total CO2 22.0 L (24-29) mmol/L VBG O2 Saturation 81.0 H (60-80) % VBG Base Excess -3.0 L (-2 - +2) mmol/L Sodium (135-145) mmol/L Potassium (3.5-5.0) mmol/L Chloride (101-111) mmol/L Carbon Dioxide (21-32) mmol/L Anion Gap (6-13) BUN (6-20) mg/dL Creatinine (0.4-1.0) mg/dL Estimated GFR (MDRD) (>89) Glucose (70-100) mg/dL Calcium (8.5-10.3) mg/dL Phosphorus (2.5-4.6) mg/dL Magnesium (1.7-2.8) mg/dL Total Bilirubin 3.1 H (0.2-1.0) mg/dL Direct Bilirubin 1.4 H (0.1-0.5) mg/dL AST 49 H (10-42) IU/L ALT 24 (10-60) IU/L Alkaline Phosphatase 109 (42-121) IU/L Ammonia (7-35) umol/L Total Protein 3.7 L (6.7-8.2) g/dL Albumin 1.2 L 1.4 L (3.2-5.5) g/dL Globulin 2.5 (2.1-4.2) g/dL Blood Type Antibody Screen Antibody Identification Crossmatch 12/06/19 12/06/19 12/06/19 Range/Units 04:00 04:00 04:00 WBC 8.5 (4.8-10.8) x10^3/uL RBC 3.23 L (4.20-5.40) 10^6/uL Hgb 10.7 L (12.0-16.0) g/dL Hct 32.1 L (37.0-47.0) % MCV 99.4 H (81.0-99.0) fL MCH 33.1 H (27.0-31.0) pg MCHC 33.3 (32.0-36.0) g/dL RDW 24.5 H (12.0-15.0) % Plt Count 39 L (130-450) 10^3/uL MPV 9.5 (7.9-10.8) fL Neut # (Auto) 5.9 (1.5-6.6) 10^3/uL Lymph # (Auto) 0.6 L (1.5-3.5) 10^3/uL [place] # (Auto) 0.9 (0.0-1.0) 10^3/uL Eos # (Auto) 1.0 H (0.0-0.7) 10^3/uL Baso # (Auto) 0.0 (0.0-0.1) 10^3/uL Absolute Nucleated RBC 0.02 x10^3/uL Nucleated RBC % 0.2 /100WBC Manual Slide Review Indicated Platelet Estimate DECREASED (<130,000) (NORMAL) RBC Morph Micro Appear 1+ OVALOCYTES (NORMAL) VBG pH (7.31-7.41) VBG pCO2 (41-51) mmHg VBG pO2 (25-47) mmHg VBG HCO3 (23-28) mmol/L VBG Total CO2 (24-29) mmol/L VBG O2 Saturation (60-80) % VBG Base Excess (-2 - +2) mmol/L Sodium 134 L (135-145) mmol/L Potassium 3.3 L (3.5-5.0) mmol/L Chloride 105 (101-111) mmol/L Carbon Dioxide 22 (21-32) mmol/L Anion Gap 7.0 (6-13) BUN 55 H (6-20) mg/dL Creatinine 2.4 H (0.4-1.0) mg/dL Estimated GFR (MDRD) 21 L (>89) Glucose 102 H (70-100) mg/dL Calcium 7.3 L (8.5-10.3) mg/dL Phosphorus 4.2 (2.5-4.6) mg/dL Magnesium 2.5 (1.7-2.8) mg/dL Total Bilirubin (0.2-1.0) mg/dL Direct Bilirubin (0.1-0.5) mg/dL AST (10-42) IU/L ALT (10-60) IU/L Alkaline Phosphatase (42-121) IU/L Ammonia 65.7 H (7-35) umol/L Total Protein (6.7-8.2) g/dL Albumin (3.2-5.5) g/dL Globulin (2.1-4.2) g/dL Blood Type Antibody Screen Antibody Identification Crossmatch 12/03/19 Range/Units 04:40 WBC (4.8-10.8) x10^3/uL RBC (4.20-5.40) 10^6/uL Hgb (12.0-16.0) g/dL Hct (37.0-47.0) % MCV (81.0-99.0) fL MCH (27.0-31.0) pg MCHC (32.0-36.0) g/dL RDW (12.0-15.0) % Plt Count (130-450) 10^3/uL MPV (7.9-10.8) fL Neut # (Auto) (1.5-6.6) 10^3/uL Lymph # (Auto) (1.5-3.5) 10^3/uL [place] # (Auto) (0.0-1.0) 10^3/uL Eos # (Auto) (0.0-0.7) 10^3/uL Baso # (Auto) (0.0-0.1) 10^3/uL Absolute Nucleated RBC x10^3/uL Nucleated RBC % /100WBC Manual Slide Review Platelet Estimate (NORMAL) RBC Morph Micro Appear (NORMAL) VBG pH (7.31-7.41) VBG pCO2 (41-51) mmHg VBG pO2 (25-47) mmHg VBG HCO3 (23-28) mmol/L VBG Total CO2 (24-29) mmol/L VBG O2 Saturation (60-80) % VBG Base Excess (-2 - +2) mmol/L Sodium (135-145) mmol/L Potassium (3.5-5.0) mmol/L Chloride (101-111) mmol/L Carbon Dioxide (21-32) mmol/L Anion Gap (6-13) BUN (6-20) mg/dL Creatinine (0.4-1.0) mg/dL Estimated GFR (MDRD) (>89) Glucose (70-100) mg/dL Calcium (8.5-10.3) mg/dL Phosphorus (2.5-4.6) mg/dL Magnesium (1.7-2.8) mg/dL Total Bilirubin (0.2-1.0) mg/dL Direct Bilirubin (0.1-0.5) mg/dL AST (10-42) IU/L ALT (10-60) IU/L Alkaline Phosphatase (42-121) IU/L Ammonia (7-35) umol/L Total Protein (6.7-8.2) g/dL Albumin (3.2-5.5) g/dL Globulin (2.1-4.2) g/dL Blood Type B POSITIVE Antibody Screen POSITIVE Antibody Identification Warm Auto Antibody Crossmatch See Detail Sepsis Event Note (H) - Evaluation Current Stage of Sepsis: Resolved Possible source of Sepsis: positive: Unknown - Sepsis Criteria Sepsis Criteria: Recorded Temperature greater than 38.3C or Less than 36C, Recorded Heart Rate greater than 90 bpm, Recorded Respiratory Rate greater than 20, Respiratory: Increasing oxygen requirements, WBC count greater than 12,000 or less than 4000, [employer]IC[employer]: altered consciousness (unrelated to primary neuro pathology) Assessment/Plan - Problem List (1) Encephalopathy Impression: Etiology is not clear at this time but most likely it's her sepsis. Her ammonia is only slightly elevated and would not explain her change in mental status. Given she is coagulopathic, a CT of the head showed no bleed. She was not waking up in spite of lowering her propofol dose 12/03 but today she is opening her eyes and is responding to RN with squeeze of hands appropriately. Treatment has consisted of IV fluids for support, IV antibiotics, lactulose, and protection of her airway. In speaking to [facility] Medicine consult line for ID 12/04 the only other thing we could do in work-up to identify infection as a possible cause of encephalopathy is to do a lumbar puncture. The only other source they can suggest is the TIPS stent if her blood cultures are positive . Yesterday morning the initial blood cultures were negative at 24 hours. However late in the afternoon her blood cultures now growing gram- positive cocci in all of the bottles. As such, blood cultures on admission were positive for MRSA. She was on appropriate antibiotics with vancomycin. Blood cultures repeated December 03 are growing gram-positive cocci. Plan: Continue vancomycin, continue lactulose, plan for extubation today. (2) Acute respiratory failure with hypoxia Impression: This may be secondary to CHF. She was hypoxic on room air and she required 3 L of oxygen to maintain her oxygen saturations. Her echo shows RV dilation with severe pulmonary hypertension. She may need specialty care with cardiology and pulmonology, and may be at risk for re-intubation if she doesn't wake up. She was ultimately intubated for airway protection due to her encephalopathy. Chest x-ray showed possible pulmonary vascular congestion. This may also be related to her sepsis and encephalopathy. Vent management as per protocol. We tried to lighten sedation and extubate December 02 without success. Tried again December 03. She has been off propofol since the . She is now awake enough this morning to follow commands. Venous blood gas shows mild respiratory alkalosis. This is in spite of reducing her tidal volume from 500-375. Her rate is set at 16 and she is breathing above that. Plan for weaning trial, extubate this afternoon. (3) SIRS (systemic inflammatory response syndrome) Impression: Concern is for sepsis given her elevated white count, fever, tachycardia and MRSA bacteremia. There is no obvious source of infection at this time. Chest x-ray does not reveal any obvious infiltrate, her urinalysis unremarkable, and imaging of the abdomen did not reveal a source of infection. She received vancomycin, cefepime, Flagyl IV in the emergency department. We continued her on these broad-spectrum antibiotics given the concern for severe sepsis. We held off on administering IV fluids given she was normotensive and has diffuse anasarca but then gave her 500 cc bolus of NS since BP lower and UOP nil by 12/03. I called [facility] medicine consult line, and spoke to the infectious disease service. I had called them 12/03 and they returned my call 12/04. There are 3 other sources they want me to verify. One is a skin exam, which I did. There is nothing suggesting that she is a subcutaneous abscess. We examined labia, perineal folds, buttocks. If repeat blood cultures are negative (those were done 12/03), then she does not need the stent for her TIPS removed. If they are positive, the stent may be the source of infection and it would need to be removed. The third possibility is meningitis. We carefully went over her history when she presented, and there is no indication she should get a lumbar puncture. Cefepime and flagyl stopped at Day #4 Still on Vancomycin Day #5 blood cultures: 12/01 were MRSA positive, / gram positive cocci growing in both sets Paracentesis fluid: 12/01 no growth Attempted transfer to [facility]. They cannot take her because of her insurance. I was puzzled by that since they did put in her tips but they said that this was done on an outpatient basis. Not an inpatient basis. As such I called [facility]. I spoke to liver transplant attending who did not feel that the TIPS was the cause of her MRSA positive status. They would consult on the patient. Primary admitting service needed to be medicine. So I spoke to the MICU and that fellow was hesitant about accepting her today. They are very short in their beds and wondered if she could be kept medically stable, extubate her today if it was able, and then they would reevaluate her tomorrow morning. Plan: Extubation Recall [facility] for a bed tomorrow to evaluate her for continued MRSA bacteremia in the face of adequate treatment. (4) Suspected CHF (congestive heart failure) Impression: On admission, suspected she has congestive heart failure given her elevated BNP and pulmonary vascular congestion on imaging even though ECHO confirms primarily right sided heart failure. She was given a dose of IV Lasix in the emergency department. We will held off on further Lasix given she was normotensive and there is concern for possible sepsis. Echocardiogram done 12/01 shows Normal LVEF, possibly grade 2 LV diastolic dysfunction. Severely dilated atria. There is RV dilation and failure and severe pulmonary pretension. Also seen was mild to moderate mitral stenosis and severe tricuspid regurg. This would be excessive effects of back pressure from just mild to moderate mitral stenosis, however. Pressures on right 108 mmHg. No vegetations. Her pulmonary hypertension is the reason she is not a candidate for liver transplant per her daughter. The ECHO was done with one of her hospitalizations. So this unfortunate patient is need for diuresis in the face of liver failure with anasarca but has low blood pressures. Today I will try lasix followed by albumin again. 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 Her baseline creatinine fluctuates from 1.7-2.2. Her creatinine here was 2.2-2.3 which appears at baseline for her but had crept to to 2.5 for 2 days and is now 2.4. The blood transfusion did not help. We will continue to monitor her renal function and urine output. Avoid nephrotoxins. 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 Her meld score is 27. 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 I did call the gastroenterology department at [facility] 12/03 and called [phone]. They do not feel that she is an active patient in the department. She has had an EGD and paracentesis with them. But she is not been seen in a visit with a physician for a while. When I spoke to the patient's daughter, Larry, Larry feels that there was a successful telemedicine visit done. Larry regards the GI department as the de facto physicians for her mom. Overall this patient's prognosis is poor. Her end-stage liver disease is that the source of all of her problems at this time. I feel like we are in a holding pattern as we support this patient through this episode of acute care. We are addressing all of her individual problems, but this point, she has been very slo w to improve. Today was our first movement in positive direction with more alertness. Qualifiers: Hepatic cirrhosis type: alcoholic cirrhosis Ascites presence: without ascites Qualified Code(s): K70.30 - Alcoholic cirrhosis of liver without ascites (7) History of alcohol abuse Impression: As per Hx (8) Elevated troponin Impression: Troponins were 85>> 158>> 82. Suspect this is likely demand ischemia. The rapid increase in rapid decline are not consistent with acute ID. Her EKG does not suggest any active ischemia. Monitor on telemetry. (9) Anemia Impression: She has chronic anemia due to iron deficiency secondary to gastrointestinal bleeding. She does have varices. Her adm hemoglobin was 8.2 which was relatively stable for the patient. There is no evidence of bleeding at this time. Hgb trend is downward with 8.2>>7.4>>7.1 on 12/03. so transfused and >>10.9 >>10.7 today. Monitor her CBC daily. Will transfuse again, if needed, for goal hemoglobin greater than 7. Qualifiers: Anemia type: unspecified type Qualified Code(s): D64.9 - Anemia, unspecified (10) Thrombocytopenia Impression: This is secondary to her liver cirrhosis. Her platelet count is 80s>> 70>>59>>54>>39 today. There is no evidence of bleeding at this time. We will hold off on chemical DVT prophylaxis given her INR is nearly 2 and plts low. (11) Esophageal varices Impression: Will hold off on any NG tube because of low platelets, high INR, history of kno wn varices in the esophagus. But an OG was placed after all in face of lack of nutrition. Jevity started 12/03 as well and is getting 1 liter every 24 hours. today, OG may be pulled Qualifiers: Esophageal varices type: unspecified type Esophageal varices bleeding: with bleeding Qualified Code(s): I85.01 - Esophageal varices with bleeding (12) Hypothyroidism Impression: We will eventually continue her home Synthroid.
[2019-12-06] MEDS ORDERED: FUROSEMIDE 20 MG/2 ML VIAL IVP STA (16:30)
[2019-12-06] MEDS ORDERED: ALBUMIN 25% 12.5 GM/50 ML VIAL IV STA (16:30)
[2019-12-06] MEDS: VANCOMYCIN INJ 1.25 GM in SODIUM CHLORIDE 0.9% 250 ML IV SCH (23:28)
[2019-12-07] MEDS: MORPHINE 2 MG/ML CARPUJECT IVP PRN ×5 (01:49→18:33)
[2019-12-07] MEDS: SODIUM CHLORIDE FLUSH 0.9% 10 ML SYRINGE IVP PRN ×4 (01:51→18:33)
[2019-12-07 05:07] LABS: BASOPHILS % (AUTO) 0.7 %; EOSINOPHILS % (AUTO) 8.6 %; HGB - HEMOGLOBIN 10.6 g/dL (12.0-16.0); LYMPHOCYTES % (AUTO) 5.3 %; MEAN CORPUSCULAR HEMOGLOBIN 33.4 pg (27.0-31.0); MEAN CORPUSCULAR VOLUME 98.4 fL (81.0-99.0); MEAN PLATELET VOLUME 10.3 fL (7.9-10.8); NEUTROPHILS % (AUTO) 75.1 %; PLT - PLATELET COUNT 45 10^3/uL (130-450); RED BLOOD COUNT 3.17 10^6/uL (4.20-5.40); RED CELL DISTRIBUTION WIDTH 23.9 % (12.0-15.0); WHITE BLOOD COUNT 12.3 x10^3/uL (4.8-10.8)
[2019-12-07 05:10] LABS: ABNORMAL LYMPHS % (MANUAL) 0 %; BAND NEUTROPHILS % (MANUAL) 0 %
[2019-12-07 05:20] LABS: MAGNESIUM 2.4 mg/dL (1.7-2.8)
[2019-12-07 05:22] LABS: ALBUMIN 1.5 g/dL (3.2-5.5); ALBUMIN/GLOBULIN RATIO 0.6 (1.0-2.2); BILIRUBIN,TOTAL 3.9 mg/dL (0.2-1.0); CALCIUM 7.6 mg/dL (8.5-10.3); CREATININE 2.3 mg/dL (0.4-1.0); TOTAL PROTEIN 4.1 g/dL (6.7-8.2)
[2019-12-07 05:42] LABS: EOSINOPHILS # (MANUAL) 0.9 10^3/uL (0-0.7); LYMPHOCYTES # (MANUAL) 0.5 10^3/uL (1.5-3.5); LYMPHOCYTES % (MANUAL) 4 %; MONOCYTES # (MANUAL) 0.6 10^3/uL (0.0-1.0)
[2019-12-07 05:44] LABS: DIFFERENTIAL COMMENT MANUAL DIFFERENTIAL; PLATELET ESTIMATE, MANUAL DECREASED (<130,000) (NORMAL); PLATELET MORPHOLOGY NORMAL APPEARANCE (NORMAL)
[2019-12-07] MEDS: PANTOPRAZOLE 40 MG VIAL IVP SCH (06:47)
[2019-12-07] MEDS: LEVOTHYROXINE 75 MCG TABLET NG SCH (06:48)
[2019-12-07] MEDS: POTASSIUM CHLOR 10 MEQ/100 ML 10 MEQ/100 ML BAG IV SCH ×3 (08:35→11:14)
[2019-12-07] MEDS: CHLORHEXIDINE GLUCONATE 15 ML UDC PO SCH (09:34)
[2019-12-07] MEDS: ethyl alcohoL 62% SWAB AMPULE NAS SCH (09:36)
[2019-12-07] MEDS: SODIUM CHLORIDE FLUSH 0.9% 10 ML SYRINGE IVP SCH ×2 (09:49→17:04)
[2019-12-07] MEDS: ZINC OXIDE 20% OINT 30 GM TUBE TOP PRN ×3 (10:30→18:33)
[2019-12-07] MEDS ORDERED: DEXTROSE 50% ABBOJECT 25 GM/50 ML SYRINGE ONE (12:15)
[2019-12-07] MEDS ORDERED: DEXTROSE 50% ABBOJECT 25 GM/50 ML SYRINGE IVP ONE (12:16)
[2019-12-07] MEDS ORDERED: DEXTROSE 10% 250 ML IV ONE (12:29)
[2019-12-07] MEDS ORDERED: DEXTROSE 5% 1,000 ML IV SCH (13:00)
[2019-12-07] MEDS ORDERED: LACTULOSE 10 GM/15 ML BOTTLE PO SCH (15:41)
--- NOTE | 2019-12-07 15:54 | DISCHARGE SUMMARY ---
"Discharge Summary Admit Date: 12/02/19 Discharge Date: 12/07/19 Discharging Provider: Agnes Maynard MD Primary Care Provider: Charlie Rincon MD Code Status: Attempt Resuscitation Condition at Discharge: Critical Discharge Disposition: 02 Transfer Acute Care Hosp Discharge Facility Name: [facility] - DIAGNOSES Discharge Diagnoses with Status of Each Condition: 1. Systemic inflammatory response syndrome, present on admission. Resolved 2. MRSA bacteremia, present on admission and still ongoing 3. Severe metabolic encephalopathy from combined hepatic encephalopathy and infection, present on admission. Resolved 4. Acute respiratory failure with hypoxia. Present on admission resolved 5. Acute on chronic right-sided heart failure 6. Pulmonary hypertension 7. Acute on chronic kidney disease stage III 8. 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 Elevated troponin 10. Chronic iron deficiency anemia 11. Thrombocytopenia 12. Hypothyroidism - HPI History of Present Illness: This is a 49-year-old female with a past medical history significant for end- stage liver disease, chronic kidney disease, hypothyroidism who presents today from home due to change in mental status. History is obtained from the patient's daughter and the emergency department provider as the patient is i ntubated and unable to provide a history. The patient's daughter reports that she was in her usual state of health and was last seen normal this morning at around 3:30 AM when she was taking a shower. The patient checked on her mother this afternoon at around 3 PM and found her minimally responsive. She was able to open up her eyes but was unable to communicate. She states her mother had not had any complaints over the past few days. She has been having on and off diarrhea but has been taking lactulose due to her history of hepatic encephalopathy. She reports her mother did have one episode of emesis today. Her mother had been complaining of difficulty ambulating due to her significant edema. The patient was admitted earlier this month for 6 days at [place] due to anemia. The patient daughter reports the patient gained 20 pounds during that hospitalization and her diuretics were held due to an elevated creatinine. The patient has since been resumed on her torsemide and spironolactone and her edema has slightly improved but she is still very edematous throughout all her e xtremities. The patient's daughter also believes her mother's umbilical hernia was incarcerated yesterday and she was able to reduce the hernia after a few hours. The patient has not had any fevers. The patient's daughter tells me that the patient does wear a mask whenever she leaves the home which is not very often to begin with. She has been hospitalized multiple times over the past 6 to 7 months but the patient is adamant that she wants to be a full code and to live as long as possible. They have had multiple discussions throughout these hospitalizations and at home regarding goals of care but the patient has made it clear that she wants to be a full code. In the emergency department, she is on be febrile with temperature of 39.2 C. Her heart rate was 104. Her blood pressure was initially 170/96. She was not tachypneic but was saturating 84% on room air. This improved to 99% on 3 L of oxygen via nasal cannula. Given her altered mental status, she was intubated for airway protection. The emergency department provider was able to perform a paracentesis but there is only enough fluid for culture the fluid did appear clear and the Gram stain was negative. She was given cefepime, Flagyl, vancomycin in the emergency department. Labs revealed a white count of 22.8 with a left shift. Her hemoglobin was 8.2. Platelets were 88. Her creatinine was 2.2. Troponin was 85.6. Ammonia was 70.2. Her BNP was elevated at 2100. She was also given a dose of IV Lasix in the emergency department. She was not given IV fluids due to her anasarca and the fact that her blood pressures were maintaining. Given the above findings, medicine was consulted for admission. I did once again discuss goals of care with the patient's daughter and as mentioned above, the patient has made it clear in the past that she wants to be a full code. History - Past Medical History Cardiovascular: reports: Congestive heart failure, Valve disorder, Other Respiratory: reports: Pneumonia Neuro: reports: None Endocrine/Autoimmune: reports: HyPOthyroidism GI: reports: Esophageal varices, GI bleed, Hepatitis, Cirrhosis, Other MEDICAID SPECIALIST: reports: Miscarriage(s) : reports: Other HEENT: reports: None Psych: reports: Depression, Other Musculoskeletal: reports: Chronic back pain Derm: reports: None MRSA Hx?: Yes - Past Surgical History General: reports: Hiatal hernia repair Ortho: reports: Other /MEDICAID SPECIALIST: reports: Tubal ligation, Other HEENT: reports: Other - CONSULTS | PROCEDURES Procedures: 1. Chest x-ray showing right-sided central line, cardiomegaly, small left-sided pleural effusion. Repeat chest x-ray shows improved right pleural effusion, increasing left pleural effusion with increasing pulmonary vascularity suggesting edema. Third chest x-ray on day of extubation shows no improvement in relative dense alveolar infiltration over the lungs bilaterally except at left apex for mild improvement has been noted. 2. Abdomen/pelvis CT with small left-sided pleural effusion. Heart upper limits of normal. Cirrhotic liver. TIPS catheter seen. Gastric tube in place. Mild ascites. Fat-containing anterior abdominal wall hernia. No bowel within the hernia sac. Generalized anasarca. 3. Head CT without acute intracranial disease process 4. Echocardiogram with overall left ventricular ejection fraction 65 to 70%. LV filling pattern consistent with grade 2 diastolic dysfunction. Right ventricular systolic function normal. Biatrial enlargement. Severe mitral annular calcification with restricted mobility of the mitral valve leaflets. Posterior mitral valve leaflet with significant reduction in mobility. Mean gradient across the valve is 10 mmHg suggesting mitral stenosis. Moderate to severe tricuspid regurgitation. Severe abnormal right heart pressures with RVSP at rest of 75 mmHg. 5. Ascites fluid culture negative 6. MRSA blood culture, 4 out of 4 +December 01 7. Blood culture positive for staph epidermidis December 03 on one set 8. Blood culture positive for MRSA on 1 set December 03 - HOSPITAL COURSE Hospital Course: The patient presented with severe encephalopathy, in the face of possible sepsis. While we grew out MRSA blood cultures, it was not clear where the source of that infection was as such she doesn't meet criteria of sepsis which is SIRS with known source Chest x-ray was initially clear, urinalysis was negative, CT showed no bleed, and echocardiogram showed valvular heart disease but no vegetations. She was continued on cefepime and Flagyl until December 04. And only vancomycin was continued since 2 sets were growing out gram-positive cocci over several days. De-escalation of antibiotic therapy showed her white cell count to go from 7.6 to 12.3. No fever. Repeat chest x-ray did show changes of either alveolar infiltrate or fluid overload. Because of hypoxia, and severe metabolic encephalopathy attributed to infection and liver disease, the patient was electively intubated for airway protection but also because of the hypoxemia that was due to probable right-sided heart failure. She was kept intubated until December 05. Propofol was stopped on the evening of December 03 and she remained asleep, unresponsive, until the morning of the . At extubation, nif was excellent, tidal volume would occasionally be generated at close to 900 cc. There is no tachycardia increased respiratory e ffort and she was successfully extubated. Urine output remained low. This was in spite of good blood pressures. She never needed pressure support. She received Lasix and albumin on the and the . Her echocardiogram shows reasons for right sided heart failure and with the cirrhosis has anasarca. Anemia down to 7.1 g of hemoglobin resulted in a 2 unit of packed cell transfusion. Hemoglobin at discharge is 10.6. Elevated troponin started at 85.6, went to 158.7, and trended down to 82.9. There were no EKG changes associated with this. This is a high-sensitivity troponin and most likely positive due to demand, and renal failure. MELD score for her liver failure was calculated at 27. On the day of discharge BUN was 56, creatinine was 2.3. Bili 3.9. AST 52, ALT 24. She has diffuse anasarca. Total protein level is 4.1, albumin 1.5 in spite of 3 days of tube feeds. She also received lactulose through her OG tube. At discharge, [facility] MICU attending requested NG tube be replaced. And give dosing of lactulose.We have explained to her daughter who is her power of energy attorney, Larry Ge at [phone] that her overall prognosis is poor. Her daughter stated that she knew that. Over the last few months it is been a difficult time. The patient has been clearly deteriorating in spite of TIPS procedure, compliance with diet, and taking her medications. Nevertheless, mom has stated that she wanted everything done. She wanted to be a full code. Andriy dariuszketanmary ann is respecting her mother's wishes and is not interested in changing her mother's CODE STATUS at this time. We did consult [facility] medicine consult line for Infectious Disease. Went over her case carefully. Skin exam done carefully. Cultures were initially positive in the face of someone who did not have a central line or an IV in place. Since we could not find a source of infection, infectious disease fellow postulated a rare possibility of TIPS contribution. However, she needs to be transferred for work-up for continued MRSA bacteremia in the face of adequate therapy. I reached out to [facility] transfer center on the morning of December 05. Over the course of 2 days I spoke to several MICU fellow's, hepatology, a hospitalist and she was accepted to the MICU by Dr. Harvey Carlos. She is transferred in stable condition with a temperature of 36.3, heart rate 74, blood pressure 111/78, respirations 15 and 100% room air at the time of this dictati on. She is 5 foot 3 inches tall and weighs 78 kg. She will awaken her eyes to voice, mumble occasional answers. Not awake enough to swallow appropriately. Sclera are icteric. Lungs have coarse upper airway sounds but are slow and unlabored respiration. Open mouth, slack faced breathing. RRR with ANKIT. Abdomen is slightly distended because of anasarca with ruggae all over the skin of her abdomen, buttocks and legs. She has an unreducible umbilical hernia. Hypoactive bowel sounds. No rebound or guarding. Hepatosplenomegaly present on exam. Legs have diffuse edema from the anasarca. Neurologically she responds to voice, pain, will occasionally answer questions, will occasionally sp ontaneously move her limbs but is completely dependent on nursing to sit up, roll over. There are flexural areas where she is draining serous clear fluid from anasarca. She has no skin breakdowns or ulcers. Careful examination of labia, perineum, and buttock do not show any signs of infection. Greater than 30 minutes was spent coordinating discharge, speaking to [facility]. - ALLERGIES Allergies/Adverse Reactions: Allergies Allergy/AdvReac Type Severity Reaction Status Date / Time No Known Drug Allergies Allergy Verified 12/05/19 05:04 - MEDICATIONS Home Medications: Ambulatory Orders Medication Instructions Recorded Confirmed Ondansetron Odt [Zofran Odt] 4 mg TL Q8H PRN 01/08/19 12/03/19 Sucralfate [Carafate] 1 gm PO QID 04/30/19 12/03/19 Levothyroxine [Synthroid] 75 mcg PO DAILY 09/07/19 12/03/19 Lidocaine Patch 5% [Lidoderm Patch] 1 patch TP DAILY PRN 09/07/19 12/03/19 Ascorbic Acid [Vitamin C] 500 mg PO .QOD 12/03/19 12/03/19 Folic Acid 1 mg PO DAILY 12/03/19 12/03/19 Furosemide 20 mg PO DAILY 12/03/19 12/03/19 Pantoprazole Sodium [Protonix] 40 mg PO DAILY 12/03/19 12/03/19 Potassium Chloride [Klor-Con 10] 10 meq PO DAILY 12/03/19 12/03/19 Spironolactone 50 mg PO DAILY 12/03/19 12/03/19 Torsemide 20 mg PO DAILY 12/03/19 12/03/19 oxyCODONE [Roxicodone] 5 mg PO Q6H PRN 12/03/19 12/03/19 - LABS Result Diagrams: 12/07/19 05:00 12/07/19 05:00 - SEPSIS Current Stage of Sepsis: Resolved Possible source of Sepsis: Unknown Sepsis Criteria: Recorded Temperature greater than 38.3C or Less than 36C, Recorded Heart Rate greater than 90 bpm, Recorded Respiratory Rate greater than 20, Respiratory: Increasing oxygen requirements, WBC count greater than 12,000 or less than 4000, LAYAWAY CLERK: altered consciousness (unrelated to primary neuro pathology)"
[2019-12-07] MEDS ORDERED: FUROSEMIDE 20 MG/2 ML VIAL IVP STA (16:31)
[2019-12-07] MEDS ORDERED: ALBUMIN 25% 12.5 GM/50 ML VIAL IV STA (16:31)
--- NOTE | 2019-12-07 16:56 | XRAY Report ---
PROCEDURE: Chest for Line Placement INDICATIONS: NG tube placement verification TECHNIQUE: One view of the chest was acquired. COMPARISON: 12/06/2019 FINDINGS: Surgical changes and devices: NG tube tip is in left upper quadrant abdomen below the left hemidiaphr agm and is in the expected location of stomach lumen. A right-sided central venous catheter tip is in SVC.. Lungs and pleura: No gross pneumothorax. Trace bilateral pleural effusion is seen. There is pulmonary vascular congestion and pulmonary edema. Underlying small patchy pulmonary infiltrates cannot be exc luded. Mediastinum: Mediastinal contours appear normal. Heart size is enlarged. Bones and chest wall: No suspicious bony lesions. Overlying soft tissues appear unremarkable. IMPRESSION: NG tube tip is below the left hemidiaphragm and is in the expected location of stomach lumen. Persistent pulmonary vascular congestion and pulmonary edema, cannot rule out underlying bilateral pa tchy infiltrates. Reviewed by: Sam Freeman MD on 12/07/2019 4:54 PM PDT Approved by: Sam Freeman MD on 12/07/2019 4:54 PM PDT Station ID: [id number]
[2019-12-07] MEDS ORDERED: POTASSIUM CHLORIDE IV SCH (17:00)
[2019-12-07] MEDS ORDERED: KCL IV SCH (17:00)
[2019-12-07] MEDS ORDERED: D5NS W IV SCH (17:00)
--- NOTE | 2019-12-07 17:17 | Discharge Plan ---
Discharge Plan Problem Reviewed?: Yes Disposition: 02 Transfer Acute Care Hosp Condition: Critical No Smoking: If you smoke, Please STOP! Call for help. Follow-up with: SHREYAS POZO MD [Primary Care Provider] -
[2019-12-07 20:08] VITALS: BP 132/94
[2019-12-08] MEDS ORDERED: LACTULOSE 10 GM/15 ML BOTTLE PO SCH (09:00)
== END 2019-12-07 19:47 | disposition short-term general hospital (02) | DRG 70 ==
LOC: EDUNIT# → ED 15:53 → ICU 19:42
PROVIDERS: ADMIT Internal Medicine; ATTEND Specialist
PROC: 02HV33Z Insertion of Infusion Device into Superior Vena Cava, Percutaneous Approach (ICD-10-PCS; principal; 2019-12-02)
PROC: 0W9G3ZX Drainage of Peritoneal Cavity, Percutaneous Approach, Diagnostic (ICD-10-PCS; 2019-12-02)
PROC: 5A1945Z Respiratory Ventilation, 24-96 Consecutive Hours (ICD-10-PCS; 2019-12-02)
PROC: 0BH17EZ Insertion of Endotracheal Airway into Trachea, Via Natural or Artificial Opening (ICD-10-PCS; 2019-12-02)
PROC: 0T9B70Z Drainage of Bladder with Drainage Device, Via Natural or Artificial Opening (ICD-10-PCS; 2019-12-02)
PROC: 0D9670Z Drainage of Stomach with Drainage Device, Via Natural or Artificial Opening (ICD-10-PCS; 2019-12-02)
PROC: 30233N1 Transfusion of Nonautologous Red Blood Cells into Peripheral Vein, Percutaneous Approach (ICD-10-PCS; 2019-12-04)
DX: G93.41 Metabolic encephalopathy (principal); J96.01 Acute respiratory failure with hypoxia; K76.7 Hepatorenal syndrome; I85.01 Esophageal varices with bleeding; R65.10 Systemic inflammatory response syndrome (SIRS) of non-infectious origin without acute organ dysfunction; I13.0 Hypertensive heart and chronic kidney disease with heart failure and stage 1 through stage 4 chronic kidney disease, or unspecified chronic kidney disease; N17.9 Acute kidney failure, unspecified; B19.10 Unspecified viral hepatitis B without hepatic coma; R78.81 Bacteremia; K72.90 Hepatic failure, unspecified without coma; K70.31 Alcoholic cirrhosis of liver with ascites; K42.9 Umbilical hernia without obstruction or gangrene; B18.2 Chronic viral hepatitis C; B95.62 Methicillin resistant Staphylococcus aureus infection as the cause of diseases classified elsewhere; I50.813 Acute on chronic right heart failure; I27.20 Pulmonary hypertension, unspecified; I05.0 Rheumatic mitral stenosis; R79.89 Other specified abnormal findings of blood chemistry; E03.9 Hypothyroidism, unspecified; N18.3 Chronic kidney disease, stage 3 (moderate); D69.6 Thrombocytopenia, unspecified; D50.0 Iron deficiency anemia secondary to blood loss (chronic); D69.59 Other secondary thrombocytopenia; Z11.59 Encounter for screening for other viral diseases; Z78.1 Physical restraint status; Z79.890 Hormone replacement therapy; Z87.898 Personal history of other specified conditions; Z96.89 Presence of other specified functional implants
CPT/HCPCS: 36415; 36556; 49082; 51702; 70450; 71045; 74176; 80048; 80053; 80076; 80202; 80306; 80320; 81001; 82040; 82140; 82803; 83605; 83690; 83735; 83880; 84100; 84134; 84484; 85025; 85610; 85730; 86850; 86870; 86900; 86901; 86922; 87040; 87070; 87077; 87150; 87181; 87205; 87635; 93306; 94002; 94003; 96365; 96366; 96368; 96375; 99291; A9270; J3370; J3490; P9040; P9047; 81003; 87086; 94770